=== PATIENT | male | born 1935 | race Caucasian/White ===

== ENCOUNTER → 2017-01-03 | Outpatient (CLI) | payer MEDICARE ==
--- NOTE | 2017-01-03 10:22 | XR ---
EXAMINATION TYPE: XR bone survey complete DATE OF EXAM: 01/03/2017 COMPARISON: 01/01/2014 HISTORY: 81-year-old male hyperlipidemia, CAD, monoclonal gammopathy. TECHNIQUE: 17 views. FINDINGS: Bony calvarium : 2 views of the bony calvarium no suspicious punched-out lytic lesion. CHEST: Median sternotomy wires with post-CABG changes. Lungs and pleural spaces are clear. No discret e rib lesion seen. Spine: Cervical spine with trace grade 1 anterolisthesis at C4-C5. Facet and uncovertebral joint arth ropathy. No suspicious lytic lesion. Bilateral carotid bulb calcifications noted. Thoracic spine with mild endplate spondylosis but preserved alignment. The vertebral body heights are maintained. Lumbar spine with hypertrophic facet arthropathy and mild multilevel endplate spondylosis. No vertebral com pression collapse. Atherosclerotic calcifications within the abdominal aorta which has a caliber up t o 2.3 cm. PELVIS: Single view of the pelvis demonstrates mild degenerative change at both hips with axial joint space narrowing. Vascular calcifications. No suspicious lytic lesion. UPPER EXTREMITIES: Two views of the humeri show old healed surgical neck fracture deformity. No suspi cious lytic lesion. LOWER EXTREMITIES: No suspicious lytic lesion. IMPRESSION: No suspicious lytic lesion to suggest multiple myeloma.
== END ==
LOC: RADXRMAIN 08:52
PROVIDERS: ATTEND Internal Medicine Hematology & Oncology
DX: D47.2 Monoclonal gammopathy (principal); N18.9 Chronic kidney disease, unspecified; E78.5 Hyperlipidemia, unspecified; I25.10 Atherosclerotic heart disease of native coronary artery without angina pectoris
CPT/HCPCS: 77075

== ENCOUNTER → 2017-02-11 | Outpatient (CLI) | payer MEDICARE ==
--- NOTE | 2017-02-12 08:08 | PE ---
EXAMINATION TYPE: PET CT fusion whole body DATE OF EXAM: 02/11/2017 COMPARISON: Complete bone survey January 03, 2017 HISTORY: Multiple myeloma TECHNIQUE: Following the intravenous administration of 15.5 mCi of F-18 FDG, whole body images are p erformed from the top of skull to the bottom of feet. Images are reviewed on the computer in the cor onal, axial, and sagittal planes. Reconstructed rotating images are created on independent workstati on and reviewed on the computer. A localization and attenuation correction CT is performed in conju nction with the PET scan. SCAN: Initial Scan FINDINGS: HEAD AND NECK: No suspicious hypermetabolic uptake is identified. CHEST, MEDIASTINUM, AND HILAR REGION: No suspicious hypermetabolic uptake is identified in the thorax . ABDOMEN AND PELVIS: No suspicious hypermetabolic uptake is seen in the abdomen or pelvis. OSSEOUS STRUCTURES: No suspicious hypermetabolic uptake is identified in osseous structures with zakia esponding lucent lesion. LOWER EXTREMITIES: No suspicious hypermetabolic uptake is present. OTHER CT: Scleral calcification both globes is present. There is fairly severe calcified plaque at bilateral carotid bulbs. Advise carotid ultrasound follow- up to further assess. Three-vessel coronary artery calcification is present which is noted marker for coronary artery disea se. Post CABG changes however are present with sternal wires and mediastinal clips seen. Heart size i s mildly enlarged. Small degree of bilateral gynecomastia is noted. There is fairly moderate to severe calcified plaque in the abdominal aorta extending into branch vess els. There is multilevel facet arthropathy in the lower lumbar spine. There is multilevel spurring through out the spine. Prostate gland is enlarged in size bulging on bladder base, underlying BPH is felt present. There is mild wall thickening of the bladder this is likely product of outlet obstruction related to enlarged prostate gland. Clinical confirmation recommended. There is suspected moderate to large sized right scrotal fluid collection or hydrocele. There is fairly moderate to severe diffuse calcified arterial plaque in bilateral lower extremities. Hallux valgus deformities are present bilaterally. IMPRESSION: 1. No definitive lytic and/or hypermetabolic lesions identified to suggest active multiple myeloma. 2. Severe calcified plaque bilateral carotid bulbs in patient with known coronary artery and peripher al vascular disease, consider carotid ultrasound follow-up to assess for possible significant stenosi s.
== END | disposition home or self-care (01) ==
LOC: RADPETMAIN 15:26
PROVIDERS: ATTEND Internal Medicine Hematology & Oncology
DX: C90.00 Multiple myeloma not having achieved remission (principal)
CPT/HCPCS: 78816; A9552

== ENCOUNTER 2017-12-19 05:46 | Day surgery (SDC) | payer MEDICARE ==
[2017-12-15 09:37] VITALS: BMI 25.8
[~2017-12-19 05:46] MED LIST: LACTATED RINGERS 1,000 ML IV SCH
[2017-12-19 06:13] VITALS: RESP 16; TEMP 97.8
[2017-12-19] MEDS ORDERED: LIDOCAINE 1% 20 ML VIAL (10MG/ML) FOR IV START INTRADERMA ONE (06:26)
[2017-12-19 06:27] LABS: Glucose,Whole Blood 98 mg/dL (75-99)
[2017-12-19] MEDS ORDERED: PROPOFOL 10 MG/ML 20 ML VIAL IV ONE (07:02)
[2017-12-19] MEDS ORDERED: LIDOCAINE 1% INJ 10MG/ML (20 ML MDV) ONE (07:02)
[2017-12-19 07:59] LABS: Basophils # (A) 0.1 k/uL (0-0.2); Basophils % (A) 1 %; Eosinophils # (A) 0.1 k/uL (0-0.7); Eosinophils % (A) 2 %; HCT 39.4 % (39.0-53.0); HGB 13.2 gm/dL (13.0-17.5); Lymphocytes # (A) 1.6 k/uL (1.0-4.8); Lymphocytes % (A) 25 %; MCH 29.9 pg (25.0-35.0); MCHC 33.4 g/dL (31.0-37.0); MCV 89.4 fL (80.0-100.0); Mean Platelet Volume 7.6; Monocytes # (A) 0.5 k/uL (0-1.0); Monocytes % (A) 7 %; Neutrophils # (A) 4.2 k/uL (1.3-7.7); Neutrophils % (A) 63 %; Platelet Count 244 k/uL (150-450); RDW 13.1 % (11.5-15.5); WBC 6.6 k/uL (3.8-10.6)
[2017-12-19 08:06] VITALS: BP 131/55; PULSE 58
--- NOTE | 2017-12-19 08:25 | PCN ---
PROCEDURE NOTE DATE OF SERVICE: 12/19/2017 PROCEDURE: Bone marrow aspirate and biopsy. INDICATION: Monoclonal gammopathy After obtaining consent from the patient, the procedure was performed in the endoscopy suite under general anesthesia performed by the anesthesia team. The patient was put in the left lateral decubitus position. Right posterior superior iliac crest was localized. Skin was cleaned with ChloraPrep. All sterile procedures were followed and 2 mL of 2% Xylocaine was used for local anesthetic. Monoject needle was inserted, about 10 mL of aspirate and a 2 cm biopsy was obtained without any difficulties. Pressure applied afterwards. There was negligible blood loss. Patient tolerated the procedure very well without any immediate complications. MMODL / IJN: [id number] /
== END 2017-12-19 08:27 | disposition home or self-care (01) ==
LOC: OR 05:46
PROVIDERS: ATTEND Internal Medicine Hematology & Oncology
DX: D47.2 Monoclonal gammopathy (principal); I25.10 Atherosclerotic heart disease of native coronary artery without angina pectoris; I10 Essential (primary) hypertension; E78.5 Hyperlipidemia, unspecified; E11.9 Type 2 diabetes mellitus without complications; E07.9 Disorder of thyroid, unspecified; Z95.1 Presence of aortocoronary bypass graft; Z79.4 Long term (current) use of insulin; Z79.899 Other long term (current) drug therapy
CPT/HCPCS: 38221; 85025; J2001; J2704

== ENCOUNTER 2019-01-13 13:17 | Emergency (ER) | payer MEDICARE ==
[2019-01-13 13:24] VITALS: TEMP 98.3
--- NOTE | 2019-01-13 14:16 | ED ---
Fall HPI - General Chief Complaint: Fall Stated Complaint: Fall Time Seen by Provider: 01/13/19 13:40 Source: patient, family, EMS, RN notes reviewed Mode of arrival: EMS - History of Present Illness Initial Comments: This is an 86-year-old male who was found by his to be radiating to his doorbell on his front porch after apparently falling off of a ladder. He does not recall the event be on a ladder how he maybe got there or falling. He complains some pain to his neck and some pain to his right elbow right hip and right leg. No fevers chills nausea vomiting sweats he does remember who he has who is family has his birthdate even the area the weekend day. He is not recall this event. Per family his mentation appears be back to normal. He denies any chest pain or palpitations he believes his last tetanus shot was 2 years ago. MD Complaint: fall - Related Data Home Medications Medication Instructions Recorded Confirmed Aspirin EC [Ecotrin] 325 mg PO DAILY 12/15/17 01/13/19 Insulin Glulisine [Apidra] 0 unit SQ AC-TID 12/15/17 01/13/19 Isosorbide Mononitrate ER [Imdur] 30 mg PO DAILY 12/15/17 01/13/19 Levothyroxine Sodium [Levoxyl] 112 mcg PO DAILY 12/15/17 01/13/19 Metoprolol Succinate [Toprol XL] 25 mg PO DAILY 12/15/17 01/13/19 Pravastatin Sodium [Pravachol] 40 mg PO DAILY 12/15/17 01/13/19 amLODIPine [Norvasc] 10 mg PO DAILY 12/15/17 01/13/19 Ferrous Sulfate [Iron (65 MG 325 mg PO DAILY 01/13/19 01/13/19 Elemental)] Insulin Glargine [Lantus] 22 unit SQ HS 01/13/19 01/13/19 Insulin Glargine [Lantus] 26 unit SQ AC-BRKFST 01/13/19 01/13/19 Omeprazole 20 mg PO DAILY PRN 01/13/19 01/13/19 Allergies Allergy/AdvReac Type Severity Reaction Status Date / Time No Known Allergies Allergy Verified 01/13/19 13:36 Review of Systems ROS Statement: Those systems with pertinent positive or pertinent negative responses have been documented in the HPI. ROS Other: All systems not noted in ROS Statement are negative. Limitations: ROS unobtainable due to patients medical condition Past Medical History Past Medical History: Diabetes Mellitus, GERD/Reflux, Hyperlipidemia, Hypertension, Osteoarthritis (OA), Renal Disease, Thyroid Disorder History of Any Multi-Drug Resistant Organisms: None Reported Past Surgical History: Coronary Bypass/CABG, Hernia Repair Additional Past Surgical History / Comment(s): triple bypass, mastoid Past Anesthesia/Blood Transfusion Reactions: No Reported Reaction Past Psychological History: No Psychological Hx Reported Smoking Status: Former smoker Past Alcohol Use History: None Reported Past Drug Use History: None Reported - Past Family History Mother Family Medical History: No Reported History General Exam - General Exam Comments Initial Comments: This is a well-developed well-nourished awake alert lady 1 male [place] Coma Scale currently is 15 Limitations: no limitations General appearance: alert, in no apparent distress Head exam: Present: atraumatic, normocephalic, normal inspection Eye exam: Present: normal appearance, PERRL, EOMI. Absent: scleral icterus, conjunctival injection, periorbital swelling ENT exam: Present: normal exam, mucous membranes moist Neck exam: Present: normal inspection, other (Cervical collar present some mild tenderness palpation of the right posterior neck no midline tenderness above or crepitation). Absent: tenderness, meningismus, lymphadenopathy Respiratory exam: Present: normal lung sounds bilaterally, chest wall tenderness (Tender right-sided chest wall without step-off or crepitation). Absent: respiratory distress, wheezes, rales, rhonchi, stridor Cardiovascular Exam: Present: regular rate, normal rhythm, normal heart sounds. Absent: systolic murmur, diastolic murmur, rubs, gallop, clicks GI/Abdominal exam: Present: soft, tenderness (Some right flank tenderness palpation), normal bowel sounds. Absent: distended, guarding, rebound, rigid Rectal exam: Present: deferred Extremities exam: Present: full ROM, normal capillary refill, other (Abrasion seen over the right lateral knee right lateral elbow and forearm tenderness palpation of the right shoulder posterior aspect. Minimal evidence for abrasi on). Absent: tenderness, pedal edema, joint swelling, calf tenderness Back exam: Present: normal inspection, full ROM Neurological exam: Present: alert, oriented X3, CN II-XII intact, other (No memory of the incident) Psychiatric exam: Present: normal affect, normal mood Skin exam: Present: warm, dry, normal color. Absent: intact, rash Course Vital Signs 01/13/19 01/13/19 13:18 15:14 Temperature 98.3 F Pulse Rate 69 62 Respiratory 20 18 Rate Blood Pressure 157/61 146/62 O2 Sat by Pulse 98 97 Oximetry - Reevaluation(s) Reevaluation #1: 01/13/19 16:16 Evaluation patient reveals no changes male says he remains awake alert oriented 3 Medical Decision Making - Medical Decision Making I did discuss findings with the patient and multiple family members able actively be transferred to [facility] in [place] I did discuss the case with Dr. Palacios who is agreed to set the patient transfer. Patient is stable at this time. - Lab Data Result diagrams: 01/13/19 14:20 01/13/19 14:18 Lab Results 01/13/19 01/13/19 01/13/19 Range/Units 14:18 14:18 14:18 WBC (3.8-10.6) k/uL RBC (4.30-5.90) m/uL Hgb (13.0-17.5) gm/dL Hct (39.0-53.0) % MCV (80.0-100.0) fL MCH (25.0-35.0) pg MCHC (31.0-37.0) g/dL RDW (11.5-15.5) % Plt Count (150-450) k/uL Neutrophils % % Lymphocytes % % Monocytes % % Eosinophils % % Basophils % % Neutrophils # (1.3-7.7) k/uL Lymphocytes # (1.0-4.8) k/uL Monocytes # (0-1.0) k/uL Eosinophils # (0-0.7) k/uL Basophils # (0-0.2) k/uL PT 10.5 (9.0-12.0) sec INR 1.0 (<1.2) APTT 23.7 (22.0-30.0) sec Sodium 136 L (137-145) mmol/L Potassium 4.0 (3.5-5.1) mmol/L Chloride 103 (98-107) mmol/L Carbon Dioxide 25 (22-30) mmol/L Anion Gap 8 mmol/L BUN 34 H (9-20) mg/dL Creatinine 1.59 H (0.66-1.25) mg/dL Est GFR (CKD-EPI)AfAm 45 (>60 ml/min/1.73 sqM) Est GFR (CKD-EPI)NonAf 39 (>60 ml/min/1.73 sqM) Glucose 181 H (74-99) mg/dL Calcium 8.7 (8.4-10.2) mg/dL Total Bilirubin 0.4 (0.2-1.3) mg/dL AST 161 H (17-59) U/L ALT 120 H (21-72) U/L Alkaline Phosphatase 113 (38-126) U/L Creatine Kinase 271 H (55-170) U/L Troponin I <0.012 (0.000-0.034) ng/mL Total Protein 6.3 (6.3-8.2) g/dL Albumin 3.6 (3.5-5.0) g/dL Serum Alcohol <10 mg/dL Blood Type Blood Type Recheck Antibody Screen Spec Expiration Date 01/13/19 01/13/19 Range/Units 14:18 14:20 WBC 14.4 H (3.8-10.6) k/uL RBC 4.32 (4.30-5.90) m/uL Hgb 13.0 (13.0-17.5) gm/dL Hct 38.2 L (39.0-53.0) % MCV 88.4 (80.0-100.0) fL MCH 30.1 (25.0-35.0) pg MCHC 34.1 (31.0-37.0) g/dL RDW 13.5 (11.5-15.5) % Plt Count 230 (150-450) k/uL Neutrophils % 85 % Lymphocytes % 7 % Monocytes % 6 % Eosinophils % 0 % Basophils % 0 % Neutrophils # 12.2 H (1.3-7.7) k/uL Lymphocytes # 1.1 (1.0-4.8) k/uL Monocytes # 0.9 (0-1.0) k/uL Eosinophils # 0.1 (0-0.7) k/uL Basophils # 0.0 (0-0.2) k/uL PT (9.0-12.0) sec INR (<1.2) APTT (22.0-30.0) sec Sodium (137-145) mmol/L Potassium (3.5-5.1) mmol/L Chloride (98-107) mmol/L Carbon Dioxide (22-30) mmol/L Anion Gap mmol/L BUN (9-20) mg/dL Creatinine (0.66-1.25) mg/dL Est GFR (CKD-EPI)AfAm (>60 ml/min/1.73 sqM) Est GFR (CKD-EPI)NonAf (>60 ml/min/1.73 sqM) Glucose (74-99) mg/dL Calcium (8.4-10.2) mg/dL Total Bilirubin (0.2-1.3) mg/dL AST (17-59) U/L ALT (21-72) U/L Alkaline Phosphatase (38-126) U/L Creatine Kinase (55-170) U/L Troponin I (0.000-0.034) ng/mL Total Protein (6.3-8.2) g/dL Albumin (3.5-5.0) g/dL Serum Alcohol mg/dL Blood Type O Negative Blood Type Recheck No Antibody Screen NEGATIVE Spec Expiration Date 01/16/2019 8624 - EKG Data -: EKG Interpreted by Me (EKG shows sinus rhythm a 65 NH interval 250 to QRS duration 100 QT since QT) - Radiology Data Radiology results: report reviewed (I did review the imaging and report on x-ray there is a evidence of a approximately 10% pneumothorax on the right I did discuss this with radiologist CAT scan of the brain and C-spine chest abdomen pelvis reveals in the brain multiple foci of acute subarachnoid bleeding minimal amount of acute interventricular bleeding noted. No mass effect. No skull fracture noted. CAT scan of the chest shows evidence of pneumothorax posterior -15%. Rib fractures #3 is fractured. Evidence of compression fractures at T11 and L3. This is likely old. Also old rib fractures on the left side. No other remarkable findings.), image reviewed Critical Care Time Critical Care Time: Yes Critical Care Time: 39 minutes of critical care time which includes initial presentation with history physical labs x-rays multiple reevaluation the patient multiple discussions with the patient family members discussion with the receiving facility staff discussion with the EMS personnel documentation the above. Disposition Clinical Impression: Fall, Subarachnoid hemorrhage, Concussion, Pneumothorax on right, Multiple rib fractures, Multiple abrasions Disposition: OTHER INSTITUTION NOT DEFINED Condition: Serious Referrals: Ag Burns MD [Primary Care Provider] - 1-2 days - Out of Hospital Transfer - Req. Specs Out of Hospital Transfer - Requested Specifics: Other Emergency Center
[2019-01-13 14:33] LABS: Basophils % (A) 0 %; Eosinophils # (A) 0.1 k/uL (0-0.7); Eosinophils % (A) 0 %; HCT 38.2 % (39.0-53.0); Lymphocytes # (A) 1.1 k/uL (1.0-4.8); Lymphocytes % (A) 7 %; MCH 30.1 pg (25.0-35.0); MCHC 34.1 g/dL (31.0-37.0); MCV 88.4 fL (80.0-100.0); Mean Platelet Volume 6.9; Monocytes # (A) 0.9 k/uL (0-1.0); Monocytes % (A) 6 %; Neutrophils # (A) 12.2 k/uL (1.3-7.7); Neutrophils % (A) 85 %; Platelet Count 230 k/uL (150-450); RBC 4.32 m/uL (4.30-5.90); RDW 13.5 % (11.5-15.5); WBC 14.4 k/uL (3.8-10.6)
[2019-01-13] MEDS ORDERED: SODIUM CHLORIDE 0.9% 1,000 ML IV STA (14:34)
--- NOTE | 2019-01-13 14:37 | XR ---
EXAMINATION TYPE: XR chest 1V portable DATE OF EXAM: 01/13/2019 COMPARISON: NONE HISTORY: Fall with possible syncope. TECHNIQUE: Single frontal view of the chest is obtained. FINDINGS: There is no focal air space opacity, pleural effusion, or pulmonary vascular congestion. D ictated pneumothorax is seen without gross evidence of mediastinal shift. The cardiac silhouette size is enlarged with post CABG change. Diffuse osseous demineralization is seen. There appear to be old fracture deformities of the left mid lateral ribs. IMPRESSION: 1. Right sided pneumothorax estimated to be approximately 10% with maximum pleural upright separation of 1.7 cm at the lung apex. Finding was clinically indicated with Dr. Archibald at 1435 PM on 01/13/[address] Patterson. 2. Left rib fractures appear old however correlation with point tenderness is recommended.
[2019-01-13 14:41] LABS: ALT 120 U/L (21-72); AST 161 U/L (17-59); African American GFR (CKD) 45 (>60 ml/min/1.73 sqM); Albumin 3.6 g/dL (3.5-5.0); Alcohol <10 mg/dL; Alkaline Phosphatase 113 U/L (38-126); Anion Gap 8 mmol/L; Blood Urea Nitrogen 34 mg/dL (9-20); Calcium 8.7 mg/dL (8.4-10.2); Carbon Dioxide 25 mmol/L (22-30); Chloride 103 mmol/L (98-107); Creatine Kinase 271 U/L (55-170); Glucose 181 mg/dL (74-99); Sodium 136 mmol/L (137-145); Total Bilirubin 0.4 mg/dL (0.2-1.3); Total Protein 6.3 g/dL (6.3-8.2)
[2019-01-13 14:44] LABS: Partial Thromboplastin Time 23.7 sec (22.0-30.0); Prothrombin Time 10.5 sec (9.0-12.0)
[2019-01-13] MEDS ORDERED: HYDROmorphone 0.5 MG/0.5 ML SYRINGE IVP STA (15:00)
--- NOTE | 2019-01-13 15:07 | CT ---
EXAMINATION TYPE: CT brain cspine wo con DATE OF EXAM: 01/13/2019 COMPARISON: Chest x-ray of the same date HISTORY: Possible fall injury, confusion. Head and neck pain. CT DLP: 1321.6 mGycm. Automated Exposure Control for Dose Reduction was Utilized. TECHNIQUE: CT scan of the head and cervical spine are performed without contrast. FINDINGS: There are multiple foci of acute subarachnoid hemorrhage. There is also 8 small amount of i ntraventricular hemorrhage lying dependently within the right lateral ventricle. No subdural hemorrha ge is identified. No intraparenchymal hemorrhage is seen. Peripheral sulci and ventricular prominence are compatible with age-related volume loss. Scattered patchy foci of hypoattenuation within the per iventricular and subcortical white matter relate to nonspecific white matter change, most commonly on the basis of microangiopathy. Scleral calcifications are incidentally seen. Globes appear intact. Ca lvarium also appears intact. Paranasal sinuses appear well aerated. Postsurgical change of the right mastoid air cells is noted. Moderate multilevel degenerative disc disease of the cervical spine is seen. There is degenerative na rrowing of the atlantodental interval. There is straightening of usual cervical lordosis likely due t o patient positioning. Small posterior disc ossify complexes seen at C4-C5. No prevertebral soft tiss ue swelling is evident. No acute fracture is seen of the cervical spine or dislocation. The partially visualized right-sided pneumothorax was communicated with the ER from the chest x-ray and will be di scussed on the CT thorax of the same date. Incidental noted atherosclerosis of the carotid arteries. IMPRESSION: 1. Multiple foci of acute subarachnoid hemorrhage and minimal amount of acute intraventricular hemorr gerardo. Findings can indicate with the ordering ER physician at 1503 on 01/13/[address] Patterson. 2. No focal spine fracture or malalignment.
--- NOTE | 2019-01-13 15:14 | CT ---
EXAMINATION TYPE: CT ChestAbdPelvis w con DATE OF EXAM: 01/13/2019 COMPARISON: Chest x-ray of the same date HISTORY: Possible fall injury. Confusion CT DLP: 833.4 mGycm. Automated Exposure Control for Dose Reduction was Utilized. CONTRAST: CT scan of the thorax, abdomen and pelvis is performed with IV Contrast, patient injected with 80 mL of Isovue 300. FINDINGS: LUNGS: There is a right-sided pneumothorax estimated at approximately 15-20% without appreciable medi astinal shift. Multifocal atelectasis is seen within the right lung. Multifocal atelectasis is also s cattered dependently within the left lung. No left-sided pneumothorax is seen. Subcutaneous emphysema is mild along the anterior lateral chest wall. MEDIASTINUM: Severe coronary artery calcifications are present. Heart is mildly enlarged. No pericard ial effusion. No gross evidence of mediastinal adenopathy. There are some nonspecific mediastinal flu id in the pericardial recess. No evidence of contrast extravasation from the aorta. OTHER: There are nondisplaced rib fractures of posterior rib 2 on the right, lateral rib 4 on the rig ht, lateral rib 5 and 6 on the right, lateral rib 5 on the left and 6 on the left. Left rib fractures are possibly subacute and right rib fractures appear acute. There is a compression deformity of the L3 vertebral body and of the T11 vertebral body. There is minimal retropulsion of the T11 vertebral b celeste of 1-2 mm. Sternotomy wires are seen. Mild multilevel degenerative changes of the spine are noted . Compression deformities are less than 50% vertebral body height loss. LIVER/GB: Nonspecific subcentimeter solitary hepatic lesion is seen within the right hepatic lobe pos teriorly on image 50. There is limited evaluation of the liver as the patient's arms are at the patie nt's side. Questionable differential lesions in the anterior and posterior inferior right hepatic lob e in segment IVb and 6 on image 58 although subtle. No cholelithiasis. PANCREAS: No significant abnormality is seen. SPLEEN: No significant abnormality is seen. ADRENALS: No significant abnormality is seen. KIDNEYS: Kidneys enhance symmetrically without perinephric fluid collection. BOWEL: No dilated large or small bowel is seen. There is a very small hiatal hernia. GENITAL ORGANS: Prostate gland is enlarged and heterogenous. LYMPH NODES: No greater than 1cm abdominal or pelvic lymph nodes are appreciated. OSSEOUS STRUCTURES: No significant abnormality is seen. OTHER: There is extensive atherosclerosis of the abdominal aorta and its branches with chronic dissec tion that is calcified of the infrarenal abdominal aorta. 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 IMPRESSION: 1. Right-sided pneumothorax (known to the ER) estimated approximately 15-20% without current mediasti nal shift. 2. Multiple bilateral rib fractures appear acute on the right and subacute to chronic on the left. 3. No evidence of visceral injury in the abdomen or pelvis. 4. Age indeterminant compression deformities of T11 and L3. Correlate for point tenderness.
[2019-01-13 15:15] VITALS: RESP 18
[2019-01-13 16:37] VITALS: BP 145/67; PULSE 63
[2019-01-13] MEDS ORDERED: HYDROmorphone 1 MG/ML 1 ML SYRINGE IVP STA (16:38)
== END 2019-01-13 16:50 | disposition short-term general hospital (02) ==
LOC: EC 13:17
DX: S27.0XXA Traumatic pneumothorax, initial encounter (principal); S06.6X9A Traumatic subarachnoid hemorrhage with loss of consciousness of unspecified duration, initial encounter; S22.43XA Multiple fractures of ribs, bilateral, initial encounter for closed fracture; S80.211A Abrasion, right knee, initial encounter; S50.311A Abrasion of right elbow, initial encounter; S40.211A Abrasion of right shoulder, initial encounter; R40.2412 Glasgow coma scale score 13-15, at arrival to emergency department; M25.551 Pain in right hip; M54.2 Cervicalgia; E11.9 Type 2 diabetes mellitus without complications; E78.5 Hyperlipidemia, unspecified; I10 Essential (primary) hypertension; M19.90 Unspecified osteoarthritis, unspecified site; E07.9 Disorder of thyroid, unspecified; Z87.891 Personal history of nicotine dependence; Z79.4 Long term (current) use of insulin; Z79.82 Long term (current) use of aspirin; Z79.890 Hormone replacement therapy; Z79.899 Other long term (current) drug therapy; Z95.1 Presence of aortocoronary bypass graft; W11.XXXA Fall on and from ladder, initial encounter; Y92.89 Other specified places as the place of occurrence of the external cause
CPT/HCPCS: 99291; 96374; 96376; 96361; 36415; 93005; 86900; 86901; 80053; 82550; 84484; 85025; 85610; 85730; 86850; 71045; 72125; 70450; 71260; 74177; G0480; J1170 ×2; Q9967; 80320

== ENCOUNTER 2019-02-27 10:49 | Day surgery (SDC) | payer MEDICARE ==
[2019-02-22 10:06] VITALS: BMI 24.3
[~2019-02-27 10:49] MED LIST changes: -LACTATED RINGERS 1,000 ML IV SCH; +SODIUM CHLORIDE 0.9% 1,000 ML IV SCH
[2019-02-27] MEDS ORDERED: LIDOCAINE 1% INJ 10MG/ML (20 ML MDV) ONE (11:59)
[2019-02-27 12:00] VITALS: TEMP 98.2
[2019-02-27] MEDS ORDERED: SODIUM CHLORIDE 0.9% 1,000 ML IV ONE (12:00)
[2019-02-27 12:15] LABS: Glucose,Whole Blood 146 mg/dL (75-99)
[2019-02-27] MEDS ORDERED: fentaNYL (PF) 50 MCG/ML 2 ML AMP ONE (12:30)
[2019-02-27] MEDS ORDERED: LIDOCAINE 1% INJ 10MG/ML (20 ML MDV) SQ ONE (12:33)
[2019-02-27] MEDS ORDERED: fentaNYL (PF) 50 MCG/ML 2 ML AMP IVP ONE (12:33)
[2019-02-27] MEDS ORDERED: MIDAZOLAM (PF) 2 MG/2 ML VIAL IVP ONE (12:33)
[2019-02-27] MEDS ORDERED: ceFAZolin 1,000 MG VIAL IV ONE (12:33)
[2019-02-27] MEDS ORDERED: ACETAMINOPHEN TAB 325 MG TAB PO PRN (12:43)
--- NOTE | 2019-02-27 12:50 | P.PCN ---
Date of Procedure: 02/27/19 Preoperative Diagnosis: An unexplained syncope Postoperative Diagnosis: The same Implants: Loop recorder insertion Description of Procedure: This 83-year-old gentleman was referred for loop recorder insertion because of unexplained recurrent syncopes. Patient was brought to the lab in a fasting state. He was prepped and draped in the usual fashion. The skin in the left third intercostal space was infiltrated with lidocaine. An incision was made in the skin. The loop recorder was inserted in the usual fashion without any difficulty. Patient tolerated the procedure well. Final impression: Successful implantation of loop recorder. Loop recorder is programmed to the standard set up. Plan: Patient be discharged home in 2 hours. Follow-up in the office in about one week
[2019-02-27 17:05] VITALS: RESP 16
[2019-02-27 17:12] VITALS: BP 146/87; PULSE 65
== END 2019-02-27 13:25 | disposition home or self-care (01) ==
LOC: CATHEP 10:49
PROVIDERS: ATTEND Internal Medicine Cardiovascular Disease
DX: R55 Syncope and collapse (principal); I65.23 Occlusion and stenosis of bilateral carotid arteries; I25.10 Atherosclerotic heart disease of native coronary artery without angina pectoris; E78.5 Hyperlipidemia, unspecified; E11.51 Type 2 diabetes mellitus with diabetic peripheral angiopathy without gangrene; E78.2 Mixed hyperlipidemia; E11.22 Type 2 diabetes mellitus with diabetic chronic kidney disease; I12.9 Hypertensive chronic kidney disease with stage 1 through stage 4 chronic kidney disease, or unspecified chronic kidney disease; N18.9 Chronic kidney disease, unspecified; Z95.1 Presence of aortocoronary bypass graft; Z79.82 Long term (current) use of aspirin; Z79.02 Long term (current) use of antithrombotics/antiplatelets; Z79.899 Other long term (current) drug therapy; Z79.4 Long term (current) use of insulin
CPT/HCPCS: 33285; C1764; J0690; J2001; J3010; J2250

== ENCOUNTER 2021-10-21 17:08 | Observation (INO) | payer MEDICARE ==
[2021-10-21 17:46] LABS: Basophils % (A) 1 %; Eosinophils # (A) 0.1 k/uL (0-0.7); Eosinophils % (A) 1 %; HCT 38.5 % (39.0-53.0); HGB 12.5 gm/dL (13.0-17.5); Lymphocytes # (A) 1.8 k/uL (1.0-4.8); Lymphocytes % (A) 22 %; MCH 30.4 pg (25.0-35.0); MCHC 32.4 g/dL (31.0-37.0); MCV 93.8 fL (80.0-100.0); Mean Platelet Volume 8.7; Monocytes # (A) 0.5 k/uL (0-1.0); Monocytes % (A) 6 %; Neutrophils # (A) 5.8 k/uL (1.3-7.7); Neutrophils % (A) 69 %; Platelet Count 197 k/uL (150-450); RDW 14.1 % (11.5-15.5); WBC 8.4 k/uL (3.8-10.6)
[2021-10-21 17:55] LABS: Albumin 3.8 g/dL (3.5-5.0); Calcium 8.5 mg/dL (8.4-10.2); Potassium 4.4 mmol/L (3.5-5.1); Total Bilirubin 0.8 mg/dL (0.2-1.3); Total Protein 6.4 g/dL (6.3-8.2)
[2021-10-21 18:03] LABS: INR 1.1 (<1.2); Prothrombin Time 11.5 sec (9.0-12.0)
--- NOTE | 2021-10-21 18:04 | XR ---
EXAMINATION TYPE: XR chest 2V DATE OF EXAM: 10/21/2021 5:39 PM COMPARISON: Chest radiographs from 01/13/2019 TECHNIQUE: XR chest 2V Frontal and lateral views of the chest. CLINICAL INDICATION:Male, 85 years old with history of shortness of breath; FINDINGS: Lungs/Pleura: There is blunting of the costophrenic angles. No evidence of pneumothorax or focal cons olidation. Pulmonary vascularity: Pulmonary vascular congestion. Heart/mediastinum: Cardiomediastinal silhouette is enlarged and stable. A loop recorder projects over the left thorax over the heart. Musculoskeletal: No acute osseous pathology. Midline sternotomy wires and surgical clips project over the mediastinum. IMPRESSION: Cardiomegaly, pulmonary vascular congestion and bilateral pleural effusions. Correlate with BNP for c ongestive heart failure.
--- NOTE | 2021-10-21 18:20 | ED ---
General Adult HPI - General Chief complaint: Shortness of Breath Stated complaint: Chest pain,RAIZA Time Seen by Provider: 10/21/21 17:43 Source: patient, RN notes reviewed, old records reviewed Mode of arrival: ambulatory Limitations: no limitations - History of Present Illness Initial comments: 85-year-old male presenting for evaluation of increased dyspnea and palpitations. Patient has history of coronary artery disease. He states that he had recent heart attack in [place] within the past 2 months. He states he had a heart catheterization at that time which did not show any blockage and he did not receive a stent. He is anticoagulated. He states that he's had exertional dyspnea and palpitations without pain. No cough or fever. He is a diabetic. He had open-heart surgery 20 years ago. - Related Data Home Medications Medication Instructions Recorded Confirmed Aspirin EC [Ecotrin] 162.5 mg PO DAILY 12/15/17 02/27/19 Insulin Glulisine [Apidra] 4 - 9 unit SQ AC-TID PRN 12/15/17 02/27/19 Isosorbide Mononitrate ER [Imdur] 30 mg PO DAILY 12/15/17 02/27/19 Levothyroxine Sodium [Levoxyl] 112 mcg PO DAILY 12/15/17 02/27/19 Metoprolol Succinate [Toprol XL] 25 mg PO BID@0800,1200 12/15/17 02/27/19 Pravastatin Sodium [Pravachol] 40 mg PO DAILY 12/15/17 02/27/19 Insulin Degludec [Tresiba 30 - 32 units SQ DAILY 01/13/19 02/27/19 Flextouch U-200] Omeprazole 20 mg PO DAILY PRN 01/13/19 02/27/19 amLODIPine [Norvasc] 5 mg PO BID 01/13/19 02/27/19 hydrALAZINE HCL [Apresoline] 25 mg PO TID 01/13/19 02/27/19 Ascorbic Acid [Vitamin C] 1,000 mg PO DAILY 02/22/19 02/27/19 Iron 45 mg PO DAILY 02/22/19 02/27/19 calcitrioL [Rocaltrol] 2 mcg PO SUTUTH 02/22/19 02/27/19 Cephalexin [Keflex] 500 mg PO Q8HR 02/27/19 02/27/19 Allergies Allergy/AdvReac Type Severity Reaction Status Date / Time No Known Allergies Allergy Verified 02/27/19 11:28 Review of Systems ROS Statement: Those systems with pertinent positive or pertinent negative responses have been documented in the HPI. ROS Other: All systems not noted in ROS Statement are negative. Past Medical History Past Medical History: Diabetes Mellitus, GERD/Reflux, Hyperlipidemia, Hyp ertension, Myocardial Infarction ([place]), Osteoarthritis (OA), Renal Disease, Thyroid Disorder History of Any Multi-Drug Resistant Organisms: None Reported Past Surgical History: Coronary Bypass/CABG, Heart Catheterization, Hernia Repair Additional Past Surgical History / Comment(s): triple bypass, right mastoid Past Anesthesia/Blood Transfusion Reactions: No Reported Reaction Past Psychological History: No Psychological Hx Reported Smoking Status: Never smoker Past Alcohol Use History: None Reported Past Drug Use History: None Reported - Past Family History Mother Family Medical History: No Reported History General Exam Limitations: no limitations General appearance: alert, in no apparent distress Head exam: Present: atraumatic, normocephalic Eye exam: Present: normal appearance, PERRL ENT exam: Present: normal exam Neck exam: Present: normal inspection. Absent: tenderness, meningismus Respiratory exam: Present: respiratory distress, rales, decreased breath sounds Cardiovascular Exam: Present: bradycardia, irregular rhythm GI/Abdominal exam: Present: soft. Absent: distended, tenderness, guarding Extremities exam: Present: pedal edema (trace) Neurological exam: Present: alert, oriented X3. Absent: motor sensory deficit Psychiatric exam: Present: normal affect, normal mood Skin exam: Present: warm, dry, intact. Absent: cyanosis, diaphoretic Course Vital Signs 10/21/21 17:10 Temperature 97.5 F L Pulse Rate 61 Respiratory 16 Rate Blood Pressure 158/63 O2 Sat by Pulse 94 L Oximetry EKG Findings - EKG Comments: EKG Findings:: EKG: Sinus bradycardia with frequent PVC rate of 56, MA interval 200, QRS duration 173, ST segment elevation in V1 and V2 with left bundle branch. Previous EKG does not show left bundle-branch. Medical Decision Making - Medical Decision Making 85-year-old male who presents for evaluation of increased dyspnea and palpitation. Recent heart cath for about 5 weeks ago. Patient reports that this did not reveal any blockages and did not receive any stents. He has no c hest pain. EKG shows a new left bundle branch block. His chest x-ray shows pulmonary vascular congestion and bilateral pleural effusions more significant on the left. He has a normal white blood cell count, stable hemoglobin, mild elevation in creatinine 1.46. His troponin is negative. He is given Lasix in the emergency department. Echo was ordered. I discussed case with cardiology regarding the change in EKG, Dr. Moore. Patient is anticoagulated at baseline he will be admitted for further evaluation treatment. She'll cardiac enzymes are ordered. Case discussed with Dr. Capellan. - Lab Data Result diagrams: 10/21/21 17:35 10/21/21 17:35 Lab Results 10/21/21 10/21/21 10/21/21 Range/Units 17:35 17:35 17:35 WBC 8.4 (3.8-10.6) k/uL RBC 4.10 L (4.30-5.90) m/uL Hgb 12.5 L (13.0-17.5) gm/dL Hct 38.5 L (39.0-53.0) % MCV 93.8 (80.0-100.0) fL MCH 30.4 (25.0-35.0) pg MCHC 32.4 (31.0-37.0) g/dL RDW 14.1 (11.5-15.5) % Plt Count 197 (150-450) k/uL MPV 8.7 Neutrophils % 69 % Lymphocytes % 22 % Monocytes % 6 % Eosinophils % 1 % Basophils % 1 % Neutrophils # 5.8 (1.3-7.7) k/uL Lymphocytes # 1.8 (1.0-4.8) k/uL Monocytes # 0.5 (0-1.0) k/uL Eosinophils # 0.1 (0-0.7) k/uL Basophils # 0.0 (0-0.2) k/uL PT 11.5 (9.0-12.0) sec INR 1.1 (<1.2) D-Dimer 0.90 H (<0.60) mg/L FEU Sodium 136 L (137-145) mmol/L Potassium 4.4 (3.5-5.1) mmol/L Chloride 108 H (98-107) mmol/L Carbon Dioxide 20 L (22-30) mmol/L Anion Gap 8 mmol/L BUN 44 H (9-20) mg/dL Creatinine 1.46 H (0.66-1.25) mg/dL Est GFR (CKD-EPI)AfAm 49 (>60 ml/min/1.73 sqM) Est GFR (CKD-EPI)NonAf 43 (>60 ml/min/1.73 sqM) Glucose 253 H (74-99) mg/dL Calcium 8.5 (8.4-10.2) mg/dL Total Bilirubin 0.8 (0.2-1.3) mg/dL AST 104 H (17-59) U/L ALT 104 H (4-49) U/L Alkaline Phosphatase 206 H (38-126) U/L Troponin I (0.000-0.034) ng/mL Total Protein 6.4 (6.3-8.2) g/dL Albumin 3.8 (3.5-5.0) g/dL 10/21/21 Range/Units 17:35 WBC (3.8-10.6) k/uL RBC (4.30-5.90) m/uL Hgb (13.0-17.5) gm/dL Hct (39.0-53.0) % MCV (80.0-100.0) fL MCH (25.0-35.0) pg MCHC (31.0-37.0) g/dL RDW (11.5-15.5) % Plt Count (150-450) k/uL MPV Neutrophils % % Lymphocytes % % Monocytes % % Eosinophils % % Basophils % % Neutrophils # (1.3-7.7) k/uL Lymphocytes # (1.0-4.8) k/uL Monocytes # (0-1.0) k/uL Eosinophils # (0-0.7) k/uL Basophils # (0-0.2) k/uL PT (9.0-12.0) sec INR (<1.2) D-Dimer (<0.60) mg/L FEU Sodium (137-145) mmol/L Potassium (3.5-5.1) mmol/L Chloride (98-107) mmol/L Carbon Dioxide (22-30) mmol/L Anion Gap mmol/L BUN (9-20) mg/dL Creatinine (0.66-1.25) mg/dL Est GFR (CKD-EPI)AfAm (>60 ml/min/1.73 sqM) Est GFR (CKD-EPI)NonAf (>60 ml/min/1.73 sqM) Glucose (74-99) mg/dL Calcium (8.4-10.2) mg/dL Total Bilirubin (0.2-1.3) mg/dL AST (17-59) U/L ALT (4-49) U/L Alkaline Phosphatase (38-126) U/L Troponin I 0.015 (0.000-0.034) ng/mL Total Protein (6.3-8.2) g/dL Albumin (3.5-5.0) g/dL Disposition Clinical Impression: New onset of congestive heart failure, Pleural effusion due to CHF (congestive heart failure) Disposition: ADMITTED IP TO THIS HOSP Condition: Stable Is patient prescribed a controlled substance at d/c from ED?: No Referrals: Ag Burns MD [Primary Care Provider] - 1-2 days Time of Disposition: 19:05
[2021-10-21] MEDS ORDERED: FUROSEMIDE 10 MG/ML 4 ML VIAL IV STA (18:26)
[2021-10-21] MEDS ORDERED: ACETAMINOPHEN TAB 325 MG TAB PO PRN (19:04)
[2021-10-21] MEDS ORDERED: NALOXONE 0.4 MG/ML 1 ML VIAL IV PRN (19:04)
[2021-10-21 21:35] LABS: Glucose,Whole Blood 180 mg/dL (75-99)
[2021-10-22] MEDS ORDERED: FUROSEMIDE 10 MG/ML 4 ML VIAL IV SCH (06:00)
[2021-10-22] MEDS: INSULIN ASPART (NovoLOG) 100 UNIT/ML VIAL SQ SCH ×4 (06:25→20:00)
[2021-10-22] MEDS: LEVOTHYROXINE 125 MCG TAB PO SCH (06:27)
[2021-10-22 06:50] LABS: Glucose,Whole Blood 162 mg/dL (75-99)
[2021-10-22] MEDS ORDERED: APIXABAN 5 MG TAB PO SCH (09:00)
[2021-10-22] MEDS: amLODIPine 5 MG TAB PO SCH ×2 (09:15→20:00)
[2021-10-22] MEDS: METOPROLOL SUCCINATE (ER) 100 MG TAB.ER.24H PO SCH ×2 (09:15→13:12)
[2021-10-22] MEDS: ISOSORBIDE MONONITRATE ER 30 MG TAB.ER.24H PO SCH (09:15)
[2021-10-22] MEDS: ASPIRIN 81 MG PO SCH (09:15)
[2021-10-22 11:43] LABS: Albumin 3.8 g/dL (3.5-5.0); Calcium 8.7 mg/dL (8.4-10.2); Potassium 4.1 mmol/L (3.5-5.1); Total Bilirubin 0.9 mg/dL (0.2-1.3); Total Protein 6.3 g/dL (6.3-8.2)
--- NOTE | 2021-10-22 11:48 | P.CRDCN ---
History of Present Illness History of present illness: HISTORY OF PRESENTING ILLNESS This is a pleasant 85-year-old male past medical history significant for coronary artery disease status post three-vessel CABG (ROLON-LAD, VG-D1, VG-OM1) in 2000, type 2 diabetes, hypertension, dyslipidemia, peripheral vascular disease, carotid stenosis, chronic kidney disease, ischemic cardiomyopathy, syncope with Loop recorder implantation 02/2019. He follows in the office with Dr. Conroy and also a Dr. Lowry in [place]. We have been asked to see in [facility] for congestive heart failure. Patient presents emergency department with worsening shortness of breath and palpitations. He states that he was having symptoms of worsening dyspnea on exertion, lower extremity edema. He states at the end of August 2021 he was in [place], he has symptoms of s hortness of breath. He was admitted at [facility]. He underwent echocardiogram and was told he had a heart attack. He states he underwent cardiac catheterization and was told no stents were placed. He also was started on Eliquis 5mg BID and he is unsure why. He states he was discharged on 09/11/2021. He was not discharged with Lasix or any diuretics. He has not followed up in the office since he has returned. He was doing well, however, over the past couple days have been having worsening shortness of breath. He was given 40mg IV Lasix x 2 with good urine output and is feeling much better. Of note, on 09/08/2021 the office called the patient due to evidence of 10 second bradycardic episode on September 08. At that time patient was in the hospital at [facility]. DIAGNOSTICS EKG reveals sinus bradycardia, heart rate 56, PVCs noted. Left bundle branch block. Telemetry tracings indicate sinus mechanism with heart rate in the 50s Most recent echocardiogram on file in the office 05/2020 revealed an EF of 4550 percent, with moderate aortic stenosis Carotid duplex in the office revealed stable bilateral moderate stenosis Most recent cardiac catheterization that we have on file 08/2018 revealed 100% mid LAD, 50% mid RCA, patent LIMALAD, patent VGOM1 Chest xray on admission revealed cardiomegaly, pulmonary vascular congestion with bilateral pleural effusions. Laboratory reviewed, troponin negative 3, proBNP 7240, WBC 8.4, hemoglobin 12.5, platelet 197, d-dimer 0.9, sodium 136, potassium 4.4, BUN 44, serum creatinine 1.4, AST 104, ALT 104, glucose is 206, TSH within normal limits Current home cardiac medications include amlodipine 5 mg twice a day, metoprolol succinate 100 mg twice a day, Synthroid, Imdur, atorvastatin 80 mg nightly, aspirin 80 mg daily, Eliquis 5 mg twice a day REVIEW OF SYSTEMS At the time of my exam: CONSTITUTIONAL: Denies fever or chills. CARDIOVASCULAR: Denies chest pain, shortness of breath, orthopnea, PND or palpitations. RESPIRATORY: Denies cough. GASTROINTESTINAL: Denies abdominal pain, diarrhea, constipation, nausea or vomiting. MUSCULOSKELETAL: Denies myalgias. NEUROLOGIC: Denies numbness, tingling, headacbe or weakness. ENDOCRINE: Denies fatigue, weight change, polydipsia or polyurina. GENITOURINARY: Denies burning, hematuria or urgency with micturation. HEMATOLOGIC: Denies history of anemia or bleeding. PHYSICAL EXAMINATION Blood pressure 139/71, heart rate 54, afebrile, saturations 94% on room air CONSTITUTIONAL: No apparent distress. HEENT: Head is normocephalic. Pupils are equal, round. Sclerae anicteric. Mucous membranes of the mouth are moist. No JVD. CHEST EXAMINATION: Lungs are mild crackles in the bases to auscultation. No chest wall tenderness is noted on palpation or with deep breathing. HEART EXAMINATION: Regular rate and rhythm. S1, S2 heard. Systolic ejection murmur at apex. No gallops or rub. ABDOMEN: Soft, nontender. Positive bowel sounds. EXTREMITIES: 2+ peripheral pulses,trace bilateral lower extremity edema and no calf tenderness. NEUROLOGIC EXAMINATION: Patient is awake, alert and oriented x3. ASSESSMENT Acute on chronic heart failure with preserved ejection fraction EF 45-50%, repeat echo pending Coronary artery disease status post three-vessel CABG (ROLON-LAD, VG-D1, VG-OM1) in 2000 Likely paroxysmal atrial fibrillation diagnosed in [place], patient was started on Eliquis 5mg BID, currently in sinus Type 2 diabetes Hypertension Dyslipidemia Peripheral vascular disease Carotid stenosis Chronic kidney disease stage 3 Ischemic cardiomyopathy History of syncope with Loop recorder implantation 02/2019 History of hyperkalemia PLAN We will attempt to obtain records from [facility] IV Lasix 40mg today, transition to PO Lasix 40mg daily tomorrow Interrogate loop recorder Obtain 2D echocardiogram and doppler study to assess cardiac structure and function. Monitor renal function and electrolytes Continue anticoagulation with Eliquis Continue aspirin, statin, Imdur, metoprolol succinate Patient states he has history of hyperkalemia, possibly why he is not on an ACEI and kidney function Monitor patient for additional 24 hours Further recommendations based on clinical course Nurse practitioner note has been reviewed by physician. Signing provider agrees with the documented findings, assessment, and plan of care. Past Medical History Past Medical History: Diabetes Mellitus, GERD/Reflux, Hyperlipidemia, Hypertension, Myocardial Infarction ([place]), Osteoarthritis (OA), Renal Disease, Thyroid Disorder Last Myocardial Infarction Date:: 2000 History of Any Multi-Drug Resistant Organisms: None Reported Past Surgical History: Coronary Bypass/CABG, Heart Catheterization, Hernia Repair Additional Past Surgical History / Comment(s): triple bypass 21 years ago, right ear mastoid removed, heart cath 5 weeks ago clear Past Anesthesia/Blood Transfusion Reactions: No Reported Reaction Past Psychological History: No Psychological Hx Reported Smoking Status: Never smoker Past Alcohol Use History: None Reported Additional Past Alcohol Use History / Comment(s): hx of occas. cigar, quit 45 years ago Past Drug Use History: None Reported - Past Family History Mother Family Medical History: No Reported History Medications and Allergies Home Medications Medication Instructions Recorded Confirmed Type Isosorbide Mononitrate ER [Imdur] 30 mg PO DAILY 12/15/17 10/21/21 History Metoprolol Succinate [Toprol XL] 100 mg PO BID@0800,1200 12/15/17 10/21/21 History Insulin Degludec [Tresiba 20 units SQ DAILY 01/13/19 10/21/21 History Flextouch U-200] amLODIPine [Norvasc] 5 mg PO BID 01/13/19 10/21/21 History calcitrioL [Rocaltrol] 2 mcg PO SUTUFR 02/22/19 10/21/21 History Apixaban [Eliquis] 5 mg PO BID 10/21/21 10/21/21 History Aspirin EC [Ecotrin Low Dose] 81 mg PO DAILY 10/21/21 10/21/21 History Atorvastatin [Lipitor] 80 mg PO HS 10/21/21 10/21/21 History INSULIN LISPRO (humaLOG) [humaLOG] See Protocol SQ AC-TID 10/21/21 10/21/21 History Levothyroxine Sodium [Synthroid] 125 mcg PO DAILY 10/21/21 10/21/21 History Allergies Allergy/AdvReac Type Severity Reaction Status Date / Time No Known Allergies Allergy Verified 10/21/21 19:30 Physical Exam Vitals: Vital Signs Temp Pulse Pulse Pulse Resp BP BP 10/22/21 07:42 100.1 F H 56 L 16 163/57 10/22/21 04:00 97.8 F 54 L 16 139/71 10/22/21 02:00 18 10/22/21 00:00 98.1 F 52 L 18 140/75 10/21/21 22:00 56 L 16 148/72 10/21/21 20:13 58 L 18 149/64 10/21/21 19:00 57 L 18 10/21/21 17:10 97.5 F L 61 16 158/63 Pulse Ox 10/22/21 07:42 94 L 10/22/21 04:00 91 L 10/22/21 02:00 10/22/21 00:00 92 L 10/21/21 22:00 91 L 10/21/21 20:13 98 10/21/21 19:00 92 L 10/21/21 17:10 94 L Intake and Output 10/21/21 10/22/21 10/22/21 22:59 06:59 14:59 Output Total 1000 1000 Balance -1000 -1000 Output: Urine 1000 1000 Other: # Voids 1 Weight 81.647 kg Results 10/21/21 17:35 10/21/21 17:35 Cardiac Enzymes 10/21/21 10/21/21 10/21/21 Range/Units 17:35 17:35 20:58 AST 104 H (17-59) U/L Troponin I 0.015 0.016 (0.000-0.034) ng/mL 10/21/21 Range/Units 23:27 AST (17-59) U/L Troponin I 0.015 (0.000-0.034) ng/mL Coagulation 10/21/21 Range/Units 17:35 PT 11.5 (9.0-12.0) sec CBC 10/21/21 Range/Units 17:35 WBC 8.4 (3.8-10.6) k/uL RBC 4.10 L (4.30-5.90) m/uL Hgb 12.5 L (13.0-17.5) gm/dL Hct 38.5 L (39.0-53.0) % Plt Count 197 (150-450) k/uL Comprehensive Metabolic Panel 10/21/21 Range/Units 17:35 Sodium 136 L (137-145) mmol/L Potassium 4.4 (3.5-5.1) mmol/L Chloride 108 H (98-107) mmol/L Carbon Dioxide 20 L (22-30) mmol/L BUN 44 H (9-20) mg/dL Creatinine 1.46 H (0.66-1.25) mg/dL Glucose 253 H (74-99) mg/dL Calcium 8.5 (8.4-10.2) mg/dL AST 104 H (17-59) U/L ALT 104 H (4-49) U/L Alkaline Phosphatase 206 H (38-126) U/L Total Protein 6.4 (6.3-8.2) g/dL Albumin 3.8 (3.5-5.0) g/dL Current Medications Generic Name Dose Route Start Last Admin Trade Name Freq PRN Reason Stop Dose Admin Acetaminophen 650 mg 10/21/21 19:04 Acetaminophen Tab 325 Mg Tab PO Q6HR PRN Mild Pain or Fever > 100.5 Amlodipine Besylate 5 mg 10/22/21 09:00 Amlodipine 5 Mg Tab PO BID [facility] Apixaban 5 mg 10/22/21 09:00 Apixaban 5 Mg Tab PO BID [facility] Protocol Aspirin 81 mg 10/22/21 09:00 Aspirin 81 Mg PO DAILY [facility] Atorvastatin Calcium 80 mg 10/22/21 21:00 Atorvastatin 80 Mg Tab PO HS [facility] Furosemide 40 mg 10/22/21 06:00 10/22/21 06:27 Furosemide 10 Mg/Ml 4 Ml Vial IV 40 mg Q12H [facility] Administration Insulin Aspart 0 unit 10/22/21 07:30 10/22/21 06:25 Insulin Aspart (Novolog) 100 Unit/Ml Vial SQ Not Given ACHS [facility] Protocol Isosorbide Mononitrate 30 mg 10/22/21 09:00 Isosorbide Mononitrate Er 30 Mg Tab.Er.24h PO DAILY [facility] Levothyroxine Sodium 125 mcg 10/22/21 06:30 10/22/21 06:27 Levothyroxine 125 Mcg Tab PO 125 mcg DAILY@0630 [facility] Administration Metoprolol Succinate 100 mg 10/22/21 08:00 Metoprolol Succinate (Er) 100 Mg Tab.Er.24h PO BID@0800,1200 [facility] Naloxone HCl 0.2 mg 10/21/21 19:04 Naloxone 0.4 Mg/Ml 1 Ml Vial IV Q2M PRN Opioid Reversal Intake and Output 10/21/21 10/22/21 10/22/21 22:59 06:59 14:59 Output Total 1000 1000 Balance -1000 -1000 Output: Urine 1000 1000 Other: # Voids 1 Weight 81.647 kg 10/21/21 17:35 10/21/21 17:35
[2021-10-22 11:54] LABS: Glucose,Whole Blood 235 mg/dL (75-99)
[2021-10-22 17:00] LABS: Glucose,Whole Blood 183 mg/dL (75-99)
--- NOTE | 2021-10-22 17:00 | P.HPIM ---
History of Present Illness H&P Date: 10/22/21 Chief Complaint: Short of breath This is a pleasant 85-year-old patient who follows with Dr. Ag Stiles. Patient had a coronary bypass in 2000. Chronic stable medical conditions include diabetes type 2, hypertension, hyperlipidemia, PAD, carotid stenosis, CAD, ischemic cardiomyopathy, loop recorder since 2019. He does follow with a local marketing sales manager Dr. Conroy and also with Dr. Lowry in [place]. End of August 2021 in [place] he has shortness of breath was admitted at [facility]. He was told he had a heart attack. He had a cardiac catheterization. Details not known. No stents were placed. He has been on eliquis. In the last 3 days patient has been driving back with his son and to [place]. Last couple of days patient started getting increasingly short of breath. Orthopnea. [place] his heart beat to be prominent. No edema. No chest pain. Patient did receive IV Lasix his risks and breathing is better. Patient is accompanied the bedside by his daughter and his . Review of systems: GEN.: Tired EYES: None HEENT: None NECK: None RESPIRATORY: As above] CARDIOVASCULAR: As above GASTROINTESTINAL: Constipation GENITOURINARY: None MUSCULOSKELETAL: Joint pains LYMPHATICS: None HEMATOLOGICAL: None PSYCHIATRY: None NEUROLOGICAL: None Past medical history to include: Diabetes, GERD, hypertension, hyperlipidemia, osteoarthritis, [place], chronic kidney disease, hypothyroid, CAD with bypass about 20 years ago. Social history: . Occasional cigar. In the remote past. No alcohol. . Retired Family history: Reviewed, noncontributory to presentation Physical examination: VITAL SIGNS: 97.5, 61, 16, 158/63, 94% room air GENERAL: BMI 25.8, declining but awake, not in distress. EYES: Pupils equal. Conjunctiva normal. HEENT: External appearance of nose and ears normal, oral cavity grossly normal. NECK: JVD not raised; masses not palpable. HEART: First and second heart sounds are normal; no edema. LUNGS: Respiratory rate normal; clear to auscultation. ABDOMEN: Soft, nontender, liver spleen not palpable, no masses palpable. PSYCH: Alert and oriented x3; mood and affect normal. MUSCULOSKELETAL:No Clubbing/cyanosis;muscles-grossly intact. Evidence of OA NEUROLOGICAL: Cranial nerves grossly intact; no facial asymmetry, power and sensation grossly intact. LYMPHATICS: No lymph nodes palpable in the axilla and neck INVESTIGATIONS, reviewed in the clinical context: Sodium 135 potassium 4.1. 39 creatinine 1.57 Admission labs: White count 8.4 hemoglobin 12.5 platelets 197 potassium 4.4 BUN 44 creatinine 1.46 AST was 04 ALT 104 proBNP 7240 Troponin I 0.015, 0.016, 0.015 TSH 3.3 EKG tracing personally reviewed by me-sinus rhythm. Left bundle-branch block. Ventricular PVCs. Chest x-ray film personally reviewed by me-venous prominence. Left pleural effusion Assessment and plan: -Acute on chronic congestive heart failure exacerbation. EF not known IV Lasix. -Essential hypertension Norvasc 5 mg twice a day, Toprol-XL 100 mg twice a day, -Hyperlipidemia Lipitor 80 mg daily at bedtime -Hypothyroid Synthroid 125 g a day -Diabetes mellitus type 2, chronic insulin tresiba 20 units daily. Accu-Cheks and sliding scale. -Patient seemed IV Lasix. Lasix is to be continued. 2-D echo. Home medications be continued. Follow Accu-Cheks periods. Telemetry. Coronary consulted. Care was discussed with patient and family the bedside. Past Medical History Past Medical History: Diabetes Mellitus, GERD/Reflux, Hyperlipidemia, Hypertension, Myocardial Infarction ([place]), Osteoarthritis (OA), Renal Disease, Thyroid Disorder Last Myocardial Infarction Date:: 2000 History of Any Multi-Drug Resistant Organisms: None Reported Past Surgical History: Coronary Bypass/CABG, Heart Catheterization, Hernia Repair Additional Past Surgical History / Comment(s): triple bypass 21 years ago, right ear mastoid removed, heart cath 5 weeks ago clear Past Anesthesia/Blood Transfusion Reactions: No Reported Reaction Past Psychological History: No Psychological Hx Reported Smoking Status: Never smoker Past Alcohol Use History: None Reported Additional Past Alcohol Use History / Comment(s): hx of occas. cigar, quit 45 years ago Past Drug Use History: None Reported - Past Family History Mother Family Medical History: No Reported History Medications and Allergies Home Medications Medication Instructions Recorded Confirmed Type Isosorbide Mononitrate ER [Imdur] 30 mg PO DAILY 12/15/17 10/21/21 History Metoprolol Succinate [Toprol XL] 100 mg PO BID@0800,1200 12/15/17 10/21/21 History Insulin Degludec [Tresiba 20 units SQ DAILY 08/04/19 05/12/22 History Flextouch U-200] amLODIPine [Norvasc] 5 mg PO BID 01/13/19 10/21/21 History calcitrioL [Rocaltrol] 2 mcg PO SUTUFR 02/22/19 10/21/21 History Apixaban [Eliquis] 5 mg PO BID 10/21/21 10/21/21 History Aspirin EC [Ecotrin Low Dose] 81 mg PO DAILY 10/21/21 10/21/21 History Atorvastatin [Lipitor] 80 mg PO HS 10/21/21 10/21/21 History INSULIN LISPRO (humaLOG) [humaLOG] See Protocol SQ AC-TID 10/21/21 10/21/21 History Levothyroxine Sodium [Synthroid] 125 mcg PO DAILY 10/21/21 10/21/21 History Allergies Allergy/AdvReac Type Severity Reaction Status Date / Time No Known Allergies Allergy Verified 10/21/21 19:30 Physical Exam Vitals: Vital Signs Temp Pulse Pulse Pulse Resp BP BP 10/22/21 07:42 100.1 F H 56 L 16 163/57 10/22/21 04:00 97.8 F 54 L 16 139/71 10/22/21 02:00 18 10/22/21 00:00 98.1 F 52 L 18 140/75 10/21/21 22:00 56 L 16 148/72 10/21/21 20:13 58 L 18 149/64 10/21/21 19:00 57 L 18 10/21/21 17:10 97.5 F L 61 16 158/63 Pulse Ox 10/22/21 07:42 94 L 10/22/21 04:00 91 L 10/22/21 02:00 10/22/21 00:00 92 L 10/21/21 22:00 91 L 10/21/21 20:13 98 10/21/21 19:00 92 L 10/21/21 17:10 94 L Intake and Output 10/21/21 10/22/21 10/22/21 22:59 06:59 14:59 Intake Total 240 Output Total 1000 1000 Balance -1000 -760 Intake: Oral 240 Output: Urine 1000 1000 Other: # Voids 1 Weight 81.647 kg Results CBC & Chem 7: 10/21/21 17:35 10/22/21 10:47 Labs: Abnormal Lab Results - Last 24 Hours (Table) 10/21/21 10/21/21 10/21/21 Range/Units 17:35 17:35 17:35 RBC 4.10 L (4.30-5.90) m/uL Hgb 12.5 L (13.0-17.5) gm/dL Hct 38.5 L (39.0-53.0) % D-Dimer 0.90 H (<0.60) mg/L FEU Sodium 136 L (137-145) mmol/L Chloride 108 H (98-107) mmol/L Carbon Dioxide 20 L (22-30) mmol/L BUN 44 H (9-20) mg/dL Creatinine 1.46 H (0.66-1.25) mg/dL Glucose 253 H (74-99) mg/dL POC Glucose (mg/dL) (75-99) mg/dL AST 104 H (17-59) U/L ALT 104 H (4-49) U/L Alkaline Phosphatase 206 H (38-126) U/L 10/21/21 10/22/21 Range/Units 21:34 06:24 RBC (4.30-5.90) m/uL Hgb (13.0-17.5) gm/dL Hct (39.0-53.0) % D-Dimer (<0.60) mg/L FEU Sodium (137-145) mmol/L Chloride (98-107) mmol/L Carbon Dioxide (22-30) mmol/L BUN (9-20) mg/dL Creatinine (0.66-1.25) mg/dL Glucose (74-99) mg/dL POC Glucose (mg/dL) 180 H 162 H (75-99) mg/dL AST (17-59) U/L ALT (4-49) U/L Alkaline Phosphatase (38-126) U/L Thrombosis Risk Factor Assmnt - Choose All That Apply Any of the Below Risk Factors Present?: Yes Each Factor Represents 1 point: Heart failure (<1month) Other Risk Factors: Yes Each Risk Factor Represents 3 Points: Age 75 years or older Other congenital or acquired thrombophilia - If yes, enter type in comment: No Thrombosis Risk Factor Assessment Total Risk Factor Score: 4 Thrombosis Risk Factor Assessment Level: Moderate Risk
[2021-10-22] MEDS: APIXABAN 2.5 MG TABLET PO SCH (20:00)
[2021-10-22 20:15] LABS: Glucose,Whole Blood 264 mg/dL (75-99)
[2021-10-22] MEDS ORDERED: ATORVASTATIN 80 MG TAB PO SCH (21:00)
[2021-10-22] MEDS ORDERED: INSULIN NPH 300 UNIT/3 ML VIAL SQ SCH (21:00)
[2021-10-23 06:55] LABS: Glucose,Whole Blood 136 mg/dL (75-99)
[2021-10-23] MEDS ORDERED: INSULIN DETEMIR (LEVEMIR) 100 UNIT/ML SYR SQ SCH ×2 (07:00→12:15)
[2021-10-23] MEDS: INSULIN ASPART (NovoLOG) 100 UNIT/ML VIAL SQ SCH ×2 (07:02→12:13)
[2021-10-23] MEDS: LEVOTHYROXINE 125 MCG TAB PO SCH (07:02)
[2021-10-23] MEDS: ASPIRIN 81 MG PO SCH (08:24)
[2021-10-23] MEDS: ISOSORBIDE MONONITRATE ER 30 MG TAB.ER.24H PO SCH (08:24)
[2021-10-23] MEDS: METOPROLOL SUCCINATE (ER) 100 MG TAB.ER.24H PO SCH ×2 (08:24→12:13)
[2021-10-23] MEDS: APIXABAN 2.5 MG TABLET PO SCH (08:24)
[2021-10-23] MEDS: amLODIPine 5 MG TAB PO SCH (08:25)
[2021-10-23 08:26] VITALS: BP 115/53; PULSE 58; RESP 16; TEMP 97.8
[2021-10-23 08:34] LABS: Calcium 8.6 mg/dL (8.4-10.2); Magnesium 1.9 mg/dL (1.6-2.3); Potassium 3.9 mmol/L (3.5-5.1)
[2021-10-23] MEDS ORDERED: FUROSEMIDE 40 MG TAB PO SCH (09:00)
[2021-10-23 11:33] LABS: Glucose,Whole Blood 331 mg/dL (75-99)
[2021-10-23] MEDS ORDERED: INSULIN ASPART (NovoLOG) 100 UNIT/ML VIAL SQ ONE (12:03)
--- NOTE | 2021-10-23 13:45 | P.PN ---
Subjective HISTORY OF PRESENTING ILLNESS This is a pleasant 85-year-old male past medical history significant for coronary artery disease status post three-vessel CABG (ROLON-LAD, VG-D1, VG-OM1) in 2000, type 2 diabetes, hypertension, dyslipidemia, peripheral vascular disease, carotid stenosis, chronic kidney disease, ischemic cardiomyopathy, syncope with Loop recorder implantation 02/2019. He follows in the office with Dr. Conroy and also a Dr. Lowry in [place]. We have been asked to see in consultation for congestive heart failure. Patient presents emergency department with worsening shortness of breath and palpitations. He states that he was having symptoms of worsening dyspnea on exertion, lower extremity edema. He states at the end of August 2021 he was in [place], he has symptoms of shortness of breath. He was admitted at [facility]. He underwent echocardiogram and was told he had a heart attack. He states he underwent car diac catheterization and was told no stents were placed. He also was started on Eliquis 5mg BID and he is unsure why. He states he was discharged on 09/11/2021. He was not discharged with Lasix or any diuretics. He has not followed up in the office since he has returned. He was doing well, however, over the past couple days have been having worsening shortness of breath. He was given 40mg IV Lasix x 2 with good urine output and is feeling much better. Of note, on 09/08/2021 the office called the patient due to evidence of 10 second bradycardic episode on September 08. At that time patient was in the hospital at [facility]. DIAGNOSTICS EKG reveals sinus bradycardia, heart rate 56, PVCs noted. Left bundle branch block. Telemetry tracings indicate sinus mechanism with heart rate in the 50s Most recent echocardiogram on file in the office 05/2020 revealed an EF of 4550 percent, with moderate aortic stenosis Carotid duplex in the office revealed stable bilateral moderate stenosis Most recent cardiac catheterization that we have on file 08/2018 revealed 100% mid LAD, 50% mid RCA, patent LIMALAD, patent VGOM1 Chest xray on admission revealed cardiomegaly, pulmonary vascular congestion with bilateral pleural effusions. Laboratory reviewed, troponin negative 3, proBNP 7240, WBC 8.4, hemoglobin 12.5, platelet 197, d-dimer 0.9, sodium 136, potassium 4.4, BUN 44, serum creatinine 1.4, AST 104, ALT 104, glucose is 206, TSH within normal limits Current home cardiac medications include amlodipine 5 mg twice a day, metoprolol succinate 100 mg twice a day, Synthroid, Imdur, atorvastatin 80 mg nightly, aspirin 80 mg daily, Eliquis 5 mg twice a day 10/23 Seen and examined. Patient admits she feels much better "99%". Denies any chest pain or pressure. States his reading is significantly better. Has been receiving Lasix 40 mg daily with good urine output. Loop recorder was interrogated with 85 episodes of bradycardia however these were all reviewed with under sensing of the QRS and frequent PVCs, occasional bigeminy. There was one episode of after an atrial flutter episode a conversion polyps with 2.2 second pause for 3 beats and then picked back up. He denies any history of syncope. Echocardiogram was performed and read however not transferred over to medical records. PHYSICAL EXAMINATION Vitals reviewed CONSTITUTIONAL: No apparent distress. HEENT: Head is normocephalic. Pupils are equal, round. Sclerae anicteric. Mucous membranes of the mouth are moist. No JVD. CHEST EXAMINATION: Lungs are mild crackles in the bases to auscultation. No ches t wall tenderness is noted on palpation or with deep breathing. HEART EXAMINATION: Regular rate and rhythm. S1, S2 heard. Systolic ejection murmur at apex. No gallops or rub. ABDOMEN: Soft, nontender. Positive bowel sounds. EXTREMITIES: 2+ peripheral pulses,trace bilateral lower extremity edema and no calf tenderness. NEUROLOGIC EXAMINATION: Patient is awake, alert and oriented x3. ASSESSMENT Acute on chronic heart failure with preserved ejection fraction EF 45-50%, repeat echo pending Coronary artery disease status post three-vessel CABG (ROLON-LAD, VG-D1, VG-OM1) in 2000 Paroxysmal atrial fibrillation/ atrial flutter noted on interrogation on Eliquis 5mg BID, currently in sinus Type 2 diabetes Hypertension Dyslipidemia Peripheral vascular disease Carotid stenosis Chronic kidney disease stage 3 Ischemic cardiomyopathy History of syncope with Loop recorder implantation 02/2019 History of hyperkalemia Concern of multiple bradycardic episodes on loop recorder however appears to be undersensing for majority. Only 1 episode noted of atrial flutter conversion pause of 2.2 seconds, asymptomatic PLAN Await records from [facility] Loop recorder interrogation reviewed with under sensing of the QRS for the majority of the 85 episodes with one episode of conversion positive after atrial flutter of 2.2 seconds. Patient has been asymptomatic and we will continue to m onitor with Loop recorder. No current indication for permanent pacemaker. Echocardiogram performed however not transferred over to electronic medical record. Patient currently appears euvolemic and would recommend discharge home today on Lasix 40 mg daily with outpatient follow-up in 1 week. Objective - Vital Signs Vital signs: Vital Signs Temp 97.8 F 10/23/21 08:00 Pulse 58 L 10/23/21 08:00 Resp 16 10/23/21 08:00 BP 115/53 10/23/21 08:00 Pulse Ox 99 10/23/21 08:00 Intake & Output 10/22/21 10/23/21 10/23/21 18:59 06:59 18:59 Intake Total 480 Output Total 2000 800 Balance -1520 -800 Intake: Oral 480 Output: Urine 2000 800 Other: Voiding Method Toilet Urinal - Labs CBC & Chem 7: 10/21/21 17:35 10/23/21 08:01 Labs: Abnormal Lab Results - Last 24 Hours (Table) 10/22/21 10/22/21 10/23/21 Range/Units 16:47 19:51 06:31 Sodium (137-145) mmol/L BUN (9-20) mg/dL Creatinine (0.66-1.25) mg/dL Glucose (74-99) mg/dL POC Glucose (mg/dL) 183 H 264 H 136 H (75-99) mg/dL 10/23/21 10/23/21 Range/Units 08:01 11:32 Sodium 136 L (137-145) mmol/L BUN 40 H (9-20) mg/dL Creatinine 1.46 H (0.66-1.25) mg/dL Glucose 209 H (74-99) mg/dL POC Glucose (mg/dL) 331 H (75-99) mg/dL
--- NOTE | 2021-10-23 15:08 | P.DS ---
Providers Date of admission: 10/21/21 19:04 Expected date of discharge: 10/23/21 Attending physician: Harry Capellan Consults: 10/21/21 19:05 Consult Physician Routine Consulting Provider: Shamar Conroy Consult Reason/Comments: New CHF Do you want consulting provider notified?: Yes Primary care physician: Ag Fields [facility] Course: Chief Complaint: Short of breath This is a pleasant 85-year-old patient who follows with Dr. Ag Burns. Patient had a coronary bypass in 2000. Chronic stable medical conditions include diabetes type 2, hypertension, hyperlipidemia, PAD, carotid stenosis, CAD, ischemic cardiomyopathy, loop recorder since 2018. He does follow with a local scow hand Dr. Conroy and also with Dr. Lowry in [place]. End of August 2021 in [place] he has shortness of breath was admitted at [facility]. He was told he had a heart attack. He had a cardiac catheterization. Details not known. No stents were placed. He has been on [employer]. In the last 3 days patient has been driving back with his son and to [place]. Last couple of days patient started getting increasingly short of breath. Ortho pnea. [place] his heart beat to be prominent. No edema. No chest pain. Patient did receive IV Lasix his risks and breathing is better. Patient is accompanied the bedside by his daughter and his . October 23: Doing well. Changed to by mouth Lasix. Did walk in the hallway. Accu- Cheks have been running high. Hospital does not have a diabetic diet to provide all the patient is getting the same diet. Conveyed to the patient. Extra insulin given. Cleared by currently for discharge. Discussion and discharge planning more than 35 minutes Past medical history to include: Diabetes, GERD, hypertension, hyperlipidemia, osteoarthritis, [place], chronic kidney disease, hypothyroid, CAD with bypass about 20 years ago. Social history: . Occasional cigar. In the remote past. No alcohol. . Retired Family history: Reviewed, noncontributory to presentation Physical examination: VITAL SIGNS: He 7.8, 58, 16, 115/53, 99% room air GENERAL: Sitting up in a chair, awake, comfortable EYES: Pupils equal. Conjunctiva normal. HEENT: External appearance of nose and ears normal, oral cavity grossly normal. NECK: JVD not raised; masses not palpable. HEART: First and second heart sounds are normal; no edema. LUNGS: Respiratory rate normal; clear to auscultation. ABDOMEN: Soft, nontender, liver spleen not palpable, no masses palpable. PSYCH: Alert and oriented x3; mood and affect normal. MUSCULOSKELETAL:No Clubbing/cyanosis;muscles-grossly intact. Evidence of OA INVESTIGATIONS, reviewed in the clinical context: October 23: Potassium 3.9 creatinine 1.46 Sodium 135 potassium 4.1. 39 creatinine 1.57 Admission labs: White count 8.4 hemoglobin 12.5 platelets 197 potassium 4.4 BUN 44 creatinine 1.46 AST was 04 ALT 104 proBNP 7240 Troponin I 0.015, 0.016, 0.015 TSH 3.3 EKG tracing personally reviewed by me-sinus rhythm. Left bundle-branch block. Ventricular PVCs. Chest x-ray film personally reviewed by me-venous prominence. Left pleural effusion Assessment and plan: -Acute on chronic congestive heart failure exacerbation. EF not known IV Lasix. Discharge on Lasix 40 mg daily -Essential hypertension Norvasc 5 mg twice a day, Toprol-XL 100 mg twice a day, -Hyperlipidemia Lipitor 80 mg daily at bedtime -Paroxysmal atrial fibrillation, currently in sinus rhythm Toprol-XL. Eliquis -Hypothyroid Synthroid 125 g a day -Diabetes mellitus type 2, chronic insulin tresiba 20 units daily. Accu-Cheks and sliding scale. Disposition: Home Plan - Discharge Summary Discharge Rx Participant: Yes New Discharge Prescriptions: New Furosemide [Lasix] 40 mg PO DAILY #30 tab Continue Metoprolol Succinate [Toprol XL] 100 mg PO BID@0800,1200 Isosorbide Mononitrate ER [Imdur] 30 mg PO DAILY Insulin Degludec [Tresiba Flextouch U-200 Pen] 20 units SQ DAILY amLODIPine [Norvasc] 5 mg PO BID calcitrioL [Rocaltrol] 2 mcg PO SUTUFR Aspirin EC [Ecotrin Low Dose] 81 mg PO DAILY INSULIN LISPRO (humaLOG) [humaLOG] See Protocol SQ AC-TID Apixaban [Eliquis] 5 mg PO BID Atorvastatin [Lipitor] 80 mg PO HS Levothyroxine Sodium [Synthroid] 125 mcg PO DAILY Discharge Medication List Isosorbide Mononitrate ER [Imdur] 30 mg PO DAILY 12/15/17 [History] Metoprolol Succinate [Toprol XL] 100 mg PO BID@0800,1200 12/15/17 [History] Insulin Degludec [Tresiba Flextouch U-200 Pen] 20 units SQ DAILY 01/13/19 [History] amLODIPine [Norvasc] 5 mg PO BID 01/13/19 [History] calcitrioL [Rocaltrol] 2 mcg PO SUTUFR 02/22/19 [History] Apixaban [Eliquis] 5 mg PO BID 10/21/21 [History] Aspirin EC [Ecotrin Low Dose] 81 mg PO DAILY 10/21/21 [History] Atorvastatin [Lipitor] 80 mg PO HS 10/21/21 [History] INSULIN LISPRO (humaLOG) [humaLOG] See Protocol SQ AC-TID 10/21/21 [History] Levothyroxine Sodium [Synthroid] 125 mcg PO DAILY 10/21/21 [History] Furosemide [Lasix] 40 mg PO DAILY #30 tab 10/23/21 [Rx] Follow up Appointment(s)/Referral(s): Shamar Conroy MD [STAFF PHYSICIAN] - 11/01/21 11:00 am Ag Burns MD [Primary Care Provider] - 1-2 days Patient Instructions/Handouts: Heart Failure (DC) Discharge Disposition: HOME WITH HOME HEALTH SERVICES
[2021-10-24] MEDS ORDERED: INSULIN DETEMIR (LEVEMIR) 100 UNIT/ML SYR SQ SCH (07:00)
--- NOTE | 2021-10-26 13:22 | CA ---
Transthoracic Echo Report Name: Gt Acuña Age: 85 Gender: M : 1935 Exam Date: 10/22/2021 07:29 Exam Location: [facility] Ht (in): 70 Wt (lb): 180 Ordering Physician: Jerry Rushing MD Attending/Referring Phys: [id number], Kristan Deputy Sheriff [id number] Handler Sobia Bahena RDCS Procedure CPT: Indications: RAIZA Cardiac Hx: Hx of mi, bypass,htn, chol. Technical Quality: Good Contrast 1: Total Dose (mL): Contrast 2: Total Dose (mL): MEASUREMENTS (Male / Female) Normal Values 2D ECHO LV Diastolic Diameter PLAX 4.6 cm 4.2 - 5.9 / 3.9 - 5.3 cm LV Systolic Diameter PLAX 2.5 cm IVS Diastolic Thickness 1.2 cm 0.6 - 1.0 / 0.6 - 0.9 cm LVPW Diastolic Thickness 1.1 cm 0.6 - 1.0 / 0.6 - 0.9 cm LV Relative Wall Thickness 0.5 RV Internal Dim ED PLAX 2.5 cm LVOT Diameter 1.8 cm LA Volume 47.5 cm??? 18 - 58 / 22 - 52 cm??? M-MODE Aortic Root Diameter MM 3.3 cm LA Systolic Diameter MM 4.4 cm LA Ao Ratio MM 1.3 MV E Point Septal Separation 0.9 cm AV Cusp Separation MM 1.2 cm DOPPLER AV Peak Velocity 211.6 cm/s AV Peak Gradient 17.9 mmHg AV Mean Velocity 163.0 cm/s AV Mean Gradient 11.7 mmHg AV Velocity Time Integral 55.1 cm LVOT Peak Velocity 81.9 cm/s LVOT Peak Gradient 2.7 mmHg AV Area Cont Eq pk 1.0 cm??? MV Area PHT 3.9 cm??? MR Peak Velocity 576.0 cm/s MR Peak Gradient 132.7 mmHg Mitral E Point Velocity 86.6 cm/s Mitral A Point Velocity 68.0 cm/s Mitral E to A Ratio 1.3 MV Deceleration Time 195.2 ms MV E' Velocity 5.7 cm/s Mitral E to MV E' Ratio 15.1 TR Peak Velocity 274.8 cm/s TR Peak Gradient 30.2 mmHg Right Ventricular Systolic Press 35.2 mmHg PV Peak Velocity 89.7 cm/s PV Peak Gradient 3.2 mmHg PI Peak Gradient 20.6 mmHg FINDINGS Left Ventricle Mildly increased septal wall thickness. Left ventricular ejection fraction is estimated at 40-45 %. Left ventricular cavity size normal. Inferior is hypokinetic, Mid to basal inferoseptal is hypokinetic, Apical septum is hypokinetic. Right Ventricle The right ventricle is normal in size and function. Right Atrium The right atrium is normal in size. Left Atrium The left atrium is normal in size. Mitral Valve Structurally normal mitral valve without significant stenosis or prolapse. There is mild mitral regurgitation. Aortic Valve Mild aortic stenosis with a peak gradient of 17 mmHg and a mean gradient of 11mmHg. . There is no aortic regurgitation. Diffuse thickening of the aortic valve cusps with reduced excursion. Tricuspid Valve Structurally normal tricuspid valve without significant stenosis. Pulmonary artery systolic pressure is normal. Mild tricuspid regurgitation. Pulmonic Valve Structurally normal pulmonic valve without significant stenosis. There is no pulmonic regurgitation. Pericardium Small pericardial effusion. Pleural effusion. Aorta Normal aortic root dimension. CONCLUSIONS Mildly increased septal wall thickness. Left ventricular ejection fraction is estimated at 40-45 %. Inferior is hypokinetic, Mid to basal inferoseptal is hypokinetic, Apical septum is hypokinetic. There is mild mitral regurgitation. Mild aortic stenosis with a peak gradient of 17 mmHg and a mean gradient of 11mmHg Degree of aortic stenosis may be underestimated secondary to low-flow low gradient. Small pericardial effusion. Previewed by: Dr. Geoff Ash DO (Electronically Signed) Final Date: 22 Oct 2021 12:44
== END 2021-10-23 14:25 | disposition home health service (06) ==
LOC: EC 17:08 → INTOOBSV 19:04 → 3SCARD 19:04 → UNDODISIN 10-23 14:25
PROVIDERS: ADMIT Hospitalist; ATTEND Hospitalist
DX: I13.0 Hypertensive heart and chronic kidney disease with heart failure and stage 1 through stage 4 chronic kidney disease, or unspecified chronic kidney disease (principal); I50.33 Acute on chronic diastolic (congestive) heart failure; I48.0 Paroxysmal atrial fibrillation; I48.92 Unspecified atrial flutter; E11.22 Type 2 diabetes mellitus with diabetic chronic kidney disease; N18.30 Chronic kidney disease, stage 3 unspecified; E78.5 Hyperlipidemia, unspecified; I65.29 Occlusion and stenosis of unspecified carotid artery; Z95.1 Presence of aortocoronary bypass graft; E11.51 Type 2 diabetes mellitus with diabetic peripheral angiopathy without gangrene; I25.10 Atherosclerotic heart disease of native coronary artery without angina pectoris; I25.5 Ischemic cardiomyopathy; K21.9 Gastro-esophageal reflux disease without esophagitis; M19.90 Unspecified osteoarthritis, unspecified site; E03.9 Hypothyroidism, unspecified; I35.0 Nonrheumatic aortic (valve) stenosis; I44.7 Left bundle-branch block, unspecified; I25.2 Old myocardial infarction; Z79.01 Long term (current) use of anticoagulants; Z71.3 Dietary counseling and surveillance; Z95.818 Presence of other cardiac implants and grafts; Z87.891 Personal history of nicotine dependence; Z79.899 Other long term (current) drug therapy; Z79.4 Long term (current) use of insulin; Z79.82 Long term (current) use of aspirin; Z79.890 Hormone replacement therapy
CPT/HCPCS: 96376; 96374; 99285; 36415; 93005; 93306; 85379; 83880; 80053 ×2; 80048; 84443; 83735; 84484; 85025; 85610; 71046; G0378 ×3; J1940 ×2

== ENCOUNTER 2022-04-26 10:02 | Day surgery (SDC) | payer MEDICARE ==
[2022-04-22 14:30] VITALS: BMI 23.6
[~2022-04-26 10:02] MED LIST changes: -SODIUM CHLORIDE 0.9% 1,000 ML IV SCH; +ceFAZolin 1 GM in SODIUM CHLORIDE 0.9% IRRIG BTL 250 ML IRRIGATION PRN
[2022-04-26] MEDS ORDERED: SODIUM CHLORIDE 0.9% 1,000 ML IV ONE (10:56)
[2022-04-26 11:09] LABS: Glucose,Whole Blood 128 mg/dL (70-110)
[2022-04-26 11:10] LABS: Basophils # (A) 0.1 k/uL (0-0.2); Basophils % (A) 1 %; Eosinophils # (A) 0.1 k/uL (0-0.7); Eosinophils % (A) 2 %; HCT 38.7 % (39.0-53.0); HGB 13.3 gm/dL (13.0-17.5); Lymphocytes # (A) 1.4 k/uL (1.0-4.8); Lymphocytes % (A) 19 %; MCHC 34.3 g/dL (31.0-37.0); MCV 90.6 fL (80.0-100.0); Mean Platelet Volume 8.8; Monocytes # (A) 0.4 k/uL (0-1.0); Monocytes % (A) 6 %; Neutrophils # (A) 4.9 k/uL (1.3-7.7); Neutrophils % (A) 70 %; Platelet Count 217 k/uL (150-450); RBC 4.27 m/uL (4.30-5.90); RDW 13.4 % (11.5-15.5)
[2022-04-26 11:22] LABS: Calcium 8.6 mg/dL (8.4-10.2)
[2022-04-26 11:46] LABS: Potassium 4.9 mmol/L (3.5-5.1)
[2022-04-26] MEDS ORDERED: IOPAMIDOL-300 50ML BTL INJ ONE ×2 (12:03)
[2022-04-26] MEDS ORDERED: fentaNYL (PF) 50 MCG/ML 2 ML AMP ONE (12:13)
[2022-04-26] MEDS: fentaNYL (PF) 50 MCG/1 ML VIAL IV ONE ×2 (12:16→12:19)
[2022-04-26] MEDS: MIDAZOLAM 2 MG/2 ML VIAL IV ONE ×2 (12:16→12:19)
[2022-04-26] MEDS ORDERED: LIDOCAINE 1% INJ 10MG/ML (30 ML VIAL-PF) SQ ONE ×2 (12:19→12:39)
[2022-04-26] MEDS: SODIUM CHLORIDE 0.9% 1,000 ML IV SCH (14:10)
[2022-04-26 16:59] LABS: Glucose,Whole Blood 83 mg/dL (70-110)
--- NOTE | 2022-04-26 17:29 | XR ---
EXAMINATION TYPE: XR chest 1V portable DATE OF EXAM: 04/26/2022 5:10 PM COMPARISON: Chest radiographs from 10/21/2021. TECHNIQUE: XR chest 1V portable Frontal view of the chest. CLINICAL INDICATION:Male, 86 years old with history of pm lead confirmation; FINDINGS: Lungs/Pleura: There is no evidence of pleural effusion, focal consolidation, or pneumothorax. Pulmonary vascularity: Unremarkable. Heart/mediastinum: Cardiomediastinal silhouette is enlarged and stable. A loop recorder projects over the left thorax over the heart. Two lead cardiac conduction device overlying the left hemithorax wit h lead tips projecting over the right ventricle and right atrium. Musculoskeletal: No acute osseous pathology. Midline sternotomy wires are noted. IMPRESSION: 1. Cardiac conduction leads with leads projecting over the heart and felt to be in appropriate posit ion. 2. No acute cardiopulmonary disease/process.
[2022-04-26] MEDS ORDERED: ACETAMINOPHEN TAB 325 MG TAB PO PRN (18:29)
[2022-04-26 20:06] LABS: Glucose,Whole Blood 175 mg/dL (70-110)
[2022-04-26] MEDS: INSULIN ASPART (NovoLOG) 100 UNIT/ML VIAL SQ SCH (20:09)
[2022-04-26] MEDS: amLODIPine 5 MG TAB PO SCH (20:10)
[2022-04-26] MEDS: RANOLAZINE 500 MG TAB.ER.12H PO SCH (20:10)
[2022-04-26] MEDS ORDERED: ATORVASTATIN 80 MG TAB PO SCH (21:00)
--- NOTE | 2022-04-26 22:13 | P.OP ---
Description of Procedure: CARDIOLOGY PROCEDURE NOTE Dyno Technician: Dr. Geoff Ash HPI: Patient is a pleasant 86 year old male with history of Afib/flutter, CAD, ischemic cardiomyopathy EF 42%, sick sinus syndrome with loop recorder showing greater than 5 second pauses and therefore recommended to undergo permanent pacemaker. Patient does have history of cardiomyopathy however EF 42% without significant VT noted on loop recorder and additionally has a cardiomyopathy and not felt to likely need frequent pacing and therefore dual chamber permanent pa cemaker was recommended. Procedure performed: Insertion dual chamber permanent pacemaker Site: Left subclavian Indications: Sick Sinus Syndrome Complications: None Blood Loss: Minimal Description of Procedure: After the risks, benefits, and alternatives of the above-mentioned procedure was explained in detail with the patient, informed consent was obtained. The patient was taken to the cardiac catheterization suite where the left subclavian area was sterily prepped and draped in the usual fashion. One percent lidocaine was used to anesthetize the left subclavian area. Twenty milliliters of Isoview 370 contrast was injected into the left antecubital vein to allow for direct visualization of the left subclavian vein under fluoroscopy. A 1.5 inch incision was made utilizing a #15 blade in the left subclavian site. Hemostasis was made complete. Electrocautery along with digital blunt dissection was utilized to dissect to the level of the pectoralis muscle fascia and create a pocket large enough to accommodate the generator. A thin walled micro puncuture needle was used to cannulate the left subclavian vein. A guide-wire was inserted through the needle into the vascular lumen under fluoroscopic guidance. The needle was removed. Another thin walled micr puncture needle was used to again cannulate the left subclavian vein. A guide-wire was inserted through the needle into the vascular lumen under fluoroscopic guidance. The needle was removed and both guide-wires were attached to the field. A venous sheath and dilator were advanced over the guidewire into the vascular lumen under fluoroscopic guidance. The dilator and guidewire were then removed. A right ventricular bipolar lead was inserted into the sheath and advanced under fluoroscopic guidance into the right ventricle under fluoroscopic guidance. Adequate sensing and pacing thresholds were achieved and the lead was screwed into place in the RV apex. The sheath was then torn away. The lead collar was advanced and anchored into place utilizing #0 silk suture. Next, another venous sheath and dilator were advanced under fluoroscopic guidance into the vascular lumen over the guidewire. After removal of the di lator and guidewire, a right atrial bipolar lead was inserted into this sheath and advanced under fluoroscopic guidance into the right atrium. The lead was positioned into the right atrial appendage. Adequate sensing and pacing thresholds were then achieved with patient being in Aflutter at the time and the lead was screwed into place. The sheath was then torn away. The lead collar was advanced and anchored into place utilizing #0 silk suture. The leads were then inserted into the appropriate position into the generator. They were then secured with the setscrew provided. The leads and generator were inserted into the pocket with the leads posterior. The subcutaneous tissue was approximated utilizing #2.0 and 3.0 vicryl in an interrupted stitch fashion. The dermal layer was approximated utilizing #4.0 vicryl. The area was cleansed with sterile saline and dried. A sterile 4x4 dressing was applied and the patient was transferred to the post catheterization holding area in stable and satisfactory condition. The patient tolerated the procedure well. Generator Data Manager Security: [email or web address]! Brand: [id number] Taylor XT DR MRI Model #: [id number] Serial#: [id number] Right Atrial Bipolar Lead Data: Type: Active fixation lead Manager Security: [employer] Model#: 5076-45 Serial Number: [id number] Right Ventricular Bipolar Lead Data: Type: Active fixation lead Manager Security: [employer] Model #: 5076-52 Serial #: [id number] Stimulation Thresholds: Right atrial bipolar lead pacing and sensing thresholds Voltage: Aflutter Impedance: 532 ohms P-wave sensin.5 mV Right Ventricular bipolar lead pacing and sensing thresholds Pulse Width: 0.4ms Voltage: 0.5 volts Impedance: 608 ohms R-wave sensin.1 mV Parameter Setting: Pacing mode is AAIR<=>DDDR Lower rate 60 bpm Upper rate 130 bpm Impressions: 1. Successful implantation of a dual chamber permanent pacemaker in the left pectoral site. Plan: 1. Routine post procedure care will be instituted as well as outpatient follow- up surveillance.
[2022-04-27 06:26] LABS: Glucose,Whole Blood 140 mg/dL (70-110)
[2022-04-27] MEDS ORDERED: LEVOTHYROXINE 125 MCG TAB PO SCH (06:30)
[2022-04-27] MEDS: INSULIN ASPART (NovoLOG) 100 UNIT/ML VIAL SQ SCH ×2 (06:32→12:14)
[2022-04-27 06:40] VITALS: BP 176/68; PULSE 64; RESP 18; TEMP 98.2
[2022-04-27] MEDS: SODIUM CHLORIDE 0.9% 1,000 ML IV SCH (08:09)
[2022-04-27] MEDS: RANOLAZINE 500 MG TAB.ER.12H PO SCH (08:46)
[2022-04-27] MEDS: amLODIPine 5 MG TAB PO SCH (08:46)
[2022-04-27] MEDS ORDERED: ASPIRIN 81 MG PO SCH (09:00)
[2022-04-27] MEDS ORDERED: ISOSORBIDE MONONITRATE ER 30 MG TAB.ER.24H PO SCH (09:00)
[2022-04-27] MEDS ORDERED: FUROSEMIDE 40 MG TAB PO SCH (09:00)
--- NOTE | 2022-04-27 11:29 | P.DS ---
Providers Attending physician: Geoff Ash DO Primary care physician: [facility] Course: Patient is a pleasant 86 year old male with history of Afib/flutter, CAD, ischemic cardiomyopathy EF 42%, sick sinus syndrome with loop recorder showing greater than 5 second pauses and therefore recommended to undergo permanent pacemaker. Patient does have history of cardiomyopathy however EF 42% without significant VT noted on loop recorder and additionally has a cardiomyopathy and not felt to likely need frequent pacing and therefore dual chamber permanent pacemaker was recommended. Patient underwent dual chamber permanent pacemaker placement 04/26 which was uneventful with adequate sensing and pacing parameters. He was monitored overnight with occasional pacing on telemetry and no significant events. Pacing thresholds were stable 04/27 and patient denied any significant chest pain, pressure or SOB and was stable for DC home. Plan - Discharge Summary Discharge Rx Participant: No New Discharge Prescriptions: No Action Isosorbide Mononitrate ER [Imdur] 30 mg PO DAILY Insulin Degludec [Tresiba Flextouch U-200 Pen] 20 units SQ QAM amLODIPine [Norvasc] 5 mg PO BID calcitrioL [Rocaltrol] 0.25 mcg PO DAILY Aspirin EC [Ecotrin Low Dose] 81 mg PO DAILY INSULIN LISPRO (humaLOG) [humaLOG] See Protocol SQ AC-TID Furosemide [Lasix] 40 mg PO DAILY #30 tab Ranolazine [Ranolazine ER] 500 mg PO BID Apixaban [Eliquis] 5 mg PO BID Atorvastatin [Lipitor] 80 mg PO HS Levothyroxine Sodium [Synthroid] 125 mcg PO DAILY Discharge Medication List Isosorbide Mononitrate ER [Imdur] 30 mg PO DAILY 12/15/17 [History] Insulin Degludec [Tresiba Flextouch U-200 Pen] 20 units SQ QAM 01/13/19 [History] amLODIPine [Norvasc] 5 mg PO BID 01/13/19 [History] calcitrioL [Rocaltrol] 0.25 mcg PO DAILY 02/22/19 [History] Apixaban [Eliquis] 5 mg PO BID 10/21/21 [History] Aspirin EC [Ecotrin Low Dose] 81 mg PO DAILY 10/21/21 [History] Atorvastatin [Lipitor] 80 mg PO HS 10/21/21 [History] INSULIN LISPRO (humaLOG) [humaLOG] See Protocol SQ AC-TID 10/21/21 [History] Levothyroxine Sodium [Synthroid] 125 mcg PO DAILY 10/21/21 [History] Furosemide [Lasix] 40 mg PO DAILY #30 tab 10/23/21 [Rx] Ranolazine [Ranolazine ER] 500 mg PO BID 04/26/22 [History] Follow up Appointment(s)/Referral(s): Shamar Conroy MD [STAFF PHYSICIAN] - 05/03/22 1:45 pm (Office will verify if need to keep current appointment of 05/03 at 1:45pm Office will call with a Device [facility] Appointment located at Main Office on [address] Patient Instructions/Handouts: Pacemaker (DC)
[2022-04-27] MEDS ORDERED: METOPROLOL TARTRATE 25 MG TAB PO SCH (11:45)
[2022-04-27 11:55] LABS: Glucose,Whole Blood 375 mg/dL (70-110)
== END 2022-04-27 13:47 | disposition home or self-care (01) ==
LOC: CATHEP 10:02 → 6NMEDSUR 13:23 → CATHEP 04-27 13:47
PROVIDERS: ATTEND Internal Medicine
DX: I25.5 Ischemic cardiomyopathy (principal); I48.91 Unspecified atrial fibrillation; I48.92 Unspecified atrial flutter; I25.10 Atherosclerotic heart disease of native coronary artery without angina pectoris; I49.5 Sick sinus syndrome
CPT/HCPCS: 33208; 80048; 85025; 71045; C1769; C1898; C1785; J2250; J0690; J2001; Q9967; J3010

== ENCOUNTER 2022-05-05 16:05 | Inpatient (IN) | payer MEDICARE ==
[2022-05-05] MEDS ORDERED: ASPIRIN 81 MG PO STA (16:27)
[2022-05-05 16:37] LABS: Basophils # (A) 0.1 k/uL (0-0.2); Basophils % (A) 1 %; Eosinophils # (A) 0.2 k/uL (0-0.7); Eosinophils % (A) 1 %; HCT 35.5 % (39.0-53.0); HGB 12.1 gm/dL (13.0-17.5); Lymphocytes # (A) 1.5 k/uL (1.0-4.8); Lymphocytes % (A) 10 %; MCH 30.8 pg (25.0-35.0); MCV 90.7 fL (80.0-100.0); Mean Platelet Volume 9.1; Monocytes % (A) 7 %; Neutrophils # (A) 11.3 k/uL (1.3-7.7); Neutrophils % (A) 80 %; Platelet Count 218 k/uL (150-450); RBC 3.91 m/uL (4.30-5.90); RDW 13.7 % (11.5-15.5); WBC 14.1 k/uL (3.8-10.6)
[2022-05-05 16:47] LABS: Albumin 3.9 g/dL (3.5-5.0); Calcium 8.7 mg/dL (8.4-10.2); Magnesium 2.1 mg/dL (1.6-2.3); Total Bilirubin 1.3 mg/dL (0.2-1.3); Total Protein 6.9 g/dL (6.3-8.2)
[2022-05-05 17:00] LABS: Potassium 4.9 mmol/L (3.5-5.1)
[2022-05-05 17:03] LABS: INR 1.1 (<1.2)
[2022-05-05 17:04] LABS: Partial Thromboplastin Time 28.2 sec (22.0-30.0); Prothrombin Time 11.9 sec (9.0-12.0)
--- NOTE | 2022-05-05 17:04 | ED ---
General Adult HPI - General Chief complaint: Chest Pain Stated complaint: Chest pain/SOB Time Seen by Provider: 05/05/22 16:12 Source: patient, RN notes reviewed Mode of arrival: wheelchair Limitations: no limitations - History of Present Illness Initial comments: 86-year-old male with a history of three-vessel CABG in 2000 and recent pacemaker placement presents to the emergency department accompanied by his adult children for evaluation of diffuse chest pain and shortness of breath. Patient has some difficulty describing his chest pain but likens it to a tightness that spreads all the way across the anterior wall of his chest. States it began yesterday but was less in intensity. Took a Nitro prior to arrival with some improvement. Reports worsening shortness of breath over the past few days as well. States he had a pacemaker placed 2 weeks ago and has had no issues since. Has been taking his medications, including Eliquis, as prescrib ed. Denies fever, chills, headache, dizziness, sore throat, cough, congestion, abdominal pain, nausea, vomiting, diarrhea, dysuria, and lower extremity edema. - Related Data Home Medications Medication Instructions Recorded Confirmed Isosorbide Mononitrate ER [Imdur] 30 mg PO DAILY 12/15/17 05/05/22 Insulin Degludec [Tresiba 20 units SQ DAILY 01/13/19 05/05/22 Flextouch U-200 Pen] amLODIPine [Norvasc] 5 mg PO BID 01/13/19 05/05/22 Aspirin EC [Ecotrin Low Dose] 81 mg PO DAILY 10/21/21 05/05/22 Atorvastatin [Lipitor] 80 mg PO HS 10/21/21 05/05/22 INSULIN LISPRO (humaLOG) [humaLOG] See Protocol SQ AC-TID 10/21/21 05/05/22 Levothyroxine Sodium [Synthroid] 125 mcg PO DAILY 10/21/21 05/05/22 Ranolazine [Ranolazine ER] 500 mg PO BID 04/26/22 05/05/22 Apixaban [Eliquis] 2.5 mg PO BID 05/05/22 05/05/22 Metoprolol Succinate (ER) [Toprol 25 mg PO BID 05/05/22 05/05/22 Xl] calcitrioL [Rocaltrol] 0.25 mcg PO DAILY 05/05/22 05/05/22 Previous Rx's Medication Instructions Recorded Furosemide [Lasix] 40 mg PO DAILY #30 tab 10/23/21 Allergies Allergy/AdvReac Type Severity Reaction Status Date / Time No Known Allergies Allergy Verified 05/05/22 18:21 Review of Systems ROS Statement: Those systems with pertinent positive or pertinent negative responses have been documented in the HPI. ROS Other: All systems not noted in ROS Statement are negative. Past Medical History Past Medical History: Diabetes Mellitus, GERD/Reflux, Hyperlipidemia, Hypertension, Myocardial Infarction (DC), Osteoarthritis (OA), Renal Disease, Thyroid Disorder Last Myocardial Infarction Date:: 2000 History of Any Multi-Drug Resistant Organisms: None Reported Past Surgical History: Coronary Bypass/CABG, Heart Catheterization, Hernia Repair, Pacemaker Additional Past Surgical History / Comment(s): triple bypass 21 years ago, right ear mastoid removed Past Anesthesia/Blood Transfusion Reactions: No Reported Reaction Past Psychological History: No Psychological Hx Reported Smoking Status: Never smoker Past Alcohol Use History: None Reported Past Drug Use History: None Reported - Past Family History Mother Family Medical History: No Reported History General Exam Limitations: no limitations General appearance: alert, in no apparent distress ENT exam: Present: normal exam, mucous membranes moist Respiratory exam: Present: normal lung sounds bilaterally, other (borderline h ypoxia, subjective shortness of breath though no increased work of breathing). Absent: respiratory distress, wheezes, rales, rhonchi, stridor, chest wall tenderness Cardiovascular Exam: Present: normal rhythm, tachycardia, normal heart sounds, other (recent pacemaker placement; site appears to be well healing) GI/Abdominal exam: Present: soft, normal bowel sounds. Absent: distended, tenderness, guarding, rebound, rigid Extremities exam: Present: normal inspection, normal capillary refill. Absent: pedal edema Neurological exam: Present: alert, oriented X3 Psychiatric exam: Present: normal affect, normal mood Skin exam: Present: warm, dry, normal color Course Vital Signs 05/05/22 05/05/22 05/05/22 16:07 16:20 16:24 Temperature 98.3 F Pulse Rate 98 96 Pulse Rate [ 96 Order Analyst ] Respiratory 18 18 Rate Blood Pressure 128/63 O2 Sat by Pulse 90 L 89 L 90 L Oximetry 05/05/22 05/05/22 05/05/22 16:30 16:40 16:57 Temperature Pulse Rate 92 112 H 90 Pulse Rate [ Order Analyst ] Respiratory 21 23 25 H Rate Blood Pressure O2 Sat by Pulse 94 L 93 L 91 L Oximetry 05/05/22 05/05/22 05/05/22 17:00 17:10 17:20 Temperature Pulse Rate 80 90 85 Pulse Rate [ Order Analyst ] Respiratory 21 22 24 Rate Blood Pressure O2 Sat by Pulse 91 L 91 L 92 L Oximetry 05/05/22 05/05/22 05/05/22 17:27 17:30 17:40 Temperature Pulse Rate 80 89 111 H Pulse Rate [ Order Analyst ] Respiratory 18 11 L 16 Rate Blood Pressure 124/74 124/74 124/87 O2 Sat by Pulse 94 L 94 L 92 L Oximetry 05/05/22 05/05/22 05/05/22 17:50 18:00 18:10 Temperature Pulse Rate 68 73 77 Pulse Rate [ Order Analyst ] Respiratory 24 21 18 Rate Blood Pressure 124/87 124/87 119/62 O2 Sat by Pulse 96 94 L 95 Oximetry 05/05/22 05/05/22 05/05/22 18:20 18:30 18:40 Temperature Pulse Rate 89 76 73 Pulse Rate [ Order Analyst ] Respiratory 15 21 19 Rate Blood Pressure 119/62 119/62 123/54 O2 Sat by Pulse 94 L 95 95 Oximetry 05/05/22 05/05/22 05/05/22 18:50 18:53 19:00 Temperature Pulse Rate 87 70 88 Pulse Rate [ Order Analyst ] Respiratory 23 18 16 Rate Blood Pressure 123/54 123/54 123/54 O2 Sat by Pulse 95 95 Oximetry 05/05/22 05/05/22 05/05/22 19:10 19:20 19:30 Temperature Pulse Rate 78 75 83 Pulse Rate [ Order Analyst ] Respiratory 21 18 16 Rate Blood Pressure O2 Sat by Pulse Oximetry 05/05/22 05/05/22 05/05/22 19:40 19:50 20:00 Temperature Pulse Rate 85 84 86 Pulse Rate [ Order Analyst ] Respiratory 18 18 21 Rate Blood Pressure O2 Sat by Pulse Oximetry 05/05/22 05/05/22 05/05/22 20:10 20:20 20:30 Temperature Pulse Rate 91 85 80 Pulse Rate [ Order Analyst ] Respiratory 20 18 18 Rate Blood Pressure O2 Sat by Pulse Oximetry 05/05/22 05/05/22 20:40 20:50 Temperature Pulse Rate 77 70 Pulse Rate [ Order Analyst ] Respiratory 21 24 Rate Blood Pressure O2 Sat by Pulse Oximetry - Reevaluation(s) Reevaluation #1: 05/05/22 17:15 Notified that D-Dimer is elevated. Patient's renal function is chronically impaired making CTA to r/o PE concerning. Patient is anticoagulated as he is taking his Eliquis as prescribed. Will admit and defer VQ scan. Chest Xray shows possible left lower lobe pneumonia. Given elevated wbc's, slight tachycardia, and borderline hypoxia, patient will be started on antibiotics and treated for pneumonia. Patient's previous medical record thoroughly reviewed. 05/05/22 17:30 Upon reassessment, patient reports feeling improved. Discussed plan to admit to the hospital and patient and family are agreeable. This patient's care was discussed with my attending, Dr. Neri. 05/05/22 17:[address] Capellan who agrees to accept this patient. Medical Decision Making - Medical Decision Making This is a pleasant 86-year-old male with a significant cardiac history including 3 vessel CABG and recent pacemaker placement who presents to the emergency department with complaints of diffuse chest tightness and mild shortness of breath. Upon exam, patient is well-appearing and in no acute distress. His discomfort is not reproducible, nor is it exacerbated by activity. Chest xray was obtained and shows evidence of congestive heart paly of which is new compared to previous imaging; there was also concern for left lower lobe pneumonia. Laboratory studies were obtained. WBCs14.1. D-dimer 2.16. BUN 42, creatinine 1.77, GFR 34. Troponin 0.014. BNP 9550. Given the leukocytosis, patient is started on antibiotic for pneumonia. With the elevated BNP he is diuresed with Lasix, though somewhat cautiously given his decreased renal function. His renal impairment precludes him from having PE study. Patient will be admitted for further evaluation and treatment. I discussed this patient with Dr. Capellan; he agrees to accept the admission. Attending: Halle. - Lab Data Result diagrams: 05/08/22 04:05 05/08/22 04:05 Lab Results 05/05/22 05/05/22 05/05/22 Range/Units 16:28 16:28 16:28 WBC 14.1 H (3.8-10.6) k/uL RBC 3.91 L (4.30-5.90) m/uL Hgb 12.1 L (13.0-17.5) gm/dL Hct 35.5 L (39.0-53.0) % MCV 90.7 (80.0-100.0) fL MCH 30.8 (25.0-35.0) pg MCHC 34.0 (31.0-37.0) g/dL RDW 13.7 (11.5-15.5) % Plt Count 218 (150-450) k/uL MPV 9.1 Neutrophils % 80 % Lymphocytes % 10 % Monocytes % 7 % Eosinophils % 1 % Basophils % 1 % Neutrophils # 11.3 H (1.3-7.7) k/uL Lymphocytes # 1.5 (1.0-4.8) k/uL Monocytes # 1.0 (0-1.0) k/uL Eosinophils # 0.2 (0-0.7) k/uL Basophils # 0.1 (0-0.2) k/uL PT 11.9 (9.0-12.0) sec INR 1.1 (<1.2) APTT 28.2 (22.0-30.0) sec D-Dimer 2.16 H (<0.60) mg/L FEU Sodium 136 L (137-145) mmol/L Potassium 4.9 (3.5-5.1) mmol/L Chloride 104 (98-107) mmol/L Carbon Dioxide 22 (22-30) mmol/L Anion Gap 10 mmol/L BUN 42 H (9-20) mg/dL Creatinine 1.77 H (0.66-1.25) mg/dL Est GFR (CKD-EPI)AfAm 39 (>60 ml/min/1.73 sqM) Est GFR (CKD-EPI)NonAf 34 (>60 ml/min/1.73 sqM) Glucose 122 H (74-99) mg/dL Calcium 8.7 (8.4-10.2) mg/dL Magnesium 2.1 (1.6-2.3) mg/dL Total Bilirubin 1.3 (0.2-1.3) mg/dL AST 44 (17-59) U/L ALT 33 (4-49) U/L Alkaline Phosphatase 176 H (38-126) U/L Troponin I (0.000-0.034) ng/mL NT-Pro-B Natriuret Pep pg/mL Total Protein 6.9 (6.3-8.2) g/dL Albumin 3.9 (3.5-5.0) g/dL 05/05/22 05/05/22 Range/Units 16:28 16:28 WBC (3.8-10.6) k/uL RBC (4.30-5.90) m/uL Hgb (13.0-17.5) gm/dL Hct (39.0-53.0) % MCV (80.0-100.0) fL MCH (25.0-35.0) pg MCHC (31.0-37.0) g/dL RDW (11.5-15.5) % Plt Count (150-450) k/uL MPV Neutrophils % % Lymphocytes % % Monocytes % % Eosinophils % % Basophils % % Neutrophils # (1.3-7.7) k/uL Lymphocytes # (1.0-4.8) k/uL Monocytes # (0-1.0) k/uL Eosinophils # (0-0.7) k/uL Basophils # (0-0.2) k/uL PT (9.0-12.0) sec INR (<1.2) APTT (22.0-30.0) sec D-Dimer (<0.60) mg/L FEU Sodium (137-145) mmol/L Potassium (3.5-5.1) mmol/L Chloride (98-107) mmol/L Carbon Dioxide (22-30) mmol/L Anion Gap mmol/L BUN (9-20) mg/dL Creatinine (0.66-1.25) mg/dL Est GFR (CKD-EPI)AfAm (>60 ml/min/1.73 sqM) Est GFR (CKD-EPI)NonAf (>60 ml/min/1.73 sqM) Glucose (74-99) mg/dL Calcium (8.4-10.2) mg/dL Magnesium (1.6-2.3) mg/dL Total Bilirubin (0.2-1.3) mg/dL AST (17-59) U/L ALT (4-49) U/L Alkaline Phosphatase (38-126) U/L Troponin I 0.014 (0.000-0.034) ng/mL NT-Pro-B Natriuret Pep 9550 pg/mL Total Protein (6.3-8.2) g/dL Albumin (3.5-5.0) g/dL - EKG Data Rate: tachycardia EKG Comments: EKG obtained at 1616 shows a regular tachycardic rhythm, no no identifiable P waves. Left bundle branch block present as was in the EKG from October 2021. Ventricular rate 110, HI interval indeterminate, QRS duration 176, QT/QTC 395/460. - Radiology Data Radiology results: report reviewed, image reviewed Two-view chest x-ray was obtained. Report was reviewed in its entirety. Impression per Dr. Zamora as there is evidence of congestive heart failure which is new compared to old exam. Left lower lobe pneumonia also possible. Disposition Clinical Impression: Pneumonia, CHF (congestive heart failure), Hypoxia Disposition: ADMITTED IP TO THIS [facility] Condition: Serious Decision Date: 05/05/22 Decision Time: 18:11
--- NOTE | 2022-05-05 17:12 | XR ---
EXAMINATION TYPE: XR chest 2V DATE OF EXAM: 05/05/2022 COMPARISON: April 26, 2022 HISTORY: Chest pain TECHNIQUE: 2 views FINDINGS: There is some pulmonary vascular congestion. There is blunting of the costophrenic angles. There is some airspace infiltrate and atelectasis left lower lobe. There is left axillary pacemaker. There are sternal wires. IMPRESSION: There is evidence of congestive heart failure which is new compared to old exam. Left low er lobe pneumonia also possible.
[2022-05-05] MEDS ORDERED: FUROSEMIDE 10 MG/ML 4 ML VIAL IV STA ×2 (17:13→17:59)
[2022-05-05] MEDS ORDERED: ONDANSETRON 4 MG/2 ML VIAL IVP PRN (17:59)
[2022-05-05] MEDS ORDERED: NALOXONE 0.4 MG/ML 1 ML VIAL IV PRN (17:59)
[2022-05-05] MEDS ORDERED: AZITHROMYCIN 500 MG in SODIUM CHLORIDE 0.9% 250 ML IVPB STA (18:16)
[2022-05-05] MEDS ORDERED: amLODIPine 5 MG TAB PO SCH (21:00)
[2022-05-05] MEDS ORDERED: APIXABAN 5 MG TAB PO SCH (21:00)
[2022-05-05 21:49] LABS: Glucose,Whole Blood 185 mg/dL (70-110)
[2022-05-05] MEDS: RANOLAZINE 500 MG TAB.ER.12H PO SCH (21:56)
[2022-05-05] MEDS: ATORVASTATIN 80 MG TAB PO SCH (21:56)
[2022-05-05] MEDS ORDERED: AZITHROMYCIN 500 MG in SODIUM CHLORIDE 0.9% 250 ML IVPB ONE (22:00)
[2022-05-05 23:16] LABS: Glucose,Whole Blood 232 mg/dL (70-110)
[2022-05-06] MEDS ORDERED: FUROSEMIDE 10 MG/ML 4 ML VIAL IV STA (00:02)
--- NOTE | 2022-05-06 00:18 | XR ---
EXAMINATION TYPE: XR chest 1V portable DATE OF EXAM: 05/06/2022 COMPARISON: 05/05/2022 HISTORY: Short of breath TECHNIQUE: Single view FINDINGS: Heart is enlarged. There is mild pulmonary congestion. There is slight blunting of the cost ophrenic angles. There is left axillary pacemaker. There is some pulmonary interstitial edema. IMPRESSION: Mild congestive heart failure and small pleural effusions. Pulmonary congestion increased compared to examination yesterday. Right lower lobe pneumonia also possible.
[2022-05-06 00:36] LABS: Glucose,Whole Blood 227 mg/dL (70-110)
[2022-05-06 04:44] LABS: Basophils % (A) 0 %; Eosinophils % (A) 0 %; HCT 35.1 % (39.0-53.0); HGB 11.5 gm/dL (13.0-17.5); Lymphocytes # (A) 0.7 k/uL (1.0-4.8); Lymphocytes % (A) 5 %; MCH 29.8 pg (25.0-35.0); MCHC 32.7 g/dL (31.0-37.0); MCV 91.2 fL (80.0-100.0); Mean Platelet Volume 9.9; Monocytes # (A) 0.7 k/uL (0-1.0); Monocytes % (A) 6 %; Neutrophils # (A) 10.8 k/uL (1.3-7.7); Neutrophils % (A) 87 %; Platelet Count 216 k/uL (150-450); RBC 3.85 m/uL (4.30-5.90); RDW 13.8 % (11.5-15.5); WBC 12.5 k/uL (3.8-10.6)
[2022-05-06 04:55] LABS: Albumin 3.5 g/dL (3.5-5.0); Calcium 8.5 mg/dL (8.4-10.2); Potassium 4.4 mmol/L (3.5-5.1); Total Bilirubin 0.8 mg/dL (0.2-1.3); Total Protein 6.2 g/dL (6.3-8.2)
[2022-05-06 06:54] LABS: Glucose,Whole Blood 184 mg/dL (70-110)
[2022-05-06] MEDS ORDERED: FUROSEMIDE 40 MG TAB PO SCH (09:00)
[2022-05-06] MEDS ORDERED: FUROSEMIDE 10 MG/ML 4 ML VIAL IV SCH (09:45)
[2022-05-06] MEDS ORDERED: METOPROLOL SUCCINATE (ER) 25 MG TAB.ER.24H PO SCH (10:00)
--- NOTE | 2022-05-06 10:10 | P.CRDCN ---
History of Present Illness History of present illness: HISTORY OF PRESENTING ILLNESS Patient is pleasant 86-year-old male with history of persistent atrial fibrillation, sick sinus syndrome status post recent permanent pacemaker, CAD status post CABG, ischemic cardiomyopathy EF 40% with previous small pericardial effusion, mild aortic stenosis, diabetes mellitus, chronic kidney disease. He follows with Dr. Conroy. He has been having issues with low heart rates and therefore his metoprolol had been weaned initially from 50 down to 25 twice a day and more recently had been entirely discontinued however was still having significant pauses up to 5 seconds and therefore was recommended to undergo permanent pacemaker which was uneventful approximately 2 weeks ago. He had been feeling fairly well however more recently in the last 2 days started to develop more shortness of breath as well as some burning sensation in his chest. He states this occurred when he was just sitting there. He felt weak and tired and therefore came to the emergency department. He denies any fevers or chills. His pacemaker site appears clean and dry. EKG shows atrial fibrillation with left bundle branch morphology and nonspecific ST, T-wave abnormalities with heart rate 110. He states normally his heart rate was more in the 60s to 70s. He was initially treated with oxygen and then required BiPAP with some respiratory distress however received IV Lasix and had limited urine output approximately 450 over last 12 hours. He feels much improved today however and is on nasal cannula. Denies any further chest burning sensation. Initial white blood cell count 14.1, d-dimer elevated however has been on anticoagulation, Trop 0.014, 0.7, 1.59. His creatinine was 1.7 and increased up to 2.2. Chest x-ray showing mild congestive heart failure and small effusions with possible right lower lobe pneumonia as well. REVIEW OF SYSTEMS At the time of my exam: CONSTITUTIONAL: Denies fever or chills. CARDIOVASCULAR: +chest pain, +shortness of breath, orthopnea, PND or palpitations. RESPIRATORY: Denies cough. GASTROINTESTINAL: Denies abdominal pain, diarrhea, constipation, nausea or vomiting. MUSCULOSKELETAL: Denies myalgias. NEUROLOGIC: Denies numbness, tingling or weakness. ENDOCRINE: Denies fatigue, weight change, polydipsia or polyurina. GENITOURINARY: Denies burning, hematuria or urgency with micturation. HEMATOLOGIC: Denies history of anemia or bleeding. PHYSICAL EXAMINATION Vital signs reviewed. CONSTITUTIONAL: No apparent distress. HEENT: Head is normocephalic. Pupils are equal, round. Sclerae anicteric. Mucous membranes of the mouth are moist. No JVD. No carotid bruit. CHEST EXAMINATION: Lungs are clear to auscultation. No chest wall tenderness is noted on palpation or with deep breathing. HEART EXAMINATION: Regular rate and rhythm. S1, S2 heard. No murmurs, gallops or rub. ABDOMEN: Soft, nontender. Positive bowel sounds. EXTREMITIES: 2+ peripheral pulses, no lower extremity edema and no calf tenderness. NEUROLOGIC EXAMINATION: Patient is awake, alert and oriented x3. ASSESSMENT 1. Non-STEMI, question type I mechanism however may be type II mechanism related to A. fib with RVR with recent discontinuation of metoprolol 2. Acute on chronic systolic heart failure 3. Sick sinus syndrome status post permanent pacemaker 4. CAD status post CABG 5. Persistent atrial fibrillation, A. fib with RVR on presentation 6. Acute kidney injury 7. Diabetes mellitus type 2 8. Mild leukocytosis 9. Chest x-ray with possible right lower lobe consolidation, rule out pneumonia however may be related to pulmonary edema PLAN Majority of presentation appears concerning for non-STEMI with chest burning sensation and worsening shortness of breath. Check 2-D echo to evaluate left ventricular function. Some of her symptoms may be related to A. fib with RVR with his [place] underlying CAD. Heparin drip for 24 hours for non-STEMI. Attempt to increase antianginals and rate controlling medications and we will place him back on metoprolol and monitor response. Blood pressures have been somewhat borderline and therefore start with 25 mg Toprol twice a day and monitor. He was previously on up to 100 mg twice a day previously. Rule out any underlying infection with recent PPM and rule out any complication from PPM. Further recs to follow. Past Medical History Past Medical History: Atrial Fibrillation, Atrial Flutter, Coronary Artery Disease (CAD), Heart Failure, Diabetes Mellitus, GERD/Reflux, Hyperlipidemia, Hypertension, Myocardial Infarction ([place]), Osteoarthritis (OA), Renal Disease, Thyroid Disorder Last Myocardial Infarction Date:: 2000 History of Any Multi-Drug Resistant Organisms: None Reported Past Surgical History: Coronary Bypass/CABG, Heart Catheterization, Hernia Repai r, Pacemaker Additional Past Surgical History / Comment(s): triple bypass 21 years ago, right ear mastoid removed Past Anesthesia/Blood Transfusion Reactions: No Reported Reaction Type of Cardiac Device: Permanent Pacemaker Device Placement Date:: 04/26/2022 Past Psychological History: No Psychological Hx Reported Smoking Status: Never smoker Past Alcohol Use History: None Reported Additional Past Alcohol Use History / Comment(s): hx of occas. cigar, quit 45 years ago Past Drug Use History: None Reported - Past Family History Mother Family Medical History: No Reported History Medications and Allergies Home Medications Medication Instructions Recorded Confirmed Type Isosorbide Mononitrate ER [Imdur] 30 mg PO DAILY 12/15/17 05/05/22 History Insulin Degludec [Tresiba 20 units SQ DAILY 01/13/19 05/05/22 History Flextouch U-200 Pen] amLODIPine [Norvasc] 5 mg PO BID 01/13/19 05/05/22 History Aspirin EC [Ecotrin Low Dose] 81 mg PO DAILY 10/21/21 05/05/22 History Atorvastatin [Lipitor] 80 mg PO HS 10/21/21 05/05/22 History INSULIN LISPRO (humaLOG) [humaLOG] See Protocol SQ AC-TID 10/21/21 05/05/22 History Levothyroxine Sodium [Synthroid] 125 mcg PO DAILY 10/21/21 05/05/22 History Furosemide [Lasix] 40 mg PO DAILY #30 tab 10/23/21 05/05/22 Rx Ranolazine [Ranolazine ER] 500 mg PO BID 04/26/22 05/05/22 History Apixaban [Eliquis] 2.5 mg PO BID 05/05/22 05/05/22 History Metoprolol Succinate (ER) [Toprol 25 mg PO BID 05/05/22 05/05/22 History Xl] calcitrioL [Rocaltrol] 0.25 mcg PO DAILY 05/05/22 05/05/22 History Allergies Allergy/AdvReac Type Severity Reaction Status Date / Time No Known Allergies Allergy Verified 05/05/22 18:21 Physical Exam Vitals: Vital Signs Temp Pulse Pulse Resp BP BP Pulse Ox 05/06/22 08:09 96 05/06/22 08:00 05/06/22 07:00 96 14 114/66 98 05/06/22 06:00 105 H 20 111/72 97 05/06/22 05:00 98 22 113/65 96 05/06/22 04:07 05/06/22 04:00 105 H 18 113/62 96 05/06/22 03:00 101 H 22 112/70 96 05/06/22 02:00 92 22 110/56 94 L 05/06/22 01:50 111 H 22 110/56 96 05/06/22 01:40 89 25 H 118/67 97 05/06/22 01:30 101 H 25 H 113/66 95 05/06/22 01:20 98 26 H 113/66 95 05/06/22 01:10 114 H 28 H 116/66 95 05/06/22 01:00 96 29 H 129/66 05/06/22 00:50 105 H 31 H 129/66 96 05/06/22 00:40 90 26 H 103/63 95 05/06/22 00:36 05/06/22 00:33 63 H 05/06/22 00:11 28 H 100 05/06/22 00:10 100 05/06/22 00:09 05/06/22 00:07 05/06/22 00:06 05/06/22 00:04 97 28 H 133/75 97 05/05/22 23:35 90 L 05/05/22 23:31 88 L 05/05/22 23:15 98.6 F 94 28 H 113/66 84 L 05/05/22 21:30 94 28 H 05/05/22 21:29 98.1 F 83 20 119/69 91 L 05/05/22 20:50 70 24 05/05/22 20:40 77 21 05/05/22 20:30 80 18 05/05/22 20:20 85 18 05/05/22 20:10 91 20 05/05/22 20:00 86 21 05/05/22 19:50 84 18 05/05/22 19:40 85 18 05/05/22 19:30 83 16 05/05/22 19:20 75 18 05/05/22 19:10 78 21 05/05/22 19:00 88 16 123/54 05/05/22 18:53 70 18 123/54 95 05/05/22 18:50 87 23 123/54 95 05/05/22 18:40 73 19 123/54 95 05/05/22 18:30 76 21 119/62 95 05/05/22 18:20 89 15 119/62 94 L 05/05/22 18:10 77 18 119/62 95 05/05/22 18:00 73 21 124/87 94 L 05/05/22 17:50 68 24 124/87 96 05/05/22 17:40 111 H 16 124/87 92 L 05/05/22 17:30 89 11 L 124/74 94 L 05/05/22 17:27 80 18 124/74 94 L 05/05/22 17:20 85 24 92 L 05/05/22 17:10 90 22 91 L 05/05/22 17:00 80 21 91 L 05/05/22 16:57 90 25 H 91 L 05/05/22 16:40 112 H 23 93 L 05/05/22 16:30 92 21 94 L 05/05/22 16:24 96 96 18 90 L 05/05/22 16:20 89 L 05/05/22 16:07 98.3 F 98 18 128/63 90 L FiO2 05/06/22 08:09 05/06/22 08:00 50 05/06/22 07:00 05/06/22 06:00 05/06/22 05:00 05/06/22 04:07 60 05/06/22 04:00 05/06/22 03:00 05/06/22 02:00 05/06/22 01:50 05/06/22 01:40 05/06/22 01:30 05/06/22 01:20 05/06/22 01:10 05/06/22 01:00 05/06/22 00:50 05/06/22 00:40 05/06/22 00:36 70 05/06/22 00:33 05/06/22 00:11 80 05/06/22 00:10 80 05/06/22 00:09 80 05/06/22 00:07 100 05/06/22 00:06 100 05/06/22 00:04 80 05/05/22 23:35 100 05/05/22 23:31 05/05/22 23:15 05/05/22 21:30 05/05/22 21:29 05/05/22 20:50 05/05/22 20:40 05/05/22 20:30 05/05/22 20:20 05/05/22 20:10 05/05/22 20:00 05/05/22 19:50 05/05/22 19:40 05/05/22 19:30 05/05/22 19:20 05/05/22 19:10 05/05/22 19:00 05/05/22 18:53 05/05/22 18:50 05/05/22 18:40 05/05/22 18:30 05/05/22 18:20 05/05/22 18:10 05/05/22 18:00 05/05/22 17:50 05/05/22 17:40 05/05/22 17:30 05/05/22 17:27 05/05/22 17:20 05/05/22 17:10 05/05/22 17:00 05/05/22 16:57 05/05/22 16:40 05/05/22 16:30 05/05/22 16:24 05/05/22 16:20 05/05/22 16:07 Intake and Output 05/05/22 05/06/22 05/06/22 22:59 06:59 14:59 Intake Total 100 50 Output Total 350 0 Balance -250 50 Intake: Oral 100 50 Output: Urine 350 0 Other: Voiding Method Urinal Urinal Weight 77.111 kg 79.1 kg Results 05/06/22 03:52 05/06/22 03:52 Cardiac Enzymes 05/05/22 05/05/22 05/05/22 Range/Units 16:28 16:28 21:41 AST 44 (17-59) U/L Troponin I 0.014 0.707 H* (0.000-0.034) ng/mL 05/06/22 05/06/22 05/06/22 Range/Units 00:13 03:52 03:52 AST 44 (17-59) U/L Troponin I 0.904 H* 1.590 H* (0.000-0.034) ng/mL Coagulation 05/05/22 Range/Units 16:28 PT 11.9 (9.0-12.0) sec APTT 28.2 (22.0-30.0) sec CBC 05/05/22 05/06/22 Range/Units 16:28 03:52 WBC 14.1 H 12.5 H (3.8-10.6) k/uL RBC 3.91 L 3.85 L (4.30-5.90) m/uL Hgb 12.1 L 11.5 L (13.0-17.5) gm/dL Hct 35.5 L 35.1 L (39.0-53.0) % Plt Count 218 216 (150-450) k/uL Comprehensive Metabolic Panel 05/05/22 05/06/22 Range/Units 16:28 03:52 Sodium 136 L 134 L (137-145) mmol/L Potassium 4.9 4.4 (3.5-5.1) mmol/L Chloride 104 101 (98-107) mmol/L Carbon Dioxide 22 24 (22-30) mmol/L BUN 42 H 49 H (9-20) mg/dL Creatinine 1.77 H 2.25 H (0.66-1.25) mg/dL Glucose 122 H 214 H (74-99) mg/dL Calcium 8.7 8.5 (8.4-10.2) mg/dL AST 44 44 (17-59) U/L ALT 33 33 (4-49) U/L Alkaline Phosphatase 176 H 189 H (38-126) U/L Total Protein 6.9 6.2 L (6.3-8.2) g/dL Albumin 3.9 3.5 (3.5-5.0) g/dL Current Medications Generic Name Dose Route Start Last Admin Trade Name Freq PRN Reason Stop Dose Admin Acetaminophen 650 mg 05/05/22 17:59 Acetaminophen Tab 325 Mg Tab PO Q6HR PRN Mild Pain or Fever > 100.5 Amlodipine Besylate 5 mg 05/05/22 21:00 05/05/22 21:56 Amlodipine 5 Mg Tab PO 5 mg BID FELIPE Administration Apixaban 2.5 mg 05/05/22 21:00 05/05/22 21:56 Apixaban 5 Mg Tab PO 2.5 mg BID FELIPE Administration Protocol Aspirin 81 mg 05/06/22 09:00 Aspirin 81 Mg PO DAILY FELIPE Atorvastatin Calcium 80 mg 05/05/22 21:00 05/05/22 21:56 Atorvastatin 80 Mg Tab PO 80 mg HS FELIPE Administration Calcitriol 0.25 mcg 05/06/22 09:00 Calcitriol 0.25 Mcg Cap PO DAILY [facility] Famotidine 20 mg 05/06/22 09:00 Famotidine 20 Mg Tab PO DAILY [facility] Furosemide 40 mg 05/06/22 09:45 Furosemide 10 Mg/Ml 4 Ml Vial IV Q8HR [facility] Insulin Detemir 20 unit 05/06/22 09:00 Insulin Detemir (Levemir) 100 Unit/Ml Syr SQ QAM [facility] Isosorbide Mononitrate 30 mg 05/06/22 09:00 Isosorbide Mononitrate Er 30 Mg Tab.Er.24h PO DAILY [facility] Levothyroxine Sodium 125 mcg 05/06/22 09:00 Levothyroxine 125 Mcg Tab PO DAILY [facility] Metoprolol Succinate 25 mg 05/06/22 10:00 Metoprolol Succinate (Er) 25 Mg Tab.Er.24h PO BID [facility] Morphine Sulfate 4 mg 05/05/22 17:59 Morphine Sulfate 4 Mg/Ml Syringe IV Q4HR PRN Severe Pain (Scale 7 to 10) Naloxone HCl 0.2 mg 05/05/22 17:59 Naloxone 0.4 Mg/Ml 1 Ml Vial IV Q2M PRN Opioid Reversal Ondansetron HCl 4 mg 05/05/22 17:59 Ondansetron 4 Mg/2 Ml Vial IVP Q8HR PRN Nausea And Vomiting Ranolazine 500 mg 05/05/22 21:00 05/05/22 21:56 Ranolazine 500 Mg Tab.Er.12h PO 500 mg BID [facility] Administration Intake and Output 05/05/22 05/06/22 05/06/22 22:59 06:59 14:59 Intake Total 100 50 Output Total 350 0 Balance -250 50 Intake: Oral 100 50 Output: Urine 350 0 Other: Voiding Method Urinal Urinal Weight 77.111 kg 79.1 kg 05/06/22 03:52 05/06/22 03:52
[2022-05-06] MEDS ORDERED: HEPARIN SODIUM 1,000 UN/ML (10ML VL) IV ONE (10:11)
[2022-05-06] MEDS ORDERED: HEPARIN SODIUM 1,000 UN/ML (10ML VL) IV PRN (10:11)
[2022-05-06] MEDS: ASPIRIN 81 MG PO SCH (10:47)
[2022-05-06] MEDS: FAMOTIDINE 20 MG TAB PO SCH (10:47)
[2022-05-06] MEDS: INSULIN DETEMIR (LEVEMIR) 100 UNIT/ML SYR SQ SCH (10:47)
--- NOTE | 2022-05-06 10:47 | XR ---
EXAMINATION TYPE: XR chest 1V portable DATE OF EXAM: 05/06/2022 9:45 AM COMPARISON: Chest radiographs from same day TECHNIQUE: XR chest 1V portable Portable AP radiograph of the chest. CLINICAL INDICATION:Male, 86 years old with history of CHF; FINDINGS: Lungs/Pleura: Improved aeration of the lungs. Blunting of the costophrenic angles. No evidence for pn eumothorax or focal consolidation. Pulmonary vascularity: Pulmonary vascular congestion. Heart/mediastinum: Cardiomediastinal silhouette is enlarged and stable. A loop recorder projects over the left thorax over the heart. Two lead cardiac conduction device overlying the left hemithorax wit h lead tips projecting over the right ventricle and right atrium. Musculoskeletal: No acute osseous pathology. Midline sternotomy wires are noted. IMPRESSION: Improved aeration of lungs and exam with persistent opacities in the lung bases. Trace bilateral pleu ral fusions suggested.
--- NOTE | 2022-05-06 10:48 | P.NPCON ---
History of Present Illness - Reason for Consult acute renal failure, chronic renal failure - History of Present Illness Reason for consultation: Acute kidney injury on chronic kidney disease History of present illness: Patient is a 86-year-old male seen in renal consultation for acute kidney injury on chronic kidney disease. Patient has chronic kidney disease stage IIIB with baseline creatinine in the range of 1.5-1.7. Etiology is nephrosclerosis. Patient also has history of MGUS and follows with oncology outpatient. Patient's creatinine on admission was 1.77 and is 2.25 today. Patient came to the hospital due to chest pain or shortness of breath. Patient took nitro prior to admission with some improvement. Currently he is sitting up in bed. He is on a nasal cannula. He denies any active pain. He did receive 80 mg of IV Lasix once yesterday. He's currently on 40 mg IV Lasix every 8 hours. Chest x- ray yesterday showed mild CHF with small pleural effusions. Patient does have long-standing history of diabetes and is maintained on insulin. He also has history of hypertension. Blood pressures currently well controlled. He denies use of nonsteroidals. Vital signs are stable. General: Awake. No acute distress. HEENT: Head exam is unremarkable. On nasal cannula. LUNGS: Breath sounds decreased. HEART: Rate and Rhythm are regular. ABDOMEN: Soft, no distention. EXTREMITITES: No edema. Past Medical History Past Medical History: Atrial Fibrillation, Atrial Flutter, Coronary Artery Disease (CAD), Heart Failure, Diabetes Mellitus, GERD/Reflux, Hyperlipidemia, Hypertension, Myocardial Infarction ([place]), Osteoarthritis (OA), Renal Disease, Thyroid Disorder Last Myocardial Infarction Date:: 2000 History of Any Multi-Drug Resistant Organisms: None Reported Past Surgical History: Coronary Bypass/CABG, Heart Catheterization, Hernia Repair, Pacemaker Additional Past Surgical History / Comment(s): triple bypass 21 years ago, right ear mastoid removed Past Anesthesia/Blood Transfusion Reactions: No Reported Reaction Type of Cardiac Device: Permanent Pacemaker Device Placement Date:: 04/26/2022 Past Psychological History: No Psychological Hx Reported Smoking Status: Never smoker Past Alcohol Use History: None Reported Additional Past Alcohol Use History / Comment(s): hx of occas. cigar, quit 45 years ago Past Drug Use History: None Reported - Past Family History Mother Family Medical History: No Reported History Medications and Allergies Home Medications Medication Instructions Recorded Confirmed Type Isosorbide Mononitrate ER [Imdur] 30 mg PO DAILY 12/15/17 05/05/22 History Insulin Degludec [Tresiba 20 units SQ DAILY 01/13/19 05/05/22 History Flextouch U-200 Pen] amLODIPine [Norvasc] 5 mg PO BID 01/13/19 05/05/22 History Aspirin EC [Ecotrin Low Dose] 81 mg PO DAILY 10/21/21 05/05/22 History Atorvastatin [Lipitor] 80 mg PO HS 10/21/21 05/05/22 History INSULIN LISPRO (humaLOG) [humaLOG] See Protocol SQ AC-TID 10/21/21 05/05/22 History Levothyroxine Sodium [Synthroid] 125 mcg PO DAILY 10/21/21 05/05/22 History Furosemide [Lasix] 40 mg PO DAILY #30 tab 10/23/21 05/05/22 Rx Ranolazine [Ranolazine ER] 500 mg PO BID 04/26/22 05/05/22 History Apixaban [Eliquis] 2.5 mg PO BID 05/05/22 05/05/22 History Metoprolol Succinate (ER) [Toprol 25 mg PO BID 05/05/22 05/05/22 History Xl] calcitrioL [Rocaltrol] 0.25 mcg PO DAILY 05/05/22 05/05/22 History Allergies Allergy/AdvReac Type Severity Reaction Status Date / Time No Known Allergies Allergy Verified 05/05/22 18:21 Physical Exam Vitals: Vital Signs Temp Pulse Pulse Resp BP BP Pulse Ox 05/06/22 08:09 96 05/06/22 08:00 05/06/22 07:00 96 14 114/66 98 05/06/22 06:00 105 H 20 111/72 97 05/06/22 05:00 98 22 113/65 96 05/06/22 04:07 05/06/22 04:00 105 H 18 113/62 96 05/06/22 03:00 101 H 22 112/70 96 05/06/22 02:00 92 22 110/56 94 L 05/06/22 01:50 111 H 22 110/56 96 05/06/22 01:40 89 25 H 118/67 97 05/06/22 01:30 101 H 25 H 113/66 95 05/06/22 01:20 98 26 H 113/66 95 05/06/22 01:10 114 H 28 H 116/66 95 05/06/22 01:00 96 29 H 129/66 05/06/22 00:50 105 H 31 H 129/66 96 05/06/22 00:40 90 26 H 103/63 95 05/06/22 00:36 05/06/22 00:33 63 H 05/06/22 00:11 28 H 100 05/06/22 00:10 100 05/06/22 00:09 05/06/22 00:07 05/06/22 00:06 05/06/22 00:04 97 28 H 133/75 97 05/05/22 23:35 90 L 05/05/22 23:31 88 L 05/05/22 23:15 98.6 F 94 28 H 113/66 84 L 05/05/22 21:30 94 28 H 05/05/22 21:29 98.1 F 83 20 119/69 91 L 05/05/22 20:50 70 24 05/05/22 20:40 77 21 05/05/22 20:30 80 18 05/05/22 20:20 85 18 05/05/22 20:10 91 20 05/05/22 20:00 86 21 05/05/22 19:50 84 18 05/05/22 19:40 85 18 05/05/22 19:30 83 16 05/05/22 19:20 75 18 05/05/22 19:10 78 21 05/05/22 19:00 88 16 123/54 05/05/22 18:53 70 18 123/54 95 05/05/22 18:50 87 23 123/54 95 05/05/22 18:40 73 19 123/54 95 05/05/22 18:30 76 21 119/62 95 05/05/22 18:20 89 15 119/62 94 L 05/05/22 18:10 77 18 119/62 95 05/05/22 18:00 73 21 124/87 94 L 05/05/22 17:50 68 24 124/87 96 05/05/22 17:40 111 H 16 124/87 92 L 05/05/22 17:30 89 11 L 124/74 94 L 05/05/22 17:27 80 18 124/74 94 L 05/05/22 17:20 85 24 92 L 05/05/22 17:10 90 22 91 L 05/05/22 17:00 80 21 91 L 05/05/22 16:57 90 25 H 91 L 05/05/22 16:40 112 H 23 93 L 05/05/22 16:30 92 21 94 L 05/05/22 16:24 96 96 18 90 L 05/05/22 16:20 89 L 05/05/22 16:07 98.3 F 98 18 128/63 90 L FiO2 05/06/22 08:09 05/06/22 08:00 50 05/06/22 07:00 05/06/22 06:00 05/06/22 05:00 05/06/22 04:07 60 05/06/22 04:00 05/06/22 03:00 05/06/22 02:00 05/06/22 01:50 05/06/22 01:40 05/06/22 01:30 05/06/22 01:20 05/06/22 01:10 05/06/22 01:00 05/06/22 00:50 05/06/22 00:40 05/06/22 00:36 70 05/06/22 00:33 05/06/22 00:11 80 05/06/22 00:10 80 05/06/22 00:09 80 05/06/22 00:07 100 05/06/22 00:06 100 05/06/22 00:04 80 05/05/22 23:35 100 05/05/22 23:31 05/05/22 23:15 05/05/22 21:30 05/05/22 21:29 05/05/22 20:50 05/05/22 20:40 05/05/22 20:30 05/05/22 20:20 05/05/22 20:10 05/05/22 20:00 05/05/22 19:50 05/05/22 19:40 05/05/22 19:30 05/05/22 19:20 05/05/22 19:10 05/05/22 19:00 05/05/22 18:53 05/05/22 18:50 05/05/22 18:40 05/05/22 18:30 05/05/22 18:20 05/05/22 18:10 05/05/22 18:00 05/05/22 17:50 05/05/22 17:40 05/05/22 17:30 05/05/22 17:27 05/05/22 17:20 05/05/22 17:10 05/05/22 17:00 05/05/22 16:57 05/05/22 16:40 05/05/22 16:30 05/05/22 16:24 05/05/22 16:20 05/05/22 16:07 Intake and Output 05/05/22 05/06/22 05/06/22 22:59 06:59 14:59 Intake Total 100 50 Output Total 350 0 Balance -250 50 Intake: Oral 100 50 Output: Urine 350 0 Other: Voiding Method Urinal Urinal Weight 77.111 kg 79.1 kg Results - Lab Results Most recent lab results Calcium 8.5 mg/dL (8.4-10.2) 05/06/22 03:52 Magnesium 2.1 mg/dL (1.6-2.3) 05/05/22 16:28 05/06/22 03:52 05/06/22 03:52 Assessment and Plan Plan: Assessment: 1. Acute kidney injury secondary to ATN secondary to cardiorenal syndrome. Creatinine 2.25 today. 2. Chronic kidney disease stage IIIB with baseline creatinine 1.5-1.7 secondary to nephrosclerosis. 3. NSTEMI being followed by cardiology. 4. Acute on chronic systolic CHF with ejection fraction of 40-45%. 5. Chronic kidney disease mineral bone disease maintained on calcitriol. 6. Diabetes mellitus. 7. Acute hypoxic respiratory failure secondary to volume overload and possible pneumonia. Plan: Change Lasix to 60 mg IV twice daily. Follow-up echocardiogram. Avoid nephrotoxins. Continue to monitor renal function and urine output. Check UA. Follow-up renal ultrasound. Thank you for the consultation. I will continue to follow the patient with you during his hospital stay.
[2022-05-06] MEDS: HEPARIN SOD,PORK IN 0.45% NACL 25,000 UNIT in 0.45% NACL 1 250ML.BAG IV SCH (10:51)
[2022-05-06 11:13] LABS: INR 1.2 (<1.2); Partial Thromboplastin Time 31.2 sec (22.0-30.0); Prothrombin Time 12.6 sec (9.0-12.0)
[2022-05-06 11:46] LABS: Glucose,Whole Blood 262 mg/dL (70-110)
[2022-05-06] MEDS: FUROSEMIDE 10 MG/ML 10 ML VIAL IV SCH ×2 (12:06→21:42)
[2022-05-06] MEDS: RANOLAZINE 500 MG TAB.ER.12H PO SCH ×2 (12:07→21:43)
[2022-05-06] MEDS: ISOSORBIDE MONONITRATE ER 30 MG TAB.ER.24H PO SCH (12:07)
[2022-05-06] MEDS ORDERED: DEXTROSE 50% SYRINGE 50 ML IVP PRN ×2 (12:09)
[2022-05-06] MEDS: INSULIN ASPART (NovoLOG) 100 UNIT/ML VIAL SQ SCH ×3 (12:21→21:43)
[2022-05-06] MEDS ORDERED: METOPROLOL SUCCINATE (ER) 25 MG TAB.ER.24H PO STA (13:01)
[2022-05-06 13:05] LABS: Appearance,Urine Clear (Clear); Bilirubin,Urine Negative (Negative); Blood,Urine Negative (Negative); Color,Urine Yellow; Glucose,Urine (UA) Negative (Negative); Ketones,Urine Negative (Negative); Leukocyte Esterase,Urine Negative (Negative); Nitrite,Urine Negative (Negative); Protein,Urine Trace (Negative); Specific Gravity,Urine 1.012 (1.001-1.035); Urobilinogen,Urine <2.0 mg/dL (<2.0)
[2022-05-06] MEDS: LEVOTHYROXINE 125 MCG TAB PO SCH (13:26)
--- NOTE | 2022-05-06 15:09 | P.CNPUL ---
History of Present Illness Consult date: 05/06/22 Reason for consult: dyspnea History of present illness: This is an 86-year-old male patient with known history of extensive cardiac disease, coronary artery disease, previous bypass surgery, congestion heart failure and chronic atrial fibrillation. The patient underwent a recent pacemaker insertion on 04/26/2022 for an underlying sick sinus syndrome. The patient presented to the hospital because of worsening shortness of breath and some chest pain. The patient was found to be in CHF based on the chest that was done in the emergency department. The patient was quite short of breath. Initially was placed on a BiPAP at a pressures of 10/5 and the patient was diuresed with IV Lasix and the patient was subsequently switched to oxygen at 8 L, nasal cannula. His EKG showing atrial fibrillation, LBBB pattern, irregular, and his blood work showed a white cell count of 12.5 with a hemoglobin of 11.5 and a platelet count of 216. Sodium is at 136 with a BUN of 42 and a creatinine of 1.77. Troponins are 0.7. Peak at 4.7 as the patient underwent and had a acute non-ST segment elevation myocardial infarction. ProBNP level is 9550. UA was negative. Viral screen including influenza was negative. Subsequent creatinine from this morning this morning showed a creatinine of 2.25. The patient was diuresed overnight and the patient is improving currently is on 8 L of oxygen by nasal cannula. Based on an acute non-STEMI, the patient was started on IV heparin. The patient is on diuretics with IV Lasix. The patient is currently on 50 mg IV every 12 hours. The patient is free of any chest pain. The patient will be seen by cardiology. The patient will be also seen by nephrology. Chest x-ray is consistent with CHF. He has not required any pressors. WBC count at 12.5 with a hemoglobin of 11.5. Review of Systems Constitutional: Denies chills, Denies fever Eyes: denies as per HPI, denies blurred vision, denies bulging eye, denies decreased vision, denies diplopia, denies discharge, denies dry eye, denies irritation, denies itching, denies pain, denies photophobia, denies loss of peripheral vision, denies loss of vision, denies tunnel vision/blind spots Ears: deny: decreased hearing, ear discharge, earache, tinnitus Ears, nose, mouth and throat: Reports as per HPI Breasts: absent: as per HPI, gynecomastia Cardiovascular: Reports chest pain, Reports decreased exercise tolerance, Reports dyspnea on exertion Respiratory: Reports dyspnea Gastrointestinal: Reports as per HPI Genitourinary: Reports as per HPI Musculoskeletal: Reports as per HPI Musculoskeletal: absent: ankle pain, ankle stiffness, ankle swelling Integumentary: Reports as per HPI Neurological: Reports as per HPI Psychiatric: Reports as per HPI Endocrine: Reports as per HPI Hematologic/Lymphatic: Reports as per HPI Allergic/Immunologic: Reports as per HPI Past Medical History Past Medical History: Atrial Fibrillation, Atrial Flutter, Coronary Artery Disease (CAD), Heart Failure, Diabetes Mellitus, GERD/Reflux, Hyperlipidemia, Hypertension, Myocardial Infarction ([place]), Osteoarthritis (OA), Renal Disease, Thyroid Disorder Last Myocardial Infarction Date:: 2000 History of Any Multi-Drug Resistant Organisms: None Reported Past Surgical History: Coronary Bypass/CABG, Heart Catheterization, Hernia Repair, Pacemaker Additional Past Surgical History / Comment(s): triple bypass 21 years ago, right ear mastoid removed Past Anesthesia/Blood Transfusion Reactions: No Reported Reaction Type of Cardiac Device: Permanent Pacemaker Device Placement Date:: 04/26/2022 Past Psychological History: No Psychological Hx Reported Smoking Status: Never smoker Past Alcohol Use History: None Reported Additional Past Alcohol Use History / Comment(s): hx of occas. cigar, quit 45 years ago Past Drug Use History: None Reported - Past Family History Mother Family Medical History: No Reported History Medications and Allergies Home Medications Medication Instructions Recorded Confirmed Type Isosorbide Mononitrate ER [Imdur] 30 mg PO DAILY 12/15/17 05/05/22 History Insulin Degludec [Tresiba 20 units SQ DAILY 01/13/19 05/05/22 History Flextouch U-200 Pen] amLODIPine [Norvasc] 5 mg PO BID 01/13/19 05/05/22 History Aspirin EC [Ecotrin Low Dose] 81 mg PO DAILY 10/21/21 05/05/22 History Atorvastatin [Lipitor] 80 mg PO HS 10/21/21 05/05/22 History INSULIN LISPRO (humaLOG) [humaLOG] See Protocol SQ AC-TID 10/21/21 05/05/22 History Levothyroxine Sodium [Synthroid] 125 mcg PO DAILY 10/21/21 05/05/22 History Furosemide [Lasix] 40 mg PO DAILY #30 tab 10/23/21 05/05/22 Rx Ranolazine [Ranolazine ER] 500 mg PO BID 04/26/22 05/05/22 History Apixaban [Eliquis] 2.5 mg PO BID 05/05/22 05/05/22 History Metoprolol Succinate (ER) [Toprol 25 mg PO BID 05/05/22 05/05/22 History Xl] calcitrioL [Rocaltrol] 0.25 mcg PO DAILY 05/05/22 05/05/22 History Allergies Allergy/AdvReac Type Severity Reaction Status Date / Time No Known Allergies Allergy Verified 05/05/22 18:21 Physical Exam Vitals: Vital Signs Temp Pulse Pulse Resp BP BP Pulse Ox 05/06/22 08:09 96 05/06/22 08:00 05/06/22 07:00 96 14 114/66 98 05/06/22 06:00 105 H 20 111/72 97 05/06/22 05:00 98 22 113/65 96 05/06/22 04:07 05/06/22 04:00 105 H 18 113/62 96 05/06/22 03:00 101 H 22 112/70 96 05/06/22 02:00 92 22 110/56 94 L 05/06/22 01:50 111 H 22 110/56 96 05/06/22 01:40 89 25 H 118/67 97 05/06/22 01:30 101 H 25 H 113/66 95 05/06/22 01:20 98 26 H 113/66 95 05/06/22 01:10 114 H 28 H 116/66 95 05/06/22 01:00 96 29 H 129/66 05/06/22 00:50 105 H 31 H 129/66 96 05/06/22 00:40 90 26 H 103/63 95 05/06/22 00:36 05/06/22 00:33 63 H 05/06/22 00:11 28 H 100 05/06/22 00:10 100 05/06/22 00:09 05/06/22 00:07 05/06/22 00:06 05/06/22 00:04 97 28 H 133/75 97 05/05/22 23:35 90 L 05/05/22 23:31 88 L 05/05/22 23:15 98.6 F 94 28 H 113/66 84 L 05/05/22 21:30 94 28 H 05/05/22 21:29 98.1 F 83 20 119/69 91 L 05/05/22 20:50 70 24 05/05/22 20:40 77 21 05/05/22 20:30 80 18 05/05/22 20:20 85 18 05/05/22 20:10 91 20 05/05/22 20:00 86 21 05/05/22 19:50 84 18 05/05/22 19:40 85 18 05/05/22 19:30 83 16 05/05/22 19:20 75 18 05/05/22 19:10 78 21 05/05/22 19:00 88 16 123/54 05/05/22 18:53 70 18 123/54 95 05/05/22 18:50 87 23 123/54 95 05/05/22 18:40 73 19 123/54 95 05/05/22 18:30 76 21 119/62 95 05/05/22 18:20 89 15 119/62 94 L 05/05/22 18:10 77 18 119/62 95 05/05/22 18:00 73 21 124/87 94 L 05/05/22 17:50 68 24 124/87 96 05/05/22 17:40 111 H 16 124/87 92 L 05/05/22 17:30 89 11 L 124/74 94 L 05/05/22 17:27 80 18 124/74 94 L 05/05/22 17:20 85 24 92 L 05/05/22 17:10 90 22 91 L 05/05/22 17:00 80 21 91 L 05/05/22 16:57 90 25 H 91 L 05/05/22 16:40 112 H 23 93 L 05/05/22 16:30 92 21 94 L 05/05/22 16:24 96 96 18 90 L 05/05/22 16:20 89 L 05/05/22 16:07 98.3 F 98 18 128/63 90 L FiO2 05/06/22 08:09 05/06/22 08:00 50 05/06/22 07:00 05/06/22 06:00 05/06/22 05:00 05/06/22 04:07 60 05/06/22 04:00 05/06/22 03:00 05/06/22 02:00 05/06/22 01:50 05/06/22 01:40 05/06/22 01:30 05/06/22 01:20 05/06/22 01:10 05/06/22 01:00 05/06/22 00:50 05/06/22 00:40 05/06/22 00:36 70 05/06/22 00:33 05/06/22 00:11 80 05/06/22 00:10 80 05/06/22 00:09 80 05/06/22 00:07 100 05/06/22 00:06 100 05/06/22 00:04 80 05/05/22 23:35 100 05/05/22 23:31 05/05/22 23:15 05/05/22 21:30 05/05/22 21:29 05/05/22 20:50 05/05/22 20:40 05/05/22 20:30 05/05/22 20:20 05/05/22 20:10 05/05/22 20:00 05/05/22 19:50 05/05/22 19:40 05/05/22 19:30 05/05/22 19:20 05/05/22 19:10 05/05/22 19:00 05/05/22 18:53 05/05/22 18:50 05/05/22 18:40 05/05/22 18:30 05/05/22 18:20 05/05/22 18:10 05/05/22 18:00 05/05/22 17:50 05/05/22 17:40 05/05/22 17:30 05/05/22 17:27 05/05/22 17:20 05/05/22 17:10 05/05/22 17:00 05/05/22 16:57 05/05/22 16:40 05/05/22 16:30 05/05/22 16:24 05/05/22 16:20 05/05/22 16:07 Intake and Output 05/05/22 05/06/22 05/06/22 22:59 06:59 14:59 Intake Total 100 50 Output Total 350 0 Balance -250 50 Intake: Oral 100 50 Output: Urine 350 0 Other: Voiding Method Urinal Urinal Weight 77.111 kg 79.1 kg GENERAL: BMI 25.8, declining but awake, not in distress. Patient is breathing is nonlabored at this point in time. The patient is on 8 L of oxygen by nasal cannula EYES: Pupils equal. Conjunctiva normal. HEENT: External appearance of nose and ears normal, oral cavity grossly normal. NECK: JVD not raised; masses not palpable. HEART: First and second heart sounds are normal; no edema. LUNGS: Diminished breath sounds bilaterally along with bibasilar crackles in some dullness to percussion lung bases ABDOMEN: Soft, nontender, liver spleen not palpable, no masses palpable. PSYCH: Alert and oriented x3; mood and affect normal. MUSCULOSKELETAL:No Clubbing/cyanosis;muscles-grossly intact. Evidence of OA NEUROLOGICAL: Cranial nerves grossly intact; no facial asymmetry, power and sensation grossly intact. LYMPHATICS: No lymph nodes palpable in the axilla and neck Results - Laboratory Findings CBC and BMP: 05/06/22 03:52 05/06/22 03:52 ABG WBC 12.5 k/uL (3.8-10.6) H 05/06/22 03:52 RBC 3.85 m/uL (4.30-5.90) L 05/06/22 03:52 Hgb 11.5 gm/dL (13.0-17.5) L 05/06/22 03:52 Hct 35.1 % (39.0-53.0) L 05/06/22 03:52 MCV 91.2 fL (80.0-100.0) 05/06/22 03:52 MCH 29.8 pg (25.0-35.0) 05/06/22 03:52 MCHC 32.7 g/dL (31.0-37.0) 05/06/22 03:52 RDW 13.8 % (11.5-15.5) 05/06/22 03:52 Plt Count 216 k/uL (150-450) 05/06/22 03:52 MPV 9.9 05/06/22 03:52 Neutrophils % 87 % 05/06/22 03:52 Lymphocytes % 5 % 05/06/22 03:52 Monocytes % 6 % 05/06/22 03:52 Eosinophils % 0 % 05/06/22 03:52 Basophils % 0 % 05/06/22 03:52 Neutrophils # 10.8 k/uL (1.3-7.7) H 05/06/22 03:52 Lymphocytes # 0.7 k/uL (1.0-4.8) L 05/06/22 03:52 Monocytes # 0.7 k/uL (0-1.0) 05/06/22 03:52 Eosinophils # 0.0 k/uL (0-0.7) 05/06/22 03:52 Basophils # 0.0 k/uL (0-0.2) 05/06/22 03:52 PT 11.9 sec (9.0-12.0) 05/05/22 16:28 INR 1.1 (<1.2) 05/05/22 16:28 APTT 28.2 sec (22.0-30.0) 05/05/22 16:28 D-Dimer 2.16 mg/L FEU (<0.60) H 05/05/22 16:28 Sodium 134 mmol/L (137-145) L 05/06/22 03:52 Potassium 4.4 mmol/L (3.5-5.1) 05/06/22 03:52 Chloride 101 mmol/L (98-107) 05/06/22 03:52 Carbon Dioxide 24 mmol/L (22-30) 05/06/22 03:52 Anion Gap 9 mmol/L 05/06/22 03:52 BUN 49 mg/dL (9-20) H 05/06/22 03:52 Creatinine 2.25 mg/dL (0.66-1.25) H 05/06/22 03:52 Est GFR (CKD-EPI)AfAm 29 (>60 ml/min/1.73 sqM) 05/06/22 03:52 Est GFR (CKD-EPI)NonAf 25 (>60 ml/min/1.73 sqM) 05/06/22 03:52 Glucose 214 mg/dL (74-99) H 05/06/22 03:52 POC Glucose (mg/dL) 184 mg/dL (70-110) H 05/06/22 06:52 POC Glu [employer] Claudette Andrade 05/06/22 06:52 Plasma Lactic Acid Diego 1.1 mmol/L (0.7-2.0) 05/05/22 18:35 Calcium 8.5 mg/dL (8.4-10.2) 05/06/22 03:52 Magnesium 2.1 mg/dL (1.6-2.3) 05/05/22 16:28 Total Bilirubin 0.8 mg/dL (0.2-1.3) 05/06/22 03:52 AST 44 U/L (17-59) 05/06/22 03:52 ALT 33 U/L (4-49) 05/06/22 03:52 Alkaline Phosphatase 189 U/L (38-126) H 05/06/22 03:52 Troponin I 1.590 ng/mL (0.000-0.034) H* 05/06/22 03:52 NT-Pro-B Natriuret Pep 9550 pg/mL 05/05/22 16:28 Total Protein 6.2 g/dL (6.3-8.2) L 05/06/22 03:52 Albumin 3.5 g/dL (3.5-5.0) 05/06/22 03:52 Influenza Type A (PCR) Not Detected (Not Detectd) 05/05/22 23:40 Influenza Type B (PCR) Not Detected (Not Detectd) 05/05/22 23:40 RSV (PCR) Not Detected (Not Detectd) 05/05/22 23:40 SARS-CoV-2 (PCR) Not Detected (Not Detectd) 05/05/22 23:40 PT/INR, D-dimer PT 11.9 sec (9.0-12.0) 05/05/22 16:28 INR 1.1 (<1.2) 05/05/22 16:28 D-Dimer 2.16 mg/L FEU (<0.60) H 05/05/22 16:28 Abnormal lab findings: Abnormal Labs 05/05/22 05/05/22 05/05/22 16:28 16:28 16:28 WBC 14.1 H RBC 3.91 L Hgb 12.1 L Hct 35.5 L Neutrophils # 11.3 H Lymphocytes # D-Dimer 2.16 H Sodium 136 L BUN 42 H Creatinine 1.77 H Glucose 122 H POC Glucose (mg/dL) Alkaline Phosphatase 176 H Troponin I Total Protein 05/05/22 05/05/22 05/05/22 21:41 21:47 23:14 WBC RBC Hgb Hct Neutrophils # Lymphocytes # D-Dimer Sodium BUN Creatinine Glucose POC Glucose (mg/dL) 185 H 232 H Alkaline Phosphatase Troponin I 0.707 H* Total Protein 05/06/22 05/06/22 05/06/22 00:13 00:34 03:52 WBC RBC Hgb Hct Neutrophils # Lymphocytes # D-Dimer Sodium BUN Creatinine Glucose POC Glucose (mg/dL) 227 H Alkaline Phosphatase Troponin I 0.904 H* 1.590 H* Total Protein 05/06/22 05/06/22 05/06/22 03:52 03:52 06:52 WBC 12.5 H RBC 3.85 L Hgb 11.5 L Hct 35.1 L Neutrophils # 10.8 H Lymphocytes # 0.7 L D-Dimer Sodium 134 L BUN 49 H Creatinine 2.25 H Glucose 214 H POC Glucose (mg/dL) 184 H Alkaline Phosphatase 189 H Troponin I Total Protein 6.2 L - Diagnostic Findings Chest x-ray: image reviewed Assessment and Plan Plan: Acute hypoxic respiratory failure secondary to decompensated CHF. The patient is currently on oxygen at 8 L per minute nasal cannula. The patient got transferred to the intensive care yesterday because of worsening shortness of breath. Chest x-ray is consistent with CHF and pulmonary edema and development of bilateral pleural effusions. Overnight, the patient was given IV Lasix and he was able to produce some urine output. The patient was on BiPAP throughout the night and this patient was switched to nasal cannula this morning. Shortness of breath secondary to above Congestion heart failure with chronic systolic heart failure. Based on the most recent echocardiogram, his ejection fraction is around 42% and the patient has been treated medically. History of atrial fibrillation/flutter Acute non-ST segment elevation myocardial infarction, troponin is currently takes is for Coronary artery disease with previous history of coronary artery bypass surgery Peripheral vascular disease History of pacemaker insertion for underlying sick sinus syndrome. Pacemaker was inserted on 04/26/2022 Acute kidney injury probably related to cardiorenal factors. The patient's creatinine is on the rise at 2.25 and suspected an underlying ATN. He does have chronic stage III kidney disease Chronic stage III kidney disease Left bundle-branch block pattern Diabetes mellitus Hypertension Hyperlipidemia Hypothyroidism Coronary artery disease Plan Start the patient IV heparin and oral aspirin Obtain ultrasound the kidneys Tucker catheter Lasix 60 mg IV every 12 hours Nephrologic consultation Monitor troponin Consult cardiology Titrate oxygen flow to maintain saturation above 90% Obtain ultrasound the chest and see visited sizable pleural effusions for us to drain Levemir insulin 20 units along with a sliding scale We'll continue to follow Time with Patient: Greater than 30
--- NOTE | 2022-05-06 15:12 | US ---
EXAMINATION TYPE: US renals and bladder DATE OF EXAM: 05/06/2022 COMPARISON: NONE CLINICAL HISTORY: Acute on chronic kidney injury. EXAM MEASUREMENTS: Right Kidney: 9.3 x 4.6 x 4.9 cm Left Kidney: 9.6 x 5.3 x 5.0 cm Post Void Residual Volume: mL ICU patient with extensive overlying bowel gas, technically difficult study. Right Kidney: No hydronephrosis, inferior pole obscure by bowel gas Left Kidney: No hydronephrosis, cyst measuring 1.1 x 1.0 x 0.9cm Bladder: wnl The urinary bladder is distended with median lobe hypertrophy changes of the prostate gland. Impression: 1. No evidence of obstructive uropathy. 2. Prostatomegaly suggested.
[2022-05-06 16:57] LABS: Glucose,Whole Blood 156 mg/dL (70-110)
--- NOTE | 2022-05-06 17:01 | CA ---
Transthoracic Echo Report Name: Gt Acuña Age: 86 Gender: M : 1935 Exam Date: 05/06/2022 11:06 Exam Location: [facility] Ht (in): 70 Wt (lb): 174 Ordering Physician: Sierra Ring MD Attending/Referring Phys: Gmat Tutor Radhika Garcia RDCS Procedure CPT: Indications: EF , limited echo Cardiac Hx: CABG Technical Quality: Good Contrast 1: Total Dose (mL): Contrast 2: Total Dose (mL): MEASUREMENTS (Male / Female) Normal Values 2D ECHO LV Diastolic Diameter PLAX 4.8 cm 4.2 - 5.9 / 3.9 - 5.3 cm LV Systolic Diameter PLAX 3.7 cm IVS Diastolic Thickness 1.2 cm 0.6 - 1.0 / 0.6 - 0.9 cm LVPW Diastolic Thickness 1.3 cm 0.6 - 1.0 / 0.6 - 0.9 cm LV Relative Wall Thickness 0.5 RV Internal Dim ED PLAX 3.6 cm LVOT Diameter 2.3 cm LA Systolic Diameter LX 4.8 cm 3.0 - 4.0 / 2.7 - 3.8 cm LA Volume 81.4 cm??? 18 - 58 / 22 - 52 cm??? M-MODE Aortic Root Diameter MM 2.9 cm MV E Point Septal Separation 0.8 cm AV Cusp Separation MM 1.5 cm DOPPLER AV Peak Velocity 244.9 cm/s AV Peak Gradient 24.0 mmHg AV Mean Velocity 155.1 cm/s AV Mean Gradient 10.8 mmHg AV Velocity Time Integral 47.2 cm LVOT Peak Velocity 50.5 cm/s LVOT Peak Gradient 1.0 mmHg AV Area Cont Eq pk 0.9 cm??? MV Area PHT 4.9 cm??? MR Peak Velocity 455.4 cm/s MR Peak Gradient 83.0 mmHg MV Deceleration Time 192.3 ms TR Peak Velocity 274.5 cm/s TR Peak Gradient 30.1 mmHg Right Ventricular Systolic Press 33.8 mmHg FINDINGS Left Ventricle Left ventricular ejection fraction is estimated at 20-25 %. Left ventricular cavity size normal. Mildly increased septal wall thickness. Severely reduced global left ventricular systolic function. Septal wall hypokinesis. Apical anterior apical lateral hypokinesis Right Ventricle Mild right ventricular dilatation. Mild pulmonary hypertension. Right Atrium Normal right atrial size. Left Atrium Moderately increased left atrial diameter. Severely increased left atrial volume. No evidence for an atrial septal defect. Mitral Valve Structurally normal mitral valve. Mitral annular calcification. Moderate mitral regurgitation. Aortic Valve Trileaflet aortic valve. Moderate Aortic valve sclerosis. [id number] aortic stenosis with a peak gradient of 24 mmHg and a mean gradient of 11 mmHg. Tricuspid Valve Mild tricuspid regurgitation. Pulmonic Valve Mild pulmonic regurgitation. Pericardium Normal pericardium. Small pericardial effusion. Aorta Normal size aortic root and proximal ascending aorta. CONCLUSIONS Left ventricular ejection fraction 20-25% Mildly increased left ventricular wall thickness RVSP 33 Severely dilated left atrium Moderate mitral regurgitation Mild to moderate aortic stenosis with mean gradient 11 mmHg. Gradient likely underestimated secondary to low-flow low gradient Small pericardial effusion Previewed by: Dr. Geoff Ash DO (Electronically Signed) Final Date: 06 May 2022 17:01
--- NOTE | 2022-05-06 18:58 | P.HPIM ---
History of Present Illness H&P Date: 05/06/22 Chief Complaint: Chest pain This is a pleasant 86-year-old patient who follows with Dr. Ag Burns. Patient had a coronary bypass in 2000. Chronic stable medical conditions include diabetes type 2, hypertension, hyperlipidemia, PAD, carotid stenosis, CAD, ischemic cardiomyopathy, loop recorder since 2019. He does follow with a local on site coordinator Dr. Conroy and also with Dr. Lowry in [place]. On April 26 for sick sinus syndrome had a permanent pacemaker placed. Prior to this he was having bradycardia and his Lopressor was discontinued. In the last 2 days patient started having shortness of breath. No edema. No cough. No sputum. No fever no chills. Also started feeling the burning sensation across the chest. The last 24 hours. Also going up to his left shoulder. No obvious relieving or precipitating factors. Heart rate in the ER was over 100. Baseline heart rate is around 60. Overnight patient became more short of breath. 1 dose of IV Lasix 80 mg was given. Need close to 400 mL of urine. Also concern about pneumonia and some started on antibiotics. Patient did require BiPAP for shortness of breath so moved to the ICU Review of systems: GEN.: Tired EYES: None HEENT: None NECK: None RESPIRATORY: As above CARDIOVASCULAR: As above GASTROINTESTINAL: None GENITOURINARY: None MUSCULOSKELETAL: None LYMPHATICS: None HEMATOLOGICAL: None PSYCHIATRY: None NEUROLOGICAL: None Past medical history to include: Diabetes, GERD, hypertension, hyperlipidemia, osteoarthritis, MS, chronic kidney disease, hypothyroid, CAD with bypass about 20 years ago. Permanent pacemaker for sick sinus syndrome Social history: Occasional cigar. In the remote past. No alcohol. . Retired Family history: Reviewed, noncontributory to presentation Physical examination: VITAL SIGNS: 98.3, 98, 18, 128 pleasant 63, 90% on room air GENERAL: BMI 25, reclining in bed awake, tired, a bit short of breath. Permanent pacemaker EYES: Pupils equal. Conjunctiva normal. HEENT: External appearance of nose and ears normal, oral cavity grossly normal. NECK: JVD unable to assess; masses not palpable. HEART: Heart is irregular; no edema. LUNGS: Respiratory rate normal; clear to auscultation. ABDOMEN: Soft, nontender, liver spleen not palpable, no masses palpable. PSYCH: Alert and oriented x3; mood and affect normal. MUSCULOSKELETAL:No Clubbing/cyanosis;muscles-grossly intact, OA NEUROLOGICAL: Cranial nerves grossly intact; no facial asymmetry, power and sensation grossly intact. LYMPHATICS: No lymph nodes palpable in the axilla and neck INVESTIGATIONS, reviewed in the clinical context: 05/06/2022: WBC 12.5 hemoglobin 11.5 platelets 216 potassium 4.4 BUN 49 creatinine 2.25 Admission labs: WBC 14.1 in globin 12.1 platelets 28 potassium 4.9. 42 creatinine 1.77 Troponin I 0.014, 0.707, 0.904, 1.5, 4.7 Influenza type A/diabetes/RSV/COVID-19: Not detected EKG tracing personally reviewed by me-atrial fibrillation, heart rate 110 Chest x-ray film personally reviewed by me-left lower lobe infiltrate, venous prominent edema Previous labs: Creatinine 1.46 in October 2021 Assessment and plan: -Acute non-Q-wave MS in a patient with known CAD Aspirin, IV heparin -Left lower lobe pneumonia, suspect gram-negative organism Ceftriaxone 1 g every 12. Check pro-calcitonin -Acute hypoxic respiratory failure secondary to CHF and pneumonia Supplement oxygen -Acute kidney injury, likely ATN's combination of cardiorenal syndrome Creatinine up to 2.25 -Chronic kidney disease suspect nephrosclerosis stage III Baseline creatinine 1.46 -CAD with a prior history of coronary bypass. Patient does follow Dr. Conroy Aspirin, beta jon, Lipitor -Permanent pacemaker placed on 04/26/2022 for sick sinus syndrome -Acute on chronic congestive heart failure exacerbation. From ischemic cardiomyopathy EF 40-45% IV Lasix. Discharge on Lasix 40 mg daily -Essential hypertension Toprol-XL 25 mg twice a day, -Hyperlipidemia Lipitor 80 mg daily at bedtime -Persistent atrial fibrillation, rapid ventricular rate on presentation Toprol-XL. IV heparin -Hypothyroid Synthroid 125 g a day -Diabetes mellitus type 2, chronic insulin tresiba 20 units daily. Accu-Cheks and sliding scale. Consultation to cardiology, pulmonary, nephrology. IV heparin. IV ceftriaxone. Received IV Lasix. Resume home medications. Aspirin, Lopressor, Lipitor. Care was discussed with the patient. Questions answered. Past Medical History Past Medical History: Atrial Fibrillation, Atrial Flutter, Coronary Artery Disease (CAD), Heart Failure, Diabetes Mellitus, GERD/Reflux, Hyperlipidemia, Hypertension, Myocardial Infarction (MS), Osteoarthritis (OA), Renal Disease, Thyroid Disorder Last Myocardial Infarction Date:: 2000 History of Any Multi-Drug Resistant Organisms: None Reported Past Surgical History: Coronary Bypass/CABG, Heart Catheterization, Hernia Repair, Pacemaker Additional Past Surgical History / Comment(s): triple bypass 21 years ago, right ear mastoid removed Past Anesthesia/Blood Transfusion Reactions: No Reported Reaction Type of Cardiac Device: Permanent Pacemaker Device Placement Date:: 04/26/2022 Past Psychological History: No Psychological Hx Reported Smoking Status: Never smoker Past Alcohol Use History: None Reported Additional Past Alcohol Use History / Comment(s): hx of occas. cigar, quit 45 years ago Past Drug Use History: None Reported - Past Family History Mother Family Medical History: No Reported History Medications and Allergies Home Medications Medication Instructions Recorded Confirmed Type Isosorbide Mononitrate ER [Imdur] 30 mg PO DAILY 12/15/17 05/05/22 History Insulin Degludec [Tresiba 20 units SQ DAILY 01/13/19 05/05/22 History Flextouch U-200 Pen] amLODIPine [Norvasc] 5 mg PO BID 01/13/19 05/05/22 History Aspirin EC [Ecotrin Low Dose] 81 mg PO DAILY 10/21/21 05/05/22 History Atorvastatin [Lipitor] 80 mg PO HS 10/21/21 05/05/22 History INSULIN LISPRO (humaLOG) [humaLOG] See Protocol SQ AC-TID 10/21/21 05/05/22 History Levothyroxine Sodium [Synthroid] 125 mcg PO DAILY 10/21/21 05/05/22 History Furosemide [Lasix] 40 mg PO DAILY #30 tab 10/23/21 05/05/22 Rx Ranolazine [Ranolazine ER] 500 mg PO BID 04/26/22 05/05/22 History Apixaban [Eliquis] 2.5 mg PO BID 05/05/22 05/05/22 History Metoprolol Succinate (ER) [Toprol 25 mg PO BID 05/05/22 05/05/22 History Xl] calcitrioL [Rocaltrol] 0.25 mcg PO DAILY 05/05/22 05/05/22 History Allergies Allergy/AdvReac Type Severity Reaction Status Date / Time No Known Allergies Allergy Verified 05/05/22 18:21 Physical Exam Vitals: Vital Signs Temp Pulse Pulse Resp BP BP Pulse Ox 05/06/22 08:09 96 05/06/22 08:00 05/06/22 07:00 96 14 114/66 98 05/06/22 06:00 105 H 20 111/72 97 05/06/22 05:00 98 22 113/65 96 05/06/22 04:07 05/06/22 04:00 105 H 18 113/62 96 05/06/22 03:00 101 H 22 112/70 96 05/06/22 02:00 92 22 110/56 94 L 05/06/22 01:50 111 H 22 110/56 96 05/06/22 01:40 89 25 H 118/67 97 05/06/22 01:30 101 H 25 H 113/66 95 05/06/22 01:20 98 26 H 113/66 95 05/06/22 01:10 114 H 28 H 116/66 95 05/06/22 01:00 96 29 H 129/66 05/06/22 00:50 105 H 31 H 129/66 96 05/06/22 00:40 90 26 H 103/63 95 05/06/22 00:36 05/06/22 00:33 63 H 05/06/22 00:11 28 H 100 05/06/22 00:10 100 05/06/22 00:09 05/06/22 00:07 05/06/22 00:06 05/06/22 00:04 97 28 H 133/75 97 05/05/22 23:35 90 L 05/05/22 23:31 88 L 05/05/22 23:15 98.6 F 94 28 H 113/66 84 L 05/05/22 21:30 94 28 H 05/05/22 21:29 98.1 F 83 20 119/69 91 L 05/05/22 20:50 70 24 05/05/22 20:40 77 21 05/05/22 20:30 80 18 05/05/22 20:20 85 18 05/05/22 20:10 91 20 05/05/22 20:00 86 21 05/05/22 19:50 84 18 05/05/22 19:40 85 18 05/05/22 19:30 83 16 05/05/22 19:20 75 18 05/05/22 19:10 78 21 05/05/22 19:00 88 16 123/54 05/05/22 18:53 70 18 123/54 95 05/05/22 18:50 87 23 123/54 95 05/05/22 18:40 73 19 123/54 95 05/05/22 18:30 76 21 119/62 95 05/05/22 18:20 89 15 119/62 94 L 05/05/22 18:10 77 18 119/62 95 05/05/22 18:00 73 21 124/87 94 L 05/05/22 17:50 68 24 124/87 96 05/05/22 17:40 111 H 16 124/87 92 L 05/05/22 17:30 89 11 L 124/74 94 L 05/05/22 17:27 80 18 124/74 94 L 05/05/22 17:20 85 24 92 L 05/05/22 17:10 90 22 91 L 05/05/22 17:00 80 21 91 L 05/05/22 16:57 90 25 H 91 L 05/05/22 16:40 112 H 23 93 L 05/05/22 16:30 92 21 94 L 05/05/22 16:24 96 96 18 90 L 05/05/22 16:20 89 L 05/05/22 16:07 98.3 F 98 18 128/63 90 L FiO2 05/06/22 08:09 05/06/22 08:00 50 05/06/22 07:00 05/06/22 06:00 05/06/22 05:00 05/06/22 04:07 60 05/06/22 04:00 05/06/22 03:00 05/06/22 02:00 05/06/22 01:50 05/06/22 01:40 05/06/22 01:30 05/06/22 01:20 05/06/22 01:10 05/06/22 01:00 05/06/22 00:50 05/06/22 00:40 05/06/22 00:36 70 05/06/22 00:33 05/06/22 00:11 80 05/06/22 00:10 80 05/06/22 00:09 80 05/06/22 00:07 100 05/06/22 00:06 100 05/06/22 00:04 80 05/05/22 23:35 100 05/05/22 23:31 05/05/22 23:15 05/05/22 21:30 05/05/22 21:29 05/05/22 20:50 05/05/22 20:40 05/05/22 20:30 05/05/22 20:20 05/05/22 20:10 05/05/22 20:00 05/05/22 19:50 05/05/22 19:40 05/05/22 19:30 05/05/22 19:20 05/05/22 19:10 05/05/22 19:00 05/05/22 18:53 05/05/22 18:50 05/05/22 18:40 05/05/22 18:30 05/05/22 18:20 05/05/22 18:10 05/05/22 18:00 05/05/22 17:50 05/05/22 17:40 05/05/22 17:30 05/05/22 17:27 05/05/22 17:20 05/05/22 17:10 05/05/22 17:00 05/05/22 16:57 05/05/22 16:40 05/05/22 16:30 05/05/22 16:24 05/05/22 16:20 05/05/22 16:07 Intake and Output 05/05/22 05/06/22 05/06/22 22:59 06:59 14:59 Intake Total 100 50 Output Total 350 0 Balance -250 50 Intake: Oral 100 50 Output: Urine 350 0 Other: Voiding Method Urinal Urinal Weight 77.111 kg 79.1 kg Results CBC & Chem 7: 05/06/22 03:52 05/06/22 03:52 Labs: Abnormal Lab Results - Last 24 Hours (Table) 05/05/22 05/05/22 05/05/22 Range/Units 16:28 16:28 16:28 WBC 14.1 H (3.8-10.6) k/uL RBC 3.91 L (4.30-5.90) m/uL Hgb 12.1 L (13.0-17.5) gm/dL Hct 35.5 L (39.0-53.0) % Neutrophils # 11.3 H (1.3-7.7) k/uL Lymphocytes # (1.0-4.8) k/uL D-Dimer 2.16 H (<0.60) mg/L FEU Sodium 136 L (137-145) mmol/L BUN 42 H (9-20) mg/dL Creatinine 1.77 H (0.66-1.25) mg/dL Glucose 122 H (74-99) mg/dL POC Glucose (mg/dL) (70-110) mg/dL Alkaline Phosphatase 176 H (38-126) U/L Troponin I (0.000-0.034) ng/mL Total Protein (6.3-8.2) g/dL 05/05/22 05/05/22 05/05/22 Range/Units 21:41 21:47 23:14 WBC (3.8-10.6) k/uL RBC (4.30-5.90) m/uL Hgb (13.0-17.5) gm/dL Hct (39.0-53.0) % Neutrophils # (1.3-7.7) k/uL Lymphocytes # (1.0-4.8) k/uL D-Dimer (<0.60) mg/L FEU Sodium (137-145) mmol/L BUN (9-20) mg/dL Creatinine (0.66-1.25) mg/dL Glucose (74-99) mg/dL POC Glucose (mg/dL) 185 H 232 H (70-110) mg/dL Alkaline Phosphatase (38-126) U/L Troponin I 0.707 H* (0.000-0.034) ng/mL Total Protein (6.3-8.2) g/dL 05/06/22 05/06/22 05/06/22 Range/Units 00:13 00:34 03:52 WBC (3.8-10.6) k/uL RBC (4.30-5.90) m/uL Hgb (13.0-17.5) gm/dL Hct (39.0-53.0) % Neutrophils # (1.3-7.7) k/uL Lymphocytes # (1.0-4.8) k/uL D-Dimer (<0.60) mg/L FEU Sodium (137-145) mmol/L BUN (9-20) mg/dL Creatinine (0.66-1.25) mg/dL Glucose (74-99) mg/dL POC Glucose (mg/dL) 227 H (70-110) mg/dL Alkaline Phosphatase (38-126) U/L Troponin I 0.904 H* 1.590 H* (0.000-0.034) ng/mL Total Protein (6.3-8.2) g/dL 05/06/22 05/06/22 05/06/22 Range/Units 03:52 03:52 06:52 WBC 12.5 H (3.8-10.6) k/uL RBC 3.85 L (4.30-5.90) m/uL Hgb 11.5 L (13.0-17.5) gm/dL Hct 35.1 L (39.0-53.0) % Neutrophils # 10.8 H (1.3-7.7) k/uL Lymphocytes # 0.7 L (1.0-4.8) k/uL D-Dimer (<0.60) mg/L FEU Sodium 134 L (137-145) mmol/L BUN 49 H (9-20) mg/dL Creatinine 2.25 H (0.66-1.25) mg/dL Glucose 214 H (74-99) mg/dL POC Glucose (mg/dL) 184 H (70-110) mg/dL Alkaline Phosphatase 189 H (38-126) U/L Troponin I (0.000-0.034) ng/mL Total Protein 6.2 L (6.3-8.2) g/dL Thrombosis Risk Factor Assmnt - Choose All That Apply Any of the Below Risk Factors Present?: Yes Each Factor Represents 1 point: Heart failure (<1month) Other Risk Factors: No Other congenital or acquired thrombophilia - If yes, enter type in comment: No Thrombosis Risk Factor Assessment Total Risk Factor Score: 1 Thrombosis Risk Factor Assessment Level: Low Risk
[2022-05-06 21:42] LABS: Glucose,Whole Blood 201 mg/dL (70-110)
[2022-05-06] MEDS: ATORVASTATIN 80 MG TAB PO SCH (21:42)
[2022-05-06] MEDS: METOPROLOL SUCCINATE (ER) 50 MG TAB.ER.24H PO SCH (21:43)
[2022-05-07 06:50] LABS: Basophils % (A) 0 %; Eosinophils % (A) 0 %; HCT 33.3 % (39.0-53.0); HGB 11.3 gm/dL (13.0-17.5); Lymphocytes # (A) 1.1 k/uL (1.0-4.8); Lymphocytes % (A) 8 %; MCH 30.9 pg (25.0-35.0); MCV 90.9 fL (80.0-100.0); Mean Platelet Volume 9.4; Monocytes # (A) 1.1 k/uL (0-1.0); Monocytes % (A) 8 %; Neutrophils # (A) 11.3 k/uL (1.3-7.7); Neutrophils % (A) 82 %; Platelet Count 206 k/uL (150-450); RBC 3.66 m/uL (4.30-5.90); RDW 13.4 % (11.5-15.5); WBC 13.7 k/uL (3.8-10.6)
[2022-05-07 06:57] LABS: Calcium 8.3 mg/dL (8.4-10.2); INR 1.2 (<1.2); Potassium 3.8 mmol/L (3.5-5.1); Prothrombin Time 12.5 sec (9.0-12.0)
[2022-05-07 07:03] LABS: Glucose,Whole Blood 71 mg/dL (70-110)
[2022-05-07] MEDS ORDERED: Potassium Replacement Protocol 1 EACH MISC MISCELLANE PRN (07:43)
[2022-05-07] MEDS: INSULIN ASPART (NovoLOG) 100 UNIT/ML VIAL SQ SCH ×4 (07:45→20:19)
[2022-05-07] MEDS ORDERED: POTASSIUM CHLORIDE ER 20 MEQ TAB.ER PO SCH (08:00)
[2022-05-07] MEDS: FAMOTIDINE 20 MG TAB PO SCH (08:16)
[2022-05-07] MEDS: LEVOTHYROXINE 125 MCG TAB PO SCH (08:16)
[2022-05-07] MEDS: ASPIRIN 81 MG PO SCH (08:16)
[2022-05-07] MEDS: RANOLAZINE 500 MG TAB.ER.12H PO SCH ×2 (08:17→20:19)
[2022-05-07] MEDS: FUROSEMIDE 10 MG/ML 10 ML VIAL IV SCH ×2 (08:18→21:54)
[2022-05-07] MEDS: METOPROLOL SUCCINATE (ER) 50 MG TAB.ER.24H PO SCH ×2 (08:19→20:19)
--- NOTE | 2022-05-07 08:47 | XR ---
EXAMINATION TYPE: XR chest 1V portable DATE OF EXAM: 05/07/2022 COMPARISON: 05/06/2022 HISTORY: Increasing shortness of breath TECHNIQUE: Single frontal view of the chest is obtained. FINDINGS: There are median sternotomy wires. There is a 2-lead cardiac pacemaker. The heart is mildly enlarged and there is mild pulmonary vascular congestion. There are small bilater al pleural effusions. There is no pneumothorax. The osseous structures are intact IMPRESSION: . Acute cardiopulmonary disease most consistent with CHF. There is been no significant interval change.
[2022-05-07] MEDS: ALPRAZolam 0.25 MG TAB PO PRN ×2 (09:22→21:54)
[2022-05-07 09:31] LABS: Glucose,Whole Blood 155 mg/dL (70-110)
--- NOTE | 2022-05-07 10:26 | P.PN ---
Subjective Progress Note Date: 05/07/22 This is an 86-year-old male patient with known history of extensive cardiac disease, coronary artery disease, previous bypass surgery, congestion heart failure and chronic atrial fibrillation. The patient underwent a recent pacemaker insertion on 04/26/2022 for an underlying sick sinus syndrome. The lisa forman presented to the hospital because of worsening shortness of breath and some chest pain. The patient was found to be in CHF based on the chest that was done in the emergency department. The patient was quite short of breath. Initially was placed on a BiPAP at a pressures of 10/5 and the patient was diuresed with IV Lasix and the patient was subsequently switched to oxygen at 8 L, nasal cannula. His EKG showing atrial fibrillation, LBBB pattern, irregular, and his blood work showed a white cell count of 12.5 with a hemoglobin of 11.5 and a platelet count of 216. Sodium is at 136 with a BUN of 42 and a creatinine of 1.77. Troponins are 0.7. Peak at 4.7 as the patient underwent and had a acute non-ST segment elevation myocardial infarction. ProBNP level is 9550. UA was negative. Viral screen including influenza was negative. Subsequent creatinine from this morning this morning showed a creatinine of 2.25. The patient was diuresed overnight and the patient is improving currently is on 8 L of oxygen by nasal cannula. Based on an acute non-STEMI, the patient was started on IV heparin. The patient is on diuretics with IV Lasix. The patient is currently on 50 mg IV every 12 hours. The patient is free of any chest pain. The patient will be seen by cardiology. The patient will be also seen by nephrology. Chest x-ray is consistent with CHF. He has not required any pressors. WBC count at 12.5 with a hemoglobin of 11.5. On 05/07/2022, the patient is BiPAP dependent. He was on 8 L of O2 nasal cannula. He was unable to tolerate high flow oxygen. Subsequently was placed back on a BiPAP at a pressure of 10/5 cm of water with an FiO2 of 100%. His current pulse ox is 93% and chest x-ray still showing CHF and pulmonary edema. Noted the patient had an acute non-ST segment elevation myocardial infarction. Troponin was at 4. Echocardiogram was done yesterday and there was a drop in ejection fraction which is down to 20-25% and is same time the patient had valvular abnormalities with moderate mitral regurgitation and mild to moderate aortic stenosis and a small pericardial effusion. The patient is currently on IV heparin. The patient remains in atrial fibrillation with a controlled rate. In view of his CHF, the patient was subjected to diuretics. The patient is currently on Lasix and the patient is receiving Lasix at a dose of 60 mg every 12 hours. The response has been essentially suboptimal. The patient has been in a negative fluid balance of 1.1 L. His creatinine today is at 2.3 with a BUN of 60 and a sodium level is at 136. The results 15.7. UA is negative. Ultrasound of the kidneys showed no evidence of hydronephrosis. There is prostate enlargement. The patient has a Tucker catheter in place for now. Neurologically, he is alert and awake. He is on no pressors. Is on metoprolol at a dose of 50 mg by mouth twice a day. Is also on aspirin 81 mg by mouth daily. No other significant events overnight. We're coordinating his care along with cardiology and out [facility]. Objective - Vital Signs Vital signs: Vital Signs Temp 97.8 F 05/07/22 08:00 Pulse 89 05/07/22 09:00 Resp 31 H 05/07/22 09:00 BP 102/69 05/07/22 09:00 Pulse Ox 91 L 05/07/22 09:00 FiO2 100 05/07/22 09:00 Intake & Output 05/06/22 05/07/22 05/07/22 18:59 06:59 18:59 Intake Total 370 520 323.32 Output Total 1185 835 145 Balance -815 -315 178.32 Weight 78.5 kg Intake: IV 70 120 130 0.9 Normal Saline @ 10mL/ 70 120 30 hr cefTRIAXone 1 gm In 100 Sodium Chloride 0.9% 50 ml @ 100 mls/hr IVPB Q12HR [facility] Rx#:[id number] Intake, IV Titration 50 193.32 Amount Heparin Sod,Pork in 0.45% 193.32 NaCl 25,000 unit In 0.45 % NaCl 1 250ml.bag @ 12 UNITS/KG/HR 9.492 mls/hr IV .Q24H [facility] Rx#: [id number] cefTRIAXone 1 gm In 50 Sodium Chloride 0.9% 50 ml @ 100 mls/hr IVPB Q12HR [facility] Rx#:[id number] Oral 300 350 Output: Urine 1185 835 145 Other: Voiding Method Urinal Indwelling Catheter Indwelling Catheter - Exam GENERAL: BMI 25.8, declining but awake, not in distress. Patient is breathing is nonlabored at this point in time. The patient is on 03/16 With an FiO2 of 100% EYES: Pupils equal. Conjunctiva normal. HEENT: External appearance of nose and ears normal, oral cavity grossly normal. NECK: JVD not raised; masses not palpable. HEART: First and second heart sounds are normal; no edema. LUNGS: Diminished breath sounds bilaterally along with bibasilar crackles in some dullness to percussion lung bases ABDOMEN: Soft, nontender, liver spleen not palpable, no masses palpable. PSYCH: Alert and oriented x3; mood and affect normal. MUSCULOSKELETAL:No Clubbing/cyanosis;muscles-grossly intact. Evidence of OA NEUROLOGICAL: Cranial nerves grossly intact; no facial asymmetry, power and sensation grossly intact. LYMPHATICS: No lymph nodes palpable in the axilla and neck - Labs CBC & Chem 7: 05/07/22 06:37 05/07/22 06:37 Labs: Abnormal Lab Results - Last 24 Hours (Table) 05/06/22 05/06/22 05/06/22 Range/Units 10:19 10:19 11:44 WBC (3.8-10.6) k/uL RBC (4.30-5.90) m/uL Hgb (13.0-17.5) gm/dL Hct (39.0-53.0) % Neutrophils # (1.3-7.7) k/uL Monocytes # (0-1.0) k/uL PT 12.6 H (9.0-12.0) sec INR 1.2 H (<1.2) APTT 31.2 H (22.0-30.0) sec Sodium (137-145) mmol/L BUN (9-20) mg/dL Creatinine (0.66-1.25) mg/dL POC Glucose (mg/dL) 262 H (70-110) mg/dL Hemoglobin A1c (0.0-6.0) % Calcium (8.4-10.2) mg/dL Troponin I 4.780 H* (0.000-0.034) ng/mL Urine Protein (Negative) 05/06/22 05/06/22 05/06/22 Range/Units 11:56 15:16 15:16 WBC (3.8-10.6) k/uL RBC (4.30-5.90) m/uL Hgb (13.0-17.5) gm/dL Hct (39.0-53.0) % Neutrophils # (1.3-7.7) k/uL Monocytes # (0-1.0) k/uL PT (9.0-12.0) sec INR (<1.2) APTT (22.0-30.0) sec Sodium (137-145) mmol/L BUN (9-20) mg/dL Creatinine (0.66-1.25) mg/dL POC Glucose (mg/dL) (70-110) mg/dL Hemoglobin A1c 7.4 H (0.0-6.0) % Calcium (8.4-10.2) mg/dL Troponin I 4.150 H* (0.000-0.034) ng/mL Urine Protein Trace H (Negative) 05/06/22 05/06/22 05/06/22 Range/Units 16:56 17:06 21:41 WBC (3.8-10.6) k/uL RBC (4.30-5.90) m/uL Hgb (13.0-17.5) gm/dL Hct (39.0-53.0) % Neutrophils # (1.3-7.7) k/uL Monocytes # (0-1.0) k/uL PT (9.0-12.0) sec INR (<1.2) APTT 61.1 H (22.0-30.0) sec Sodium (137-145) mmol/L BUN (9-20) mg/dL Creatinine (0.66-1.25) mg/dL POC Glucose (mg/dL) 156 H 201 H (70-110) mg/dL Hemoglobin A1c (0.0-6.0) % Calcium (8.4-10.2) mg/dL Troponin I (0.000-0.034) ng/mL Urine Protein (Negative) 05/07/22 05/07/22 05/07/22 Range/Units 06:37 06:37 06:37 WBC 13.7 H (3.8-10.6) k/uL RBC 3.66 L (4.30-5.90) m/uL Hgb 11.3 L (13.0-17.5) gm/dL Hct 33.3 L (39.0-53.0) % Neutrophils # 11.3 H (1.3-7.7) k/uL Monocytes # 1.1 H (0-1.0) k/uL PT 12.5 H (9.0-12.0) sec INR 1.2 H (<1.2) APTT 82.0 H (22.0-30.0) sec Sodium 136 L (137-145) mmol/L BUN 60 H (9-20) mg/dL Creatinine 2.37 H (0.66-1.25) mg/dL POC Glucose (mg/dL) (70-110) mg/dL Hemoglobin A1c (0.0-6.0) % Calcium 8.3 L (8.4-10.2) mg/dL Troponin I (0.000-0.034) ng/mL Urine Protein (Negative) 05/07/22 Range/Units 09:29 WBC (3.8-10.6) k/uL RBC (4.30-5.90) m/uL Hgb (13.0-17.5) gm/dL Hct (39.0-53.0) % Neutrophils # (1.3-7.7) k/uL Monocytes # (0-1.0) k/uL PT (9.0-12.0) sec INR (<1.2) APTT (22.0-30.0) sec Sodium (137-145) mmol/L BUN (9-20) mg/dL Creatinine (0.66-1.25) mg/dL POC Glucose (mg/dL) 155 H (70-110) mg/dL Hemoglobin A1c (0.0-6.0) % Calcium (8.4-10.2) mg/dL Troponin I (0.000-0.034) ng/mL Urine Protein (Negative) Microbiology - Last 24 Hours (Table) 05/05/22 18:35 Blood Culture - Preliminary Blood No Growth after 24 hours 05/05/22 18:50 Blood Culture - Preliminary Blood No Growth after 24 hours Assessment and Plan Plan: Acute hypoxic respiratory failure secondary to decompensated CHF. Patient is currently on a BiPAP at a pressure of 10/5 with an FiO2 of 100%. His chest x- ray still showing pulmonary edema. Response to diuretics is a minimal. He has significant myopathy with an ejection fraction of 5% along with moderate MR, [id number] aortic stenosis.. The patient got transferred to the intensive care yesterday because of worsening shortness of breath. Chest x-ray is consistent with CHF and pulmonary edema and development of bilateral pleural effusions. Overnight, the patient was given IV Lasix and he was able to produce some urine output. The patient will be kept on a BiPAP. Shortness of breath secondary to above Acute systolic Congestion heart failure with chronic systolic heart failure. Based on the most recent echocardiogram, his ejection fraction is in order of 2025% and the patient has never abnormalities with moderate MR and [id number] aortic stenosis History of atrial fibrillation/flutter Acute non-ST segment elevation myocardial infarction, troponin peaked at 4.0 Coronary artery disease with previous history of coronary artery bypass surgery Peripheral vascular disease History of pacemaker insertion for underlying sick sinus syndrome. Pacemaker was inserted on 04/26/2022 Acute kidney injury probably related to cardiorenal factors. Chronic stage III kidney disease Left bundle-branch block pattern Diabetes mellitus Hypertension Hyperlipidemia Hypothyroidism Coronary artery disease Plan Start the patient on dopamine drip to augment cardiac output and urine output. This will be started 3 mcg/kg/m. Increase Lasix up to 80 mg every 8 hours IV push Continue IV heparin Obtain ultrasound of the chest and it is sizable effusion we'll give the patient has thoracentesis. Based on my examination and chest x-ray, the findings are more consistent with CHF and pulmonary edema Continue the BiPAP for now the same setting Titrate oxygen flow to maintain saturation above 90% change Levemir insulin 10 units along with a sliding scale We'll continue to follow Visit critical care evaluation and the patient is a full CODE STATUS. evaluation in >30 min Time with Patient: Greater than 30
[2022-05-07] MEDS: INSULIN DETEMIR (LEVEMIR) 100 UNIT/ML SYR SQ SCH (10:27)
[2022-05-07] MEDS ORDERED: DEXTROSE/WATER 1 250ML.BAG with DOPamine DRIP 800 MG IV SCH (10:30)
[2022-05-07] MEDS ORDERED: INSULIN DETEMIR (LEVEMIR) 100 UNIT/ML SYR SQ SCH (10:30)
[2022-05-07] MEDS: ISOSORBIDE MONONITRATE ER 30 MG TAB.ER.24H PO SCH (10:39)
[2022-05-07] MEDS: HEPARIN SOD,PORK IN 0.45% NACL 25,000 UNIT in 0.45% NACL 1 250ML.BAG IV SCH (10:39)
--- NOTE | 2022-05-07 10:47 | P.PN ---
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 Came in because of chest pain and had acute NV. Currently he is on oxygen on a BiPAP. Chest x-ray is suggestive congestive heart failure. He has not responded to the Lasix dose and was increased to 80 mg twice a day just now as well as started on dopamine 3 mics. His creatinine is going up from 1.7, to 2.25, to 2.37 this morning urine output is 145 mL for 24 hours He has a permanent pacemaker and has history of coronary artery bypass atrial fibrillation diabetes mellitus. Objective - Vital Signs Vital signs: Vital Signs Temp 97.8 F 05/07/22 08:00 Pulse 89 05/07/22 09:00 Resp 31 H 05/07/22 09:00 BP 102/69 05/07/22 09:00 Pulse Ox 91 L 05/07/22 09:00 FiO2 100 05/07/22 09:00 Intake & Output 05/06/22 05/07/22 05/07/22 18:59 06:59 18:59 Intake Total 370 520 350.478 Output Total 1185 835 145 Balance -815 -315 205.478 Weight 78.5 kg Intake: IV 70 120 130 0.9 Normal Saline @ 10mL/ 70 120 30 hr cefTRIAXone 1 gm In 100 Sodium Chloride 0.9% 50 ml @ 100 mls/hr IVPB Q12HR [facility] Rx#:[id number] Intake, IV Titration 50 220.478 Amount Heparin Sod,Pork in 0.45% 220.478 NaCl 25,000 unit In 0.45 % NaCl 1 250ml.bag @ 12 UNITS/KG/HR 9.492 mls/hr IV .Q24H [facility] Rx#: [id number] cefTRIAXone 1 gm In 50 Sodium Chloride 0.9% 50 ml @ 100 mls/hr IVPB Q12HR [facility] Rx#:[id number] Oral 300 350 Output: Urine 1185 835 145 Other: Voiding Method Urinal Indwelling Catheter Indwelling Catheter Exam general awake alert oriented HEENT exam no JVP neck is supple no facial asymmetry Lungs are clear to auscultation on BiPAP Heart sounds unremarkable with atrial fibrillation Abdomen soft nontender Extremity exam was trace edema Neurologically awake alert oriented - Labs CBC & Chem 7: 05/07/22 06:37 05/07/22 06:37 Labs: Abnormal Lab Results - Last 24 Hours (Table) 05/06/22 05/06/22 05/06/22 Range/Units 10:19 10:19 11:44 WBC (3.8-10.6) k/uL RBC (4.30-5.90) m/uL Hgb (13.0-17.5) gm/dL Hct (39.0-53.0) % Neutrophils # (1.3-7.7) k/uL Monocytes # (0-1.0) k/uL PT 12.6 H (9.0-12.0) sec INR 1.2 H (<1.2) APTT 31.2 H (22.0-30.0) sec Sodium (137-145) mmol/L BUN (9-20) mg/dL Creatinine (0.66-1.25) mg/dL POC Glucose (mg/dL) 262 H (70-110) mg/dL Hemoglobin A1c (0.0-6.0) % Calcium (8.4-10.2) mg/dL Troponin I 4.780 H* (0.000-0.034) ng/mL Urine Protein (Negative) 05/06/22 05/06/22 05/06/22 Range/Units 11:56 15:16 15:16 WBC (3.8-10.6) k/uL RBC (4.30-5.90) m/uL Hgb (13.0-17.5) gm/dL Hct (39.0-53.0) % Neutrophils # (1.3-7.7) k/uL Monocytes # (0-1.0) k/uL PT (9.0-12.0) sec INR (<1.2) APTT (22.0-30.0) sec Sodium (137-145) mmol/L BUN (9-20) mg/dL Creatinine (0.66-1.25) mg/dL POC Glucose (mg/dL) (70-110) mg/dL Hemoglobin A1c 7.4 H (0.0-6.0) % Calcium (8.4-10.2) mg/dL Troponin I 4.150 H* (0.000-0.034) ng/mL Urine Protein Trace H (Negative) 05/06/22 05/06/22 05/06/22 Range/Units 16:56 17:06 21:41 WBC (3.8-10.6) k/uL RBC (4.30-5.90) m/uL Hgb (13.0-17.5) gm/dL Hct (39.0-53.0) % Neutrophils # (1.3-7.7) k/uL Monocytes # (0-1.0) k/uL PT (9.0-12.0) sec INR (<1.2) APTT 61.1 H (22.0-30.0) sec Sodium (137-145) mmol/L BUN (9-20) mg/dL Creatinine (0.66-1.25) mg/dL POC Glucose (mg/dL) 156 H 201 H (70-110) mg/dL Hemoglobin A1c (0.0-6.0) % Calcium (8.4-10.2) mg/dL Troponin I (0.000-0.034) ng/mL Urine Protein (Negative) 05/07/22 05/07/22 05/07/22 Range/Units 06:37 06:37 06:37 WBC 13.7 H (3.8-10.6) k/uL RBC 3.66 L (4.30-5.90) m/uL Hgb 11.3 L (13.0-17.5) gm/dL Hct 33.3 L (39.0-53.0) % Neutrophils # 11.3 H (1.3-7.7) k/uL Monocytes # 1.1 H (0-1.0) k/uL PT 12.5 H (9.0-12.0) sec INR 1.2 H (<1.2) APTT 82.0 H (22.0-30.0) sec Sodium 136 L (137-145) mmol/L BUN 60 H (9-20) mg/dL Creatinine 2.37 H (0.66-1.25) mg/dL POC Glucose (mg/dL) (70-110) mg/dL Hemoglobin A1c (0.0-6.0) % Calcium 8.3 L (8.4-10.2) mg/dL Troponin I (0.000-0.034) ng/mL Urine Protein (Negative) 05/07/22 Range/Units 09:29 WBC (3.8-10.6) k/uL RBC (4.30-5.90) m/uL Hgb (13.0-17.5) gm/dL Hct (39.0-53.0) % Neutrophils # (1.3-7.7) k/uL Monocytes # (0-1.0) k/uL PT (9.0-12.0) sec INR (<1.2) APTT (22.0-30.0) sec Sodium (137-145) mmol/L BUN (9-20) mg/dL Creatinine (0.66-1.25) mg/dL POC Glucose (mg/dL) 155 H (70-110) mg/dL Hemoglobin A1c (0.0-6.0) % Calcium (8.4-10.2) mg/dL Troponin I (0.000-0.034) ng/mL Urine Protein (Negative) Microbiology - Last 24 Hours (Table) 05/05/22 18:35 Blood Culture - Preliminary Blood No Growth after 24 hours 05/05/22 18:50 Blood Culture - Preliminary Blood No Growth after 24 hours Assessment and Plan Assessment: Impression 1. Acute kidney injury secondary to cardiorenal syndrome poor urine output creatinine going up in spite of Lasix. 2. Chronic kidney disease stage III baseline creatinine 1.7 3. Non-ST NV. 4. On BiPAP 5. Diabetes mellitus Recommendation 1. After discussion with Dr. Helen Ojeda, will increase Lasix to 80 every 12 as well as start dopamine at 50 mics. Patient understands that his kidneys are not working very well and we are hoping that the Lasix and dopamine combination will improve his renal function. Prognosis somewhat guarded
--- NOTE | 2022-05-07 11:01 | US ---
EXAMINATION TYPE: US chest DATE OF EXAM: 05/07/2022 COMPARISON: CXR CLINICAL HISTORY: pleural effusions. Effusions TECHNIQUE: Targeted ultrasound of the posterior lower bilateral hemithoraces EXAM MEASUREMENTS: Right Pleural Effusion pocket size: 9.3 cm Right skin surface to fluid distance: 5.2 cm Left Pleural Effusion pocket size: 10.5 cm Left skin surface to fluid distance: 3.7 cm Right side marked for possible thoracentesis outside the dept. Left side marked for possible thoracentesis outside the dept. Pulmonologists are able to review the images in the patient?s EMR. IMPRESSIONS: Significant large bilateral pleural effusions amenable to thoracentesis.
[2022-05-07 11:20] LABS: Glucose,Whole Blood 141 mg/dL (70-110)
[2022-05-07] MEDS ORDERED: AMIODARONE 360 MG in DEXTROSE 5% IN WATER 200 ML IV ONE ×2 (11:46)
[2022-05-07] MEDS ORDERED: LIDOCAINE 2% (PF) 20 MG/ML 5 ML VIAL ONE (11:54)
--- NOTE | 2022-05-07 11:55 | P.PN ---
Subjective HISTORY OF PRESENTING ILLNESS Patient is pleasant 86-year-old male with history of persistent atrial fibrillation, sick sinus syndrome status post recent permanent pacemaker, CAD status post CABG, ischemic cardiomyopathy EF 40% with previous small pericardial effusion, mild aortic stenosis, diabetes mellitus, chronic kidney disease. He follows with Dr. Conroy. He has been having issues with low heart rates and therefore his metoprolol had been weaned initially from 50 down to 25 twice a day and more recently had been entirely discontinued however was still having significant pauses up to 5 seconds and therefore was recommended to undergo permanent pacemaker which was uneventful approximately 2 weeks ago. He had been feeling fairly well however more recently in the last 2 days started to develop more shortness of breath as well as some burning sensation in his chest. He states this occurred when he was just sitting there. He felt weak and tired and therefore came to the emergency department. He denies any fevers or chills. His pacemaker site appears clean and dry. EKG shows atrial fibrillation with left bundle branch morphology and nonspecific ST, T-wave abnormalities with heart rate 110. He states normally his heart rate was more in the 60s to 70s. He was initially treated with oxygen and then required BiPAP with some respiratory distress however received IV Lasix and had limited urine output approximately 450 over last 12 hours. He feels much improved today however and is on nasal cannula. Denies any further chest burning sensation. Initial white blood cell count 14.1, d-dimer elevated however has been on anticoagulation, Trop 0.014, 0.7, 1.59. His creatinine was 1.7 and increased up to 2.2. Chest x-ray showing mild congestive heart failure and small effusions with possible right lower lobe pneumonia as well. 05/07 Patient seen and examined. Patient was doing better yesterday however had some more chest discomfort yesterday and metoprolol was increased with some improvement in his chest discomfort. Echocardiogram shows reduced EF 25%. He has had worsening respiratory distress and placed on BiPAP currently 100% FiO2. Has had limited urine output. Denies any further chest pressure or tightness. He remains in A. fib with mildly elevated heart rates in the 80s to 100s. PHYSICAL EXAMINATION Vital signs reviewed. CONSTITUTIONAL: No apparent distress. HEENT: Head is normocephalic. Pupils are equal, round. Sclerae anicteric. Mucous membranes of the mouth are moist. No JVD. No carotid bruit. CHEST EXAMINATION: Lungs are clear to auscultation. No chest wall tenderness is noted on palpation or with deep breathing. HEART EXAMINATION: Irregular rate and rhythm. S1, S2 heard. No murmurs, gallops or rub. ABDOMEN: Soft, nontender. Positive bowel sounds. EXTREMITIES: 2+ peripheral pulses, no lower extremity edema and no calf tenderness. NEUROLOGIC EXAMINATION: Patient is awake, alert and oriented x3. ASSESSMENT 1. Non-STEMI, question type I mechanism however may be type II mechanism related to A. fib with RVR with recent discontinuation of metoprolol 2. Acute on chronic systolic heart failure 3. Sick sinus syndrome status post permanent pacemaker 4. CAD status post CABG 5. Persistent atrial fibrillation, A. fib with RVR on presentation 6. Acute kidney injury 7. Diabetes mellitus type 2 8. Mild leukocytosis 9. PLAN Patient with chest burning sensation and non-STEMI with drop in ejection fraction of 25% previously 40% range. Concern of possible type I mechanism however also possible type II mechanism related to A. fib with RVR. He was previously sinus rhythm and some bradycardia in the past. Patient does have bilateral pleural effusions and discussed with pulmonology and pulmonology planning on performing thoracentesis. Would prefer to avoid dobutamine, dopamine given RVR may be creating supply demand mismatch. Metoprolol had been increased yesterday. Start amiodarone drip and may consider cardioversion. Interrogate permanent pacemaker. Low-dose nitroglycerin for preload reduction. Prognosis guarded. Objective - Vital Signs Vital signs: Vital Signs Temp 97.8 F 05/07/22 08:00 Pulse 89 05/07/22 11:00 Resp 32 H 05/07/22 11:00 BP 110/74 05/07/22 11:00 Pulse Ox 95 05/07/22 11:00 FiO2 100 05/07/22 11:22 Intake & Output 05/06/22 05/07/22 05/07/22 18:59 06:59 18:59 Intake Total 370 520 370.478 Output Total 1185 835 315 Balance -815 -315 55.478 Weight 78.5 kg Intake: IV 70 120 150 0.9 Normal Saline @ 10mL/ 70 120 50 hr cefTRIAXone 1 gm In 100 Sodium Chloride 0.9% 50 ml @ 100 mls/hr IVPB Q12HR [facility] Rx#:[id number] Intake, IV Titration 50 220.478 Amount Heparin Sod,Pork in 0.45% 220.478 NaCl 25,000 unit In 0.45 % NaCl 1 250ml.bag @ 12 UNITS/KG/HR 9.492 mls/hr IV .Q24H [facility] Rx#: [id number] cefTRIAXone 1 gm In 50 Sodium Chloride 0.9% 50 ml @ 100 mls/hr IVPB Q12HR [facility] Rx#:[id number] Oral 300 350 Output: Urine 1185 835 315 Other: Voiding Method Urinal Indwelling Catheter Indwelling Catheter - Labs CBC & Chem 7: 05/07/22 06:37 05/07/22 06:37 Labs: Abnormal Lab Results - Last 24 Hours (Table) 05/06/22 05/06/22 05/06/22 Range/Units 10:19 11:56 15:16 WBC (3.8-10.6) k/uL RBC (4.30-5.90) m/uL Hgb (13.0-17.5) gm/dL Hct (39.0-53.0) % Neutrophils # (1.3-7.7) k/uL Monocytes # (0-1.0) k/uL PT (9.0-12.0) sec INR (<1.2) APTT (22.0-30.0) sec Sodium (137-145) mmol/L BUN (9-20) mg/dL Creatinine (0.66-1.25) mg/dL POC Glucose (mg/dL) (70-110) mg/dL Hemoglobin A1c 7.4 H (0.0-6.0) % Calcium (8.4-10.2) mg/dL Troponin I 4.780 H* (0.000-0.034) ng/mL Urine Protein Trace H (Negative) 05/06/22 05/06/22 05/06/22 Range/Units 15:16 16:56 17:06 WBC (3.8-10.6) k/uL RBC (4.30-5.90) m/uL Hgb (13.0-17.5) gm/dL Hct (39.0-53.0) % Neutrophils # (1.3-7.7) k/uL Monocytes # (0-1.0) k/uL PT (9.0-12.0) sec INR (<1.2) APTT 61.1 H (22.0-30.0) sec Sodium (137-145) mmol/L BUN (9-20) mg/dL Creatinine (0.66-1.25) mg/dL POC Glucose (mg/dL) 156 H (70-110) mg/dL Hemoglobin A1c (0.0-6.0) % Calcium (8.4-10.2) mg/dL Troponin I 4.150 H* (0.000-0.034) ng/mL Urine Protein (Negative) 05/06/22 05/07/22 05/07/22 Range/Units 21:41 06:37 06:37 WBC 13.7 H (3.8-10.6) k/uL RBC 3.66 L (4.30-5.90) m/uL Hgb 11.3 L (13.0-17.5) gm/dL Hct 33.3 L (39.0-53.0) % Neutrophils # 11.3 H (1.3-7.7) k/uL Monocytes # 1.1 H (0-1.0) k/uL PT (9.0-12.0) sec INR (<1.2) APTT (22.0-30.0) sec Sodium 136 L (137-145) mmol/L BUN 60 H (9-20) mg/dL Creatinine 2.37 H (0.66-1.25) mg/dL POC Glucose (mg/dL) 201 H (70-110) mg/dL Hemoglobin A1c (0.0-6.0) % Calcium 8.3 L (8.4-10.2) mg/dL Troponin I (0.000-0.034) ng/mL Urine Protein (Negative) 05/07/22 05/07/22 05/07/22 Range/Units 06:37 09:29 11:18 WBC (3.8-10.6) k/uL RBC (4.30-5.90) m/uL Hgb (13.0-17.5) gm/dL Hct (39.0-53.0) % Neutrophils # (1.3-7.7) k/uL Monocytes # (0-1.0) k/uL PT 12.5 H (9.0-12.0) sec INR 1.2 H (<1.2) APTT 82.0 H (22.0-30.0) sec Sodium (137-145) mmol/L BUN (9-20) mg/dL Creatinine (0.66-1.25) mg/dL POC Glucose (mg/dL) 155 H 141 H (70-110) mg/dL Hemoglobin A1c (0.0-6.0) % Calcium (8.4-10.2) mg/dL Troponin I (0.000-0.034) ng/mL Urine Protein (Negative) Microbiology - Last 24 Hours (Table) 05/05/22 18:35 Blood Culture - Preliminary Blood No Growth after 24 hours 05/05/22 18:50 Blood Culture - Preliminary Blood No Growth after 24 hours
[2022-05-07] MEDS ORDERED: NITROGLYCERIN-D5W PMX 50 MG in DEXTROSE/WATER 1 250ML.BAG IV SCH (12:00)
--- NOTE | 2022-05-07 12:12 | P.PCN ---
Date of Procedure: 05/07/22 Preoperative Diagnosis: Pleural effusion, bilateral Postoperative Diagnosis: Pleural effusion, bilateral Procedure(s) Performed: Thoracentesis, right Anesthesia: local Surgeon: Sierra Ring Estimated Blood Loss (ml): 0 Pathology: other Condition: critical Disposition: ICU Operative Findings: A time out was performed and the chest x-ray was reviewed, the appropriate side was confirmed and marked. My hands were washed immediately prior to the procedure. I wore a surgical cap, mask with protective eyewear, sterile gown and sterile gloves throughout the procedure. The patient was prepped and draped in a sterile manner using chlorhexidine scrub after the appropriate level was percussed and confirmed by ultrasound. 1% lidocaine was used to anesthesize the skin, subcutaneous tissue, superior aspect of the rib periosteum and parietal pleura. A finder needle was then introduced over the superior aspect of the rib to locate the pleural fluid; 2colored fluid was aspirated at a depth of approximately 2 cm. A 10-blade scalpel was used to kwadwo the skin at the insertion site. The [id number] needle was then introduced through the skin incision into the pleural space using negative aspiration pressure and the red colometric indicator to confirm appropriate positioning of the needle. The thoracentesis catheter was then threaded without difficulty. 1500 ml of turbid colored fluid was removed without difficulty. The catheter was then removed. No immediate complications were noted during the procedure. A post-procedure chest x-ray is pending at the time of this note. The fluid will be sent for studies. Estimated blood loss is 0cc
--- NOTE | 2022-05-07 12:29 | P.PCN ---
Date of Procedure: 05/07/22 Operative Findings: Patient Name: Gt Acuña Date of : 1935 Patient Status: Inpatient Attending Provider: Harry Capellan Date: 05/07/22 12:11 Initialization Date: 05/07/22 12:11 Date of Procedure: 05/07/22 Preoperative Diagnosis: Pleural effusion, bilateral Postoperative Diagnosis: Pleural effusion, bilateral Procedure(s) Performed: Thoracentesis, left Anesthesia: local Surgeon: Sierra Ring Estimated Blood Loss (ml): 0 Pathology: other Condition: critical Disposition: ICU Operative Findings: A time out was performed and the chest x-ray was reviewed, the appropriate side was confirmed and marked. My hands were washed immediately prior to the procedure. I wore a surgical cap, mask with protective eyewear, sterile gown and sterile gloves throughout the procedure. The patient was prepped and draped in a sterile manner using chlorhexidine scrub after the appropriate level was percussed and confirmed by ultrasound. 1% lidocaine was used to anesthesize the skin, subcutaneous tissue, superior aspect of the rib periosteum and parietal pleura. A finder needle was then introduced over the superior aspect of the rib to locate the pleural fluid; 2colored fluid was aspirated at a depth of approximately 2 cm. A 10-blade scalpel was used to kwadwo the skin at the insertion site. The [id number] needle was then introduced through the skin incision into the pleural space using negative aspiration pressure and the red colometric indicator to confirm appropriate positioning of the needle. The thoracentesis catheter was then threaded without difficulty. 1350 ml of turbid colored fluid was removed without difficulty. The catheter was then removed. No immediate complications were noted during the procedure. A post-procedure chest x-ray is pending at the time of this note. The fluid will be sent for studies. Estimated blood loss is 0cc
--- NOTE | 2022-05-07 12:52 | XR ---
EXAMINATION TYPE: XR chest 1V portable DATE OF EXAM: 05/07/2022 COMPARISON: 05/07/2022 HISTORY: Thoracentesis TECHNIQUE: Single frontal view of the chest is obtained. FINDINGS: There is a moderate to large retrocardiac opacity likely consistent with combination of pleural effus ion and atelectasis/infiltrate is unchanged compared to the prior study The right lung is clear. There is no pneumothorax. Heart and pulmonary vasculature are normal. There is a 2-lead cardiac pacemaker. There are marked changes of the right shoulder. IMPRESSION: No change in the retrocardiac opacity. There is no pneumothorax.
--- NOTE | 2022-05-07 12:55 | XR ---
EXAMINATION TYPE: XR chest 1V portable DATE OF EXAM: 05/07/2022 COMPARISON: 05/07/2022 HISTORY: Left thoracentesis. TECHNIQUE: Single frontal view of the chest is obtained. FINDINGS: There is interval resolution of the retrocardiac opacity on the left consistent with thoracentesis of a left pleural effusion. There is no pleural effusion or pneumothorax. There is no consolidative or interstitial opacity withi n the lungs. The heart and pulmonary vasculature are normal. There is a 2-lead cardiac pacemaker. IMPRESSION: Resolution of the large left pleural effusion following left thoracentesis. There is no pneumothora x. The remainder the chest is unchanged.
--- NOTE | 2022-05-07 14:54 | P.PN ---
Progress Note - Text Progress Note Date: 05/07/22 Chief Complaint: Chest pain This is a pleasant 86-year-old patient who follows with Dr. Ag Burns. Patient had a coronary bypass in 2000. Chronic stable medical conditions include diabetes type 2, hypertension, hyperlipidemia, PAD, carotid stenosis, CAD, ischemic cardiomyopathy, loop recorder since 2018. 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 Conroy and also with Dr. Lowry in [place]. On April 26 for sick sinus syndrome had a permanent pacemaker placed. Prior to this he was having bradycardia and his Lopressor was discontinued. In the last 2 days patient started having shortness of breath. No edema. No cough. No sputum. No fever no chills. Also started feeling the burning sensation across the chest. The last 24 hours. Also going up to his left shoulder. No obvious relieving or precipitating factors. Heart rate in the ER was over 100. Baseline heart rate is around 60. Overnight patient became more short of breath. 1 dose of IV Lasix 80 mg was given. Need close to 400 mL of urine. Also concern about pneumonia and some started on antibiotics. Patient did require BiPAP for shortness of breath so moved to the ICU Admitted with pneumonia, acute hypoxic respiratory failure, acute and chronic CHF, acute non-Q wave [place], and acute kidney injury/ATN. IV heparin, IV ceftriaxone, oxygen, IV Lasix, 05/07/2022: ICU: Underwent bilateral thoracentesis by Dr. Ring 1500 mL removed from the right site and 1350 from the left side. Currently unable with the 60 L and 93%. Drips include amiodarone, nitroglycerin, IV heparin. Reclining in bed, awake, tired. Eating some Active Medications Acetaminophen (Acetaminophen Tab 325 Mg Tab) 650 mg PO Q6HR PRN PRN Reason: Mild Pain or Fever > 100.5 Alprazolam (Alprazolam 0.25 Mg Tab) 0.25 mg PO Q8H PRN PRN Reason: Anxiety Last Admin: 05/07/22 09:22 Dose: 0.25 mg Aspirin (Aspirin 81 Mg) 81 mg PO DAILY [facility] Last Admin: 05/07/22 08:16 Dose: 81 mg Atorvastatin Calcium (Atorvastatin 80 Mg Tab) 80 mg PO HS [facility] Last Admin: 05/06/22 21:42 Dose: 80 mg Calcitriol (Calcitriol 0.25 Mcg Cap) 0.25 mcg PO DAILY [facility] Last Admin: 05/07/22 08:17 Dose: 0.25 mcg Dextrose/Water (Dextrose 50% Syringe 50 Ml) 25 ml IVP PER PROTOCOL PRN; Protocol PRN Reason: Hypoglycemia Dextrose/Water (Dextrose 50% Syringe 50 Ml) 50 ml IVP PER PROTOCOL PRN; Protocol PRN Reason: Hypoglycemia Famotidine (Famotidine 20 Mg Tab) 20 mg PO DAILY [facility] Last Admin: 05/07/22 08:16 Dose: 20 mg Furosemide (Furosemide 10 Mg/Ml 10 Ml Vial) 80 mg IV Q12HR [facility] Heparin Sodium (Porcine) (Heparin Sodium 1,000 Un/Ml (10ml Vl)) 0 unit IV PER PROTOCOL PRN; Protocol PRN Reason: Low PTT Heparin Sodium/Sodium Chloride (25,000 unit/ Sodium Chloride) 250 mls @ 9.492 mls/hr IV .Q24H [facility]; Protocol Last Admin: 05/07/22 10:39 Dose: 10 units/kg/hr, 7.91 mls/hr Ceftriaxone Sodium 1 gm/ (Sodium Chloride) 50 mls @ 100 mls/hr IVPB Q12HR [facility]; Protocol Last Admin: 05/07/22 08:15 Dose: 100 mls/hr Amiodarone HCl 360 mg/ (Dextrose/Water) 200 mls @ 33.333 mls/hr IV .Q6H ONE; Protocol Stop: 05/07/22 17:45 Last Admin: 05/07/22 12:37 Dose: 1 mg/min, 33.333 mls/hr Amiodarone HCl 450 mg/ (Dextrose/Water) 250 mls @ 16.667 mls/hr IV .Q15H [facility]; Protocol Stop: 05/08/22 11:59 Nitroglycerin/Dextrose 50 mg/ (IV Solution) 250 mls @ 1.5 mls/hr IV .Q24H [facility]; Protocol Last Admin: 05/07/22 12:39 Dose: 5 mcg/min, 1.5 mls/hr Insulin Aspart (Insulin Aspart (Novolog) 100 Unit/Ml Vial) 0 unit SQ ACHS [facility]; Protocol Last Admin: 05/07/22 13:12 Dose: Not Given Insulin Detemir (Insulin Detemir (Levemir) 100 Unit/Ml Syr) 10 unit SQ QAM [facility] Last Admin: 05/07/22 10:45 Dose: 10 unit Isosorbide Mononitrate (Isosorbide Mononitrate Er 30 Mg Tab.Er.24h) 30 mg PO DAILY [facility] Last Admin: 05/07/22 10:39 Dose: 30 mg Levothyroxine Sodium (Levothyroxine 125 Mcg Tab) 125 mcg PO DAILY [facility] Last Admin: 05/07/22 08:16 Dose: 125 mcg Metoprolol Succinate (Metoprolol Succinate (Er) 50 Mg Tab.Er.24h) 50 mg PO BID [facility] Last Admin: 05/07/22 08:19 Dose: 50 mg Miscellaneous Information (Potassium Replacement Protocol 1 Each Misc) 1 each MISCELLANE DAILY PRN; Protocol PRN Reason: Per Protocol Morphine Sulfate (Morphine Sulfate 4 Mg/Ml Syringe) 4 mg IV Q4HR PRN PRN Reason: Severe Pain (Scale 7 to 10) Naloxone HCl (Naloxone 0.4 Mg/Ml 1 Ml Vial) 0.2 mg IV Q2M PRN PRN Reason: Opioid Reversal Nitroglycerin (Nitroglycerin Sl Tabs 0.4 Mg Tab) 0.4 mg SUBLINGUAL Q10M PRN PRN Reason: Chest Pain Ondansetron HCl (Ondansetron 4 Mg/2 Ml Vial) 4 mg IVP Q8HR PRN PRN Reason: Nausea And Vomiting Ranolazine (Ranolazine 500 Mg Tab.Er.12h) 500 mg PO BID [facility] Last Admin: 05/07/22 08:17 Dose: 500 mg Past medical history to include: Diabetes, GERD, hypertension, hyperlipidemia, osteoarthritis, [place], chronic kidney disease, hypothyroid, CAD with bypass about 20 years ago. Permanent pacemaker for sick sinus syndrome Social history: Occasional cigar. In the remote past. No alcohol. . Retired Family history: Reviewed, noncontributory to presentation Physical examination: VITAL SIGNS: Afebrile, 84, 22, 113 with 71, 100% on Airvo GENERAL: reclining in bed awake, tired, less short of breath. Permanent pacemaker EYES: Pupils equal. Conjunctiva normal. HEENT: External appearance of nose and ears normal, oral cavity grossly normal. NECK: JVD unable to assess; masses not palpable. HEART: Heart is irregular; no edema. LUNGS: Respiratory rate normal; clear to auscultation. ABDOMEN: Soft, nontender, liver spleen not palpable, no masses palpable. PSYCH: Alert and oriented x3; mood and affect normal. MUSCULOSKELETAL:No Clubbing/cyanosis;muscles-grossly intact, OA INVESTIGATIONS, reviewed in the clinical context: 05/07/2022: WBC 13.7 hemoglobin 11.3 platelets 2063.8. 60 creatinine 2.37 05/06/2022: WBC 12.5 hemoglobin 11.5 platelets 216 potassium 4.4 BUN 49 creatinine 2.25 Admission labs: WBC 14.1 in globin 12.1 platelets 28 potassium 4.9. 42 creatinine 1.77 Troponin I 0.014, 0.707, 0.904, 1.5, 4.7 Influenza type A/diabetes/RSV/COVID-19: Not detected EKG tracing personally reviewed by me-atrial fibrillation, heart rate 110 Chest x-ray film personally reviewed by me-left lower lobe infiltrate, venous prominent edema Previous labs: Creatinine 1.46 in October 2021 Assessment and plan: -Acute non-Q-wave [place] in a patient with known CAD Aspirin, IV heparin -Left lower lobe pneumonia, suspect gram-negative organism Ceftriaxone 1 g every 12. Check pro-calcitonin -Acute hypoxic respiratory failure secondary to CHF and pneumonia: Slow to respond airvoat 60 L/93% -IV heparin monitoring Follow PTT -Acute kidney injury, likely ATN's combination of cardiorenal syndrome: Worsening Creatinine up to 2.37 -Chronic kidney disease suspect nephrosclerosis stage III Baseline creatinine 1.46 -CAD with a prior history of coronary bypass. does follow Dr. Conroy Aspirin, beta jon, Lipitor -Permanent pacemaker placed on 04/26/2022 for sick sinus syndrome -Acute on chronic congestive heart failure exacerbation. From ischemic cardiomyopathy EF 40-45% IV Lasix 80 mg every 12 -Essential hypertension Toprol-XL 50 mg twice a day, -Hyperlipidemia Lipitor 80 mg daily at bedtime -Persistent atrial fibrillation, rapid ventricular rate on presentation Toprol-XL. IV heparin -Hypothyroid Synthroid 125 g a day -Diabetes mellitus type 2, chronic insulin Levemir 10 units daily. Accu-Cheks and sliding scale. -Full code IV heparin. IV ceftriaxone. IV Lasix. Status post bilateral thoracentesis. On Airvo. Discussed with patient.
[2022-05-07 16:11] LABS: Glucose,Whole Blood 244 mg/dL (70-110)
[2022-05-07 17:06] LABS: Appearance,BF Cloudy
[2022-05-07] MEDS: AMIODARONE 450 MG in DEXTROSE 5% IN WATER 250 ML IV SCH ×2 (18:20)
[2022-05-07 19:55] LABS: Glucose,Whole Blood 279 mg/dL (70-110)
[2022-05-07] MEDS: ATORVASTATIN 80 MG TAB PO SCH (20:19)
[2022-05-07] MEDS: ACETAMINOPHEN TAB 325 MG TAB PO PRN (23:02)
[2022-05-07 23:25] LABS: Glucose, BF Source Pleural Fluid; Glucose, Body Fluid 135 mg/dL; LDH, Body Fluid Source Pleural Fluid; T. Protein, Body Fluid Source Pleural Fluid; Total Protein, Body Fluid 1760 mg/dL
[2022-05-08] MEDS: AMIODARONE 450 MG in DEXTROSE 5% IN WATER 250 ML IV SCH ×4 (04:08→16:25)
[2022-05-08 04:20] LABS: HCT 35.6 % (39.0-53.0); HGB 11.8 gm/dL (13.0-17.5); MCH 30.5 pg (25.0-35.0); MCHC 33.2 g/dL (31.0-37.0); MCV 91.9 fL (80.0-100.0); Mean Platelet Volume 9.3; Platelet Count 201 k/uL (150-450); RBC 3.87 m/uL (4.30-5.90); RDW 13.2 % (11.5-15.5); WBC 12.9 k/uL (3.8-10.6)
[2022-05-08 04:47] LABS: Calcium 8.2 mg/dL (8.4-10.2)
--- NOTE | 2022-05-08 07:04 | XR ---
EXAMINATION TYPE: XR chest 1V portable DATE OF EXAM: 05/08/2022 COMPARISON: 05/07/2022 HISTORY: Shortness of breath TECHNIQUE: Single frontal view of the chest is obtained. FINDINGS: There is a 2-lead cardiac pacemaker in median sternotomy wires. The heart is mildly prominent and there is moderate pulmonary vascular congestion and mild interstiti al edema compared to previous there is no significant interval change. There is no pneumothorax. There are no large pleural effusions. The osseous structures are intact IMPRESSION: Findings most consistent with moderate CHF. No pneumothorax or large pleural effusions.
[2022-05-08 07:27] LABS: Glucose,Whole Blood 69 mg/dL (70-110)
[2022-05-08] MEDS: DOBUTamine DRIP 500 MG in DEXTROSE/WATER 1 250ML.BAG IV SCH (07:41)
[2022-05-08] MEDS: INSULIN ASPART (NovoLOG) 100 UNIT/ML VIAL SQ SCH ×4 (07:45→20:44)
[2022-05-08 08:00] LABS: Glucose,Whole Blood 98 mg/dL (70-110)
[2022-05-08] MEDS: RANOLAZINE 500 MG TAB.ER.12H PO SCH ×2 (08:06→20:45)
[2022-05-08] MEDS: FUROSEMIDE 10 MG/ML 10 ML VIAL IV SCH ×2 (08:06→20:45)
[2022-05-08] MEDS: LEVOTHYROXINE 125 MCG TAB PO SCH (08:08)
[2022-05-08] MEDS: FAMOTIDINE 20 MG TAB PO SCH (08:08)
[2022-05-08] MEDS: ASPIRIN 81 MG PO SCH (08:08)
[2022-05-08] MEDS: ALPRAZolam 0.25 MG TAB PO PRN (08:08)
--- NOTE | 2022-05-08 09:29 | P.PN ---
Subjective HISTORY OF PRESENTING ILLNESS Patient is pleasant 86-year-old male with history of persistent atrial fibrillation, sick sinus syndrome status post recent permanent pacemaker, CAD status post CABG, ischemic cardiomyopathy EF 40% with previous small pericardial effusion, mild aortic stenosis, diabetes mellitus, chronic kidney disease. He follows with Dr. Conroy. He has been having issues with low heart rates and therefore his metoprolol had been weaned initially from 50 down to 25 twice a day and more recently had been entirely discontinued however was still having significant pauses up to 5 seconds and therefore was recommended to undergo permanent pacemaker which was uneventful approximately 2 weeks ago. He had been feeling fairly well however more recently in the last 2 days started to develop more shortness of breath as well as some burning sensation in his chest. He states this occurred when he was just sitting there. He felt weak and tired and therefore came to the emergency department. He denies any fevers or chills. His pacemaker site appears clean and dry. EKG shows atrial fibrillation with left bundle branch morphology and nonspecific ST, T-wave abnormalities with heart rate 110. He states normally his heart rate was more in the 60s to 70s. He was initially treated with oxygen and then required BiPAP with some respiratory distress however received IV Lasix and had limited urine output approximately 450 over last 12 hours. He feels much improved today however and is on nasal cannula. Denies any further chest burning sensation. Initial white blood cell count 14.1, d-dimer elevated however has been on anticoagulation, Trop 0.014, 0.7, 1.59. His creatinine was 1.7 and increased up to 2.2. Chest x-ray showing mild congestive heart failure and small effusions with possible right lower lobe pneumonia as well. 05/07 Patient seen and examined. Patient was doing better yesterday however had some more chest discomfort yesterday and metoprolol was increased with some improvement in his chest discomfort. Echocardiogram shows reduced EF 25%. He has had worsening respiratory distress and placed on BiPAP currently 100% FiO2. Has had limited urine output. Denies any further chest pressure or tightness. He remains in A. fib with mildly elevated heart rates in the 80s to 100s. 05/08 Patient seen and examined. Patient had significant shortness breath yesterday and underwent bilateral thoracentesis with total of 3 L taken off. His pacemaker was interrogated which did show intermittent sinus and A. fib 50% before last interrogation 6 days ago however since then has been 100% Afib. No significant malfunctions of pacemaker. Patient feeling somewhat anxious overnight and received some Xanax with some sleep. Still with limited urine output and creatinine increased up to 2.6. He therefore was placed on dobutamine at 5 approximately an hour and a half ago however started to develop 310 chest discomfort of unclear significance after dobutamine was started. He states this is somewhat feels like his heart is racing but also some discomfort. Unclear if this is truly his angina symptoms. PHYSICAL EXAMINATION Vital signs reviewed. CONSTITUTIONAL: No apparent distress. HEENT: Head is normocephalic. Pupils are equal, round. Sclerae anicteric. Mucous membranes of the mouth are moist. No JVD. No carotid bruit. CHEST EXAMINATION: Lungs are clear to auscultation. No chest wall tenderness is noted on palpation or with deep breathing. HEART EXAMINATION: Irregular rate and rhythm. S1, S2 heard. No murmurs, gallops or rub. ABDOMEN: Soft, nontender. Positive bowel sounds. EXTREMITIES: 2+ peripheral pulses, no lower extremity edema and no calf tenderness. NEUROLOGIC EXAMINATION: Patient is awake, alert and oriented x3. ASSESSMENT 1. Non-STEMI, concern of type I mechanism vs type II mechanism related to A. fib with RVR with recent decreases of metoprolol prior to his PPM 2. Acute on chronic systolic heart failure 3. Sick sinus syndrome status post permanent pacemaker 4. CAD status post CABG 5. Persistent atrial fibrillation, A. fib with RVR on presentation 6. Acute kidney injury, cardiorenal syndrome 7. Diabetes mellitus type 2 8. Mild leukocytosis 9. Decrease in EF down to 25% PLAN Patient with more burning sensation as his angina with presentation however after starting dobutamine he has been having some discomfort. May just be sensation of dobutamine however we will check troponins and trend and decreased dobutamine to 2.5. Patient has had some improved urine output after starting dobutamine. Concern of cardiogenic shock, possible reason related to type I non-STEMI. Patient not good interventional candidate given age, multiple comorbidities and chronic kidney disease and patient previously did not desire catheterization. Discussed possible cardioversion to improve cardiac output if patient not improving. Check lactic acid. Check repeat blood work, creatinine in 4-5 hours. Continue amiodarone drip. Prognosis guarded. Objective - Vital Signs Vital signs: Vital Signs Temp 97.7 F 05/08/22 08:00 Pulse 106 H 05/08/22 09:00 Resp 18 05/08/22 09:00 BP 117/66 05/08/22 09:00 Pulse Ox 99 05/08/22 09:00 FiO2 90 05/08/22 08:00 Intake & Output 05/07/22 05/08/22 05/08/22 18:59 06:59 18:59 Intake Total 462.478 638.891 90.018 Output Total 3435 440 200 Balance -2972.522 198.891 -109.982 Weight 77.7 kg Intake: IV 242.0 175.0 70 0.9 Normal Saline @ 10mL/ 130 110 20 hr Nitroglycerin-D5w Pmx 50 12.0 15.0 mg In Dextrose/Water 1 250ml.bag @ 5 MCG/MIN 1.5 mls/hr IV .Q24H [facility] Rx#: [id number] cefTRIAXone 1 gm In 100 50 50 Sodium Chloride 0.9% 50 ml @ 100 mls/hr IVPB Q12HR [facility] Rx#:[id number] Intake, IV Titration 220.478 313.891 20.018 Amount Amiodarone 450 mg In 163.337 Dextrose 5% in Water 250 ml @ 0.5 MG/MIN 16.667 mls/hr IV .Q15H [facility] Rx#: [id number] DOBUTamine DRIP 500 mg In 20.018 Dextrose/Water 1 250ml. bag @ 5 MCG/KG/MIN 11.775 mls/hr IV .[id number] [facility] Rx#:[id number] Heparin Sod,Pork in 0.45% 220.478 150.554 NaCl 25,000 unit In 0.45 % NaCl 1 250ml.bag @ 12 UNITS/KG/HR 9.492 mls/hr IV .Q24H [facility] Rx#: [id number] Oral 150 Output: Drainage 2950 Left Posterior Back 1350 Right Posterior Back 1600 Urine 485 440 200 Other: Voiding Method Indwelling Catheter Indwelling Catheter Indwelling Catheter - Labs CBC & Chem 7: 05/08/22 04:05 05/08/22 04:05 Labs: Abnormal Lab Results - Last 24 Hours (Table) 05/07/22 05/07/22 05/07/22 Range/Units 09:29 11:18 12:53 WBC (3.8-10.6) k/uL RBC (4.30-5.90) m/uL Hgb (13.0-17.5) gm/dL Hct (39.0-53.0) % APTT 43.1 H (22.0-30.0) sec Sodium (137-145) mmol/L BUN (9-20) mg/dL Creatinine (0.66-1.25) mg/dL POC Glucose (mg/dL) 155 H 141 H (70-110) mg/dL Calcium (8.4-10.2) mg/dL 05/07/22 05/07/22 05/08/22 Range/Units 16:09 19:53 04:05 WBC (3.8-10.6) k/uL RBC (4.30-5.90) m/uL Hgb (13.0-17.5) gm/dL Hct (39.0-53.0) % APTT 42.7 H (22.0-30.0) sec Sodium (137-145) mmol/L BUN (9-20) mg/dL Creatinine (0.66-1.25) mg/dL POC Glucose (mg/dL) 244 H 279 H (70-110) mg/dL Calcium (8.4-10.2) mg/dL 05/08/22 05/08/22 05/08/22 Range/Units 04:05 04:05 07:25 WBC 12.9 H (3.8-10.6) k/uL RBC 3.87 L (4.30-5.90) m/uL Hgb 11.8 L (13.0-17.5) gm/dL Hct 35.6 L (39.0-53.0) % APTT (22.0-30.0) sec Sodium 132 L (137-145) mmol/L BUN 75 H (9-20) mg/dL Creatinine 2.63 H (0.66-1.25) mg/dL POC Glucose (mg/dL) 69 L (70-110) mg/dL Calcium 8.2 L (8.4-10.2) mg/dL Microbiology - Last 24 Hours (Table) 05/07/22 12:00 Gram Stain - Preliminary Pleural Fluid Body Fluid Culture - Preliminary 05/05/22 18:35 Blood Culture - Preliminary Blood No Growth after 48 hours 05/05/22 18:50 Blood Culture - Preliminary Blood No Growth after 48 hours
--- NOTE | 2022-05-08 09:48 | P.PN ---
Subjective Progress Note Date: 05/08/22 This is an 86-year-old male patient with known history of extensive cardiac disease, coronary artery disease, previous bypass surgery, congestion heart failure and chronic atrial fibrillation. The patient underwent a recent pacemaker insertion on 04/26/2022 for an underlying sick sinus syndrome. The lisa forman presented to the hospital because of worsening shortness of breath and some chest pain. The patient was found to be in CHF based on the chest that was done in the emergency department. The patient was quite short of breath. Initially was placed on a BiPAP at a pressures of 10/5 and the patient was diuresed with IV Lasix and the patient was subsequently switched to oxygen at 8 L, nasal cannula. His EKG showing atrial fibrillation, LBBB pattern, irregular, and his blood work showed a white cell count of 12.5 with a hemoglobin of 11.5 and a platelet count of 216. Sodium is at 136 with a BUN of 42 and a creatinine of 1.77. Troponins are 0.7. Peak at 4.7 as the patient underwent and had a acute non-ST segment elevation myocardial infarction. ProBNP level is 9550. UA was negative. Viral screen including influenza was negative. Subsequent creatinine from this morning this morning showed a creatinine of 2.25. The patient was diuresed overnight and the patient is improving currently is on 8 L of oxygen by nasal cannula. Based on an acute non-STEMI, the patient was started on IV heparin. The patient is on diuretics with IV Lasix. The patient is currently on 50 mg IV every 12 hours. The patient is free of any chest pain. The patient will be seen by cardiology. The patient will be also seen by nephrology. Chest x-ray is consistent with CHF. He has not required any pressors. WBC count at 12.5 with a hemoglobin of 11.5. On 05/07/2022, the patient is BiPAP dependent. He was on 8 L of O2 nasal cannula. He was unable to tolerate high flow oxygen. Subsequently was placed back on a BiPAP at a pressure of 10/5 cm of water with an FiO2 of 100%. His current pulse ox is 93% and chest x-ray still showing CHF and pulmonary edema. Noted the patient had an acute non-ST segment elevation myocardial infarction. Troponin was at 4. Echocardiogram was done yesterday and there was a drop in ejection fraction which is down to 20-25% and is same time the patient had valvular abnormalities with moderate mitral regurgitation and mild to moderate aortic stenosis and a small pericardial effusion. The patient is currently on IV heparin. The patient remains in atrial fibrillation with a controlled rate. In view of his CHF, the patient was subjected to diuretics. The patient is currently on Lasix and the patient is receiving Lasix at a dose of 60 mg every 12 hours. The response has been essentially suboptimal. The patient has been in a negative fluid balance of 1.1 L. His creatinine today is at 2.3 with a BUN of 60 and a sodium level is at 136. The results 15.7. UA is negative. Ultrasound of the kidneys showed no evidence of hydronephrosis. There is prostate enlargement. The patient has a Tucker catheter in place for now. Neurologically, he is alert and awake. He is on no pressors. Is on metoprolol at a dose of 50 mg by mouth twice a day. Is also on aspirin 81 mg by mouth daily. No other significant events overnight. We're coordinating his care along with cardiology and out [facility] seed mill superintendent. 05/08/2022, the patient is off the BiPAP. As mentioned, the patient has an acute non-ST segment elevation myocardial infarction and the patient also went into the opposite heart failure with an ejection fraction of 20-25%. She went into acute pulmonary edema and bilateral pleural effusions. As such, I did bilateral thoracentesis on this patient. I drained approximately 1.6 L of the right arm 1.35 on the left. He was taken off the BiPAP accordingly and currently is on high flow oxygen with FiO2 of 90% and a flow of 60. He is using the incentive spirometer. He remains on IV heparin for now. The patient was seen by biomedical engineering director today. He was started on dobutamine at 2.5 mcg/kg/m. He was also started on amiodarone. His cardiac rhythm is a 2 fibrillation. His lites echoes at 12.9 with a hemoglobin 11.8. There is no interval worsening of the renal function and the creatinine is up to 2.6 with a BUN of 75 and a sodium level of 132. The pleural fluid is transudate based on a low protein and LDH criteria and this is essentially consistent with CHF. Otherwise, he is breathing is mildly labored. He does not have any chest pain for now. Karnofsky was having chest pain yesterday. He remains on Lasix at a dose of 80 mg every 12 hours. He remains on empiric antibiotic coverage. He is on aspirin. His overall fluid balance for yesterday has been -2.7 L at least. Urine output is in order of 15 mL an hour. Objective - Vital Signs Vital signs: Vital Signs Temp 97.7 F 05/08/22 08:00 Pulse 106 H 05/08/22 09:00 Resp 18 05/08/22 09:00 BP 117/66 05/08/22 09:00 Pulse Ox 99 05/08/22 09:00 FiO2 90 05/08/22 08:00 Intake & Output 05/07/22 05/08/22 05/08/22 18:59 06:59 18:59 Intake Total 462.478 638.891 90.018 Output Total 3435 440 200 Balance -2972.522 198.891 -109.982 Weight 77.7 kg Intake: IV 242.0 175.0 70 0.9 Normal Saline @ 10mL/ 130 110 20 hr Nitroglycerin-D5w Pmx 50 12.0 15.0 mg In Dextrose/Water 1 250ml.bag @ 5 MCG/MIN 1.5 mls/hr IV .Q24H FELIPE Rx#: [id number] cefTRIAXone 1 gm In 100 50 50 Sodium Chloride 0.9% 50 ml @ 100 mls/hr IVPB Q12HR FELIPE Rx#:[id number] Intake, IV Titration 220.478 313.891 20.018 Amount Amiodarone 450 mg In 163.337 Dextrose 5% in Water 250 ml @ 0.5 MG/MIN 16.667 mls/hr IV .Q15H FELIPE Rx#: [id number] DOBUTamine DRIP 500 mg In 20.018 Dextrose/Water 1 250ml. bag @ 5 MCG/KG/MIN 11.775 mls/hr IV .[id number] FELIPE Rx#:[id number] Heparin Sod,Pork in 0.45% 220.478 150.554 NaCl 25,000 unit In 0.45 % NaCl 1 250ml.bag @ 12 UNITS/KG/HR 9.492 mls/hr IV .Q24H FELIPE Rx#: [id number] Oral 150 Output: Drainage 2950 Left Posterior Back 1350 Right Posterior Back 1600 Urine 485 440 200 Other: Voiding Method Indwelling Catheter Indwelling Catheter Indwelling Catheter - Exam GENERAL: BMI 25.8, declining but awake, not in distress. Patient is breathing is currently on high flow oxygen 50 L an FiO2 of 90% EYES: Pupils equal. Conjunctiva normal. HEENT: External appearance of nose and ears normal, oral cavity grossly normal. NECK: JVD not raised; masses not palpable. HEART: First and second heart sounds are normal; no edema. LUNGS: Diminished breath sounds bilaterally along with bibasilar crackles in some dullness to percussion lung bases ABDOMEN: Soft, nontender, liver spleen not palpable, no masses palpable. PSYCH: Alert and oriented x3; mood and affect normal. MUSCULOSKELETAL:No Clubbing/cyanosis;muscles-grossly intact. Evidence of OA NEUROLOGICAL: Cranial nerves grossly intact; no facial asymmetry, power and sensation grossly intact. LYMPHATICS: No lymph nodes palpable in the axilla and neck - Labs CBC & Chem 7: 05/08/22 04:05 05/08/22 04:05 Labs: Abnormal Lab Results - Last 24 Hours (Table) 05/07/22 05/07/22 05/07/22 Range/Units 11:18 12:53 16:09 WBC (3.8-10.6) k/uL RBC (4.30-5.90) m/uL Hgb (13.0-17.5) gm/dL Hct (39.0-53.0) % APTT 43.1 H (22.0-30.0) sec Sodium (137-145) mmol/L BUN (9-20) mg/dL Creatinine (0.66-1.25) mg/dL POC Glucose (mg/dL) 141 H 244 H (70-110) mg/dL Calcium (8.4-10.2) mg/dL 05/07/22 05/08/22 05/08/22 Range/Units 19:53 04:05 04:05 WBC 12.9 H (3.8-10.6) k/uL RBC 3.87 L (4.30-5.90) m/uL Hgb 11.8 L (13.0-17.5) gm/dL Hct 35.6 L (39.0-53.0) % APTT 42.7 H (22.0-30.0) sec Sodium (137-145) mmol/L BUN (9-20) mg/dL Creatinine (0.66-1.25) mg/dL POC Glucose (mg/dL) 279 H (70-110) mg/dL Calcium (8.4-10.2) mg/dL 05/08/22 05/08/22 Range/Units 04:05 07:25 WBC (3.8-10.6) k/uL RBC (4.30-5.90) m/uL Hgb (13.0-17.5) gm/dL Hct (39.0-53.0) % APTT (22.0-30.0) sec Sodium 132 L (137-145) mmol/L BUN 75 H (9-20) mg/dL Creatinine 2.63 H (0.66-1.25) mg/dL POC Glucose (mg/dL) 69 L (70-110) mg/dL Calcium 8.2 L (8.4-10.2) mg/dL Microbiology - Last 24 Hours (Table) 05/07/22 12:00 Gram Stain - Preliminary Pleural Fluid Body Fluid Culture - Preliminary 05/05/22 18:35 Blood Culture - Preliminary Blood No Growth after 48 hours 05/05/22 18:50 Blood Culture - Preliminary Blood No Growth after 48 hours Assessment and Plan Plan: Acute hypoxic respiratory failure secondary to decompensated CHF. Patient is currently on a BiPAP at a pressure of 10/5 with an FiO2 of 100%. His chest x- ray still showing pulmonary edema. Response to diuretics is a minimal. He has significant myopathy with an ejection fraction of 2025% along with moderate MR, [id number] aortic stenosis.. The patient got transferred to the intensive care yesterday because of worsening shortness of breath. Chest x-ray is consistent with CHF and pulmonary edema and development of bilateral pleural effusions. Overnight, the patient was given IV Lasix and he was able to produce some urine output. The patient underwent bilateral thoracentesis. Overall respiratory status improved and the patient is currently on high flow oxygen at 60 L with an FiO2 of 90% Bilateral pleural effusion post bilateral thoracentesis, fluid is transudate Shortness of breath secondary to above Acute systolic Congestion heart failure with chronic systolic heart failure. Based on the most recent echocardiogram, his ejection fraction is in order of 2025% and the patient has never abnormalities with moderate MR and [id number] aortic stenosis, the patient is currently on dobutamine at 2.5 g History of atrial fibrillation/flutter, currently on amiodarone drip Acute non-ST segment elevation myocardial infarction, troponin peaked at 4.0 Coronary artery disease with previous history of coronary artery bypass surgery Peripheral vascular disease History of pacemaker insertion for underlying sick sinus syndrome. Pacemaker was inserted on 04/26/2022 Acute kidney injury probably related to cardiorenal factors. Chronic stage III kidney disease Left bundle-branch block pattern Diabetes mellitus Hypertension Hyperlipidemia Hypothyroidism Coronary artery disease Plan Start the patient on dobutamine drip at 2.5 mcg/kg/m Lasix up to 80 mg every 12 hours IV push Continue IV heparin Continue IV amiodarone Keep the patient on high flow oxygen Ideally would benefit from a cardiac catheterization yet we are unable to do so because of his underlying renal failure Urologic was is in order of 10-15 mL an hour Change Levemir insulin 5 units along with a sliding scale We'll continue to follow Visit critical care evaluation and the patient is a full CODE STATUS. evaluation in >30 min
[2022-05-08] MEDS ORDERED: INSULIN DETEMIR (LEVEMIR) 100 UNIT/ML SYR SQ SCH (10:00)
--- NOTE | 2022-05-08 10:13 | P.PN ---
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 Came in because of chest pain and had acute PA. Yesterday he was started on dobutamine and low dose of Lasix 80 mg IV every 12 and has responded with urine output of 38 75 mL over the last 24 hours Continues to feel unwell and anxious and says short of breath Chest x-ray continued to show congestive heart failure as of this morning He has a permanent pacemaker and has history of coronary artery bypass atrial fibrillation diabetes mellitus. Objective - Vital Signs Vital signs: Vital Signs Temp 97.7 F 05/08/22 08:00 Pulse 92 05/08/22 10:00 Resp 14 05/08/22 10:00 BP 100/59 05/08/22 10:00 Pulse Ox 94 L 05/08/22 10:00 FiO2 90 05/08/22 10:00 Intake & Output 05/07/22 05/08/22 05/08/22 18:59 06:59 18:59 Intake Total 462.478 638.891 90.018 Output Total 3435 440 200 Balance -2972.522 198.891 -109.982 Weight 77.7 kg Intake: IV 242.0 175.0 70 0.9 Normal Saline @ 10mL/ 130 110 20 hr Nitroglycerin-D5w Pmx 50 12.0 15.0 mg In Dextrose/Water 1 250ml.bag @ 5 MCG/MIN 1.5 mls/hr IV .Q24H FELIPE Rx#: [id number] cefTRIAXone 1 gm In 100 50 50 Sodium Chloride 0.9% 50 ml @ 100 mls/hr IVPB Q12HR FELIPE Rx#:[id number] Intake, IV Titration 220.478 313.891 20.018 Amount Amiodarone 450 mg In 163.337 Dextrose 5% in Water 250 ml @ 0.5 MG/MIN 16.667 mls/hr IV .Q15H FELIPE Rx#: [id number] DOBUTamine DRIP 500 mg In 20.018 Dextrose/Water 1 250ml. bag @ 5 MCG/KG/MIN 11.775 mls/hr IV .[id number] FELIPE Rx#:[id number] Heparin Sod,Pork in 0.45% 220.478 150.554 NaCl 25,000 unit In 0.45 % NaCl 1 250ml.bag @ 12 UNITS/KG/HR 9.492 mls/hr IV .Q24H FELIPE Rx#: [id number] Oral 150 Output: Drainage 2950 Left Posterior Back 1350 Right Posterior Back 1600 Urine 485 440 200 Other: Voiding Method Indwelling Catheter Indwelling Catheter Indwelling Catheter Exam general awake alert oriented he is on nasal cannula oxygen HEENT exam no JVP noted neck is supple no facial asymmetry Heart sounds unremarkable for any murmur rub gallop Lungs clear to auscultation with an occasional coarse crackle at bases Abdomen soft nontender Extremity exam reveals no edema. Neurologically awake alert oriented - Labs CBC & Chem 7: 05/08/22 04:05 05/08/22 04:05 Labs: Abnormal Lab Results - Last 24 Hours (Table) 05/07/22 05/07/22 05/07/22 Range/Units 11:18 12:53 16:09 WBC (3.8-10.6) k/uL RBC (4.30-5.90) m/uL Hgb (13.0-17.5) gm/dL Hct (39.0-53.0) % APTT 43.1 H (22.0-30.0) sec Sodium (137-145) mmol/L BUN (9-20) mg/dL Creatinine (0.66-1.25) mg/dL POC Glucose (mg/dL) 141 H 244 H (70-110) mg/dL Calcium (8.4-10.2) mg/dL 05/07/22 05/08/22 05/08/22 Range/Units 19:53 04:05 04:05 WBC 12.9 H (3.8-10.6) k/uL RBC 3.87 L (4.30-5.90) m/uL Hgb 11.8 L (13.0-17.5) gm/dL Hct 35.6 L (39.0-53.0) % APTT 42.7 H (22.0-30.0) sec Sodium (137-145) mmol/L BUN (9-20) mg/dL Creatinine (0.66-1.25) mg/dL POC Glucose (mg/dL) 279 H (70-110) mg/dL Calcium (8.4-10.2) mg/dL 05/08/22 05/08/22 Range/Units 04:05 07:25 WBC (3.8-10.6) k/uL RBC (4.30-5.90) m/uL Hgb (13.0-17.5) gm/dL Hct (39.0-53.0) % APTT (22.0-30.0) sec Sodium 132 L (137-145) mmol/L BUN 75 H (9-20) mg/dL Creatinine 2.63 H (0.66-1.25) mg/dL POC Glucose (mg/dL) 69 L (70-110) mg/dL Calcium 8.2 L (8.4-10.2) mg/dL Microbiology - Last 24 Hours (Table) 05/07/22 12:00 Gram Stain - Preliminary Pleural Fluid Body Fluid Culture - Preliminary 05/05/22 18:35 Blood Culture - Preliminary Blood No Growth after 48 hours 05/05/22 18:50 Blood Culture - Preliminary Blood No Growth after 48 hours Assessment and Plan Assessment: Impression 1. Acute kidney injury secondary to cardiorenal syndrome, creatinine is trending up, from 1.77 mg to 2.63 today although urine output has picked up with dobutamine and Lasix IV. 2. Chronic kidney disease stage III baseline creatinine 1.7 3. Non-ST PA. congestive heart failure 4. On BiPAP 5. Diabetes mellitus Recommendation 1. Continue diuretics and dobutamine 2. Expect renal recovery 3. Monitor labs intake and output.
[2022-05-08] MEDS: ISOSORBIDE MONONITRATE ER 30 MG TAB.ER.24H PO SCH (10:42)
[2022-05-08 11:00] LABS: Creatine Kinase MB 5.5 ng/mL (0.0-2.4)
[2022-05-08 11:11] LABS: Troponin I 4.09 ng/mL (0.000-0.034)
[2022-05-08 11:28] LABS: Glucose,Whole Blood 185 mg/dL (70-110)
[2022-05-08] MEDS ORDERED: LACTULOSE 20 GM/30 ML CUP PO ONE (13:20)
[2022-05-08] MEDS ORDERED: LACTULOSE 20 GM/30 ML CUP PO PRN (13:20)
[2022-05-08] MEDS ORDERED: ZOLPIDEM 5 MG TAB PO PRN (13:22)
[2022-05-08] MEDS: PSYLLIUM HUSK 100% 6 GM PACKET PO SCH (13:32)
[2022-05-08 15:38] LABS: Creatine Kinase MB 4.6 ng/mL (0.0-2.4)
[2022-05-08] MEDS: HEPARIN SOD,PORK IN 0.45% NACL 25,000 UNIT in 0.45% NACL 1 250ML.BAG IV SCH (16:00)
[2022-05-08 16:04] LABS: Troponin I 3.11 ng/mL (0.000-0.034)
[2022-05-08 16:27] LABS: Glucose,Whole Blood 195 mg/dL (70-110)
--- NOTE | 2022-05-08 17:05 | P.PN ---
Progress Note - Text Progress Note Date: 05/08/22 Chief Complaint: Chest pain This is a pleasant 86-year-old patient who follows with Dr. Ag Burns. Patient had a coronary bypass in 2000. Chronic stable medical conditions include diabetes type 2, hypertension, hyperlipidemia, PAD, carotid stenosis, CAD, ischemic cardiomyopathy, loop recorder since 2019. He does follow with a local sales rep Dr. Conroy and also with Dr. Lowry in [place]. On April 26 for sick sinus syndrome had a permanent pacemaker placed. Prior to this he was having bradycardia and his Lopressor was discontinued. In the last 2 days patient started having shortness of breath. No edema. No cough. No sputum. No fever no chills. Also started feeling the burning sensation across the chest. The last 24 hours. Also going up to his left shoulder. No obvious relieving or precipitating factors. Heart rate in the ER was over 100. Baseline heart rate is around 60. Overnight patient became more short of breath. 1 dose of IV Lasix 80 mg was given. Need close to 400 mL of urine. Also concern about pneumonia and some started on antibiotics. Patient did require BiPAP for shortness of breath so moved to the ICU Admitted with pneumonia, acute hypoxic respiratory failure, acute and chronic CHF, acute non-Q wave GA, and acute kidney injury/ATN. IV heparin, IV ceftriaxone, oxygen, IV Lasix, 05/07/2022: ICU: Underwent bilateral thoracentesis by Dr. Ring 1500 mL removed from the right site and 1350 from the left side. Currently unable with the 60 L and 93%. Drips include amiodarone, nitroglycerin, IV heparin. Reclining in bed, awake, tired. Eating some 05/08/2022: ICU. Up in a recliner. Remains on airvo 60/90. Eating about 50%. Given lactulose and Metamucil for a BM. Remains in atrial fibrillation controlled. On IV Lasix. IV dobutamine. Creatinine creeping up. Active Medications Acetaminophen (Acetaminophen Tab 325 Mg Tab) 650 mg PO Q6HR PRN PRN Reason: Mild Pain or Fever > 100.5 Last Admin: 05/07/22 23:02 Dose: 650 mg Alprazolam (Alprazolam 0.25 Mg Tab) 0.25 mg PO Q8H PRN PRN Reason: Anxiety Last Admin: 05/08/22 08:08 Dose: 0.25 mg Aspirin (Aspirin 81 Mg) 81 mg PO DAILY [facility]ELIPE Last Admin: 05/08/22 08:08 Dose: 81 mg Atorvastatin Calcium (Atorvastatin 80 Mg Tab) 80 mg PO HS FELIPE Last Admin: 05/07/22 20:19 Dose: 80 mg Calcitriol (Calcitriol 0.25 Mcg Cap) 0.25 mcg PO DAILY [facility]ELIPE Last Admin: 05/08/22 08:08 Dose: 0.25 mcg Dextrose/Water (Dextrose 50% Syringe 50 Ml) 25 ml IVP PER PROTOCOL PRN; Protocol PRN Reason: Hypoglycemia Dextrose/Water (Dextrose 50% Syringe 50 Ml) 50 ml IVP PER PROTOCOL PRN; Protocol PRN Reason: Hypoglycemia Famotidine (Famotidine 20 Mg Tab) 20 mg PO DAILY [facility]ELIPE Last Admin: 05/08/22 08:08 Dose: 20 mg Furosemide (Furosemide 10 Mg/Ml 10 Ml Vial) 80 mg IV Q12HR [facility]ELIPE Last Admin: 05/08/22 08:06 Dose: 80 mg Heparin Sodium (Porcine) (Heparin Sodium 1,000 Un/Ml (10ml Vl)) 0 unit IV PER PROTOCOL PRN; Protocol PRN Reason: Low PTT Heparin Sodium/Sodium Chloride (25,000 unit/ Sodium Chloride) 250 mls @ 9.492 m ls/hr IV .Q24H FELIPE; Protocol Last Admin: 05/08/22 16:00 Dose: 12 units/kg/hr, 9.492 mls/hr Ceftriaxone Sodium 1 gm/ (Sodium Chloride) 50 mls @ 100 mls/hr IVPB Q12HR FELIPE; Protocol Last Admin: 05/08/22 08:06 Dose: 100 mls/hr Dobutamine HCl/Dextrose 500 mg (/ IV Solution) 250 mls @ 5.888 mls/hr IV .Q24H FELIPE Last Infusion: 05/08/22 09:23 Dose: 2.5 mcg/kg/min, 5.888 mls/hr Amiodarone HCl 450 mg/ (Dextrose/Water) 250 mls @ 16.667 mls/hr IV .Q15H [facility]ELIPE Last Admin: 05/08/22 16:25 Dose: 0.5 mg/min, 16.667 mls/hr Insulin Aspart (Insulin Aspart (Novolog) 100 Unit/Ml Vial) 0 unit SQ ACHS FELIPE; Protocol Last Admin: 05/08/22 16:34 Dose: 2 unit Isosorbide Mononitrate (Isosorbide Mononitrate Er 30 Mg Tab.Er.24h) 30 mg PO DAILY [facility] Last Admin: 05/08/22 10:42 Dose: 30 mg Lactulose (Lactulose 20 Gm/30 Ml Cup) 20 gm PO DAILY PRN PRN Reason: Constipation Levothyroxine Sodium (Levothyroxine 125 Mcg Tab) 125 mcg PO DAILY [facility] Last Admin: 05/08/22 08:08 Dose: 125 mcg Miscellaneous Information (Potassium Replacement Protocol 1 Each Misc) 1 each MISCELLANE DAILY PRN; Protocol PRN Reason: Per Protocol Morphine Sulfate (Morphine Sulfate 4 Mg/Ml Syringe) 4 mg IV Q4HR PRN PRN Reason: Severe Pain (Scale 7 to 10) Naloxone HCl (Naloxone 0.4 Mg/Ml 1 Ml Vial) 0.2 mg IV Q2M PRN PRN Reason: Opioid Reversal Nitroglycerin (Nitroglycerin Sl Tabs 0.4 Mg Tab) 0.4 mg SUBLINGUAL Q10M PRN PRN Reason: Chest Pain Ondansetron HCl (Ondansetron 4 Mg/2 Ml Vial) 4 mg IVP Q8HR PRN PRN Reason: Nausea And Vomiting Psyllium Hydrophilic Mucilloid (Psyllium Husk 100% 6 Gm Packet) 6 gm PO DAILY [facility] Last Admin: 05/08/22 13:32 Dose: 6 gm Ranolazine (Ranolazine 500 Mg Tab.Er.12h) 500 mg PO BID [facility] Last Admin: 05/08/22 08:06 Dose: 500 mg Zolpidem Tartrate (Zolpidem 5 Mg Tab) 2.5 mg PO HS PRN PRN Reason: Insomnia Past medical history to include: Diabetes, GERD, hypertension, hyperlipidemia, osteoarthritis, GA, chronic kidney disease, hypothyroid, CAD with bypass about 20 years ago. Permanent pacemaker for sick sinus syndrome Social history: Occasional cigar. In the remote past. No alcohol. . Retired Family history: Reviewed, noncontributory to presentation Physical examination: VITAL SIGNS: 97.7, 93, 17, 119/104, 98 % on Airvo GENERAL: reclining in chair awake, tired, short of breath. Permanent pacemaker EYES: Pupils equal. Conjunctiva normal. HEENT: External appearance of nose and ears normal, oral cavity grossly normal. NECK: JVD unable to assess; masses not palpable. HEART: Heart sounds irregular; no edema. LUNGS: Respiratory rate increased; decreased breath sounds. ABDOMEN: Soft, nontender, liver spleen not palpable, no masses palpable. PSYCH: Alert and oriented x3; mood and affect normal. MUSCULOSKELETAL:No Clubbing/cyanosis;muscles-grossly intact, OA INVESTIGATIONS, reviewed in the clinical context: 05/08/2022: WBC 12.9 hemoglobin 11.8 potassium 4 BUN 35 creatinine 2.63 05/07/2022: WBC 13.7 hemoglobin 11.3 platelets 2063.8. 60 creatinine 2.37 05/06/2022: WBC 12.5 hemoglobin 11.5 platelets 216 potassium 4.4 BUN 49 creatinine 2.25 Admission labs: WBC 14.1 in globin 12.1 platelets 28 potassium 4.9. 42 creatinine 1.77 Troponin I 0.014, 0.707, 0.904, 1.5, 4.7 Influenza type A/diabetes/RSV/COVID-19: Not detected EKG tracing personally reviewed by me-atrial fibrillation, heart rate 110 Chest x-ray film personally reviewed by me-left lower lobe infiltrate, venous prominent edema Previous labs: Creatinine 1.46 in October 2021 Assessment and plan: -Acute non-Q-wave GA in a patient with known CAD Aspirin, IV heparin -Left lower lobe pneumonia, suspect gram-negative organism Ceftriaxone 1 g every 12. Procalcitonin 1.29 -Acute hypoxic respiratory failure secondary to CHF and pneumonia: Slow to respond airvo at 60 L/93% -IV heparin monitoring Follow PTT -Acute kidney injury, likely ATN's combination of cardiorenal syndrome: Worsening Admission creatinine 1.77-up to 2. 63 -Chronic kidney disease suspect nephrosclerosis stage III Baseline creatinine 1.46 -CAD with a prior history of coronary bypass. does follow Dr. Conroy Aspirin, beta jon, Lipitor -Permanent pacemaker placed on 04/26/2022 for sick sinus syndrome -Acute on chronic congestive heart failure exacerbation. From ischemic cardiomyopathy EF 40-45% IV Lasix 80 mg every 12 -Essential hypertension Toprol-XL 50 mg twice a day, -Hyperlipidemia Lipitor 80 mg daily at bedtime -Persistent atrial fibrillation, rapid ventricular rate on presentation Toprol-XL. IV heparin -Hypothyroid Synthroid 125 g a day -Diabetes mellitus type 2, chronic insulin Accu-Cheks and sliding scale. -Full code IV heparin. IV ceftriaxone. IV Lasix. Started on IV dobutamine. Creatinine going up. Prognosis guarded. KALI Newberry
[2022-05-08 20:34] LABS: Glucose,Whole Blood 214 mg/dL (70-110)
[2022-05-08] MEDS: ATORVASTATIN 80 MG TAB PO SCH (20:45)
[2022-05-09] MEDS: ALPRAZolam 0.25 MG TAB PO PRN ×2 (00:16→09:34)
[2022-05-09 04:07] LABS: HCT 32.4 % (39.0-53.0); MCH 30.8 pg (25.0-35.0); MCHC 34.1 g/dL (31.0-37.0); MCV 90.4 fL (80.0-100.0); Mean Platelet Volume 10.3; Platelet Count 209 k/uL (150-450); RBC 3.58 m/uL (4.30-5.90); RDW 13.1 % (11.5-15.5)
[2022-05-09 04:43] LABS: Calcium 7.9 mg/dL (8.4-10.2); Potassium 3.6 mmol/L (3.5-5.1)
--- NOTE | 2022-05-09 06:10 | XR ---
EXAMINATION TYPE: XR chest 1V portable DATE OF EXAM: 05/09/2022 CLINICAL HISTORY: Difficulty breathing and CHF progress study. TECHNIQUE: Single AP portable semiupright view of the chest is obtained. COMPARISON: Chest x-ray from one day earlier and older studies FINDINGS: Persistent cardiomegaly with dual lead pacemaker. Overlying loop recorder redemonstrated. Overlying sternal wires and mediastinal clips again seen. Persistent central vascular congestion and bilateral lower lung opacities favoring component of pleural effusion. Nonunion fracture deformity ri ght proximal humerus redemonstrated. IMPRESSION: Findings consistent with persistent CHF exacerbation remain present. Cardiomegaly with ce ntral vascular congestion and small bilateral pleural effusions remain present. No significant change from one day earlier.
[2022-05-09 06:53] LABS: Glucose,Whole Blood 145 mg/dL (70-110)
[2022-05-09] MEDS: INSULIN ASPART (NovoLOG) 100 UNIT/ML VIAL SQ SCH ×4 (07:02→21:15)
[2022-05-09] MEDS: LEVOTHYROXINE 125 MCG TAB PO SCH (08:34)
[2022-05-09] MEDS: PSYLLIUM HUSK 100% 6 GM PACKET PO SCH (08:34)
[2022-05-09] MEDS: ASPIRIN 81 MG PO SCH (08:35)
[2022-05-09] MEDS: ISOSORBIDE MONONITRATE ER 30 MG TAB.ER.24H PO SCH (08:35)
[2022-05-09] MEDS: AMIODARONE 450 MG in DEXTROSE 5% IN WATER 250 ML IV SCH ×2 (08:35)
[2022-05-09] MEDS: FAMOTIDINE 20 MG TAB PO SCH (08:35)
[2022-05-09] MEDS: RANOLAZINE 500 MG TAB.ER.12H PO SCH ×2 (08:36→21:29)
[2022-05-09] MEDS: FUROSEMIDE 10 MG/ML 10 ML VIAL IV SCH ×2 (08:37→16:45)
--- NOTE | 2022-05-09 10:20 | P.PN ---
Subjective Progress Note Date: 05/09/22 Principal diagnosis: Acute hypoxic respiratory failure secondary to acute systolic congestive heart failure This is an 86-year-old male patient with known history of extensive cardiac disease, coronary artery disease, previous bypass surgery, congestion heart failure and chronic atrial fibrillation. The patient underwent a recent pacemaker insertion on 04/26/2022 for an underlying sick sinus syndrome. The patient presented to the hospital because of worsening shortness of breath and some chest pain. The patient was found to be in CHF based on the chest that was done in the emergency department. The patient was quite short of breath. Initially was placed on a BiPAP at a pressures of 10/5 and the patient was diuresed with IV Lasix and the patient was subsequently switched to oxygen at 8 L, nasal cannula. His EKG showing atrial fibrillation, LBBB pattern, irregular, and his blood work showed a white cell count of 12.5 with a hemoglobin of 11.5 and a platelet count of 216. Sodium is at 136 with a BUN of 42 and a creatinine of 1.77. Troponins are 0.7. Peak at 4.7 as the patient underwent and had a acute non-ST segment elevation myocardial infarction. ProBNP level is 9550. UA was negative. Viral screen including influenza was negative. Subsequent creat inine from this morning this morning showed a creatinine of 2.25. The patient was diuresed overnight and the patient is improving currently is on 8 L of oxygen by nasal cannula. Based on an acute non-STEMI, the patient was started on IV heparin. The patient is on diuretics with IV Lasix. The patient is currently on 50 mg IV every 12 hours. The patient is free of any chest pain. The patient will be seen by cardiology. The patient will be also seen by nephrology. Chest x-ray is consistent with CHF. He has not required any pressors. WBC count at 12.5 with a hemoglobin of 11.5. On 05/07/2022, the patient is BiPAP dependent. He was on 8 L of O2 nasal cannula. He was unable to tolerate high flow oxygen. Subsequently was placed back on a BiPAP at a pressure of 10/5 cm of water with an FiO2 of 100%. His current pulse ox is 93% and chest x-ray still showing CHF and pulmonary edema. Noted the patient had an acute non-ST segment elevation myocardial infarction. Troponin was at 4. Echocardiogram was done yesterday and there was a drop in ejection fraction which is down to 20-25% and is same time the patient had valvular abnormalities with moderate mitral regurgitation and mild to moderate aortic stenosis and a small pericardial effusion. The patient is currently on IV heparin. The patient remains in atrial fibrillation with a controlled rate. In view of his CHF, the patient was subjected to diuretics. The patient is currently on Lasix and the patient is receiving Lasix at a dose of 60 mg every 12 hours. The response has been essentially suboptimal. The patient has been in a negative fluid balance of 1.1 L. His creatinine today is at 2.3 with a BUN of 60 and a sodium level is at 136. The results 15.7. UA is negative. Ultrasound of the kidneys showed no evidence of hydronephrosis. There is prostate enlargement. The patient has a Tucker catheter in place for now. Neurologically, he is alert and awake. He is on no pressors. Is on metoprolol at a dose of 50 mg by mouth twice a day. Is also on aspirin 81 mg by mouth daily. No other significant events overnight. We're coordinating his care along with cardiology and [facility] accreditation manager. 05/08/2022, the patient is off the BiPAP. As mentioned, the patient has an acute non-ST segment elevation myocardial infarction and the patient also went into the opposite heart failure with an ejection fraction of 20-25%. She went into acute pulmonary edema and bilateral pleural effusions. As such, I did bilateral thoracentesis on this patient. I drained approximately 1.6 L of the right arm 1.35 on the left. He was taken off the BiPAP accordingly and currently is on high flow oxygen with FiO2 of 90% and a flow of 60. He is using the incentive spirometer. He remains on IV heparin for now. The patient was seen by wireless network engineer today. He was started on dobutamine at 2.5 mcg/kg/m. He was also started on amiodarone. His cardiac rhythm is a 2 fibrillation. His lites echoes at 12.9 with a hemoglobin 11.8. There is no interval worsening of the renal function and the creatinine is up to 2.6 with a BUN of 75 and a sodium level of 132. The pleural fluid is transudate based on a low protein and LDH criteria and this is essentially consistent with CHF. Otherwise, he is breathing is mildly labored. He does not have any chest pain for now. [place] was having chest pain yesterday. He remains on Lasix at a dose of 80 mg every 12 hours. He remains on empiric antibiotic coverage. He is on aspirin. His overall fluid balance for yesterday has been -2.7 L at least. Urine output is in order of 15 mL an hour. Reevaluated today on 05/09/22, patient remains on BiPAP with IPAP of 10 and EPAP of 500% FiO2. Remains on Rocephin, he is on heparin drip, he is also on Dobutrex drip at 2.5 mcg/kg/m, he is also on amiodarone drip at 0.5 mg/m. Surprisingly the patient is comfortable, does not seem to be in distress although he is requiring significantly high FiO2/100%. Chest x-ray continues to show evidence of pulmonary edema. Patient is on Lasix every 12 hours. And he seems to be responding well to Lasix. His WBC count today is 11 hemoglobin is 11 electrolytes showed a sodium of 127 potassium 3.6 chloride 97 bicarb is 21 BUN is 78 creatinine 2.64. Objective - Vital Signs Vital signs: Vital Signs Temp 97.7 F 05/09/22 08:00 Pulse 97 05/09/22 08:00 Resp 25 H 05/09/22 08:00 BP 114/62 05/09/22 08:00 Pulse Ox 94 L 05/09/22 08:46 FiO2 85 05/09/22 08:46 Intake & Output 05/08/22 05/09/22 05/09/22 18:59 06:59 18:59 Intake Total 277.944 410 990 Output Total 630 825 120 Balance -352.056 -415 870 Weight 76.8 kg Intake: IV 160 170 20 0.9 Normal Saline @ 10mL/ 110 120 20 hr cefTRIAXone 1 gm In 50 50 Sodium Chloride 0.9% 50 ml @ 100 mls/hr IVPB Q12HR FEL[facility] Rx#:[id number] Intake, IV Titration 117.944 250 Amount Amiodarone 450 mg In 250 Dextrose 5% in Water 250 ml @ 0.5 MG/MIN 16.667 mls/hr IV .Q15H FELIPE Rx#: [id number] DOBUTamine DRIP 500 mg In 20.018 Dextrose/Water 1 250ml. bag @ 2.5 MCG/KG/MIN 5. 888 mls/hr IV .Q24H FELIPE Rx#:[id number] Heparin Sod,Pork in 0.45% 97.926 NaCl 25,000 unit In 0.45 % NaCl 1 250ml.bag @ 12 UNITS/KG/HR 9.492 mls/hr IV .Q24H FELIPE Rx#: [id number] Oral 240 720 Output: Urine 630 825 120 Other: Voiding Method Indwelling Catheter Indwelling Catheter - Exam Physical Exam: Revealed an 86-year-old white male in no distress, on BiPAP. Head: Atraumatic, normocephalic. HEENT:[Neck is supple.] [No neck masses.] [No thyromegaly.] [No JVD.] Chest: [Crackles at the bases, no rhonchi and no wheezes. Cardiac Exam: [Normal S1 and S2, no S3 gallop, no murmur.] Abdomen: [Soft, nontender, no megaly, no rebound, no guarding, normal bowel sounds.] Extremities: [No clubbing, no edema, no cyanosis.] Neurological Exam: [No focal neurologic deficit.] Alert oriented 3. Psychiatric: Normal mood, affect and normal status examination. Skin: No rashes. - Labs CBC & Chem 7: 05/09/22 03:19 05/09/22 03:19 Labs: Abnormal Lab Results - Last 24 Hours (Table) 05/07/22 05/08/22 05/08/22 Range/Units 06:37 09:20 11:27 WBC (3.8-10.6) k/uL RBC (4.30-5.90) m/uL Hgb (13.0-17.5) gm/dL Hct (39.0-53.0) % APTT (22.0-30.0) sec Sodium (137-145) mmol/L Chloride (98-107) mmol/L Carbon Dioxide (22-30) mmol/L BUN (9-20) mg/dL Creatinine (0.66-1.25) mg/dL Glucose (74-99) mg/dL POC Glucose (mg/dL) 185 H (70-110) mg/dL Calcium (8.4-10.2) mg/dL CK-MB (CK-2) 5.5 H (0.0-2.4) ng/mL Troponin I 4.090 H* (0.000-0.034) ng/mL Procalcitonin 1.29 H (0.02-0.09) ng/mL 05/08/22 05/08/22 05/08/22 Range/Units 11:47 15:03 15:03 WBC (3.8-10.6) k/uL RBC (4.30-5.90) m/uL Hgb (13.0-17.5) gm/dL Hct (39.0-53.0) % APTT 58.2 H (22.0-30.0) sec Sodium (137-145) mmol/L Chloride (98-107) mmol/L Carbon Dioxide (22-30) mmol/L BUN 78 H (9-20) mg/dL Creatinine 2.61 H (0.66-1.25) mg/dL Glucose (74-99) mg/dL POC Glucose (mg/dL) (70-110) mg/dL Calcium (8.4-10.2) mg/dL CK-MB (CK-2) 4.6 H (0.0-2.4) ng/mL Troponin I 3.110 H* (0.000-0.034) ng/mL Procalcitonin (0.02-0.09) ng/mL 05/08/22 05/08/22 05/09/22 Range/Units 16:26 20:33 03:19 WBC 11.0 H (3.8-10.6) k/uL RBC 3.58 L (4.30-5.90) m/uL Hgb 11.0 L (13.0-17.5) gm/dL Hct 32.4 L (39.0-53.0) % APTT (22.0-30.0) sec Sodium (137-145) mmol/L Chloride (98-107) mmol/L Carbon Dioxide (22-30) mmol/L BUN (9-20) mg/dL Creatinine (0.66-1.25) mg/dL Glucose (74-99) mg/dL POC Glucose (mg/dL) 195 H 214 H (70-110) mg/dL Calcium (8.4-10.2) mg/dL CK-MB (CK-2) (0.0-2.4) ng/mL Troponin I (0.000-0.034) ng/mL Procalcitonin (0.02-0.09) ng/mL 05/09/22 05/09/22 05/09/22 Range/Units 03:19 03:19 06:52 WBC (3.8-10.6) k/uL RBC (4.30-5.90) m/uL Hgb (13.0-17.5) gm/dL Hct (39.0-53.0) % APTT 54.0 H (22.0-30.0) sec Sodium 127 L (137-145) mmol/L Chloride 97 L (98-107) mmol/L Carbon Dioxide 21 L (22-30) mmol/L BUN 78 H (9-20) mg/dL Creatinine 2.61 H (0.66-1.25) mg/dL Glucose 147 H (74-99) mg/dL POC Glucose (mg/dL) 145 H (70-110) mg/dL Calcium 7.9 L (8.4-10.2) mg/dL CK-MB (CK-2) (0.0-2.4) ng/mL Troponin I (0.000-0.034) ng/mL Procalcitonin (0.02-0.09) ng/mL Microbiology - Last 24 Hours (Table) 05/05/22 18:50 Blood Culture - Preliminary Blood No Growth after 72 hours 05/05/22 18:35 Blood Culture - Preliminary Blood No Growth after 72 hours 05/07/22 12:00 Gram Stain - Preliminary Pleural Fluid Body Fluid Culture - Preliminary Assessment and Plan Assessment: Impression: Acute hypoxic respiratory failure secondary to acute systolic congestive heart failure. Patient has an ejection fraction of 20-25%. In addition to this the patient has moderate mitral regurgitation, and mild to moderate aortic stenosis, all contributing to his congestive heart failure. Bilateral pleural effusions, fluid was noted to be transudate of based on thoracentesis. Chronic atrial fibrillation, patient remains on amiodarone drip. Acute non-ST elevation myocardial infarction. History of underlying coronary arteriosclerosis and previous CABG. Peripheral vessel occlusive disease. History of pacemaker implantation for underlying sick sinus syndrome. Acute on chronic kidney injury/cardiorenal syndrome. Patient has been known to have chronic stage III kidney disease. Type 2 diabetes. Benign essential hypertension. Dyslipidemia. History of hypothyroidism. Recommendation: Continue BiPAP and titrate accordingly maintain O2 saturation above 90% Continue Lasix Continue dobutamine at 2.5 mg/kg/m Continue amiodarone and eventually transitioned to oral. Continue to monitor renal profile and renal status as well as electrolytes. Continue insulin. Continue GI and DVT prophylaxis. Cardiology was considering cardiac catheterization, however his renal status is prohibitive Overall prognosis is extremely poor and guarded. Need to rediscuss CODE STATUS with the patient as his prognosis is extremely poor and guarded Critical care time is over 30 minutes. We'll continue to monitor in the ICU We will continue to follow Time with Patient: Greater than 30
[2022-05-09] MEDS: MORPHINE SULFATE 4 MG/ML SYRINGE IV PRN (10:47)
--- NOTE | 2022-05-09 11:25 | P.PN ---
Subjective Patient is seen for follow-up for acute injury and underlying chronic kidney disease. Baseline creatinine around 1.5-1.7 mg/dL, NKF stage III. Patient is admitted to the hospital with chest pain and ruled in for acute non- ST elevation MT. Patient also had A. fib with RVR and is currently maintained on amiodarone drip. Ejection fraction is low at about 25% and patient is currently maintained on dobutamine. Urine output of about 45-75 mL per hour. 24 output at 1.45 L. Maintained on Lasix 80 mg IV every 12 hours. Serum creatinine staying at about 2.6 mg/dL for the last 3 days. Admission creatinine was 1.7 mg/dL. Objective - Vital Signs Vital signs: Vital Signs Temp 97.7 F 05/09/22 08:00 Pulse 80 05/09/22 11:00 Resp 23 05/09/22 11:00 BP 117/69 05/09/22 11:00 Pulse Ox 91 L 05/09/22 11:03 FiO2 90 05/09/22 11:03 Intake & Output 05/08/22 05/09/22 05/09/22 18:59 06:59 18:59 Intake Total 277.116 358 7235 Output Total 630 825 440 Balance -352.056 -415 625 Weight 76.8 kg Intake: IV 160 170 95 0.9 Normal Saline @ 10mL/ 110 120 45 hr cefTRIAXone 1 gm In 50 50 50 Sodium Chloride 0.9% 50 ml @ 100 mls/hr IVPB Q12HR [facility] Rx#:[id number] Intake, IV Titration 117.944 250 Amount Amiodarone 450 mg In 250 Dextrose 5% in Water 250 ml @ 0.5 MG/MIN 16.667 mls/hr IV .Q15H [facility] Rx#: [id number] DOBUTamine DRIP 500 mg In 20.018 Dextrose/Water 1 250ml. bag @ 2.5 MCG/KG/MIN 5. 888 mls/hr IV .Q24H [facility] Rx#:[id number] Heparin Sod,Pork in 0.45% 97.926 NaCl 25,000 unit In 0.45 % NaCl 1 250ml.bag @ 12 UNITS/KG/HR 9.492 mls/hr IV .Q24H FELIPE Rx#: [id number] Oral 240 720 Output: Urine 630 825 440 Other: Voiding Method Indwelling Catheter Indwelling Catheter Indwelling Catheter - Exam Patient is awake, mildly short of breath Maintained on high flow nasal cannula Examination of the heart S1 and S2 irregularly irregular Examination the lungs decreased breath sounds at the bases Abdomen is soft nontender Examination lower extremities shows edema 1+ bilaterally CALL CENTER TRAINER exam grossly intact - Labs CBC & Chem 7: 05/09/22 03:19 05/09/22 03:19 Labs: Abnormal Lab Results - Last 24 Hours (Table) 05/07/22 05/08/22 05/08/22 Range/Units 06:37 11:27 11:47 WBC (3.8-10.6) k/uL RBC (4.30-5.90) m/uL Hgb (13.0-17.5) gm/dL Hct (39.0-53.0) % APTT 58.2 H (22.0-30.0) sec Sodium (137-145) mmol/L Chloride (98-107) mmol/L Carbon Dioxide (22-30) mmol/L BUN (9-20) mg/dL Creatinine (0.66-1.25) mg/dL Glucose (74-99) mg/dL POC Glucose (mg/dL) 185 H (70-110) mg/dL Calcium (8.4-10.2) mg/dL CK-MB (CK-2) (0.0-2.4) ng/mL Troponin I (0.000-0.034) ng/mL Procalcitonin 1.29 H (0.02-0.09) ng/mL 05/08/22 05/08/22 05/08/22 Range/Units 15:03 15:03 16:26 WBC (3.8-10.6) k/uL RBC (4.30-5.90) m/uL Hgb (13.0-17.5) gm/dL Hct (39.0-53.0) % APTT (22.0-30.0) sec Sodium (137-145) mmol/L Chloride (98-107) mmol/L Carbon Dioxide (22-30) mmol/L BUN 78 H (9-20) mg/dL Creatinine 2.61 H (0.66-1.25) mg/dL Glucose (74-99) mg/dL POC Glucose (mg/dL) 195 H (70-110) mg/dL Calcium (8.4-10.2) mg/dL CK-MB (CK-2) 4.6 H (0.0-2.4) ng/mL Troponin I 3.110 H* (0.000-0.034) ng/mL Procalcitonin (0.02-0.09) ng/mL 05/08/22 05/09/22 05/09/22 Range/Units 20:33 03:19 03:19 WBC 11.0 H (3.8-10.6) k/uL RBC 3.58 L (4.30-5.90) m/uL Hgb 11.0 L (13.0-17.5) gm/dL Hct 32.4 L (39.0-53.0) % APTT 54.0 H (22.0-30.0) sec Sodium (137-145) mmol/L Chloride (98-107) mmol/L Carbon Dioxide (22-30) mmol/L BUN (9-20) mg/dL Creatinine (0.66-1.25) mg/dL Glucose (74-99) mg/dL POC Glucose (mg/dL) 214 H (70-110) mg/dL Calcium (8.4-10.2) mg/dL CK-MB (CK-2) (0.0-2.4) ng/mL Troponin I (0.000-0.034) ng/mL Procalcitonin (0.02-0.09) ng/mL 05/09/22 05/09/22 Range/Units 03:19 06:52 WBC (3.8-10.6) k/uL RBC (4.30-5.90) m/uL Hgb (13.0-17.5) gm/dL Hct (39.0-53.0) % APTT (22.0-30.0) sec Sodium 127 L (137-145) mmol/L Chloride 97 L (98-107) mmol/L Carbon Dioxide 21 L (22-30) mmol/L BUN 78 H (9-20) mg/dL Creatinine 2.61 H (0.66-1.25) mg/dL Glucose 147 H (74-99) mg/dL POC Glucose (mg/dL) 145 H (70-110) mg/dL Calcium 7.9 L (8.4-10.2) mg/dL CK-MB (CK-2) (0.0-2.4) ng/mL Troponin I (0.000-0.034) ng/mL Procalcitonin (0.02-0.09) ng/mL Microbiology - Last 24 Hours (Table) 05/05/22 18:50 Blood Culture - Preliminary Blood No Growth after 72 hours 05/05/22 18:35 Blood Culture - Preliminary Blood No Growth after 72 hours 05/07/22 12:00 Gram Stain - Preliminary Pleural Fluid Body Fluid Culture - Preliminary Assessment and Plan Assessment: 1. Acute kidney injury secondary to cardiorenal syndrome currently maintained on dobutamine and IV Lasix. Serum creatinine staying at about 2.6 with grams per deciliter. We will add Zaroxolyn 2. CK D stage III Baseline creatinine about 1.7 mg/dL 3. Acute non-ST elevation MT 4. Acute hypoxic respiratory failure maintained on BiPAP 5. Type 2 diabetes 6. Hyponatremia, hypervolemic Plan: Continue IV Lasix [place] 1 today Maintain fluid restriction Increase Lasix to every 8 hours Consider increasing dobutamine to 5 g if heart rate remained stable.
[2022-05-09] MEDS ORDERED: TOLVAPTAN 15 MG 1/2 TABLET PO ONE (11:37)
[2022-05-09 11:39] LABS: Glucose,Whole Blood 176 mg/dL (70-110)
[2022-05-09] MEDS: NITROGLYCERIN SL TABS 0.4 MG TAB SUBLINGUAL PRN ×3 (12:00→22:34)
[2022-05-09] MEDS: AMIODARONE 200 MG TAB PO SCH ×2 (12:13→21:16)
[2022-05-09] MEDS: DOBUTamine DRIP 500 MG in DEXTROSE/WATER 1 250ML.BAG IV SCH ×2 (13:08→21:59)
--- NOTE | 2022-05-09 13:15 | P.PN ---
Progress Note - Text Progress Note Date: 05/09/22 Chief Complaint: Chest pain This is a pleasant 86-year-old patient who follows with Dr. Ag Burns. Patient had a coronary bypass in 2000. Chronic stable medical conditions include diabetes type 2, hypertension, hyperlipidemia, PAD, carotid stenosis, CAD, ischemic cardiomyopathy, loop recorder since 2019. He does follow with a local benzene washer Dr. Conroy and also with Dr. Lowry in [place]. On April 26 for sick sinus syndrome had a permanent pacemaker placed. Prior to this he was having bradycardia and his Lopressor was discontinued. In the last 2 days patient started having shortness of breath. No edema. No cough. No sputum. No fever no chills. Also started feeling the burning sensation across the chest. The last 24 hours. Also going up to his left shoulder. No obvious relieving or precipitating factors. Heart rate in the ER was over 100. Baseline heart rate is around 60. Overnight patient became more short of breath. 1 dose of IV Lasix 80 mg was given. Need close to 400 mL of urine. Also concern about pneumonia and some started on antibiotics. Patient did require BiPAP for shortness of breath so moved to the ICU Admitted with pneumonia, acute hypoxic respiratory failure, acute and chronic CHF, acute non-Q wave AL, and acute kidney injury/ATN. IV heparin, IV ceftriaxone, oxygen, IV Lasix, 05/07/2022: ICU: Underwent bilateral thoracentesis by Dr. Ring 1500 mL removed from the right site and 1350 from the left side. Currently unable with the 60 L and 93%. Drips include amiodarone, nitroglycerin, IV heparin. Reclining in bed, awake, tired. Eating some 05/08/2022: ICU. Up in a recliner. Remains on airvo 60/90. Eating about 50%. Given lactulose and Metamucil for a BM. Remains in atrial fibrillation controlled. On IV Lasix. IV dobutamine. Creatinine creeping up. 05/09/2022: ICU. Remains in atrial fibrillation controlled. Drips include IV heparin and IV dobutamine. Eating little. And showed being added. On AIRVO. 60/90. Tired. Samsca 1 dose given by nephrology. Active Medications Acetaminophen (Acetaminophen Tab 325 Mg Tab) 650 mg PO Q6HR PRN PRN Reason: Mild Pain or Fever > 100.5 Last Admin: 05/07/22 23:02 Dose: 650 mg Alprazolam (Alprazolam 0.25 Mg Tab) 0.25 mg PO Q8H PRN PRN Reason: Anxiety Last Admin: 05/09/22 09:34 Dose: 0.25 mg Amiodarone HCl (Amiodarone 200 Mg Tab) 200 mg PO BID [facility] Last Admin: 05/09/22 12:13 Dose: 200 mg Aspirin (Aspirin 81 Mg) 81 mg PO DAILY [facility] Last Admin: 05/09/22 08:35 Dose: 81 mg Atorvastatin Calcium (Atorvastatin 80 Mg Tab) 80 mg PO HS [facility] Last Admin: 05/08/22 20:45 Dose: 80 mg Calcitriol (Calcitriol 0.25 Mcg Cap) 0.25 mcg PO DAILY [facility] Last Admin: 05/09/22 08:36 Dose: 0.25 mcg Dextrose/Water (Dextrose 50% Syringe 50 Ml) 25 ml IVP PER PROTOCOL PRN; Protocol PRN Reason: Hypoglycemia Dextrose/Water (Dextrose 50% Syringe 50 Ml) 50 ml IVP PER PROTOCOL PRN; Protocol PRN Reason: Hypoglycemia Famotidine (Famotidine 20 Mg Tab) 20 mg PO DAILY [facility] Last Admin: 05/09/22 08:35 Dose: 20 mg Furosemide (Furosemide 10 Mg/Ml 10 Ml Vial) 80 mg IV Q8HR [facility] Heparin Sodium (Porcine) (Heparin Sodium 1,000 Un/Ml (10ml Vl)) 0 unit IV PER PROTOCOL PRN; Protocol PRN Reason: Low PTT Heparin Sodium/Sodium Chloride (25,000 unit/ Sodium Chloride) 250 mls @ 9.492 mls/hr IV .Q24H [facility]; Protocol Last Admin: 05/08/22 16:00 Dose: 12 units/kg/hr, 9.492 mls/hr Ceftriaxone Sodium 1 gm/ (Sodium Chloride) 50 mls @ 100 mls/hr IVPB Q12HR [facility]; Protocol Last Admin: 05/09/22 08:35 Dose: 100 mls/hr Dobutamine HCl/Dextrose 500 mg (/ IV Solution) 250 mls @ 5.888 mls/hr IV .Q24H [facility] Last Admin: 05/09/22 13:08 Dose: Not Given Insulin Aspart (Insulin Aspart (Novolog) 100 Unit/Ml Vial) 0 unit SQ ACHS [facility]; Protocol Last Admin: 05/09/22 07:02 Dose: Not Given Isosorbide Mononitrate (Isosorbide Mononitrate Er 30 Mg Tab.Er.24h) 30 mg PO DAILY [facility] Last Admin: 05/09/22 08:35 Dose: 30 mg Lactulose (Lactulose 20 Gm/30 Ml Cup) 20 gm PO DAILY PRN PRN Reason: Constipation Levothyroxine Sodium (Levothyroxine 125 Mcg Tab) 125 mcg PO DAILY [facility] Last Admin: 05/09/22 08:34 Dose: 125 mcg Midodrine (Midodrine 5 Mg Tab) 5 mg PO AC-BID [facility] Miscellaneous Information (Potassium Replacement Protocol 1 Each Misc) 1 each MISCELLANE DAILY PRN; Protocol PRN Reason: Per Protocol Morphine Sulfate (Morphine Sulfate 4 Mg/Ml Syringe) 4 mg IV Q4HR PRN PRN Reason: Severe Pain (Scale 7 to 10) Last Admin: 05/09/22 10:47 Dose: 4 mg Naloxone HCl (Naloxone 0.4 Mg/Ml 1 Ml Vial) 0.2 mg IV Q2M PRN PRN Reason: Opioid Reversal Nitroglycerin (Nitroglycerin Sl Tabs 0.4 Mg Tab) 0.4 mg SUBLINGUAL Q10M PRN PRN Reason: Chest Pain Last Admin: 05/09/22 12:10 Dose: 0.4 mg Ondansetron HCl (Ondansetron 4 Mg/2 Ml Vial) 4 mg IVP Q8HR PRN PRN Reason: Nausea And Vomiting Psyllium Hydrophilic Mucilloid (Psyllium Husk 100% 6 Gm Packet) 6 gm PO DAILY [facility] Last Admin: 05/09/22 08:34 Dose: 6 gm Ranolazine (Ranolazine 500 Mg Tab.Er.12h) 500 mg PO BID [facility] Last Admin: 05/09/22 08:36 Dose: 500 mg Zolpidem Tartrate (Zolpidem 5 Mg Tab) 2.5 mg PO HS PRN PRN Reason: Insomnia Last Admin: 05/08/22 20:45 Dose: 2.5 mg Past medical history to include: Diabetes, GERD, hypertension, hyperlipidemia, osteoarthritis, AL, chronic kidney disease, hypothyroid, CAD with bypass about 20 years ago. Permanent pacemaker for sick sinus syndrome Social history: Occasional cigar. In the remote past. No alcohol. . Retired Family history: Reviewed, noncontributory to presentation Physical examination: VITAL SIGNS: 98, 98, 28, 150/57, 92% on airvo 60/90 GENERAL: reclining in bed, tired, short of breath. Permanent pacemaker EYES: Pupils equal. Conjunctiva normal. HEENT: External appearance of nose and ears normal, oral cavity grossly normal. NECK: JVD unable to assess; masses not palpable. HEART: Heart sounds irregular; no edema. LUNGS: Respiratory rate increased; decreased breath sounds. ABDOMEN: Soft, nontender, liver spleen not palpable, no masses palpable. PSYCH: Alert and oriented x3; mood and affect tired. MUSCULOSKELETAL:No Clubbing/cyanosis;muscles-grossly intact, OA INVESTIGATIONS, reviewed in the clinical context: 05/09/2022: WBC 11 hemoglobin 11 platelets 209 sodium 127 potassium 3.6 BUN 78 creatinine 2.61 05/08/2022: WBC 12.9 hemoglobin 11.8 potassium 4 BUN 35 creatinine 2.63 05/07/2022: WBC 13.7 hemoglobin 11.3 platelets 2063.8. 60 creatinine 2.37 05/06/2022: WBC 12.5 hemoglobin 11.5 platelets 216 potassium 4.4 BUN 49 creatinine 2.25 Admission labs: WBC 14.1 in globin 12.1 platelets 28 potassium 4.9. 42 creatinine 1.77 Troponin I 0.014, 0.707, 0.904, 1.5, 4.7 Influenza type A/diabetes/RSV/COVID-19: Not detected EKG tracing personally reviewed by me-atrial fibrillation, heart rate 110 Chest x-ray film personally reviewed by me-left lower lobe infiltrate, venous prominent edema Previous labs: Creatinine 1.46 in October 2021 Assessment and plan: -Acute non-Q-wave AL in a patient with known CAD Aspirin, IV heparin -Left lower lobe pneumonia, suspect gram-negative organism Ceftriaxone 1 g every 12. Procalcitonin 1.29 -Acute hypoxic respiratory failure secondary to CHF and pneumonia: Slow to respond airvo at 60 L/93% -IV heparin monitoring Follow PTT -Acute kidney injury, likely ATN's combination of cardiorenal syndrome: Slow to respond Admission creatinine 1.77-up to 2. 63 -Chronic kidney disease suspect nephrosclerosis stage III Baseline creatinine 1.46 -CAD with a prior history of coronary bypass. does follow Dr. Conroy Aspirin, beta jon, Lipitor -Permanent pacemaker placed on 04/26/2022 for sick sinus syndrome -Acute on chronic congestive heart failure exacerbation. From ischemic cardiomyopathy EF 40-45% IV Lasix 80 mg every 8, dobutamine drip -Essential hypertension Toprol-XL 50 mg twice a day, Cordarone 200 mg twice a day -Hyperlipidemia Lipitor 80 mg daily at bedtime -Persistent atrial fibrillation, rapid ventricular rate on presentation Toprol-XL. IV heparin, Cordarone 200 mg twice daily -Hypothyroid Synthroid 125 g a day -Diabetes mellitus type 2, chronic insulin Accu-Cheks and sliding scale. -Hyponatremia, from decreased solute intake 1 dose of Samsca given -Full code IV heparin. IV ceftriaxone. IV Lasix. IV dobutamine. 1 dose of Samsca ordered. Remains on AIRVO. Prognosis guarded.
--- NOTE | 2022-05-09 13:33 | PN ---
PROGRESS NOTE HISTORY OF PRESENT ILLNESS: Gt is an 86-year-old gentleman with complex and multiple medical problems including persistent atrial fibrillation, sick sinus syndrome status post permanent pacemaker, CAD status post CABG, ischemic cardiomyopathy, mild aortic stenosis, diabetes and chronic renal failure, who actually underwent a permanent pacemaker recently, came in to hospital with shortness of breath and chest pain and ruled in for myocardial infarction. He is in atrial fibrillation with controlled ventricular rate. There is renal insufficiency that has worsened on this admission with somewhat of a limited urine output. The patient is currently on dobutamine and because of the renal failure, it was decided that the patient is not a good candidate for cardiac catheterization at this time. One of the ideas we had was to cardiovert him if he does not get better. Heart rate is well controlled at the moment. PHYSICAL EXAMINATION: VITAL SIGNS: Heart rate is 90 beats per minute, blood pressure is 117/57, respiratory rate is 28. NECK: JVD is elevated. CHEST: Reveals diminished air entry at the basis, I do not heart any crackles or rhonchi. HEART: Reveals first and second heart sounds, irregular rhythm and an ejection systolic murmur. ABDOMEN: Soft. EXTREMITIES: Reveal mid edema bilaterally. LABORATORY DATA: Labs shared potassium of 3.6, BUN is 78, creatinine is 2.6, hemoglobin is 11, platelet count is 209, and sodium level is low. ASSESSMENT: 1. Acute exacerbation of chronic systolic heart failure. 2. Acute gnn-GR-ersayce elevation myocardial infarction. 3. Cardiorenal syndrome. PLAN: We will continue the patient on amiodarone but switch him to p.o. aspirin, Lipitor, Lasix IV q.8. Continue the IV heparin that he is on along with the dobutamine. We will adjust the medications as needed. MMODL / IJN: [id number] /
[2022-05-09 16:41] LABS: Glucose,Whole Blood 157 mg/dL (70-110)
[2022-05-09] MEDS: MIDODRINE 5 MG TAB PO SCH (16:45)
[2022-05-09] MEDS: HEPARIN SOD,PORK IN 0.45% NACL 25,000 UNIT in 0.45% NACL 1 250ML.BAG IV SCH (19:53)
[2022-05-09 20:51] LABS: Glucose,Whole Blood 205 mg/dL (70-110)
[2022-05-09] MEDS: ATORVASTATIN 80 MG TAB PO SCH (21:16)
[2022-05-10] MEDS: FUROSEMIDE 10 MG/ML 10 ML VIAL IV SCH ×3 (00:31→16:59)
[2022-05-10 06:34] LABS: Glucose,Whole Blood 233 mg/dL (70-110)
[2022-05-10] MEDS: INSULIN ASPART (NovoLOG) 100 UNIT/ML VIAL SQ SCH ×4 (06:45→21:31)
[2022-05-10] MEDS: MIDODRINE 5 MG TAB PO SCH ×3 (06:45→16:59)
--- NOTE | 2022-05-10 07:22 | XR ---
EXAMINATION TYPE: XR chest 1V portable DATE OF EXAM: 05/10/2022 COMPARISON: 05/01/2022 INDICATION: CHF TECHNIQUE: Single frontal view of the chest is obtained. FINDINGS: The heart size is mildly prominent. The pulmonary vasculature is prominent. Bibasilar infiltrates are present. Small bilateral pleural effusions are present, increased from comp arison. Loop recorder is present. Sternotomy wires are in the midline. Pacemaker overlies the chest. IMPRESSION: 1. Nonspecific findings can be compatible with worsening congestive heart failure. Continued follow-u p is recommended.
[2022-05-10 07:43] LABS: Basophils % (A) 0 %; Eosinophils # (A) 0.1 k/uL (0-0.7); Eosinophils % (A) 1 %; HCT 33.7 % (39.0-53.0); HGB 11.3 gm/dL (13.0-17.5); Lymphocytes # (A) 0.4 k/uL (1.0-4.8); Lymphocytes % (A) 5 %; MCH 30.4 pg (25.0-35.0); MCHC 33.4 g/dL (31.0-37.0); MCV 90.8 fL (80.0-100.0); Mean Platelet Volume 10.6; Monocytes # (A) 0.8 k/uL (0-1.0); Monocytes % (A) 9 %; Neutrophils # (A) 7.3 k/uL (1.3-7.7); Neutrophils % (A) 84 %; Platelet Count 227 k/uL (150-450); RBC 3.71 m/uL (4.30-5.90); WBC 8.8 k/uL (3.8-10.6)
[2022-05-10 07:57] LABS: Albumin 2.7 g/dL (3.5-5.0); Calcium 7.7 mg/dL (8.4-10.2); Potassium 3.9 mmol/L (3.5-5.1); Total Bilirubin 0.6 mg/dL (0.2-1.3); Total Protein 5.2 g/dL (6.3-8.2)
[2022-05-10] MEDS: MORPHINE SULFATE 4 MG/ML SYRINGE IV PRN (08:40)
[2022-05-10] MEDS: ISOSORBIDE MONONITRATE ER 30 MG TAB.ER.24H PO SCH (08:41)
[2022-05-10] MEDS: FAMOTIDINE 20 MG TAB PO SCH (08:41)
[2022-05-10] MEDS: ASPIRIN 81 MG PO SCH (08:41)
[2022-05-10] MEDS: PSYLLIUM HUSK 100% 6 GM PACKET PO SCH (08:41)
[2022-05-10] MEDS: AMIODARONE 200 MG TAB PO SCH ×2 (08:41→20:56)
[2022-05-10] MEDS: RANOLAZINE 500 MG TAB.ER.12H PO SCH ×2 (09:03→22:31)
[2022-05-10] MEDS: LEVOTHYROXINE 125 MCG TAB PO SCH (09:04)
[2022-05-10] MEDS: METOPROLOL TARTRATE 12.5 MG TAB PO SCH ×3 (10:29→22:31)
[2022-05-10] MEDS: NITROGLYCERIN OINT 1 INCH/GM PACKET TOPICAL SCH ×2 (10:29→16:59)
--- NOTE | 2022-05-10 10:46 | P.PN ---
Subjective Progress Note Date: 05/10/22 Principal diagnosis: Acute hypoxic respiratory failure secondary to acute systolic congestive heart failure This is an 86-year-old male patient with known history of extensive cardiac disease, coronary artery disease, previous bypass surgery, congestion heart failure and chronic atrial fibrillation. The patient underwent a recent pacemaker insertion on 04/26/2022 for an underlying sick sinus syndrome. The patient presented to the hospital because of worsening shortness of breath and some chest pain. The patient was found to be in CHF based on the chest that was done in the emergency department. The patient was quite short of breath. Initially was placed on a BiPAP at a pressures of 10/5 and the patient was diuresed with IV Lasix and the patient was subsequently switched to oxygen at 8 L, nasal cannula. His EKG showing atrial fibrillation, LBBB pattern, irregular, and his blood work showed a white cell count of 12.5 with a hemoglobin of 11.5 and a platelet count of 216. Sodium is at 136 with a BUN of 42 and a creatinine of 1.77. Troponins are 0.7. Peak at 4.7 as the patient underwent and had a acute non-ST segment elevation myocardial infarction. ProBNP level is 9550. UA was negative. Viral screen including influenza was negative. Subsequent creat inine from this morning this morning showed a creatinine of 2.25. The patient was diuresed overnight and the patient is improving currently is on 8 L of oxygen by nasal cannula. Based on an acute non-STEMI, the patient was started on IV heparin. The patient is on diuretics with IV Lasix. The patient is currently on 50 mg IV every 12 hours. The patient is free of any chest pain. The patient will be seen by cardiology. The patient will be also seen by nephrology. Chest x-ray is consistent with CHF. He has not required any pressors. WBC count at 12.5 with a hemoglobin of 11.5. On 05/07/2022, the patient is BiPAP dependent. He was on 8 L of O2 nasal cannula. He was unable to tolerate high flow oxygen. Subsequently was placed back on a BiPAP at a pressure of 10/5 cm of water with an FiO2 of 100%. His current pulse ox is 93% and chest x-ray still showing CHF and pulmonary edema. Noted the patient had an acute non-ST segment elevation myocardial infarction. Troponin was at 4. Echocardiogram was done yesterday and there was a drop in ejection fraction which is down to 20-25% and is same time the patient had valvular abnormalities with moderate mitral regurgitation and mild to moderate aortic stenosis and a small pericardial effusion. The patient is currently on IV heparin. The patient remains in atrial fibrillation with a controlled rate. In view of his CHF, the patient was subjected to diuretics. The patient is currently on Lasix and the patient is receiving Lasix at a dose of 60 mg every 12 hours. The response has been essentially suboptimal. The patient has been in a negative fluid balance of 1.1 L. His creatinine today is at 2.3 with a BUN of 60 and a sodium level is at 136. The results 15.7. UA is negative. Ultrasound of the kidneys showed no evidence of hydronephrosis. There is prostate enlargement. The patient has a Tucker catheter in place for now. Neurologically, he is alert and awake. He is on no pressors. Is on metoprolol at a dose of 50 mg by mouth twice a day. Is also on aspirin 81 mg by mouth daily. No other significant events overnight. We're coordinating his care along with cardiology and [facility] small arms repairer. 05/08/2022, the patient is off the BiPAP. As mentioned, the patient has an acute non-ST segment elevation myocardial infarction and the patient also went into the opposite heart failure with an ejection fraction of 20-25%. She went into acute pulmonary edema and bilateral pleural effusions. As such, I did bilateral thoracentesis on this patient. I drained approximately 1.6 L of the right arm 1.35 on the left. He was taken off the BiPAP accordingly and currently is on high flow oxygen with FiO2 of 90% and a flow of 60. He is using the incentive spirometer. He remains on IV heparin for now. The patient was seen by dredge captain today. He was started on dobutamine at 2.5 mcg/kg/m. He was also started on amiodarone. His cardiac rhythm is a 2 fibrillation. His lites echoes at 12.9 with a hemoglobin 11.8. There is no interval worsening of the renal function and the creatinine is up to 2.6 with a BUN of 75 and a sodium level of 132. The pleural fluid is transudate based on a low protein and LDH criteria and this is essentially consistent with CHF. Otherwise, he is breathing is mildly labored. He does not have any chest pain for now. [place] was having chest pain yesterday. He remains on Lasix at a dose of 80 mg every 12 hours. He remains on empiric antibiotic coverage. He is on aspirin. His overall fluid balance for yesterday has been -2.7 L at least. Urine output is in order of 15 mL an hour. Reevaluated today on 05/09/22, patient remains on BiPAP with IPAP of 10 and EPAP of 500% FiO2. Remains on Rocephin, he is on heparin drip, he is also on Dobutrex drip at 2.5 mcg/kg/m, he is also on amiodarone drip at 0.5 mg/m. Surprisingly the patient is comfortable, does not seem to be in distress although he is requiring significantly high FiO2/100%. Chest x-ray continues to show evidence of pulmonary edema. Patient is on Lasix every 12 hours. And he seems to be responding well to Lasix. His WBC count today is 11 hemoglobin is 11 electrolytes showed a sodium of 127 potassium 3.6 chloride 97 bicarb is 21 BUN is 78 creatinine 2.64. Reevaluated today on 05/10/22, patient remains extremely marginal at best. Remains on airvo at 60 L flow and 90% FiO2 remains on heparin drip, dobutamine drip at 2.5 mcg/kg/min O2 saturation is marginal, chest x-ray is still showing evidence of pulmonary edema. He is intermittently on BiPAP 10/5/90%, fluid that was drained by Dr. Ring is transudate of consistent with congestive heart failure. Last night the patient has some chest pain resolved with nitroglycerin sublingually. Overall the patient is not doing too well, and today I had a long discussion with the patient regarding CODE STATUS, explained time that his condition seems to be terminal with has severe LV dysfunction. Patient is undecided tachycardic CODE STATUS at this point, he would like to discuss it with his family members. Electrolytes showed a sodium of 127 renal profile is abnormal with a BUN of 78 creatinine 2.66. Objective - Vital Signs Vital signs: Vital Signs Temp 97.8 F 05/10/22 08:00 Pulse 104 H 05/10/22 10:30 Resp 21 05/10/22 10:30 BP 109/63 05/10/22 10:15 Pulse Ox 96 05/10/22 10:30 FiO2 90 05/10/22 10:30 Intake & Output 05/09/22 05/10/22 05/10/22 18:59 06:59 18:59 Intake Total 1865 1262.501 240 Output Total 910 1015 490 Balance 955 247.501 -250 Intake: IV 165 170 90 0.9 Normal Saline @ 10mL/ 115 120 40 hr cefTRIAXone 1 gm In 50 50 50 Sodium Chloride 0.9% 50 ml @ 100 mls/hr IVPB Q12HR [facility] Rx#:[id number] Intake, IV Titration 500 215.501 Amount Amiodarone 450 mg In 250 Dextrose 5% in Water 250 ml @ 0.5 MG/MIN 16.667 mls/hr IV .Q15H [facility] Rx#: [id number] DOBUTamine DRIP 500 mg In 215.501 Dextrose/Water 1 250ml. bag @ 2.5 MCG/KG/MIN 5. 888 mls/hr IV .Q24H [facility] Rx#:[id number] Heparin Sod,Pork in 0.45% 250 NaCl 25,000 unit In 0.45 % NaCl 1 250ml.bag @ 12 UNITS/KG/HR 9.492 mls/hr IV .Q24H [facility] Rx#: [id number] Oral 1200 877 150 Output: Urine 910 1015 490 Other: Voiding Method Indwelling Catheter Indwelling Catheter # Bowel Movements 1 - Exam Physical Exam: Revealed an 86-year-old white male on high flow and high FiO2 via airvo noted to be short of breath. Head: Atraumatic, normocephalic. HEENT:[Neck is supple.] [No neck masses.] [No thyromegaly.] [No JVD.] Chest: [Crackles at the bases, no rhonchi and no wheezes. Cardiac Exam: [Normal S1 and S2, no S3 gallop, no murmur.] Abdomen: [Soft, nontender, no megaly, no rebound, no guarding, normal bowel sounds.] Extremities: [No clubbing, no edema, no cyanosis.] Neurological Exam: [No focal neurologic deficit.] Alert oriented 3. Psychiatric: Normal mood, affect and normal status examination. Skin: No rashes. - Labs CBC & Chem 7: 05/10/22 07:00 05/10/22 07:00 Labs: Abnormal Lab Results - Last 24 Hours (Table) 05/09/22 05/09/22 05/09/22 Range/Units 11:37 16:41 20:50 RBC (4.30-5.90) m/uL Hgb (13.0-17.5) gm/dL Hct (39.0-53.0) % Lymphocytes # (1.0-4.8) k/uL APTT (22.0-30.0) sec Sodium (137-145) mmol/L Chloride (98-107) mmol/L Carbon Dioxide (22-30) mmol/L BUN (9-20) mg/dL Creatinine (0.66-1.25) mg/dL Glucose (74-99) mg/dL POC Glucose (mg/dL) 176 H 157 H 205 H (70-110) mg/dL Calcium (8.4-10.2) mg/dL Alkaline Phosphatase (38-126) U/L Total Protein (6.3-8.2) g/dL Albumin (3.5-5.0) g/dL 05/10/22 05/10/22 05/10/22 Range/Units 06:33 07:00 07:00 RBC 3.71 L (4.30-5.90) m/uL Hgb 11.3 L (13.0-17.5) gm/dL Hct 33.7 L (39.0-53.0) % Lymphocytes # 0.4 L (1.0-4.8) k/uL APTT 65.0 H (22.0-30.0) sec Sodium (137-145) mmol/L Chloride (98-107) mmol/L Carbon Dioxide (22-30) mmol/L BUN (9-20) mg/dL Creatinine (0.66-1.25) mg/dL Glucose (74-99) mg/dL POC Glucose (mg/dL) 233 H (70-110) mg/dL Calcium (8.4-10.2) mg/dL Alkaline Phosphatase (38-126) U/L Total Protein (6.3-8.2) g/dL Albumin (3.5-5.0) g/dL 05/10/22 Range/Units 07:00 RBC (4.30-5.90) m/uL Hgb (13.0-17.5) gm/dL Hct (39.0-53.0) % Lymphocytes # (1.0-4.8) k/uL APTT (22.0-30.0) sec Sodium 127 L (137-145) mmol/L Chloride 95 L (98-107) mmol/L Carbon Dioxide 20 L (22-30) mmol/L BUN 78 H (9-20) mg/dL Creatinine 2.66 H (0.66-1.25) mg/dL Glucose 236 H (74-99) mg/dL POC Glucose (mg/dL) (70-110) mg/dL Calcium 7.7 L (8.4-10.2) mg/dL Alkaline Phosphatase 191 H (38-126) U/L Total Protein 5.2 L (6.3-8.2) g/dL Albumin 2.7 L (3.5-5.0) g/dL Microbiology - Last 24 Hours (Table) 05/07/22 12:00 Gram Stain - Preliminary Pleural Fluid Body Fluid Culture - Preliminary 05/05/22 18:35 Blood Culture - Preliminary Blood No Growth after 96 hours 05/05/22 18:50 Blood Culture - Preliminary Blood No Growth after 96 hours Assessment and Plan Assessment: Impression: Acute hypoxic respiratory failure secondary to acute systolic congestive heart failure. Patient has an ejection fraction of 20-25%. In addition to this the patient has moderate mitral regurgitation, and mild to moderate aortic stenosis, all contributing to his congestive heart failure. Bilateral pleural effusions, fluid was noted to be transudate of based on thoracentesis. Chronic atrial fibrillation, patient remains on amiodarone drip. Acute non-ST elevation myocardial infarction. History of underlying coronary arteriosclerosis and previous CABG. Peripheral vessel occlusive disease. History of pacemaker implantation for underlying sick sinus syndrome. Acute on chronic kidney injury/cardiorenal syndrome. Patient has been known to have chronic stage III kidney disease. Type 2 diabetes. Benign essential hypertension. Dyslipidemia. History of hypothyroidism. Recommendation: Touch bases with the patient regarding his overall condition and suggested to the patient to discuss with his family his CODE STATUS. His overall poor clinical picture, and prognosis does not look very bright or promising Continue BiPAP and titrate accordingly maintain O2 saturation above 90% Continue Lasix , presently on 80 mg IV push every 8 hours. Continue dobutamine at 2.5 mg/kg/m Continue amiodarone and eventually transitioned to oral. Continue to monitor renal profile and renal status as well as electrolytes. Continue insulin. Continue GI and DVT prophylaxis. Cardiology was considering cardiac catheterization, however his renal status is prohibitive Overall prognosis is extremely poor and guarded. Discussed CODE STATUS with the patient, he is undecided yet, and he would like to discuss this with his family members Critical care time is over 30 minutes. We'll continue to monitor in the ICU We will continue to follow Time with Patient: Greater than 30
--- NOTE | 2022-05-10 11:18 | P.PN ---
Subjective Patient is seen for follow-up for acute injury and underlying chronic kidney disease. Baseline creatinine around 1.5-1.7 mg/dL, NKF stage III. Patient is admitted to the hospital with chest pain and ruled in for acute non- ST elevation AR. Patient also had A. fib with RVR and is currently maintained on amiodarone drip. Ejection fraction is low at about 25% and patient is currently maintained on dobutamine. Lasix was increased to 80 mg every 8 hours yesterday. 24 hour urine output slightly better at 1.9 L Serum creatinine staying at about 2.6 mg/dL. Currently on BiPAP. Patient was started on midodrine yesterday as systolic blood pressures have been staying in the 90s to low 100s Objective - Vital Signs Vital signs: Vital Signs Temp 97.8 F 05/10/22 08:00 Pulse 104 H 05/10/22 10:30 Resp 21 05/10/22 10:30 BP 109/63 05/10/22 10:15 Pulse Ox 96 05/10/22 10:30 FiO2 90 05/10/22 10:30 Intake & Output 05/09/22 05/10/22 05/10/22 18:59 06:59 18:59 Intake Total 1865 1262.501 240 Output Total 910 1015 490 Balance 955 247.501 -250 Weight 79.7 kg Intake: IV 165 170 90 0.9 Normal Saline @ 10mL/ 115 120 40 hr cefTRIAXone 1 gm In 50 50 50 Sodium Chloride 0.9% 50 ml @ 100 mls/hr IVPB Q12HR [facility] Rx#:[id number] Intake, IV Titration 500 215.501 Amount Amiodarone 450 mg In 250 Dextrose 5% in Water 250 ml @ 0.5 MG/MIN 16.667 mls/hr IV .Q15H [facility] Rx#: [id number] DOBUTamine DRIP 500 mg In 215.501 Dextrose/Water 1 250ml. bag @ 2.5 MCG/KG/MIN 5. 888 mls/hr IV .Q24H [facility] Rx#:[id number] Heparin Sod,Pork in 0.45% 250 NaCl 25,000 unit In 0.45 % NaCl 1 250ml.bag @ 12 UNITS/KG/HR 9.492 mls/hr IV .Q24H [facility] Rx#: [id number] Oral 1200 877 150 Output: Urine 910 1015 490 Other: Voiding Method Indwelling Catheter Indwelling Catheter # Bowel Movements 1 - Exam Patient is awake, mildly short of breath Maintained on high flow nasal cannula Examination of the heart S1 and S2 irregularly irregular Examination the lungs decreased breath sounds at the bases Abdomen is soft nontender Examination lower extremities shows edema 1+ bilaterally IRONER exam grossly intact - Labs CBC & Chem 7: 05/10/22 07:00 05/10/22 07:00 Labs: Abnormal Lab Results - Last 24 Hours (Table) 05/09/22 05/09/22 05/09/22 Range/Units 11:37 16:41 20:50 RBC (4.30-5.90) m/uL Hgb (13.0-17.5) gm/dL Hct (39.0-53.0) % Lymphocytes # (1.0-4.8) k/uL APTT (22.0-30.0) sec Sodium (137-145) mmol/L Chloride (98-107) mmol/L Carbon Dioxide (22-30) mmol/L BUN (9-20) mg/dL Creatinine (0.66-1.25) mg/dL Glucose (74-99) mg/dL POC Glucose (mg/dL) 176 H 157 H 205 H (70-110) mg/dL Calcium (8.4-10.2) mg/dL Alkaline Phosphatase (38-126) U/L Total Protein (6.3-8.2) g/dL Albumin (3.5-5.0) g/dL 05/10/22 05/10/22 05/10/22 Range/Units 06:33 07:00 07:00 RBC 3.71 L (4.30-5.90) m/uL Hgb 11.3 L (13.0-17.5) gm/dL Hct 33.7 L (39.0-53.0) % Lymphocytes # 0.4 L (1.0-4.8) k/uL APTT 65.0 H (22.0-30.0) sec Sodium (137-145) mmol/L Chloride (98-107) mmol/L Carbon Dioxide (22-30) mmol/L BUN (9-20) mg/dL Creatinine (0.66-1.25) mg/dL Glucose (74-99) mg/dL POC Glucose (mg/dL) 233 H (70-110) mg/dL Calcium (8.4-10.2) mg/dL Alkaline Phosphatase (38-126) U/L Total Protein (6.3-8.2) g/dL Albumin (3.5-5.0) g/dL 05/10/22 Range/Units 07:00 RBC (4.30-5.90) m/uL Hgb (13.0-17.5) gm/dL Hct (39.0-53.0) % Lymphocytes # (1.0-4.8) k/uL APTT (22.0-30.0) sec Sodium 127 L (137-145) mmol/L Chloride 95 L (98-107) mmol/L Carbon Dioxide 20 L (22-30) mmol/L BUN 78 H (9-20) mg/dL Creatinine 2.66 H (0.66-1.25) mg/dL Glucose 236 H (74-99) mg/dL POC Glucose (mg/dL) (70-110) mg/dL Calcium 7.7 L (8.4-10.2) mg/dL Alkaline Phosphatase 191 H (38-126) U/L Total Protein 5.2 L (6.3-8.2) g/dL Albumin 2.7 L (3.5-5.0) g/dL Microbiology - Last 24 Hours (Table) 05/07/22 12:00 Gram Stain - Preliminary Pleural Fluid Body Fluid Culture - Preliminary 05/05/22 18:35 Blood Culture - Preliminary Blood No Growth after 96 hours 05/05/22 18:50 Blood Culture - Preliminary Blood No Growth after 96 hours Assessment and Plan Assessment: 1. Acute kidney injury secondary to cardiorenal syndrome currently maintained on dobutamine and IV Lasix. Serum creatinine staying at about 2.6 with grams per deciliter. 2. CK D stage III Baseline creatinine about 1.7 mg/dL 3. Acute non-ST elevation AR 4. Acute hypoxic respiratory failure maintained on BiPAP 5. Type 2 diabetes 6. Hyponatremia, hypervolemic Plan: Increase midodrine for 5 mg 3 times a day Continue Repeat labs in a.m. with IV Lasix at 80 mg every 8 hours Add Zaroxolyn
[2022-05-10] MEDS ORDERED: TOLVAPTAN 15 MG 1/2 TABLET PO ONE (11:19)
--- NOTE | 2022-05-10 11:21 | PN ---
PROGRESS NOTE HISTORY OF PRESENT ILLNESS: Gt is an 86-year-old gentleman with known coronary artery disease, status post bypass, persistent atrial fibrillation, sick sinus syndrome, status post permanent pacemaker, CAD status post CABG, cardiomyopathy, and cardiogenic shock. He is currently on dobutamine with improving urine output. He is also on Lasix 80 mg q.8 hours. Overall, his condition has remained essentially status quo, still requiring BiPAP with a FiO2 of 90%. PHYSICAL EXAMINATION: VITAL SIGNS: Heart rate is 105 beats per minute. Blood pressure is 110/60, respiratory rate is 18. NECK: He has elevated JVD. CHEST: Continues to have episodes of chest discomfort. I do not hear any crackles or rhonchi. HEART: Reveals first and second heart sounds. Systolic murmur at the apex. ABDOMEN: Soft. EXTREMITIES: Reveals 1+ edema. Peripheral pulses are felt. LABORATORY DATA: Labs show a hemoglobin of 11.3, platelet count is 227. Potassium is 3.9, BUN is 78, which is unchanged from yesterday and creatinine is 2.6, which is unchanged from yesterday. ASSESSMENT: 1. Acute exacerbation of chronic systolic heart failure. 2. Acute non-ST segment elevation myocardial infarction. 3. Cardiorenal syndrome. PLAN: I will continue heparin and dobutamine. I will stop the dobutamine tomorrow. Continue the Lasix at the current dose. Prognosis is guarded. I will stop the Imdur and start him on nitroglycerin paste. Continue the Ranexa. MMJESUS / VINCENTN: [id number] /
[2022-05-10 11:39] LABS: Glucose,Whole Blood 261 mg/dL (70-110)
--- NOTE | 2022-05-10 14:23 | P.PN ---
Progress Note - Text Progress Note Date: 05/10/22 Chief Complaint: Chest pain This is a pleasant 86-year-old patient who follows with Dr. Ag Burns. Patient had a coronary bypass in 2000. Chronic stable medical conditions include diabetes type 2, hypertension, hyperlipidemia, PAD, carotid stenosis, CAD, ischemic cardiomyopathy, loop recorder since 2019. 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 Conroy and also with Dr. Lowry in [place]. On April 26 for sick sinus syndrome had a permanent pacemaker placed. Prior to this he was having bradycardia and his Lopressor was discontinued. In the last 2 days patient started having shortness of breath. No edema. No cough. No sputum. No fever no chills. Also started feeling the burning sensation across the chest. The last 24 hours. Also going up to his left shoulder. No obvious relieving or precipitating factors. Heart rate in the ER was over 100. Baseline heart rate is around 60. Overnight patient became more short of breath. 1 dose of IV Lasix 80 mg was given. Need close to 400 mL of urine. Also concern about pneumonia and some started on antibiotics. Patient did require BiPAP for shortness of breath so moved to the ICU Admitted with pneumonia, acute hypoxic respiratory failure, acute and chronic CHF, acute non-Q wave VA, and acute kidney injury/ATN. IV heparin, IV ceftriaxone, oxygen, IV Lasix, 05/07/2022: ICU: Underwent bilateral thoracentesis by Dr. Ring 1500 mL removed from the right site and 1350 from the left side. Currently unable with the 60 L and 93%. Drips include amiodarone, nitroglycerin, IV heparin. Reclining in bed, awake, tired. Eating some 05/08/2022: ICU. Up in a recliner. Remains on airvo 60/90. Eating about 50%. Given lactulose and Metamucil for a BM. Remains in atrial fibrillation controlled. On IV Lasix. IV dobutamine. Creatinine creeping up. 05/09/2022: ICU. Remains in atrial fibrillation controlled. Drips include IV heparin and IV dobutamine. Eating little. And showed being added. On AIRVO. 60/90. Tired. Samsca 1 dose given by nephrology. 05/10/2022: ICU. Atrial fibrillation uncontrolled. Lopressor 12.5 by mouth 3 times a day added. Remains on IV dobutamine and IV heparin. Patient was on BiPAP overnight now on iairvo. Decreased appetite. Change diet to ground. Midodrine dose increased. Also received a dose of Samsca. Had some chest pain. Nitropaste added by cardiology. Tired. Remains on IV Lasix. Creatinine creeping up further Active Medications Acetaminophen (Acetaminophen Tab 325 Mg Tab) 650 mg PO Q6HR PRN PRN Reason: Mild Pain or Fever > 100.5 Last Admin: 05/07/22 23:02 Dose: 650 mg Alprazolam (Alprazolam 0.25 Mg Tab) 0.25 mg PO Q8H PRN PRN Reason: Anxiety Last Admin: 05/09/22 09:34 Dose: 0.25 mg Amiodarone HCl (Amiodarone 200 Mg Tab) 200 mg PO BID [facility] Last Admin: 05/10/22 08:41 Dose: 200 mg Aspirin (Aspirin 81 Mg) 81 mg PO DAILY [facility] Last Admin: 05/10/22 08:41 Dose: 81 mg Atorvastatin Calcium (Atorvastatin 80 Mg Tab) 80 mg PO HS [facility] Last Admin: 05/09/22 21:16 Dose: 80 mg Calcitriol (Calcitriol 0.25 Mcg Cap) 0.25 mcg PO DAILY [facility] Last Admin: 05/10/22 09:04 Dose: 0.25 mcg Dextrose/Water (Dextrose 50% Syringe 50 Ml) 25 ml IVP PER PROTOCOL PRN; Protocol PRN Reason: Hypoglycemia Dextrose/Water (Dextrose 50% Syringe 50 Ml) 50 ml IVP PER PROTOCOL PRN; Protocol PRN Reason: Hypoglycemia Famotidine (Famotidine 20 Mg Tab) 20 mg PO DAILY [facility] Last Admin: 05/10/22 08:41 Dose: 20 mg Furosemide (Furosemide 10 Mg/Ml 10 Ml Vial) 80 mg IV Q8HR [facility] Last Admin: 05/10/22 08:41 Dose: 80 mg Heparin Sodium (Porcine) (Heparin Sodium 1,000 Un/Ml (10ml Vl)) 0 unit IV PER PROTOCOL PRN; Protocol PRN Reason: Low PTT Heparin Sodium/Sodium Chloride (25,000 unit/ Sodium Chloride) 250 mls @ 9.492 mls/hr IV .Q24H [facility]; Protocol Last Admin: 05/09/22 19:53 Dose: 12 units/kg/hr, 9.492 mls/hr Ceftriaxone Sodium 1 gm/ (Sodium Chloride) 50 mls @ 100 mls/hr IVPB Q12HR [facility]; Protocol Last Admin: 05/10/22 08:42 Dose: 100 mls/hr Dobutamine HCl/Dextrose 500 mg (/ IV Solution) 250 mls @ 5.888 mls/hr IV .Q24H [facility] Last Admin: 05/09/22 21:59 Dose: 2.5 mcg/kg/min, 5.888 mls/hr Insulin Aspart (Insulin Aspart (Novolog) 100 Unit/Ml Vial) 0 unit SQ ACHS [facility]; Protocol Last Admin: 05/10/22 12:00 Dose: 6 unit Lactulose (Lactulose 20 Gm/30 Ml Cup) 20 gm PO DAILY PRN PRN Reason: Constipation Levothyroxine Sodium (Levothyroxine 125 Mcg Tab) 125 mcg PO DAILY [facility] Last Admin: 05/10/22 09:04 Dose: 125 mcg Metolazone (Metolazone 5 Mg Tab) 5 mg PO DAILY [facility] Metoprolol Tartrate (Metoprolol Tartrate 12.5 Mg Tab) 12.5 mg PO TID [facility] Last Admin: 05/10/22 10:29 Dose: 12.5 mg Midodrine (Midodrine 5 Mg Tab) 5 mg PO AC-TID [facility] Last Admin: 05/10/22 12:49 Dose: 5 mg Miscellaneous Information (Potassium Replacement Protocol 1 Each Misc) 1 each MISCELLANE DAILY PRN; Protocol PRN Reason: Per Protocol Morphine Sulfate (Morphine Sulfate 4 Mg/Ml Syringe) 4 mg IV Q4HR PRN PRN Reason: Severe Pain (Scale 7 to 10) Last Admin: 05/10/22 08:40 Dose: 4 mg Naloxone HCl (Naloxone 0.4 Mg/Ml 1 Ml Vial) 0.2 mg IV Q2M PRN PRN Reason: Opioid Reversal Nitroglycerin (Nitroglycerin Sl Tabs 0.4 Mg Tab) 0.4 mg SUBLINGUAL Q10M PRN PRN Reason: Chest Pain Last Admin: 05/09/22 22:34 Dose: 0.4 mg Nitroglycerin (Nitroglycerin Oint 1 Inch/Gm Packet) 1 inch TOPICAL Q8HR [facility] Last Admin: 05/10/22 10:29 Dose: 1 inch Ondansetron HCl (Ondansetron 4 Mg/2 Ml Vial) 4 mg IVP Q8HR PRN PRN Reason: Nausea And Vomiting Psyllium Hydrophilic Mucilloid (Psyllium Husk 100% 6 Gm Packet) 6 gm PO DAILY [facility] Last Admin: 05/10/22 08:41 Dose: 6 gm Ranolazine (Ranolazine 500 Mg Tab.Er.12h) 500 mg PO BID [facility] Last Admin: 05/10/22 09:03 Dose: 500 mg Zolpidem Tartrate (Zolpidem 5 Mg Tab) 2.5 mg PO HS PRN PRN Reason: Insomnia Last Admin: 05/08/22 20:45 Dose: 2.5 mg Past medical history to include: Diabetes, GERD, hypertension, hyperlipidemia, osteoarthritis, VA, chronic kidney disease, hypothyroid, CAD with bypass about 20 years ago. Permanent pacemaker for sick sinus syndrome Social history: Occasional cigar. In the remote past. No alcohol. . Retired Family history: Reviewed, noncontributory to presentation Physical examination: VITAL SIGNS: 97.6, 123, 19, 117/76, 97% on Airvo GENERAL: reclining in bed, tired, short of breath. Permanent pacemaker EYES: Pupils equal. Conjunctiva normal. HEENT: External appearance of nose and ears normal, oral cavity grossly normal. NECK: JVD unable to assess; masses not palpable. HEART: Heart sounds irregular; no edema. LUNGS: Respiratory rate increased; decreased breath sounds. ABDOMEN: Soft, nontender, liver spleen not palpable, no masses palpable. PSYCH: Alert and oriented x3; mood and affect tired. MUSCULOSKELETAL:No Clubbing/cyanosis;muscles-grossly intact, OA INVESTIGATIONS, reviewed in the clinical context: 05/10/2022: White count 8.8 hemoglobin 11.3 sodium 127 potassium 3.9 BUN 78 creatinine 2.66 05/09/2022: WBC 11 hemoglobin 11 platelets 209 sodium 127 potassium 3.6 BUN 78 creatinine 2.61 05/08/2022: WBC 12.9 hemoglobin 11.8 potassium 4 BUN 35 creatinine 2.63 05/07/2022: WBC 13.7 hemoglobin 11.3 platelets 2063.8. 60 creatinine 2.37 05/06/2022: WBC 12.5 hemoglobin 11.5 platelets 216 potassium 4.4 BUN 49 creatinine 2.25 Admission labs: WBC 14.1 in globin 12.1 platelets 28 potassium 4.9. 42 creatinine 1.77 Troponin I 0.014, 0.707, 0.904, 1.5, 4.7 Influenza type A/diabetes/RSV/COVID-19: Not detected EKG tracing personally reviewed by me-atrial fibrillation, heart rate 110 Chest x-ray film personally reviewed by me-left lower lobe infiltrate, venous prominent edema Previous labs: Creatinine 1.46 in October 2021 Assessment and plan: -Acute non-Q-wave VA in a patient with known CAD Aspirin, IV heparin -Left lower lobe pneumonia, suspect gram-negative organism Ceftriaxone 1 g every 12. Procalcitonin 1.29 -Acute hypoxic respiratory failure secondary to CHF and pneumonia: Not improving airvo at 60 L/93% -IV heparin monitoring Follow PTT -Acute kidney injury, likely ATN's combination of cardiorenal syndrome: Worsening Admission creatinine 1.77-up to 2.66 -Chronic kidney disease suspect nephrosclerosis stage III Baseline creatinine 1.46 -CAD with a prior history of coronary bypass. does follow Dr. Conroy Aspirin, beta jon, Lipitor -Permanent pacemaker placed on 04/26/2022 for sick sinus syndrome -Acute on chronic congestive heart failure exacerbation. From ischemic cardiomyopathy EF 40-45%, slow to respond IV Lasix 80 mg every 8, dobutamine drip -Essential hypertension Lopressor 12.5 by mouth 3 times a day, Cordarone 200 mg twice a day -Hyperlipidemia Lipitor 80 mg daily at bedtime -Persistent atrial fibrillation, rapid ventricular rate on presentation Lopressor. IV heparin, Cordarone 200 mg twice daily -Hypothyroid Synthroid 125 g a day -Diabetes mellitus type 2, chronic insulin Accu-Cheks and sliding scale. -Hyponatremia, from decreased solute intake Samsca given -Full code IV heparin. IV ceftriaxone. IV Lasix. IV dobutamine. 1 dose of Samsca repeated today.. Prognosis guarded. Change diet to ground. Follow with consultants
[2022-05-10 16:23] LABS: Glucose,Whole Blood 286 mg/dL (70-110)
[2022-05-10] MEDS: HEPARIN SOD,PORK IN 0.45% NACL 25,000 UNIT in 0.45% NACL 1 250ML.BAG IV SCH (16:58)
[2022-05-10 20:22] LABS: Glucose,Whole Blood 217 mg/dL (70-110)
[2022-05-10] MEDS: ATORVASTATIN 80 MG TAB PO SCH (20:56)
[2022-05-10] MEDS: ALPRAZolam 0.25 MG TAB PO PRN (21:08)
[2022-05-11] MEDS: FUROSEMIDE 10 MG/ML 10 ML VIAL IV SCH ×4 (00:14→23:31)
[2022-05-11] MEDS: NITROGLYCERIN OINT 1 INCH/GM PACKET TOPICAL SCH ×4 (00:15→23:32)
[2022-05-11 06:15] LABS: Glucose,Whole Blood 62 mg/dL (70-110)
[2022-05-11] MEDS: INSULIN ASPART (NovoLOG) 100 UNIT/ML VIAL SQ SCH ×4 (06:21→20:23)
[2022-05-11] MEDS: ALPRAZolam 0.25 MG TAB PO PRN ×2 (06:24→21:31)
[2022-05-11] MEDS: MIDODRINE 5 MG TAB PO SCH ×3 (06:24→15:12)
[2022-05-11 06:33] LABS: Albumin 2.9 g/dL (3.5-5.0); Calcium 7.9 mg/dL (8.4-10.2); Magnesium 2.6 mg/dL (1.6-2.3); Total Bilirubin 0.7 mg/dL (0.2-1.3); Total Protein 5.6 g/dL (6.3-8.2)
[2022-05-11 06:35] LABS: Basophils % (A) 0 %; Eosinophils # (A) 0.1 k/uL (0-0.7); Eosinophils % (A) 1 %; HGB 11.2 gm/dL (13.0-17.5); Lymphocytes # (A) 0.6 k/uL (1.0-4.8); Lymphocytes % (A) 6 %; MCH 29.6 pg (25.0-35.0); MCV 89.5 fL (80.0-100.0); Monocytes # (A) 0.9 k/uL (0-1.0); Monocytes % (A) 8 %; Neutrophils # (A) 9.3 k/uL (1.3-7.7); Neutrophils % (A) 84 %; Platelet Count 255 k/uL (150-450); RBC 3.79 m/uL (4.30-5.90); RDW 13.1 % (11.5-15.5); WBC 11.1 k/uL (3.8-10.6)
[2022-05-11 06:50] LABS: Glucose,Whole Blood 257 mg/dL (70-110)
[2022-05-11 06:56] LABS: Potassium 4.1 mmol/L (3.5-5.1)
[2022-05-11 07:50] VITALS: BMI 26.4
--- NOTE | 2022-05-11 08:08 | XR ---
EXAMINATION TYPE: XR chest 1V portable DATE OF EXAM: 05/11/2022 HISTORY: Shortness of breath. COMPARISON: 05/10/2022 TECHNIQUE: Single view of the chest is submitted. FINDINGS: Demonstrated are scattered senescent parenchymal change. Persistent cardiomegaly with pulmonary venous congestion basilar infiltrates and pleural effusions. N o significant change appreciated. Hilar and mediastinal structures are within normal limits. Degenerative changes are seen of the dorsal spine. IMPRESSION: 1. Able chest
[2022-05-11] MEDS: metOLazone 5 MG TAB PO SCH (08:42)
[2022-05-11] MEDS: AMIODARONE 200 MG TAB PO SCH ×2 (08:42→21:29)
[2022-05-11] MEDS: PSYLLIUM HUSK 100% 6 GM PACKET PO SCH (08:42)
[2022-05-11] MEDS: METOPROLOL TARTRATE 12.5 MG TAB PO SCH ×3 (08:42→21:30)
[2022-05-11] MEDS: FAMOTIDINE 20 MG TAB PO SCH (08:42)
[2022-05-11] MEDS: ASPIRIN 81 MG PO SCH (08:43)
[2022-05-11] MEDS: LEVOTHYROXINE 125 MCG TAB PO SCH (08:43)
[2022-05-11] MEDS: RANOLAZINE 500 MG TAB.ER.12H PO SCH ×2 (08:43→21:51)
[2022-05-11] MEDS: DOBUTamine DRIP 500 MG in DEXTROSE/WATER 1 250ML.BAG IV SCH (08:44)
[2022-05-11] MEDS ORDERED: APIXABAN 2.5 MG TABLET PO SCH (10:45)
--- NOTE | 2022-05-11 11:23 | P.PN ---
Subjective Progress Note Date: 05/11/22 Principal diagnosis: Acute hypoxic respiratory failure secondary to acute systolic congestive heart failure This is an 86-year-old male patient with known history of extensive cardiac disease, coronary artery disease, previous bypass surgery, congestion heart failure and chronic atrial fibrillation. The patient underwent a recent pacemaker insertion on 04/26/2022 for an underlying sick sinus syndrome. The patient presented to the hospital because of worsening shortness of breath and some chest pain. The patient was found to be in CHF based on the chest that was done in the emergency department. The patient was quite short of breath. Initially was placed on a BiPAP at a pressures of 10/5 and the patient was diuresed with IV Lasix and the patient was subsequently switched to oxygen at 8 L, nasal cannula. His EKG showing atrial fibrillation, LBBB pattern, irregular, and his blood work showed a white cell count of 12.5 with a hemoglobin of 11.5 and a platelet count of 216. Sodium is at 136 with a BUN of 42 and a creatinine of 1.77. Troponins are 0.7. Peak at 4.7 as the patient underwent and had a acute non-ST segment elevation myocardial infarction. ProBNP level is 9550. UA was negative. Viral screen including influenza was negative. Subsequent creat inine from this morning this morning showed a creatinine of 2.25. The patient was diuresed overnight and the patient is improving currently is on 8 L of oxygen by nasal cannula. Based on an acute non-STEMI, the patient was started on IV heparin. The patient is on diuretics with IV Lasix. The patient is currently on 50 mg IV every 12 hours. The patient is free of any chest pain. The patient will be seen by cardiology. The patient will be also seen by nephrology. Chest x-ray is consistent with CHF. He has not required any pressors. WBC count at 12.5 with a hemoglobin of 11.5. On 05/07/2022, the patient is BiPAP dependent. He was on 8 L of O2 nasal cannula. He was unable to tolerate high flow oxygen. Subsequently was placed back on a BiPAP at a pressure of 10/5 cm of water with an FiO2 of 100%. His current pulse ox is 93% and chest x-ray still showing CHF and pulmonary edema. Noted the patient had an acute non-ST segment elevation myocardial infarction. Troponin was at 4. Echocardiogram was done yesterday and there was a drop in ejection fraction which is down to 20-25% and is same time the patient had valvular abnormalities with moderate mitral regurgitation and mild to moderate aortic stenosis and a small pericardial effusion. The patient is currently on IV heparin. The patient remains in atrial fibrillation with a controlled rate. In view of his CHF, the patient was subjected to diuretics. The patient is currently on Lasix and the patient is receiving Lasix at a dose of 60 mg every 12 hours. The response has been essentially suboptimal. The patient has been in a negative fluid balance of 1.1 L. His creatinine today is at 2.3 with a BUN of 60 and a sodium level is at 136. The results 15.7. UA is negative. Ultrasound of the kidneys showed no evidence of hydronephrosis. There is prostate enlargement. The patient has a Tucker catheter in place for now. Neurologically, he is alert and awake. He is on no pressors. Is on metoprolol at a dose of 50 mg by mouth twice a day. Is also on aspirin 81 mg by mouth daily. No other significant events overnight. 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 05/08/2022, the patient is off the BiPAP. As mentioned, the patient has an acute non-ST segment elevation myocardial infarction and the patient also went into the opposite heart failure with an ejection fraction of 20-25%. She went into acute pulmonary edema and bilateral pleural effusions. As such, I did bilateral thoracentesis on this patient. I drained approximately 1.6 L of the right arm 1.35 on the left. He was taken off the BiPAP accordingly and currently is on high flow oxygen with FiO2 of 90% and a flow of 60. He is using the incentive spirometer. He remains on IV heparin for now. The patient was seen by equal opportunity officer today. He was started on dobutamine at 2.5 mcg/kg/m. He was also started on amiodarone. His cardiac rhythm is a 2 fibrillation. His lites echoes at 12.9 with a hemoglobin 11.8. There is no interval worsening of the renal function and the creatinine is up to 2.6 with a BUN of 75 and a sodium level of 132. The pleural fluid is transudate based on a low protein and LDH criteria and this is essentially consistent with CHF. Otherwise, he is breathing is mildly labored. He does not have any chest pain for now. [place] was having chest pain yesterday. He remains on Lasix at a dose of 80 mg every 12 hours. He remains on empiric antibiotic coverage. He is on aspirin. His overall fluid balance for yesterday has been -2.7 L at least. Urine output is in order of 15 mL an hour. Reevaluated today on 05/09/22, patient remains on BiPAP with IPAP of 10 and EPAP of 500% FiO2. Remains on Rocephin, he is on heparin drip, he is also on Dobutrex drip at 2.5 mcg/kg/m, he is also on amiodarone drip at 0.5 mg/m. Surprisingly the patient is comfortable, does not seem to be in distress although he is requiring significantly high FiO2/100%. Chest x-ray continues to show evidence of pulmonary edema. Patient is on Lasix every 12 hours. And he seems to be responding well to Lasix. His WBC count today is 11 hemoglobin is 11 electrolytes showed a sodium of 127 potassium 3.6 chloride 97 bicarb is 21 BUN is 78 creatinine 2.64. Reevaluated today on 05/10/22, patient remains extremely marginal at best. Remains on airvo at 60 L flow and 90% FiO2 remains on heparin drip, dobutamine drip at 2.5 mcg/kg/min O2 saturation is marginal, chest x-ray is still showing evidence of pulmonary edema. He is intermittently on BiPAP 10/5/90%, fluid that was drained by Dr. Ring is transudate of consistent with congestive heart failure. Last night the patient has some chest pain resolved with nitroglycerin sublingually. Overall the patient is not doing too well, and today I had a long discussion with the patient regarding CODE STATUS, explained time that his condition seems to be terminal with has severe LV dysfunction. Patient is undecided tachycardic CODE STATUS at this point, he would like to discuss it with his family members. Electrolytes showed a sodium of 127 renal profile is abnormal with a BUN of 78 creatinine 2.66. Reevaluated today on , patient remains in the ICU, remains on 60 L flow via airvo, 75% FiO2 from 90% his O2 saturation is in the low 90s. Roughly about 92%. Remains on dobutamine at 2.5 mcg/kg/m remains on heparin. Remains on high dose Lasix. Overall the patient is about the same. Again overall the clinical picture does not look very promising does not look bright. Chest x-ray continues to show evidence of pulmonary edema may be slightly improved compared to the left chest x-ray. Patient remains in a negative balance, about 1 L in the last 24 hours Objective - Vital Signs Vital signs: Vital Signs Temp 97.7 F 05/11/22 07:30 Pulse 82 05/11/22 10:00 Resp 25 H 05/11/22 10:00 BP 108/72 05/11/22 10:00 Pulse Ox 96 05/11/22 10:14 FiO2 75 05/11/22 10:57 Intake & Output 05/10/22 05/11/22 05/11/22 18:59 06:59 18:59 Intake Total 648.123 520 412.608 Output Total 1025 1065 330 Balance -376.877 -545 82.608 Weight 79.7 kg 83.7 kg Intake: IV 160 170 90 0.9 Normal Saline @ 10mL/ 100 120 40 hr Invasive Line 3 10 cefTRIAXone 1 gm In 50 50 50 Sodium Chloride 0.9% 50 ml @ 100 mls/hr IVPB Q12HR [facility] Rx#:[id number] Intake, IV Titration 200.123 204.608 Amount DOBUTamine DRIP 500 mg In 204.608 Dextrose/Water 1 250ml. bag @ 2.5 MCG/KG/MIN 5. 888 mls/hr IV .Q24H [facility] Rx#:[id number] Heparin Sod,Pork in 0.45% 200.123 NaCl 25,000 unit In 0.45 % NaCl 1 250ml.bag @ 12 UNITS/KG/HR 9.492 mls/hr IV .Q24H FELIPE Rx#: [id number] Oral 288 350 118 Output: Urine 1025 1065 330 Stool 0 Other: Voiding Method Indwelling Catheter Indwelling Catheter Indwelling Catheter - Exam Physical Exam: Revealed an 86-year-old white male on high flow and high FiO2 via airvo more comfortable today compared to yesterday Head: Atraumatic, normocephalic. HEENT:[Neck is supple.] [No neck masses.] [No thyromegaly.] [No JVD.] Chest: [Crackles at the bases, no rhonchi and no wheezes. Cardiac Exam: [Normal S1 and S2, no S3 gallop, no murmur.] Abdomen: [Soft, nontender, no megaly, no rebound, no guarding, normal bowel sounds.] Extremities: [No clubbing, no edema, no cyanosis.] Neurological Exam: [No focal neurologic deficit.] Alert oriented 3. Psychiatric: Normal mood, affect and normal status examination. Skin: No rashes. - Labs CBC & Chem 7: 05/11/22 05:32 05/11/22 05:31 Labs: Abnormal Lab Results - Last 24 Hours (Table) 05/10/22 05/10/22 05/10/22 Range/Units 11:37 16:21 20:21 WBC (3.8-10.6) k/uL RBC (4.30-5.90) m/uL Hgb (13.0-17.5) gm/dL Hct (39.0-53.0) % Neutrophils # (1.3-7.7) k/uL Lymphocytes # (1.0-4.8) k/uL APTT (22.0-30.0) sec Sodium (137-145) mmol/L Chloride (98-107) mmol/L Carbon Dioxide (22-30) mmol/L BUN (9-20) mg/dL Creatinine (0.66-1.25) mg/dL Glucose (74-99) mg/dL POC Glucose (mg/dL) 261 H 286 H 217 H (70-110) mg/dL Calcium (8.4-10.2) mg/dL Magnesium (1.6-2.3) mg/dL AST (17-59) U/L Alkaline Phosphatase (38-126) U/L Total Protein (6.3-8.2) g/dL Albumin (3.5-5.0) g/dL 05/11/22 05/11/22 05/11/22 Range/Units 05:31 05:31 05:32 WBC 11.1 H (3.8-10.6) k/uL RBC 3.79 L (4.30-5.90) m/uL Hgb 11.2 L (13.0-17.5) gm/dL Hct 34.0 L (39.0-53.0) % Neutrophils # 9.3 H (1.3-7.7) k/uL Lymphocytes # 0.6 L (1.0-4.8) k/uL APTT 63.5 H (22.0-30.0) sec Sodium 130 L (137-145) mmol/L Chloride 97 L (98-107) mmol/L Carbon Dioxide 21 L (22-30) mmol/L BUN 86 H (9-20) mg/dL Creatinine 2.65 H (0.66-1.25) mg/dL Glucose 174 H (74-99) mg/dL POC Glucose (mg/dL) (70-110) mg/dL Calcium 7.9 L (8.4-10.2) mg/dL Magnesium 2.6 H (1.6-2.3) mg/dL AST 60 H (17-59) U/L Alkaline Phosphatase 179 H (38-126) U/L Total Protein 5.6 L (6.3-8.2) g/dL Albumin 2.9 L (3.5-5.0) g/dL 05/11/22 05/11/22 Range/Units 06:14 06:48 WBC (3.8-10.6) k/uL RBC (4.30-5.90) m/uL Hgb (13.0-17.5) gm/dL Hct (39.0-53.0) % Neutrophils # (1.3-7.7) k/uL Lymphocytes # (1.0-4.8) k/uL APTT (22.0-30.0) sec Sodium (137-145) mmol/L Chloride (98-107) mmol/L Carbon Dioxide (22-30) mmol/L BUN (9-20) mg/dL Creatinine (0.66-1.25) mg/dL Glucose (74-99) mg/dL POC Glucose (mg/dL) 62 L 257 H (70-110) mg/dL Calcium (8.4-10.2) mg/dL Magnesium (1.6-2.3) mg/dL AST (17-59) U/L Alkaline Phosphatase (38-126) U/L Total Protein (6.3-8.2) g/dL Albumin (3.5-5.0) g/dL Microbiology - Last 24 Hours (Table) 05/07/22 12:00 Gram Stain - Final Pleural Fluid Body Fluid Culture - Final 05/05/22 18:50 Blood Culture - Preliminary Blood No Growth after 120 hours 05/05/22 18:35 Blood Culture - Preliminary Blood No Growth after 120 hours Assessment and Plan Assessment: Impression: Acute hypoxic respiratory failure secondary to acute systolic congestive heart failure. Patient has an ejection fraction of 20-25%. In addition to this the patient has moderate mitral regurgitation, and mild to moderate aortic stenosis, all contributing to his congestive heart failure. Bilateral pleural effusions, fluid was noted to be transudate of based on thoracentesis. Chronic atrial fibrillation, patient remains on amiodarone drip. Acute non-ST elevation myocardial infarction. History of underlying coronary arteriosclerosis and previous CABG. Peripheral vessel occlusive disease. History of pacemaker implantation for underlying sick sinus syndrome. Acute on chronic kidney injury/cardiorenal syndrome. Patient has been known to have chronic stage III kidney disease. Type 2 diabetes. Benign essential hypertension. Dyslipidemia. History of hypothyroidism. Recommendation: Continue BiPAP and titrate accordingly maintain O2 saturation above 90% Continue Lasix Continue dobutamine at 2.5 mg/kg/m Continue amiodarone Continue to monitor renal profile and renal status as well as electrolytes. Continue insulin. Continue GI and DVT prophylaxis. Overall prognosis is extremely poor and guarded. We'll continue to monitor in the ICU We will continue to follow Time with Patient: Less than 30
--- NOTE | 2022-05-11 11:55 | P.PN ---
Subjective Patient is seen for follow-up for acute injury and underlying chronic kidney disease. Baseline creatinine around 1.5-1.7 mg/dL, NKF stage III. Patient is admitted to the hospital with chest pain and ruled in for acute non- ST elevation ND. Patient also had A. fib with RVR and is status post amiodarone drip. Ejection fraction is low at about 25% and patient is currently maintained on dobutamine. Discontinued this morning Lasix was increased to 80 mg every 8 hour. Zaroxolyn was added 24 hour urine output at 2.0 L Serum creatinine staying at about 2.6 mg/dL. Currently on high flow oxygen Patient was started on midodrine as systolic blood pressures have been staying in the 90s to low 100s Dobutamine discontinued as morning. Objective - Vital Signs Vital signs: Vital Signs Temp 97.7 F 05/11/22 07:30 Pulse 96 05/11/22 11:30 Resp 28 H 05/11/22 11:30 BP 109/63 05/11/22 11:30 Pulse Ox 91 L 05/11/22 11:30 FiO2 75 05/11/22 11:30 Intake & Output 05/10/22 05/11/22 05/11/22 18:59 06:59 18:59 Intake Total 648.123 520 422.608 Output Total 1025 1065 435 Balance -376.877 -545 -12.392 Weight 79.7 kg 83.7 kg Intake: IV 160 170 100 0.9 Normal Saline @ 10mL/ 100 120 50 hr Invasive Line 3 10 cefTRIAXone 1 gm In 50 50 50 Sodium Chloride 0.9% 50 ml @ 100 mls/hr IVPB Q12HR [facility] Rx#:[id number] Intake, IV Titration 200.123 204.608 Amount DOBUTamine DRIP 500 mg In 204.608 Dextrose/Water 1 250ml. bag @ 2.5 MCG/KG/MIN 5. 888 mls/hr IV .Q24H [facility] Rx#:[id number] Heparin Sod,Pork in 0.45% 200.123 NaCl 25,000 unit In 0.45 % NaCl 1 250ml.bag @ 12 UNITS/KG/HR 9.492 mls/hr IV .Q24H [facility] Rx#: [id number] Oral 288 350 118 Output: Urine 1025 1065 435 Stool 0 Other: Voiding Method Indwelling Catheter Indwelling Catheter Indwelling Catheter - Exam Patient is awake, mildly short of breath Maintained on high flow nasal cannula Examination of the heart S1 and S2 irregularly irregular Examination the lungs decreased breath sounds at the bases Abdomen is soft nontender Examination lower extremities shows edema 1+ bilaterally [facility] [employer] exam grossly intact - Labs CBC & Chem 7: 05/11/22 05:32 05/11/22 05:31 Labs: Abnormal Lab Results - Last 24 Hours (Table) 05/10/22 05/10/22 05/11/22 Range/Units 16:21 20:21 05:31 WBC (3.8-10.6) k/uL RBC (4.30-5.90) m/uL Hgb (13.0-17.5) gm/dL Hct (39.0-53.0) % Neutrophils # (1.3-7.7) k/uL Lymphocytes # (1.0-4.8) k/uL APTT (22.0-30.0) sec Sodium 130 L (137-145) mmol/L Chloride 97 L (98-107) mmol/L Carbon Dioxide 21 L (22-30) mmol/L BUN 86 H (9-20) mg/dL Creatinine 2.65 H (0.66-1.25) mg/dL Glucose 174 H (74-99) mg/dL POC Glucose (mg/dL) 286 H 217 H (70-110) mg/dL Calcium 7.9 L (8.4-10.2) mg/dL Magnesium 2.6 H (1.6-2.3) mg/dL AST 60 H (17-59) U/L Alkaline Phosphatase 179 H (38-126) U/L Total Protein 5.6 L (6.3-8.2) g/dL Albumin 2.9 L (3.5-5.0) g/dL 05/11/22 05/11/22 05/11/22 Range/Units 05:31 05:32 06:14 WBC 11.1 H (3.8-10.6) k/uL RBC 3.79 L (4.30-5.90) m/uL Hgb 11.2 L (13.0-17.5) gm/dL Hct 34.0 L (39.0-53.0) % Neutrophils # 9.3 H (1.3-7.7) k/uL Lymphocytes # 0.6 L (1.0-4.8) k/uL APTT 63.5 H (22.0-30.0) sec Sodium (137-145) mmol/L Chloride (98-107) mmol/L Carbon Dioxide (22-30) mmol/L BUN (9-20) mg/dL Creatinine (0.66-1.25) mg/dL Glucose (74-99) mg/dL POC Glucose (mg/dL) 62 L (70-110) mg/dL Calcium (8.4-10.2) mg/dL Magnesium (1.6-2.3) mg/dL AST (17-59) U/L Alkaline Phosphatase (38-126) U/L Total Protein (6.3-8.2) g/dL Albumin (3.5-5.0) g/dL 05/11/22 Range/Units 06:48 WBC (3.8-10.6) k/uL RBC (4.30-5.90) m/uL Hgb (13.0-17.5) gm/dL Hct (39.0-53.0) % Neutrophils # (1.3-7.7) k/uL Lymphocytes # (1.0-4.8) k/uL APTT (22.0-30.0) sec Sodium (137-145) mmol/L Chloride (98-107) mmol/L Carbon Dioxide (22-30) mmol/L BUN (9-20) mg/dL Creatinine (0.66-1.25) mg/dL Glucose (74-99) mg/dL POC Glucose (mg/dL) 257 H (70-110) mg/dL Calcium (8.4-10.2) mg/dL Magnesium (1.6-2.3) mg/dL AST (17-59) U/L Alkaline Phosphatase (38-126) U/L Total Protein (6.3-8.2) g/dL Albumin (3.5-5.0) g/dL Microbiology - Last 24 Hours (Table) 05/07/22 12:00 Gram Stain - Final Pleural Fluid Body Fluid Culture - Final 05/05/22 18:50 Blood Culture - Preliminary Blood No Growth after 120 hours 11/24/22 18:35 Blood Culture - Preliminary Blood No Growth after 120 hours Assessment and Plan Assessment: 1. Acute kidney injury secondary to cardiorenal syndrome currently maintained on dobutamine and IV Lasix. Serum creatinine staying at about 2.6 with grams per deciliter. 2. CK D stage III Baseline creatinine about 1.7 mg/dL 3. Acute non-ST elevation ND 4. Acute hypoxic respiratory failure maintained on BiPAP. Etiology CHF 5. Type 2 diabetes 6. Hyponatremia, hypervolemic, status post [place] 7. Volume overload currently being diuresed Plan: Increase midodrine for 10 mg 3 times a day Continue current dose of IV Lasix and Zaroxolyn Repeat labs in a.m.
[2022-05-11 12:42] LABS: Glucose,Whole Blood 259 mg/dL (70-110)
--- NOTE | 2022-05-11 14:16 | P.PN ---
Progress Note - Text Progress Note Date: 05/11/22 Chief Complaint: Chest pain This is a pleasant 86-year-old patient who follows with Dr. Ag Burns. Patient had a coronary bypass in 2000. Chronic stable medical conditions include diabetes type 2, hypertension, hyperlipidemia, PAD, carotid stenosis, CAD, ischemic cardiomyopathy, loop recorder since 2019. He does follow with a local child and family services worker Dr. Conroy and also with Dr. Lowry in [place]. On April 26 for sick sinus syndrome had a permanent pacemaker placed. Prior to this he was having bradycardia and his Lopressor was discontinued. In the last 2 days patient started having shortness of breath. No edema. No cough. No sputum. No fever no chills. Also started feeling the burning sensation across the chest. The last 24 hours. Also going up to his left shoulder. No obvious relieving or precipitating factors. Heart rate in the ER was over 100. Baseline heart rate is around 60. Overnight patient became more short of breath. 1 dose of IV Lasix 80 mg was given. Need close to 400 mL of urine. Also concern about pneumonia and some started on antibiotics. Patient did require BiPAP for shortness of breath so moved to the ICU Admitted with pneumonia, acute hypoxic respiratory failure, acute and chronic CHF, acute non-Q wave AZ, and acute kidney injury/ATN. IV heparin, IV ceftriaxone, oxygen, IV Lasix, 05/07/2022: ICU: Underwent bilateral thoracentesis by Dr. Ring 1500 mL removed from the right site and 1350 from the left side. Currently unable with the 60 L and 93%. Drips include amiodarone, nitroglycerin, IV heparin. Reclining in bed, awake, tired. Eating some 05/08/2022: ICU. Up in a recliner. Remains on airvo 60/90. Eating about 50%. Given lactulose and Metamucil for a BM. Remains in atrial fibrillation controlled. On IV Lasix. IV dobutamine. Creatinine creeping up. 05/09/2022: ICU. Remains in atrial fibrillation controlled. Drips include IV heparin and IV dobutamine. Eating little. And showed being added. On AIRVO. 60/90. Tired. Samsca 1 dose given by nephrology. 05/10/2022: ICU. Atrial fibrillation uncontrolled. Lopressor 12.5 by mouth 3 times a day added. Remains on IV dobutamine and IV heparin. Patient was on BiPAP overnight now on iairvo. Decreased appetite. Change diet to ground. Midodrine dose increased. Also received a dose of Samsca. Had some chest pain. Nitropaste added by cardiology. Tired. Remains on IV Lasix. Creatinine creeping up further 05/11/2022: ICU. CODE STATUS has been changed to DO NOT RESUSCITATE. Short of breath. Remains on BiPAP. 03/16/90%. Remains in atrial fibrillation controlled. IV heparin. IV debridement stopped this morning. Midodrine increased to 10 mg daily. Constipation. Dulcolax suppository ordered. Information is at for hospice is being to done today. Active Medications Acetaminophen (Acetaminophen Tab 325 Mg Tab) 650 mg PO Q6HR PRN PRN Reason: Mild Pain or Fever > 100.5 Last Admin: 05/07/22 23:02 Dose: 650 mg Alprazolam (Alprazolam 0.25 Mg Tab) 0.25 mg PO Q8H PRN PRN Reason: Anxiety Last Admin: 05/11/22 06:24 Dose: 0.25 mg Amiodarone HCl (Amiodarone 200 Mg Tab) 200 mg PO BID [facility] Last Admin: 05/11/22 08:42 Dose: 200 mg Apixaban (Apixaban 2.5 Mg Tablet) 2.5 mg PO BID [facility]; Protocol Aspirin (Aspirin 81 Mg) 81 mg PO DAILY [facility] Last Admin: 05/11/22 08:43 Dose: 81 mg Atorvastatin Calcium (Atorvastatin 80 Mg Tab) 80 mg PO HS [facility] Last Admin: 05/10/22 20:56 Dose: 80 mg Calcitriol (Calcitriol 0.25 Mcg Cap) 0.25 mcg PO DAILY [facility] Last Admin: 05/11/22 08:43 Dose: 0.25 mcg Dextrose/Water (Dextrose 50% Syringe 50 Ml) 25 ml IVP PER PROTOCOL PRN; Protocol PRN Reason: Hypoglycemia Dextrose/Water (Dextrose 50% Syringe 50 Ml) 50 ml IVP PER PROTOCOL PRN; Protocol PRN Reason: Hypoglycemia Famotidine (Famotidine 20 Mg Tab) 20 mg PO DAILY [facility] Last Admin: 05/11/22 08:42 Dose: 20 mg Furosemide (Furosemide 10 Mg/Ml 10 Ml Vial) 80 mg IV Q8HR [facility] Last Admin: 05/11/22 08:43 Dose: 80 mg Ceftriaxone Sodium 1 gm/ (Sodium Chloride) 50 mls @ 100 mls/hr IVPB Q12HR [facility]; Protocol Last Admin: 05/11/22 08:42 Dose: 100 mls/hr Insulin Aspart (Insulin Aspart (Novolog) 100 Unit/Ml Vial) 0 unit SQ ACHS [facility]; Protocol Last Admin: 05/11/22 12:42 Dose: 6 unit Lactulose (Lactulose 20 Gm/30 Ml Cup) 20 gm PO DAILY PRN PRN Reason: Constipation Last Admin: 05/11/22 06:43 Dose: 20 gm Levothyroxine Sodium (Levothyroxine 125 Mcg Tab) 125 mcg PO DAILY [facility] Last Admin: 05/11/22 08:43 Dose: 125 mcg Metolazone (Metolazone 5 Mg Tab) 5 mg PO DAILY [facility] Last Admin: 05/11/22 08:42 Dose: 5 mg Metoprolol Tartrate (Metoprolol Tartrate 12.5 Mg Tab) 12.5 mg PO TID [facility] Last Admin: 05/11/22 08:42 Dose: 12.5 mg Midodrine (Midodrine 5 Mg Tab) 10 mg PO AC-TID [facility] Last Admin: 05/11/22 12:34 Dose: 10 mg Miscellaneous Information (Potassium Replacement Protocol 1 Each Misc) 1 each MISCELLANE DAILY PRN; Protocol PRN Reason: Per Protocol Morphine Sulfate (Morphine Sulfate 4 Mg/Ml Syringe) 4 mg IV Q4HR PRN PRN Reason: Severe Pain (Scale 7 to 10) Last Admin: 05/10/22 08:40 Dose: 4 mg Naloxone HCl (Naloxone 0.4 Mg/Ml 1 Ml Vial) 0.2 mg IV Q2M PRN PRN Reason: Opioid Reversal Nitroglycerin (Nitroglycerin Sl Tabs 0.4 Mg Tab) 0.4 mg SUBLINGUAL Q10M PRN PRN Reason: Chest Pain Last Admin: 05/09/22 22:34 Dose: 0.4 mg Nitroglycerin (Nitroglycerin Oint 1 Inch/Gm Packet) 1 inch TOPICAL Q8HR [facility] Last Admin: 05/11/22 09:23 Dose: 1 inch Ondansetron HCl (Ondansetron 4 Mg/2 Ml Vial) 4 mg IVP Q8HR PRN PRN Reason: Nausea And Vomiting Psyllium Hydrophilic Mucilloid (Psyllium Husk 100% 6 Gm Packet) 6 gm PO DAILY [facility] Last Admin: 05/11/22 08:42 Dose: 6 gm Ranolazine (Ranolazine 500 Mg Tab.Er.12h) 500 mg PO BID [facility] Last Admin: 05/11/22 08:43 Dose: 500 mg Zolpidem Tartrate (Zolpidem 5 Mg Tab) 2.5 mg PO HS PRN PRN Reason: Insomnia Last Admin: 05/08/22 20:45 Dose: 2.5 mg Past medical history to include: Diabetes, GERD, hypertension, hyperlipidemia, osteoarthritis, AZ, chronic kidney disease, hypothyroid, CAD with bypass about 20 years ago. Permanent pacemaker for sick sinus syndrome Social history: Occasional cigar. In the remote past. No alcohol. . Retired Family history: Reviewed, noncontributory to presentation Physical examination: VITAL SIGNS: 97.7, 84, 28, 1/56, 92% on BiPAP GENERAL: Up in a chair, tired, short of breath. Permanent pacemaker EYES: Pupils equal. Conjunctiva normal. HEENT: External appearance of nose and ears normal, oral cavity grossly normal. NECK: JVD unable to assess; masses not palpable. HEART: Heart sounds irregular; no edema. LUNGS: Respiratory rate increased; decreased breath sounds. ABDOMEN: Soft, nontender, liver spleen not palpable, no masses palpable. PSYCH: Alert and oriented x3; mood and affect tired. MUSCULOSKELETAL:No Clubbing/cyanosis;muscles-grossly intact, OA INVESTIGATIONS, reviewed in the clinical context: 05/11/2022: WBC 11.1 hemoglobin 11.2 platelets 255 sodium 1:30 potassium 4.1 BUN 86 creatinine 2.65 05/10/2022: White count 8.8 hemoglobin 11.3 sodium 127 potassium 3.9 BUN 78 creatinine 2.66 05/09/2022: WBC 11 hemoglobin 11 platelets 209 sodium 127 potassium 3.6 BUN 78 creatinine 2.61 05/08/2022: WBC 12.9 hemoglobin 11.8 potassium 4 BUN 35 creatinine 2.63 05/07/2022: WBC 13.7 hemoglobin 11.3 platelets 2063.8. 60 creatinine 2.37 05/06/2022: WBC 12.5 hemoglobin 11.5 platelets 216 potassium 4.4 BUN 49 creatinine 2.25 Admission labs: WBC 14.1 in globin 12.1 platelets 28 potassium 4.9. 42 creatinine 1.77 Troponin I 0.014, 0.707, 0.904, 1.5, 4.7 Influenza type A/diabetes/RSV/COVID-19: Not detected EKG tracing personally reviewed by me-atrial fibrillation, heart rate 110 Chest x-ray film personally reviewed by me-left lower lobe infiltrate, venous prominent edema Previous labs: Creatinine 1.46 in October 2021 Assessment and plan: -Acute non-Q-wave AZ in a patient with known CAD Aspirin, Lopressor -Left lower lobe pneumonia, suspect gram-negative organism Ceftriaxone 1 g every 12. Procalcitonin 1.29 -Acute hypoxic respiratory failure secondary to CHF and pneumonia: Not improving BiPAP -IV heparin monitoring Follow PTT -Acute kidney injury, likely ATN's combination of cardiorenal syndrome: Worsening Admission creatinine 1.77-up to 2.66 -Chronic kidney disease suspect nephrosclerosis stage III Baseline creatinine 1.46 -CAD with a prior history of coronary bypass. does follow Dr. Conroy Aspirin, beta jon, Lipitor -Permanent pacemaker placed on 04/26/2022 for sick sinus syndrome -Acute on chronic congestive heart failure exacerbation. From ischemic cardiomyopathy EF 40-45%, slow to respond IV Lasix 80 mg every 8, dobutamine drip-stopped this morning -Essential hypertension Lopressor 12.5 by mouth 3 times a day, Cordarone 200 mg twice a day -Hyperlipidemia Lipitor 80 mg daily at bedtime -Persistent atrial fibrillation, rapid ventricular rate on presentation: Controlled Lopressor. IV heparin, Cordarone 200 mg twice daily -Hypothyroid Synthroid 125 g a day -Diabetes mellitus type 2, chronic insulin Accu-Cheks and sliding scale. -Hyponatremia, from decreased solute intake Samsca -DO NOT RESUSCITATE IV heparin. IV ceftriaxone. IV Lasix. IV dobutamine-stopped. On BiPAP Prognosis guarded. Dulcolax suppository for constipation. Hospice meeting informational.
[2022-05-11] MEDS ORDERED: bisacodyL 10 MG SUPP RECTAL STA (15:05)
[2022-05-11 16:13] LABS: Glucose,Whole Blood 241 mg/dL (70-110)
[2022-05-11 18:23] LABS: Glucose,Whole Blood 204 mg/dL (70-110)
[2022-05-11] MEDS: MORPHINE SULFATE 4 MG/ML SYRINGE IV PRN (18:45)
[2022-05-11] MEDS: HEPARIN SOD,PORK IN 0.45% NACL 25,000 UNIT in 0.45% NACL 1 250ML.BAG IV SCH (18:45)
[2022-05-11] MEDS ORDERED: FUROSEMIDE 10 MG/ML 10 ML VIAL IV STA (19:35)
--- NOTE | 2022-05-11 19:55 | PN ---
PROGRESS NOTE HISTORY OF PRESENT ILLNESS: This is an 86-year-old gentleman who was admitted to the ICU with congestive heart failure and cardiogenic shock, has had multiple problems including renal failure, poor urine output, and has ruled in for myocardial infarction. He is not a candidate for any invasive procedures and is currently in the process of moving into palliative care. This morning, he appears comfortable at rest. Does not have any further episodes of chest pain. His input/output has been better in the last 24 hours prior. He is on oral amiodarone, heparin that is being switched to Eliquis, aspirin, Lipitor, Lasix 80 mg q.8, Zaroxolyn, Lopressor, and nitroglycerin paste along with Ranexa. PHYSICAL EXAMINATION: VITAL SIGNS: Heart rate is 80 beats per minute, blood pressure is 108/70, respiratory rate is 18, O2 saturation is 96% on high-flow oxygen. CHEST: Reveals good air entry bilaterally. I do not hear any crackles. HEART: Reveals first and second heart sounds and a systolic murmur at the apex. ABDOMEN: Soft. EXTREMITIES: Revealed mild edema bilaterally. LABORATORY DATA: Labs show a hemoglobin of 11.2, platelet count is 255. Potassium is 4.1, BUN is 86, creatinine is 2.6. AST is elevated. ASSESSMENT: 1. Cardiogenic shock. 2. Acute on chronic renal failure. 3. Acute non-ST segment elevation myocardial infarction. PLAN: I am going to stop the dobutamine at this time as he has had it for about 3 days. Continue the Lasix. Prognosis is guarded. MMODL / IJN: [id number] /
[2022-05-11 20:17] LABS: Glucose,Whole Blood 200 mg/dL (70-110)
[2022-05-11] MEDS: ATORVASTATIN 80 MG TAB PO SCH (21:30)
[2022-05-12] MEDS: ALPRAZolam 0.25 MG TAB PO PRN ×2 (04:31→13:39)
[2022-05-12] MEDS: ACETAMINOPHEN TAB 325 MG TAB PO PRN ×2 (04:31→13:39)
[2022-05-12 05:25] VITALS: TEMP 97.3
[2022-05-12 06:21] LABS: Basophils % (A) 0 %; Eosinophils % (A) 0 %; HCT 36.9 % (39.0-53.0); HGB 11.8 gm/dL (13.0-17.5); Hypochromasia Slight; Lymphocytes # (A) 0.8 k/uL (1.0-4.8); Lymphocytes % (A) 5 %; MCH 29.8 pg (25.0-35.0); MCHC 32.1 g/dL (31.0-37.0); MCV 93.1 fL (80.0-100.0); Mean Platelet Volume 9.8; Monocytes # (A) 0.9 k/uL (0-1.0); Monocytes % (A) 6 %; Neutrophils % (A) 88 %; Platelet Count 328 k/uL (150-450); RBC 3.97 m/uL (4.30-5.90); RDW 13.2 % (11.5-15.5); WBC 15.9 k/uL (3.8-10.6)
[2022-05-12] MEDS: DOBUTamine DRIP 500 MG in DEXTROSE/WATER 1 250ML.BAG IV SCH (06:48)
[2022-05-12 06:57] LABS: Glucose,Whole Blood 176 mg/dL (70-110)
[2022-05-12] MEDS: INSULIN ASPART (NovoLOG) 100 UNIT/ML VIAL SQ SCH ×3 (07:00→16:39)
[2022-05-12] MEDS: MIDODRINE 5 MG TAB PO SCH ×3 (07:00→16:38)
[2022-05-12 07:13] LABS: Calcium 8.3 mg/dL (8.4-10.2); Potassium 4.8 mmol/L (3.5-5.1)
--- NOTE | 2022-05-12 07:38 | XR ---
EXAMINATION TYPE: XR chest 1V portable DATE OF EXAM: 05/12/2022 Comparison: 05/11/2022 Clinical History: 86-year-old male sob Findings: Median sternotomy wires are present with postsurgical clips in the mediastinum. Left anterior chest w all pacemaker generator with right atrial and ventricular leads. Loop recorder device projects along the left mid chest. Diffuse interstitial and hazy densities show slight interval increase. Moderate b ilateral pleural effusions have slightly increased as well, left greater than right with adjacent opa cities. Impression: Worsening CHF with interstitial pulmonary edema. Slight increasing moderate left greater than right p leural effusions with prominent adjacent atelectasis and/or consolidation.
[2022-05-12] MEDS: FUROSEMIDE 10 MG/ML 10 ML VIAL IV SCH (09:27)
[2022-05-12] MEDS: FAMOTIDINE 20 MG TAB PO SCH (09:28)
[2022-05-12] MEDS: PSYLLIUM HUSK 100% 6 GM PACKET PO SCH (09:28)
[2022-05-12] MEDS ORDERED: FUROSEMIDE 100 MG in SODIUM CHLORIDE 0.9% 90 ML IV SCH (09:30)
[2022-05-12] MEDS: NITROGLYCERIN OINT 1 INCH/GM PACKET TOPICAL SCH ×2 (09:47→16:07)
[2022-05-12] MEDS: RANOLAZINE 500 MG TAB.ER.12H PO SCH (09:47)
[2022-05-12] MEDS: AMIODARONE 200 MG TAB PO SCH (09:47)
[2022-05-12] MEDS: LEVOTHYROXINE 125 MCG TAB PO SCH (09:47)
[2022-05-12] MEDS: METOPROLOL TARTRATE 12.5 MG TAB PO SCH ×2 (09:47→16:06)
[2022-05-12] MEDS: metOLazone 5 MG TAB PO SCH (09:47)
[2022-05-12] MEDS: ASPIRIN 81 MG PO SCH (09:47)
--- NOTE | 2022-05-12 10:39 | P.PN ---
Subjective Patient is seen for follow-up for acute injury and underlying chronic kidney disease. Baseline creatinine around 1.5-1.7 mg/dL, NKF stage III. Patient is admitted to the hospital with chest pain and ruled in for acute non- ST elevation [place]. Patient also had A. fib with RVR and is status post amiodarone drip. Ejection fraction is low at about 25% and patient is currently maintained on dobutamine. Discontinued this morning Serum creatinine staying at about 2.6 mg/dL. increased to 3.76 today Urine output has dropped to 0 overnight. Patient remains short of breath. Family is not planning on pursuing aggressive medical care, hospice meeting is scheduled for 11 AM today. Given the worsening renal function and poor urine output, if aggressive medical care was desired patient would need to proceed with renal replacement therapy. At this time the patient has refused any aggressive measures including dialysis. Objective - Vital Signs Vital signs: Vital Signs Temp 97.3 F L 05/12/22 05:00 Pulse 75 05/12/22 07:00 Resp 34 H 05/12/22 07:00 BP 119/59 05/12/22 07:00 Pulse Ox 96 05/12/22 06:30 FiO2 100 05/12/22 07:36 Intake & Output 05/11/22 05/12/22 05/12/22 18:59 06:59 18:59 Intake Total 748.138 710 134.029 Output Total 570 175 0 Balance 178.138 535 134.029 Intake: IV 170 170 10 0.9 Normal Saline @ 10mL/ 120 120 10 hr cefTRIAXone 1 gm In 50 50 Sodium Chloride 0.9% 50 ml @ 100 mls/hr IVPB Q12HR [facility] Rx#:[id number] Intake, IV Titration 460.138 124.029 Amount DOBUTamine DRIP 500 mg In 215.403 Dextrose/Water 1 250ml. bag @ 2.5 MCG/KG/MIN 5. 888 mls/hr IV .Q24H [facility] Rx#:[id number] Heparin Sod,Pork in 0.45% 244.735 124.029 NaCl 25,000 unit In 0.45 % NaCl 1 250ml.bag @ 12 UNITS/KG/HR 9.492 mls/hr IV .Q24H [facility] Rx#: [id number] Oral 118 540 Output: Urine 570 175 0 Stool 0 Other: Voiding Method Indwelling Catheter Indwelling Catheter - Exam Patient is sleeping but arousable, Maintained on high flow nasal cannula Examination of the heart S1 and S2 irregularly irregular Examination the lungs decreased breath sounds at the bases Abdomen is soft nontender Examination lower extremities shows edema 1+ bilaterally E[employer] exam grossly intact - Labs CBC & Chem 7: 05/12/22 06:01 05/12/22 06:01 Labs: Abnormal Lab Results - Last 24 Hours (Table) 05/11/22 05/11/22 05/11/22 Range/Units 12:40 16:11 18:22 WBC (3.8-10.6) k/uL RBC (4.30-5.90) m/uL Hgb (13.0-17.5) gm/dL Hct (39.0-53.0) % Neutrophils # (1.3-7.7) k/uL Lymphocytes # (1.0-4.8) k/uL APTT (22.0-30.0) sec Sodium (137-145) mmol/L Chloride (98-107) mmol/L Carbon Dioxide (22-30) mmol/L BUN (9-20) mg/dL Creatinine (0.66-1.25) mg/dL Glucose (74-99) mg/dL POC Glucose (mg/dL) 259 H 241 H 204 H (70-110) mg/dL Calcium (8.4-10.2) mg/dL Magnesium (1.6-2.3) mg/dL 05/11/22 05/12/22 05/12/22 Range/Units 20:15 06:01 06:01 WBC 15.9 H (3.8-10.6) k/uL RBC 3.97 L (4.30-5.90) m/uL Hgb 11.8 L (13.0-17.5) gm/dL Hct 36.9 L (39.0-53.0) % Neutrophils # 14.0 H (1.3-7.7) k/uL Lymphocytes # 0.8 L (1.0-4.8) k/uL APTT 140.6 H* (22.0-30.0) sec Sodium (137-145) mmol/L Chloride (98-107) mmol/L Carbon Dioxide (22-30) mmol/L BUN (9-20) mg/dL Creatinine (0.66-1.25) mg/dL Glucose (74-99) mg/dL POC Glucose (mg/dL) 200 H (70-110) mg/dL Calcium (8.4-10.2) mg/dL Magnesium (1.6-2.3) mg/dL 05/12/22 05/12/22 Range/Units 06:01 06:55 WBC (3.8-10.6) k/uL RBC (4.30-5.90) m/uL Hgb (13.0-17.5) gm/dL Hct (39.0-53.0) % Neutrophils # (1.3-7.7) k/uL Lymphocytes # (1.0-4.8) k/uL APTT (22.0-30.0) sec Sodium 129 L (137-145) mmol/L Chloride 95 L (98-107) mmol/L Carbon Dioxide 13 L (22-30) mmol/L BUN 102 H* (9-20) mg/dL Creatinine 3.76 H (0.66-1.25) mg/dL Glucose 181 H (74-99) mg/dL POC Glucose (mg/dL) 176 H (70-110) mg/dL Calcium 8.3 L (8.4-10.2) mg/dL Magnesium 3.0 H (1.6-2.3) mg/dL Microbiology - Last 24 Hours (Table) 05/05/22 18:35 Blood Culture - Final Blood No Growth after 144 hours 05/05/22 18:50 Blood Culture - Final Blood No Growth after 144 hours 05/07/22 12:00 Gram Stain - Final Pleural Fluid Body Fluid Culture - Final Assessment and Plan Assessment: 1. Acute kidney injury secondary to cardiorenal syndrome currently maintained status post dobutamine and maintained on IV Lasix. Urine output has significantly dropped post to discontinuation of dobutamine. At this time there are no plans for renal replacement therapy and hospice care is being considered. 2. CK D stage III Baseline creatinine about 1.7 mg/dL 3. Acute non-ST elevation [place] 4. Acute hypoxic respiratory failure maintained on BiPAP. Etiology CHF 5. Type 2 diabetes 6. Hyponatremia, hypervolemic, status post Samsca 7. Volume overload Plan: Switch to Lasix drip No plans for renal replacement therapy and hospice care meeting scheduled for 11 AM. Patient is not an ideal candidate for long-term renal replacement therapy given his underlying comorbidities including for cardiac status.
[2022-05-12 11:28] LABS: Glucose,Whole Blood 223 mg/dL (70-110)
--- NOTE | 2022-05-12 11:37 | P.PN ---
Subjective Progress Note Date: 05/12/22 Principal diagnosis: Acute hypoxic respiratory failure secondary to acute systolic congestive heart failure This is an 86-year-old male patient with known history of extensive cardiac disease, coronary artery disease, previous bypass surgery, congestion heart failure and chronic atrial fibrillation. The patient underwent a recent pacemaker insertion on 04/26/2022 for an underlying sick sinus syndrome. The patient presented to the hospital because of worsening shortness of breath and some chest pain. The patient was found to be in CHF based on the chest that was done in the emergency department. The patient was quite short of breath. Initially was placed on a BiPAP at a pressures of 10/5 and the patient was diuresed with IV Lasix and the patient was subsequently switched to oxygen at 8 L, nasal cannula. His EKG showing atrial fibrillation, LBBB pattern, irregular, and his blood work showed a white cell count of 12.5 with a hemoglobin of 11.5 and a platelet count of 216. Sodium is at 136 with a BUN of 42 and a creatinine of 1.77. Troponins are 0.7. Peak at 4.7 as the patient underwent and had a acute non-ST segment elevation myocardial infarction. ProBNP level is 9550. UA was negative. Viral screen including influenza was negative. Subsequent creat inine from this morning this morning showed a creatinine of 2.25. The patient was diuresed overnight and the patient is improving currently is on 8 L of oxygen by nasal cannula. Based on an acute non-STEMI, the patient was started on IV heparin. The patient is on diuretics with IV Lasix. The patient is currently on 50 mg IV every 12 hours. The patient is free of any chest pain. The patient will be seen by cardiology. The patient will be also seen by nephrology. Chest x-ray is consistent with CHF. He has not required any pressors. WBC count at 12.5 with a hemoglobin of 11.5. On 05/07/2022, the patient is BiPAP dependent. He was on 8 L of O2 nasal cannula. He was unable to tolerate high flow oxygen. Subsequently was placed back on a BiPAP at a pressure of 10/5 cm of water with an FiO2 of 100%. His current pulse ox is 93% and chest x-ray still showing CHF and pulmonary edema. Noted the patient had an acute non-ST segment elevation myocardial infarction. Troponin was at 4. Echocardiogram was done yesterday and there was a drop in ejection fraction which is down to 20-25% and is same time the patient had valvular abnormalities with moderate mitral regurgitation and mild to moderate aortic stenosis and a small pericardial effusion. The patient is currently on IV heparin. The patient remains in atrial fibrillation with a controlled rate. In view of his CHF, the patient was subjected to diuretics. The patient is currently on Lasix and the patient is receiving Lasix at a dose of 60 mg every 12 hours. The response has been essentially suboptimal. The patient has been in a negative fluid balance of 1.1 L. His creatinine today is at 2.3 with a BUN of 60 and a sodium level is at 136. The results 15.7. UA is negative. Ultrasound of the kidneys showed no evidence of hydronephrosis. There is prostate enlargement. The patient has a Tucker catheter in place for now. Neurologically, he is alert and awake. He is on no pressors. Is on metoprolol at a dose of 50 mg by mouth twice a day. Is also on aspirin 81 mg by mouth daily. No other significant events overnight. We're coordinating his care along with cardiology and [facility] medical technologist generalist. 05/08/2022, the patient is off the BiPAP. As mentioned, the patient has an acute non-ST segment elevation myocardial infarction and the patient also went into the opposite heart failure with an ejection fraction of 20-25%. She went into acute pulmonary edema and bilateral pleural effusions. As such, I did bilateral thoracentesis on this patient. I drained approximately 1.6 L of the right arm 1.35 on the left. He was taken off the BiPAP accordingly and currently is on high flow oxygen with FiO2 of 90% and a flow of 60. He is using the incentive spirometer. He remains on IV heparin for now. The patient was seen by group insurance special agent today. He was started on dobutamine at 2.5 mcg/kg/m. He was also started on amiodarone. His cardiac rhythm is a 2 fibrillation. His lites echoes at 12.9 with a hemoglobin 11.8. There is no interval worsening of the renal function and the creatinine is up to 2.6 with a BUN of 75 and a sodium level of 132. The pleural fluid is transudate based on a low protein and LDH criteria and this is essentially consistent with CHF. Otherwise, he is breathing is mildly labored. He does not have any chest pain for now. [place] was having chest pain yesterday. He remains on Lasix at a dose of 80 mg every 12 hours. He remains on empiric antibiotic coverage. He is on aspirin. His overall fluid balance for yesterday has been -2.7 L at least. Urine output is in order of 15 mL an hour. Reevaluated today on 05/09/22, patient remains on BiPAP with IPAP of 10 and EPAP of 500% FiO2. Remains on Rocephin, he is on heparin drip, he is also on Dobutrex drip at 2.5 mcg/kg/m, he is also on amiodarone drip at 0.5 mg/m. Surprisingly the patient is comfortable, does not seem to be in distress although he is requiring significantly high FiO2/100%. Chest x-ray continues to show evidence of pulmonary edema. Patient is on Lasix every 12 hours. And he seems to be responding well to Lasix. His WBC count today is 11 hemoglobin is 11 electrolytes showed a sodium of 127 potassium 3.6 chloride 97 bicarb is 21 BUN is 78 creatinine 2.64. Reevaluated today on 05/10/22, patient remains extremely marginal at best. Remains on airvo at 60 L flow and 90% FiO2 remains on heparin drip, dobutamine drip at 2.5 mcg/kg/min O2 saturation is marginal, chest x-ray is still showing evidence of pulmonary edema. He is intermittently on BiPAP 10/5/90%, fluid that was drained by Dr. Ring is transudate of consistent with congestive heart failure. Last night the patient has some chest pain resolved with nitroglycerin sublingually. Overall the patient is not doing too well, and today I had a long discussion with the patient regarding CODE STATUS, explained time that his condition seems to be terminal with has severe LV dysfunction. Patient is undecided tachycardic CODE STATUS at this point, he would like to discuss it with his family members. Electrolytes showed a sodium of 127 renal profile is abnormal with a BUN of 78 creatinine 2.66. Reevaluated today on 05/11/22, patient remains in the ICU, remains on 60 L flow via airvo, 75% FiO2 from 90% his O2 saturation is in the low 90s. Roughly about 92%. Remains on dobutamine at 2.5 mcg/kg/m remains on heparin. Remains on high dose Lasix. Overall the patient is about the same. Again overall the clinical picture does not look very promising does not look bright. Chest x-ray continues to show evidence of pulmonary edema may be slightly improved compared to the left chest x-ray. Patient remains in a negative balance, about 1 L in the last 24 hours Reevaluated today on 05/12/22, patient remains in the ICU, patient is doing worse. His cardiopulmonary status has deteriorated over the last 24 hour, his renal status is also worsening. Patient is not making much urine, and he was seen by nephrology today, recommended Lasix drip, also recommended possible hemodialysis. Obviously the patient and the family are not agreeable to proceed with hemodialysis. And I believe the feeling is best to consider hospice evaluation on comfort care measures, and I think that is probably the best approach at this point. I feel the patient is doing poorly, and comfort care measures would be the best option at this point. Patient remains on airvo with FiO2 of 90% and 60 L flow, chest x-ray is showing worsening pulmonary edema and pleural effusions left more so than right. WBC count is 15.9 hemoglobin 11.8. BUN is 102 creatinine 3.76. Bicarb is 13 anion gap is 21. Objective - Vital Signs Vital signs: Vital Signs Temp 97.3 F L 05/12/22 05:00 Pulse 67 05/12/22 10:30 Resp 22 05/12/22 10:30 BP 110/56 05/12/22 10:30 Pulse Ox 91 L 05/12/22 10:30 FiO2 93 05/12/22 11:08 Intake & Output 05/11/22 05/12/22 05/12/22 18:59 06:59 18:59 Intake Total 748.138 710 194.029 Output Total 570 175 5 Balance 178.138 535 189.029 Intake: IV 170 170 40 0.9 Normal Saline @ 10mL/ 120 120 40 hr cefTRIAXone 1 gm In 50 50 Sodium Chloride 0.9% 50 ml @ 100 mls/hr IVPB Q12HR [facility] Rx#:[id number] Intake, IV Titration 460.138 124.029 Amount DOBUTamine DRIP 500 mg In 215.403 Dextrose/Water 1 250ml. bag @ 2.5 MCG/KG/MIN 5. 888 mls/hr IV .Q24H [facility] Rx#:[id number] Heparin Sod,Pork in 0.45% 244.735 124.029 NaCl 25,000 unit In 0.45 % NaCl 1 250ml.bag @ 12 UNITS/KG/HR 9.492 mls/hr IV .Q24H [facility] Rx#: [id number] Oral 118 540 30 Output: Urine 570 175 5 Stool 0 Other: Voiding Method Indwelling Catheter Indwelling Catheter Indwelling Catheter - Exam Physical Exam: Revealed an 86-year-old white male on high flow and high FiO2 via airvo short of breath with any activity Head: Atraumatic, normocephalic. HEENT:[Neck is supple.] [No neck masses.] [No thyromegaly.] [No JVD.] Chest: [Crackles at the bases, no rhonchi and no wheezes. Cardiac Exam: [Normal S1 and S2, no S3 gallop, no murmur.] Abdomen: [Soft, nontender, no megaly, no rebound, no guarding, normal bowel sounds.] Extremities: [No clubbing, no edema, no cyanosis.] Neurological Exam: [No focal neurologic deficit.] Alert oriented 3. Psychiatric: Normal mood, affect and normal status examination. Skin: No rashes. - Labs CBC & Chem 7: 05/12/22 06:01 05/12/22 06:01 Labs: Abnormal Lab Results - Last 24 Hours (Table) 05/11/22 05/11/22 05/11/22 Range/Units 12:40 16:11 18:22 WBC (3.8-10.6) k/uL RBC (4.30-5.90) m/uL Hgb (13.0-17.5) gm/dL Hct (39.0-53.0) % Neutrophils # (1.3-7.7) k/uL Lymphocytes # (1.0-4.8) k/uL APTT (22.0-30.0) sec Sodium (137-145) mmol/L Chloride (98-107) mmol/L Carbon Dioxide (22-30) mmol/L BUN (9-20) mg/dL Creatinine (0.66-1.25) mg/dL Glucose (74-99) mg/dL POC Glucose (mg/dL) 259 H 241 H 204 H (70-110) mg/dL Calcium (8.4-10.2) mg/dL Magnesium (1.6-2.3) mg/dL 05/11/22 05/12/22 05/12/22 Range/Units 20:15 06:01 06:01 WBC 15.9 H (3.8-10.6) k/uL RBC 3.97 L (4.30-5.90) m/uL Hgb 11.8 L (13.0-17.5) gm/dL Hct 36.9 L (39.0-53.0) % Neutrophils # 14.0 H (1.3-7.7) k/uL Lymphocytes # 0.8 L (1.0-4.8) k/uL APTT 140.6 H* (22.0-30.0) sec Sodium (137-145) mmol/L Chloride (98-107) mmol/L Carbon Dioxide (22-30) mmol/L BUN (9-20) mg/dL Creatinine (0.66-1.25) mg/dL Glucose (74-99) mg/dL POC Glucose (mg/dL) 200 H (70-110) mg/dL Calcium (8.4-10.2) mg/dL Magnesium (1.6-2.3) mg/dL 05/12/22 05/12/22 05/12/22 Range/Units 06:01 06:55 11:27 WBC (3.8-10.6) k/uL RBC (4.30-5.90) m/uL Hgb (13.0-17.5) gm/dL Hct (39.0-53.0) % Neutrophils # (1.3-7.7) k/uL Lymphocytes # (1.0-4.8) k/uL APTT (22.0-30.0) sec Sodium 129 L (137-145) mmol/L Chloride 95 L (98-107) mmol/L Carbon Dioxide 13 L (22-30) mmol/L BUN 102 H* (9-20) mg/dL Creatinine 3.76 H (0.66-1.25) mg/dL Glucose 181 H (74-99) mg/dL POC Glucose (mg/dL) 176 H 223 H (70-110) mg/dL Calcium 8.3 L (8.4-10.2) mg/dL Magnesium 3.0 H (1.6-2.3) mg/dL Microbiology - Last 24 Hours (Table) 05/05/22 18:35 Blood Culture - Final Blood No Growth after 144 hours 05/05/22 18:50 Blood Culture - Final Blood No Growth after 144 hours 05/07/22 12:00 Gram Stain - Final Pleural Fluid Body Fluid Culture - Final Assessment and Plan Assessment: Impression: Acute hypoxic respiratory failure secondary to acute systolic congestive heart failure. Patient has an ejection fraction of 20-25%. In addition to this the patient has moderate mitral regurgitation, and mild to moderate aortic stenosis, all contributing to his congestive heart failure. Bilateral pleural effusions, fluid was noted to be transudate of based on thoracentesis. Chronic atrial fibrillation, patient remains on amiodarone drip. Acute non-ST elevation myocardial infarction. History of underlying coronary arteriosclerosis and previous CABG. Peripheral vessel occlusive disease. History of pacemaker implantation for underlying sick sinus syndrome. Acute on chronic kidney injury/cardiorenal syndrome. Patient has been known to have chronic stage III kidney disease. Type 2 diabetes. Benign essential hypertension. Dyslipidemia. History of hypothyroidism. Recommendation: Continue Arava Lasix drip Continue dobutamine at 2.5 mg/kg/m Continue amiodarone Continue to monitor renal profile and renal status as well as electrolytes. Continue GI and DVT prophylaxis. Overall prognosis is extremely poor and guarded. Strongly recommend comfort care measures, and possibly hospice evaluation. Time with Patient: Less than 30
--- NOTE | 2022-05-12 16:07 | P.CONS ---
History of Present Illness - Reason for Consult Consult date: 05/12/22 Goals of care Requesting physician: Kateryna Leonard - Chief Complaint Shortness of breath - History of Present Illness The patient is an 86-year-old male who presented t the ED on 05/05/22 with shortness of breath. with a past medical history significant for systolic CHF, diabetes type 2, hypertension, hyperlipidemia, PAD, carotid stenosis, CAD, ischemic cardiomyopathy, and sick sinus syndrome with a permanent pacemaker. Patient also has a history of chronic kidney disease stage IIIB. Nephrology has been following this admission for an ANDRIA secondary to cardiorenal syndrome. The patient also has acute hypoxic respiratory failure secondary to acute systolic congestive heart failure. The patient had and EF of 40-45%. Most recent echocardiogram shows a decrease in EF down to 20-25%. The patient has bilateral pleural effusions. On 05/07 the patient had significant shortness of breath and underwent bilateral thoracentesis with a total of 3 L taken off. The fluid was noted to be transudative, consistent with CHF. The patient has had respiratory distress and had been placed on BiPAP with 100% FiO2. He has been aggressively diuresed. The patient is now on Airvo with an FiO2 of 90% and 60 L O2. Most recent CXR shows worsening pulmonary edema and pleural effusions left greater than right. He has had llittle to no urine output and was placed on and dobutamine drips. Given the worsening renal function and poor urine output if aggressive medical care is desired patient would need to proceed with dialysis. The patient has been in Afib with RVR and on an amiodarone drip. The patient has also suffered a non-STEMI. Review of Systems Constitutional: Reports as per HPI Past Medical History Past Medical History: Diabetes Mellitus, GERD/Reflux, Hyperlipidemia, Hypertension, Myocardial Infarction ([place]), Osteoarthritis (OA), Renal Disease, Thyroid Disorder Last Myocardial Infarction Date:: 2000 History of Any Multi-Drug Resistant Organisms: None Reported Past Surgical History: Coronary Bypass/CABG, Heart Catheterization, Hernia Repair, Pacemaker Additional Past Surgical History / Comment(s): triple bypass 21 years ago, right ear mastoid removed Past Anesthesia/Blood Transfusion Reactions: No Reported Reaction Type of Cardiac Device: Permanent Pacemaker Device Placement Date:: 04/26/2022 Past Psychological History: No Psychological Hx Reported Smoking Status: Never smoker Past Alcohol Use History: None Reported Past Drug Use History: None Reported - Past Family History Mother Family Medical History: No Reported History Medications and Allergies Home Medications Medication Instructions Recorded Confirmed Type Isosorbide Mononitrate ER [Imdur] 30 mg PO DAILY 12/15/17 05/05/22 History Insulin Degludec [Tresiba 20 units SQ DAILY 01/13/19 05/05/22 History Flextouch U-200 Pen] amLODIPine [Norvasc] 5 mg PO BID 01/13/19 05/05/22 History Aspirin EC [Ecotrin Low Dose] 81 mg PO DAILY 10/21/21 05/05/22 History Atorvastatin [Lipitor] 80 mg PO HS 10/21/21 05/05/22 History INSULIN LISPRO (humaLOG) [humaLOG] See Protocol SQ AC-TID 10/21/21 05/05/22 History Levothyroxine Sodium [Synthroid] 125 mcg PO DAILY 10/21/21 05/05/22 History Furosemide [Lasix] 40 mg PO DAILY #30 tab 10/23/21 05/05/22 Rx Ranolazine [Ranolazine ER] 500 mg PO BID 04/26/22 05/05/22 History Apixaban [Eliquis] 2.5 mg PO BID 05/05/22 05/05/22 History Metoprolol Succinate (ER) [Toprol 25 mg PO BID 05/05/22 05/05/22 History Xl] calcitrioL [Rocaltrol] 0.25 mcg PO DAILY 05/05/22 05/05/22 History Allergies Allergy/AdvReac Type Severity Reaction Status Date / Time No Known Allergies Allergy Verified 05/05/22 18:21 Physical Exam Vitals: Vital Signs Temp Pulse Resp BP Pulse Ox FiO2 05/12/22 11:08 93 05/12/22 10:30 67 22 110/56 91 L 05/12/22 10:00 25 H 101/52 89 L 05/12/22 09:30 64 25 H 100/50 88 L 90 05/12/22 09:00 87 23 104/57 90 L 05/12/22 08:30 80 23 110/56 88 L 05/12/22 08:00 82 21 102/63 86 L 100 05/12/22 07:36 100 05/12/22 07:30 80 21 107/64 88 L 05/12/22 07:00 75 34 H 119/59 100 05/12/22 06:30 75 26 H 112/60 96 05/12/22 06:00 79 16 111/71 88 L 05/12/22 05:30 78 13 116/83 88 L 05/12/22 05:00 97.3 F L 86 28 H 111/56 88 L 90 05/12/22 04:30 90 29 H 104/53 87 L 05/12/22 04:00 88 14 118/90 88 L 90 05/12/22 03:30 86 20 111/63 90 L 05/12/22 03:00 79 22 115/68 92 L 05/12/22 02:30 92 22 110/67 91 L 05/12/22 02:22 90 L 90 05/12/22 02:00 89 15 120/74 87 L 05/12/22 01:30 86 26 H 109/75 89 L 05/12/22 01:00 93 23 112/61 90 L 05/12/22 00:35 87 L 85 05/12/22 00:30 81 22 109/63 92 L 05/12/22 00:09 83 25 H 88 L 05/12/22 00:00 78 24 103/67 88 L 90 05/11/22 23:30 87 25 H 100/62 90 L 05/11/22 23:00 98 29 H 123/76 90 L 90 05/11/22 22:30 93 31 H 122/70 90 L 05/11/22 22:00 88 15 116/75 93 L 05/11/22 21:35 92 L 85 05/11/22 21:30 96 35 H 114/87 79 L 05/11/22 21:00 106 H 36 H 115/74 89 L 85 05/11/22 20:30 105 H 25 H 124/85 88 L 05/11/22 20:00 97.5 F L 86 22 128/73 86 L 100 05/11/22 19:35 100 05/11/22 19:30 88 29 H 113/69 84 L 05/11/22 19:25 100 05/11/22 19:00 96 21 109/68 85 L 90 05/11/22 18:30 93 17 104/68 05/11/22 18:00 86 20 110/64 92 L 75 05/11/22 17:30 24 104/88 97 75 05/11/22 17:00 94 11 L 105/74 97 75 05/11/22 16:30 98 10 L 104/64 96 75 05/11/22 16:08 75 05/11/22 16:00 98.7 F 82 18 110/60 97 75 05/11/22 15:30 88 30 H 103/68 95 05/11/22 15:00 88 11 L 107/67 98 05/11/22 14:30 85 27 H 109/61 98 05/11/22 14:00 92 27 H 110/75 94 L 05/11/22 13:30 89 33 H 106/87 96 05/11/22 13:00 88 25 H 95/62 95 05/11/22 12:30 90 38 H 98/64 90 Intake and Output 05/11/22 05/12/22 05/12/22 22:59 06:59 14:59 Intake Total 914.735 80 194.029 Output Total 135 130 5 Balance 779.735 -50 189.029 Intake: IV 130 80 40 0.9 Normal Saline @ 10mL/ 80 80 40 hr cefTRIAXone 1 gm In 50 Sodium Chloride 0.9% 50 ml @ 100 mls/hr IVPB Q12HR [facility] Rx#:[id number] Intake, IV Titration 244.735 124.029 Amount Heparin Sod,Pork in 0.45% 244.735 124.029 NaCl 25,000 unit In 0.45 % NaCl 1 250ml.bag @ 12 UNITS/KG/HR 9.492 mls/hr IV .Q24H [facility] Rx#: [id number] Oral 540 30 Output: Urine 135 130 5 Other: Voiding Method Indwelling Catheter Indwelling Catheter Indwelling Catheter General: Chronically ill appearing Respiratory distress noted HEENT: Head is atraumatic, normocephalic. CV: Heart irregular in rate and rhythm positive S1 and S2. Lungs: Diminished bases bilataerally. Fine crackles to bases. Respirations labored. On airvo 90% FiO2, 60L O2. Abdomen/GI: Soft.No guarding, rigidity, or abdominal tenderness. : No suprapubic tenderness. Musculoskeletal/ Extremities: REZA, no joint deformity or swelling. No gross atrophy. + generalized weakness Skin: Warm and dry Neurologic: CN II-XII grossly intact. No focal deficits. Psychiatric: Flat affect. Results CBC & Chem 7: 05/12/22 06:01 05/12/22 06:01 Labs: Abnormal Lab Results - Last 24 Hours (Table) 05/11/22 05/11/22 05/11/22 Range/Units 12:40 16:11 18:22 WBC (3.8-10.6) k/uL RBC (4.30-5.90) m/uL Hgb (13.0-17.5) gm/dL Hct (39.0-53.0) % Neutrophils # (1.3-7.7) k/uL Lymphocytes # (1.0-4.8) k/uL APTT (22.0-30.0) sec Sodium (137-145) mmol/L Chloride (98-107) mmol/L Carbon Dioxide (22-30) mmol/L BUN (9-20) mg/dL Creatinine (0.66-1.25) mg/dL Glucose (74-99) mg/dL POC Glucose (mg/dL) 259 H 241 H 204 H (70-110) mg/dL Calcium (8.4-10.2) mg/dL Magnesium (1.6-2.3) mg/dL 05/11/22 05/12/22 05/12/22 Range/Units 20:15 06:01 06:01 WBC 15.9 H (3.8-10.6) k/uL RBC 3.97 L (4.30-5.90) m/uL Hgb 11.8 L (13.0-17.5) gm/dL Hct 36.9 L (39.0-53.0) % Neutrophils # 14.0 H (1.3-7.7) k/uL Lymphocytes # 0.8 L (1.0-4.8) k/uL APTT 140.6 H* (22.0-30.0) sec Sodium (137-145) mmol/L Chloride (98-107) mmol/L Carbon Dioxide (22-30) mmol/L BUN (9-20) mg/dL Creatinine (0.66-1.25) mg/dL Glucose (74-99) mg/dL POC Glucose (mg/dL) 200 H (70-110) mg/dL Calcium (8.4-10.2) mg/dL Magnesium (1.6-2.3) mg/dL 05/12/22 05/12/22 05/12/22 Range/Units 06:01 06:55 11:27 WBC (3.8-10.6) k/uL RBC (4.30-5.90) m/uL Hgb (13.0-17.5) gm/dL Hct (39.0-53.0) % Neutrophils # (1.3-7.7) k/uL Lymphocytes # (1.0-4.8) k/uL APTT (22.0-30.0) sec Sodium 129 L (137-145) mmol/L Chloride 95 L (98-107) mmol/L Carbon Dioxide 13 L (22-30) mmol/L BUN 102 H* (9-20) mg/dL Creatinine 3.76 H (0.66-1.25) mg/dL Glucose 181 H (74-99) mg/dL POC Glucose (mg/dL) 176 H 223 H (70-110) mg/dL Calcium 8.3 L (8.4-10.2) mg/dL Magnesium 3.0 H (1.6-2.3) mg/dL Microbiology - Last 24 Hours (Table) 05/05/22 18:35 Blood Culture - Final Blood No Growth after 144 hours 05/05/22 18:50 Blood Culture - Final Blood No Growth after 144 hours 05/07/22 12:00 Gram Stain - Final Pleural Fluid Body Fluid Culture - Final Chest x-ray: report reviewed Assessment and Plan Assessment: Social * Occupation - Retired * Marital status - * Children/grandchildren - 3 adult sons * Residence - Condo * Who do you reside with - * ETOH - No * Tobacco - Former smoker * Illicit drugs - No Functional Assessment * 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 Psychological/Emotional * Dementia present - No * Insight and judgment - Yes * Depression - No * Suicidal thoughts - No * Good support system - * Patients goals - Comfort * Frequent hospitalizations - No Symptoms * Pain - 0/10, Continue Tylenol, Morphine, Nitro, and Ranexa * Fatigue - general weakness, fatigue, debilitated, and frail * SOB - Yes, labored breathing at rest. Patient on airvo 60 L O2 and 90% FiO2. Continue Zaroxolyn, Lasix drip, and Rocephin * Insomnia - Yes, continue Ambien prn * N/V - Occasional, continue Zorfan prn * Anxiety - Occasional, continue Xanax prn * Depression - * Confusion - * Agitation - * Hallucinations - * Appetite/weight loss - * Dysphagia - * Constipation - yes, Continue Metamucil and lactulose * Incontinence - Tucker catheter, oliguric, continue Lasix drip, and dobutamine * Itch - no * Cough - no Plan: Summary/Goals - The patient is resting in bed. His granddaughter is present. The patient is awake and oriented 3 and able to answer questions appropriately. His breathing is labored and he is short of breath at rest. Palliative care philosophies and services explained to the patient and his granddaughter. Education was provided regarding the patient's acute and chronic conditions and the trajectory of his illness. The patient stated that he does not want to live like this. He stated he does not want to suffer and his goal of care is comfort. His granddaughter stated that the family is all on the same page and does not want to see him suffer. There is an informational meeting with hospice today at 11:00 with family. Spoke to the patient's RN. She stated that the patient is declining and she had to put his BiPAP mask back on. The patient's is present. Spoke to the patient's son, Jerry, via telephone. He stated that they had their hospice meeting at 11:00 today but agreed that the needed time to fill her mother and on the father's condition because she was just discharged from the hospital last night. Jerry also indicated that he thought there was another meeting this evening taking place regarding hospice or comfort care. Spoke with hospice nurse, Lucina, who stated there is not another meeting scheduled for today. She stated the family was to contact her when they were ready to make decisions. She also stated that she would follow up and call the patient's son Jarod to make sure the family is aware that there is no additional meeting this evening. The patient's nurse was updated. Recommendations - comfort care Advanced Directives - none on file Code Status - DO NOT RESUSCITATE Thank you for this consultation Dorene Leigh [facility] Palliative Care [facility] [id number] Email: [email or web address] Time with Patient: Greater than 30
--- NOTE | 2022-05-12 16:21 | P.PN ---
Progress Note - Text Progress Note Date: 05/12/22 Chief Complaint: Chest pain This is a pleasant 86-year-old patient who follows with Dr. Ag Burns. Patient had a coronary bypass in 2000. Chronic stable medical conditions include diabetes type 2, hypertension, hyperlipidemia, PAD, carotid stenosis, CAD, ischemic cardiomyopathy, loop recorder since 2019. He does follow with a local retail and promotions coordinator Dr. Conroy and also with Dr. Lowry in [place]. On April 26 for sick sinus syndrome had a permanent pacemaker placed. Prior to this he was having bradycardia and his Lopressor was discontinued. In the last 2 days patient started having shortness of breath. No edema. No cough. No sputum. No fever no chills. Also started feeling the burning sensation across the chest. The last 24 hours. Also going up to his left shoulder. No obvious relieving or precipitating factors. Heart rate in the ER was over 100. Baseline heart rate is around 60. Overnight patient became more short of breath. 1 dose of IV Lasix 80 mg was given. Need close to 400 mL of urine. Also concern about pneumonia and some started on antibiotics. Patient did require BiPAP for shortness of breath so moved to the ICU Admitted with pneumonia, acute hypoxic respiratory failure, acute and chronic CHF, acute non-Q wave KS, and acute kidney injury/ATN. IV heparin, IV ceftriaxone, oxygen, IV Lasix, 05/07/2022: ICU: Underwent bilateral thoracentesis by Dr. Ring 1500 mL removed from the right site and 1350 from the left side. Currently unable with the 60 L and 93%. Drips include amiodarone, nitroglycerin, IV heparin. Reclining in bed, awake, tired. Eating some 05/08/2022: ICU. Up in a recliner. Remains on airvo 60/90. Eating about 50%. Given lactulose and Metamucil for a BM. Remains in atrial fibrillation controlled. On IV Lasix. IV dobutamine. Creatinine creeping up. 05/09/2022: ICU. Remains in atrial fibrillation controlled. Drips include IV heparin and IV dobutamine. Eating little. And showed being added. On AIRVO. 60/90. Tired. Samsca 1 dose given by nephrology. 05/10/2022: ICU. Atrial fibrillation uncontrolled. Lopressor 12.5 by mouth 3 times a day added. Remains on IV dobutamine and IV heparin. Patient was on BiPAP overnight now on iairvo. Decreased appetite. Change diet to ground. Midodrine dose increased. Also received a dose of Samsca. Had some chest pain. Nitropaste added by cardiology. Tired. Remains on IV Lasix. Creatinine creeping up further 05/11/2022: ICU. CODE STATUS has been changed to DO NOT RESUSCITATE. Short of breath. Remains on BiPAP. 03/16/%. Remains in atrial fibrillation controlled. IV heparin. IV debridement stopped this morning. Midodrine increased to 10 mg daily. Constipation. Dulcolax suppository ordered. Information is at for hospice is being to done today. 05/12/2022: ICU: Up in a chair. Using airvo. Was put on a Lasix drip by Dr. Mckeon. Not making any urine. Some family at the bedside. Patient tired. Active Medications Acetaminophen (Acetaminophen Tab 325 Mg Tab) 650 mg PO Q6HR PRN PRN Reason: Mild Pain or Fever > 100.5 Last Admin: 05/12/22 13:39 Dose: 650 mg Alprazolam (Alprazolam 0.25 Mg Tab) 0.25 mg PO Q8H PRN PRN Reason: Anxiety Last Admin: 05/12/22 13:39 Dose: 0.25 mg Amiodarone HCl (Amiodarone 200 Mg Tab) 200 mg PO BID [facility] Last Admin: 05/12/22 09:47 Dose: 200 mg Aspirin (Aspirin 81 Mg) 81 mg PO DAILY [facility] Last Admin: 05/12/22 09:47 Dose: 81 mg Atorvastatin Calcium (Atorvastatin 80 Mg Tab) 80 mg PO HS [facility] Last Admin: 05/11/22 21:30 Dose: 80 mg Calcitriol (Calcitriol 0.25 Mcg Cap) 0.25 mcg PO DAILY [facility] Last Admin: 05/12/22 09:28 Dose: Not Given Dextrose/Water (Dextrose 50% Syringe 50 Ml) 25 ml IVP PER PROTOCOL PRN; Protocol PRN Reason: Hypoglycemia Dextrose/Water (Dextrose 50% Syringe 50 Ml) 50 ml IVP PER PROTOCOL PRN; Protocol PRN Reason: Hypoglycemia Famotidine (Famotidine 20 Mg Tab) 20 mg PO DAILY [facility] Last Admin: 05/12/22 09:28 Dose: Not Given Heparin Sodium (Porcine) (Heparin Sodium 1,000 Un/Ml (10ml Vl)) 0 unit IV PER PROTOCOL PRN; Protocol PRN Reason: Low PTT Heparin Sodium/Sodium Chloride (25,000 unit/ Sodium Chloride) 250 mls @ 9.492 mls/hr IV .Q24H [facility]ELIPE; Protocol Last Titration: 05/12/22 09:30 Dose: 9 units/kg/hr, 7.119 mls/hr Ceftriaxone Sodium 1 gm/ (Sodium Chloride) 50 mls @ 100 mls/hr IVPB Q12HR FELIPE; Protocol Last Admin: 05/12/22 09:47 Dose: 100 mls/hr Dobutamine HCl/Dextrose 500 mg (/ IV Solution) 250 mls @ 5.888 mls/hr IV .Q24H [facility] Last Admin: 05/12/22 06:48 Dose: Not Given Furosemide 100 mg/ Sodium (Chloride) 100 mls @ 10 mls/hr IV .Q10H [facility]EL[facility] Last Admin: 05/12/22 10:06 Dose: 10 mg/hr, 10 mls/hr Insulin Aspart (Insulin Aspart (Novolog) 100 Unit/Ml Vial) 0 unit SQ ACHS [facility]EL[facility]; Protocol Last Admin: 05/12/22 11:36 Dose: 4 unit Lactulose (Lactulose 20 Gm/30 Ml Cup) 20 gm PO DAILY PRN PRN Reason: Constipation Last Admin: 05/11/22 06:43 Dose: 20 gm Levothyroxine Sodium (Levothyroxine 125 Mcg Tab) 125 mcg PO DAILY [facility] Last Admin: 05/12/22 09:47 Dose: 125 mcg Metolazone (Metolazone 5 Mg Tab) 5 mg PO DAILY [facility] Last Admin: 05/12/22 09:47 Dose: 5 mg Metoprolol Tartrate (Metoprolol Tartrate 12.5 Mg Tab) 12.5 mg PO TID [facility] Last Admin: 05/12/22 16:06 Dose: Not Given Midodrine (Midodrine 5 Mg Tab) 10 mg PO AC-TID [facility] Last Admin: 05/12/22 11:37 Dose: 10 mg Miscellaneous Information (Potassium Replacement Protocol 1 Each Misc) 1 each MISCELLANE DAILY PRN; Protocol PRN Reason: Per Protocol Morphine Sulfate (Morphine Sulfate 4 Mg/Ml Syringe) 4 mg IV Q4HR PRN PRN Reason: Severe Pain (Scale 7 to 10) Last Admin: 05/11/22 18:45 Dose: 2 mg Naloxone HCl (Naloxone 0.4 Mg/Ml 1 Ml Vial) 0.2 mg IV Q2M PRN PRN Reason: Opioid Reversal Nitroglycerin (Nitroglycerin Sl Tabs 0.4 Mg Tab) 0.4 mg SUBLINGUAL Q10M PRN PRN Reason: Chest Pain Last Admin: 05/09/22 22:34 Dose: 0.4 mg Nitroglycerin (Nitroglycerin Oint 1 Inch/Gm Packet) 1 inch TOPICAL Q8HR [facility] Last Admin: 05/12/22 16:07 Dose: Not Given Ondansetron HCl (Ondansetron 4 Mg/2 Ml Vial) 4 mg IVP Q8HR PRN PRN Reason: Nausea And Vomiting Psyllium Hydrophilic Mucilloid (Psyllium Husk 100% 6 Gm Packet) 6 gm PO DAILY [facility] Last Admin: 05/12/22 09:28 Dose: Not Given Ranolazine (Ranolazine 500 Mg Tab.Er.12h) 500 mg PO BID [facility] Last Admin: 05/12/22 09:47 Dose: 500 mg Zolpidem Tartrate (Zolpidem 5 Mg Tab) 2.5 mg PO HS PRN PRN Reason: Insomnia Last Admin: 05/08/22 20:45 Dose: 2.5 mg Past medical history to include: Diabetes, GERD, hypertension, hyperlipidemia, osteoarthritis, KS, chronic kidney disease, hypothyroid, CAD with bypass about 20 years ago. Permanent pacemaker for sick sinus syndrome Social history: Occasional cigar. In the remote past. No alcohol. . Retired Family history: Reviewed, noncontributory to presentation Physical examination: VITAL SIGNS: 79, 23, 90/50, 95% on BiPAP GENERAL: Up in a chair, tired, short of breath. Permanent pacemaker EYES: Pupils equal. Conjunctiva normal. HEENT: External appearance of nose and ears normal, oral cavity grossly normal. NECK: JVD unable to assess; masses not palpable. HEART: Heart sounds irregular; no edema. LUNGS: Respiratory rate increased; decreased breath sounds. ABDOMEN: Soft, nontender, liver spleen not palpable, no masses palpable. PSYCH: mood and affect tired. MUSCULOSKELETAL:No Clubbing/cyanosis;muscles-grossly intact, OA INVESTIGATIONS, reviewed in the clinical context: 05/12/2022: WBC 15.9 hemoglobin 11.8 platelets 328 sodium 129 BUN 102 creatinine 3.76 05/11/2022: WBC 11.1 hemoglobin 11.2 platelets 255 sodium 1:30 potassium 4.1 BUN 86 creatinine 2.65 05/10/2022: White count 8.8 hemoglobin 11.3 sodium 127 potassium 3.9 BUN 78 creatinine 2.66 05/09/2022: WBC 11 hemoglobin 11 platelets 209 sodium 127 potassium 3.6 BUN 78 creatinine 2.61 05/08/2022: WBC 12.9 hemoglobin 11.8 potassium 4 BUN 35 creatinine 2.63 05/07/2022: WBC 13.7 hemoglobin 11.3 platelets 2063.8. 60 creatinine 2.37 05/06/2022: WBC 12.5 hemoglobin 11.5 platelets 216 potassium 4.4 BUN 49 creatinine 2.25 Admission labs: WBC 14.1 in globin 12.1 platelets 28 potassium 4.9. 42 creatinine 1.77 Troponin I 0.014, 0.707, 0.904, 1.5, 4.7 Influenza type A/diabetes/RSV/COVID-19: Not detected EKG tracing personally reviewed by me-atrial fibrillation, heart rate 110 Chest x-ray film personally reviewed by me-left lower lobe infiltrate, venous prominent edema Previous labs: Creatinine 1.46 in October 2021 Assessment and plan: -Acute non-Q-wave KS in a patient with known CAD Aspirin, Lopressor -Left lower lobe pneumonia, suspect gram-negative organism Ceftriaxone 1 g every 12. Procalcitonin 1.29 -Acute hypoxic respiratory failure secondary to CHF and pneumonia: Not improving BiPAP -IV heparin monitoring Follow PTT -Acute kidney injury, likely ATN's/ combination of cardiorenal syndrome: Worsening Admission creatinine 1.77-up to 3.76 -Chronic kidney disease suspect nephrosclerosis stage III Baseline creatinine 1.46 -CAD with a prior history of coronary bypass. does follow Dr. Conroy Aspirin, beta jon, Lipitor -Permanent pacemaker placed on 04/26/2022 for sick sinus syndrome -Acute on chronic congestive heart failure exacerbation. From ischemic cardiomyopathy EF 40-45%, slow to respond Received Lasix, dobutamine drip-stopped -Essential hypertension Lopressor 12.5 by mouth 3 times a day, Cordarone 200 mg twice a day -Hyperlipidemia Lipitor 80 mg daily at bedtime -Persistent atrial fibrillation, rapid ventricular rate on presentation: Controlled Lopressor. IV heparin, Cordarone 200 mg twice daily -Hypothyroid Synthroid 125 g a day -Diabetes mellitus type 2, chronic insulin Accu-Cheks and sliding scale. -Hyponatremia, from decreased solute intake Samsca -DO NOT RESUSCITATE IV heparin. IV ceftriaxone. IV Lasix drip. airvo and BiPAP Prognosis guarded. Patient is leaning toward possible hospice. will be coming in, family will be meeting amongst themselves.
[2022-05-12 16:27] LABS: Glucose,Whole Blood 241 mg/dL (70-110)
[2022-05-12 18:08] VITALS: BP 106/86; PULSE 80; RESP 18
--- NOTE | 2022-05-13 17:22 | P.DS ---
Providers Date of admission: 05/05/22 17:31 Expected date of discharge: 05/12/22 Attending physician: Harry Capellan Consults: 05/05/22 17:59 Consult Physician Routine Consulting Provider: [facility] Consult Reason/Comments: CHF, Chest Pain, Recent pacemaker placement Do you want consulting provider notified?: Yes, Notify in am 05/05/22 23:35 Consult Physician Routine Consulting Provider: Sierra Ring Consult Reason/Comments: increasing SOB Do you want consulting provider notified?: Yes 05/06/22 09:24 Consult Physician Routine Consulting Provider: Chaparrita Mckeon Consult Reason/Comments: chronic renal disease with current CHF Do you want consulting provider notified?: Yes 05/10/22 20:00 Consult to Palliative Care Routine Consulting Provider: Dorene Leigh Consult Reason/Comments: heart failure, hypoxic respiratory failure Do you want consulting provider notified?: Yes Primary care physician: [facility] Course: Chief Complaint: Chest pain This is a pleasant 86-year-old patient who follows with Dr. Ag Burns. Patient had a coronary bypass in 2000. Chronic stable medical conditions include diabetes type 2, hypertension, hyperlipidemia, PAD, carotid stenosis, CAD, ischemic cardiomyopathy, loop recorder since 2019. He does follow with a local bench worker binding Dr. Conroy and also with Dr. Lowry in [place]. On April 26 for sick sinus syndrome had a permanent pacemaker placed. Prior to this he was having bradycardia and his Lopressor was discontinued. In the last 2 days patient started having shortness of breath. No edema. No cough. No sputum. No fever no chills. Also started feeling the burning sensation across the chest. The last 24 hours. Also going up to his left shoulder. No obvious relieving or precipitating factors. Heart rate in the ER was over 100. Baseline heart rate is around 60. Overnight patient became more short of breath. 1 dose of IV Lasix 80 mg was given. Need close to 400 mL of urine. Also concern about pneumonia and some started on antibiotics. Patient did require BiPAP for shortness of breath so moved to the ICU Admitted with pneumonia, acute hypoxic respiratory failure, acute and chronic CHF, acute non-Q wave MA, and acute kidney injury/ATN. IV heparin, IV ceftriaxone, oxygen, IV Lasix, 05/07/2022: ICU: Underwent bilateral thoracentesis by Dr. Ring 1500 mL removed from the right site and 1350 from the left side. Currently unable with the 60 L and 93%. Drips include amiodarone, nitroglycerin, IV heparin. Reclining in bed, awake, tired. Eating some 05/08/2022: ICU. Up in a recliner. Remains on airvo 60/90. Eating about 50%. Given lactulose and Metamucil for a BM. Remains in atrial fibrillation controlled. On IV Lasix. IV dobutamine. Creatinine creeping up. 05/09/2022: ICU. Remains in atrial fibrillation controlled. Drips include IV heparin and IV dobutamine. Eating little. And showed being added. On AIRVO. 60/90. Tired. Samsca 1 dose given by nephrology. 05/10/2022: ICU. Atrial fibrillation uncontrolled. Lopressor 12.5 by mouth 3 times a day added. Remains on IV dobutamine and IV heparin. Patient was on BiPAP overnight now on iairvo. Decreased appetite. Change diet to ground. Midodrine dose increased. Also received a dose of Samsca. Had some chest pain. Nitropaste added by cardiology. Tired. Remains on IV Lasix. Creatinine creeping up further 05/11/2022: ICU. CODE STATUS has been changed to DO NOT RESUSCITATE. Short of breath. Remains on BiPAP. 03/16/90%. Remains in atrial fibrillation controlled. IV heparin. IV debridement stopped this morning. Midodrine increased to 10 mg daily. Constipation. Dulcolax suppository ordered. Information is at for hospice is being to done today. 05/12/2022: ICU: Up in a chair. Using airvo. Was put on a Lasix drip by Dr. Mckeon. Not making any urine. Some family at the bedside. Patient tired. Patient was late in the day put under GIP/hospice. Past medical history to include: Diabetes, GERD, hypertension, hyperlipidemia, osteoarthritis, MA, chronic kidney disease, hypothyroid, CAD with bypass about 20 years ago. Permanent pacemaker for sick sinus syndrome Social history: Occasional cigar. In the remote past. No alcohol. . Retired Family history: Reviewed, noncontributory to presentation Physical examination: VITAL SIGNS: 79, 23, 90/50, 95% on BiPAP GENERAL: Up in a chair, tired, short of breath. Permanent pacemaker EYES: Pupils equal. Conjunctiva normal. HEENT: External appearance of nose and ears normal, oral cavity grossly normal. NECK: JVD unable to assess; masses not palpable. HEART: Heart sounds irregular; no edema. LUNGS: Respiratory rate increased; decreased breath sounds. ABDOMEN: Soft, nontender, liver spleen not palpable, no masses palpable. PSYCH: mood and affect tired. MUSCULOSKELETAL:No Clubbing/cyanosis;muscles-grossly intact, OA INVESTIGATIONS, reviewed in the clinical context: 05/12/2022: WBC 15.9 hemoglobin 11.8 platelets 328 sodium 129 BUN 102 creatinine 3.76 05/11/2022: WBC 11.1 hemoglobin 11.2 platelets 255 sodium 1:30 potassium 4.1 BUN 86 creatinine 2.65 05/10/2022: White count 8.8 hemoglobin 11.3 sodium 127 potassium 3.9 BUN 78 creatinine 2.66 05/09/2022: WBC 11 hemoglobin 11 platelets 209 sodium 127 potassium 3.6 BUN 78 creatinine 2.61 05/08/2022: WBC 12.9 hemoglobin 11.8 potassium 4 BUN 35 creatinine 2.63 05/07/2022: WBC 13.7 hemoglobin 11.3 platelets 2063.8. 60 creatinine 2.37 05/06/2022: WBC 12.5 hemoglobin 11.5 platelets 216 potassium 4.4 BUN 49 creatinine 2.25 Admission labs: WBC 14.1 in globin 12.1 platelets 28 potassium 4.9. 42 creatinine 1.77 Troponin I 0.014, 0.707, 0.904, 1.5, 4.7 Influenza type A/diabetes/RSV/COVID-19: Not detected EKG tracing personally reviewed by me-atrial fibrillation, heart rate 110 Chest x-ray film personally reviewed by me-left lower lobe infiltrate, venous prominent edema Previous labs: Creatinine 1.46 in October 2021 Assessment and plan: -Acute non-Q-wave MA in a patient with known CAD Aspirin, Lopressor -Left lower lobe pneumonia, suspect gram-negative organism Ceftriaxone 1 g every 12. Procalcitonin 1.29 -Acute hypoxic respiratory failure secondary to CHF and pneumonia: Not improving BiPAP -IV heparin monitoring Follow PTT -Acute kidney injury, likely ATN's/ combination of cardiorenal syndrome: Worsening Admission creatinine 1.77-up to 3.76 -Chronic kidney disease suspect nephrosclerosis stage III Baseline creatinine 1.46 -CAD with a prior history of coronary bypass. does follow Dr. Conroy Aspirin, beta jon, Lipitor -Permanent pacemaker placed on 04/26/2022 for sick sinus syndrome -Acute on chronic congestive heart failure exacerbation. From ischemic cardiomyopathy EF 40-45%, slow to respond Received Lasix, dobutamine drip-stopped -Essential hypertension Lopressor 12.5 by mouth 3 times a day, Cordarone 200 mg twice a day -Hyperlipidemia Lipitor 80 mg daily at bedtime -Persistent atrial fibrillation, rapid ventricular rate on presentation: Controlled Lopressor. IV heparin, Cordarone 200 mg twice daily -Hypothyroid Synthroid 125 g a day -Diabetes mellitus type 2, chronic insulin Accu-Cheks and sliding scale. -Hyponatremia, from decreased solute intake Samsca -DO NOT RESUSCITATE Disposition: GIP/hospice Plan - Discharge Summary Discharge Rx Participant: No New Discharge Prescriptions: No Action Isosorbide Mononitrate ER [Imdur] 30 mg PO DAILY Insulin Degludec [Tresiba Flextouch U-200 Pen] 20 units SQ DAILY amLODIPine [Norvasc] 5 mg PO BID Aspirin EC [Ecotrin Low Dose] 81 mg PO DAILY INSULIN LISPRO (humaLOG) [humaLOG] See Protocol SQ AC-TID Furosemide [Lasix] 40 mg PO DAILY #30 tab Ranolazine [Ranolazine ER] 500 mg PO BID calcitrioL [Rocaltrol] 0.25 mcg PO DAILY Apixaban [Eliquis] 2.5 mg PO BID Metoprolol Succinate (ER) [Toprol Xl] 25 mg PO BID Atorvastatin [Lipitor] 80 mg PO HS Levothyroxine Sodium [Synthroid] 125 mcg PO DAILY Discharge Medication List Isosorbide Mononitrate ER [Imdur] 30 mg PO DAILY 12/15/17 [History] Insulin Degludec [Tresiba Flextouch U-200 Pen] 20 units SQ DAILY 01/13/19 [History] amLODIPine [Norvasc] 5 mg PO BID 01/13/19 [History] Aspirin EC [Ecotrin Low Dose] 81 mg PO DAILY 10/21/21 [History] Atorvastatin [Lipitor] 80 mg PO HS 10/21/21 [History] INSULIN LISPRO (humaLOG) [humaLOG] See Protocol SQ AC-TID 10/21/21 [History] Levothyroxine Sodium [Synthroid] 125 mcg PO DAILY 10/21/21 [History] Furosemide [Lasix] 40 mg PO DAILY #30 tab 10/23/21 [Rx] Ranolazine [Ranolazine ER] 500 mg PO BID 04/26/22 [History] Apixaban [Eliquis] 2.5 mg PO BID 05/05/22 [History] Metoprolol Succinate (ER) [Toprol Xl] 25 mg PO BID 05/05/22 [History] calcitrioL [Rocaltrol] 0.25 mcg PO DAILY 05/05/22 [History] Follow up Appointment(s)/Referral(s): [facility], [NON-STAFF] - Ag Burns MD [Primary Care Provider] - 1-2 days Discharge Disposition: DISCH TO [facility]
== END 2022-05-12 18:37 | disposition hospice, inpatient (51) | DRG 280 ==
LOC: EC 16:05 → 3SCARD 17:31 → 2SICU 05-06 00:50
PROVIDERS: ADMIT Hospitalist; ATTEND Hospitalist
PROC: 5A09457 Assistance with Respiratory Ventilation, 24-96 Consecutive Hours, Continuous Positive Airway Pressure (ICD-10-PCS; 2022-05-06)
PROC: 0W993ZX Drainage of Right Pleural Cavity, Percutaneous Approach, Diagnostic (ICD-10-PCS; principal; 2022-05-07)
PROC: 0W9B3ZZ Drainage of Left Pleural Cavity, Percutaneous Approach (ICD-10-PCS; principal; 2022-05-07)
DX: I21.4 Non-ST elevation (NSTEMI) myocardial infarction (principal); I50.23 Acute on chronic systolic (congestive) heart failure; J15.6 Pneumonia due to other Gram-negative bacteria; N17.0 Acute kidney failure with tubular necrosis; J96.01 Acute respiratory failure with hypoxia; R57.0 Cardiogenic shock; I13.0 Hypertensive heart and chronic kidney disease with heart failure and stage 1 through stage 4 chronic kidney disease, or unspecified chronic kidney disease; I31.39 Other pericardial effusion (noninflammatory); I48.19 Other persistent atrial fibrillation; E87.1 Hypo-osmolality and hyponatremia; J90 Pleural effusion, not elsewhere classified; I25.5 Ischemic cardiomyopathy; E11.22 Type 2 diabetes mellitus with diabetic chronic kidney disease; E11.51 Type 2 diabetes mellitus with diabetic peripheral angiopathy without gangrene; E83.9 Disorder of mineral metabolism, unspecified; I08.0 Rheumatic disorders of both mitral and aortic valves; Z95.1 Presence of aortocoronary bypass graft; Z66 Do not resuscitate; Z51.5 Encounter for palliative care; F32.A Depression, unspecified; I44.7 Left bundle-branch block, unspecified; Z20.822 Contact with and (suspected) exposure to COVID-19; N18.32 Chronic kidney disease, stage 3b; I49.5 Sick sinus syndrome; E03.9 Hypothyroidism, unspecified; I65.29 Occlusion and stenosis of unspecified carotid artery; Z28.311 Partially vaccinated for COVID-19; K59.00 Constipation, unspecified; I25.10 Atherosclerotic heart disease of native coronary artery without angina pectoris; F41.9 Anxiety disorder, unspecified; G47.00 Insomnia, unspecified; N40.0 Benign prostatic hyperplasia without lower urinary tract symptoms; I25.2 Old myocardial infarction; R13.10 Dysphagia, unspecified; I87.2 Venous insufficiency (chronic) (peripheral); D47.2 Monoclonal gammopathy; F17.290 Nicotine dependence, other tobacco product, uncomplicated; E78.5 Hyperlipidemia, unspecified; Z79.01 Long term (current) use of anticoagulants; Z79.4 Long term (current) use of insulin; Z79.82 Long term (current) use of aspirin; Z79.890 Hormone replacement therapy; Z79.899 Other long term (current) drug therapy; Z95.0 Presence of cardiac pacemaker; Z83.3 Family history of diabetes mellitus
CPT/HCPCS: 36415; 71045; 71046; 76604; 76770; 80048; 80053; 81003; 82553; 82565; 82945; 83036; 83605; 83615; 83735; 83880; 84132; 84145; 84157; 84484; 84520; 85025; 85027; 85379; 85610; 85730; 87040; 87070; 87205; 87636; 88108; 88305; 88341; 88342; 89050; 93005; 93306; 94660; 94760; 96374; 96375; 96376; 99285

== ENCOUNTER 2022-05-12 15:58 | Inpatient (IN) | payer MEDICAID ==
[2022-05-12] MEDS ORDERED: ACETAMINOPHEN SUPPOSITORY 650 MG SUPP RECTAL PRN (16:51)
[2022-05-12] MEDS ORDERED: ONDANSETRON 4 MG/2 ML VIAL IVP PRN (16:57)
[2022-05-12] MEDS ORDERED: GLYCOPYRROLATE 0.2 MG/ML 2 ML VIAL IVP PRN (16:57)
[2022-05-12] MEDS ORDERED: LORazepam 2 MG/ML INJ IV PRN (16:57)
[2022-05-12] MEDS ORDERED: ATROPINE OPHTH SOLN 1% 5ML BTL SUBLINGUAL PRN (16:57)
[2022-05-12] MEDS ORDERED: SCOPOLAMINE 1 MG/72 HR PATCH TRANSDERM SCH (17:00)
[2022-05-12] MEDS ORDERED: MORPHINE SULFATE (100 MG/2 ML) 100 MG in SODIUM CHLORIDE 0.9% 100 ML IV SCH (17:00)
[2022-05-12] MEDS: MORPHINE SULFATE 2 MG/ML SYRINGE IV PRN (21:58)
[2022-05-13] MEDS: MORPHINE SULFATE 2 MG/ML SYRINGE IV PRN ×3 (00:24→03:37)
[2022-05-13 02:00] VITALS: BP 97/70; PULSE 68; TEMP 97.6
--- NOTE | 2022-05-13 17:25 | P.PN ---
Progress Note - Text Progress Note Date: 05/13/22 Presenting complaint: Short of breath Hospital course: Patient under GIP. Hospice. On Airvo. at the bedside. Morphine. Drip. On examination: Short of breath. Airvo Respiratory: Effort increased, decreased breath sounds Gen.: Lethargic Cardiovascular: First seconds are normal Assessment: Pneumonia, CAD, CHF, A. fib End-of-life care Morphine drip. Comfort measures. Discussed with at the bedside.
[2022-05-13 20:06] VITALS: RESP 19
--- NOTE | 2022-05-14 16:22 | P.DS ---
Providers Date of admission: 05/12/22 18:44 Expected date of discharge: 05/13/22 Attending physician: Harry Capellan Primary care physician: [facility] Course: Presenting complaint: Short of breath Hospital course: Patient under GIP. Hospice. On Airvo. at the bedside. Morphine. Drip. Late in the day patient Cause of : Pneumonia CAD, Plan - Discharge Summary New Discharge Prescriptions: No Action Isosorbide Mononitrate ER [Imdur] 30 mg PO DAILY Insulin Degludec [Tresiba Flextouch U-200 Pen] 20 units SQ DAILY amLODIPine [Norvasc] 5 mg PO BID Aspirin EC [Ecotrin Low Dose] 81 mg PO DAILY INSULIN LISPRO (humaLOG) [humaLOG] See Protocol SQ AC-TID Furosemide [Lasix] 40 mg PO DAILY #30 tab Ranolazine [Ranolazine ER] 500 mg PO BID calcitrioL [Rocaltrol] 0.25 mcg PO DAILY Apixaban [Eliquis] 2.5 mg PO BID Metoprolol Succinate (ER) [Toprol Xl] 25 mg PO BID Atorvastatin [Lipitor] 80 mg PO HS Levothyroxine Sodium [Synthroid] 125 mcg PO DAILY Discharge Medication List Isosorbide Mononitrate ER [Imdur] 30 mg PO DAILY 12/15/17 [History] Insulin Degludec [Tresiba Flextouch U-200 Pen] 20 units SQ DAILY 01/13/19 [History] amLODIPine [Norvasc] 5 mg PO BID 01/13/19 [History] Aspirin EC [Ecotrin Low Dose] 81 mg PO DAILY 10/21/21 [History] Atorvastatin [Lipitor] 80 mg PO HS 10/21/21 [History] INSULIN LISPRO (humaLOG) [humaLOG] See Protocol SQ AC-TID 10/21/21 [History] Levothyroxine Sodium [Synthroid] 125 mcg PO DAILY 10/21/21 [History] Furosemide [Lasix] 40 mg PO DAILY #30 tab 10/23/21 [Rx] Ranolazine [Ranolazine ER] 500 mg PO BID 04/26/22 [History] Apixaban [Eliquis] 2.5 mg PO BID 05/05/22 [History] Metoprolol Succinate (ER) [Toprol Xl] 25 mg PO BID 05/05/22 [History] calcitrioL [Rocaltrol] 0.25 mcg PO DAILY 05/05/22 [History] Discharge Disposition: - Preliminary Cause of Preliminary Cause of : Pneumonia
== END 2022-05-13 23:08 | disposition expired | DRG 951 ==
LOC: 2SICU 18:44 → 4SSUR 05-13 14:39
PROVIDERS: ADMIT Hospitalist; ATTEND Hospitalist
DX: Z51.5 Encounter for palliative care (principal); J15.6 Pneumonia due to other Gram-negative bacteria; I21.4 Non-ST elevation (NSTEMI) myocardial infarction; J96.01 Acute respiratory failure with hypoxia; N17.0 Acute kidney failure with tubular necrosis; I50.23 Acute on chronic systolic (congestive) heart failure; I48.19 Other persistent atrial fibrillation; I25.10 Atherosclerotic heart disease of native coronary artery without angina pectoris; I65.29 Occlusion and stenosis of unspecified carotid artery; E11.22 Type 2 diabetes mellitus with diabetic chronic kidney disease; N18.30 Chronic kidney disease, stage 3 unspecified; E03.9 Hypothyroidism, unspecified; I48.91 Unspecified atrial fibrillation; K21.9 Gastro-esophageal reflux disease without esophagitis; I25.5 Ischemic cardiomyopathy; E78.5 Hyperlipidemia, unspecified; M19.90 Unspecified osteoarthritis, unspecified site; Z95.0 Presence of cardiac pacemaker; Z79.890 Hormone replacement therapy; Z79.4 Long term (current) use of insulin; Z79.899 Other long term (current) drug therapy; Z79.82 Long term (current) use of aspirin
CPT/HCPCS: 94660